=== PATIENT | male | born 1940 | race Caucasian/White ===

== ENCOUNTER → 2016-07-09 | Outpatient (CLI) | payer BC ==
[~2016-07-09] MED LIST: ADVIN50050 INH; APIX1TAB3 PO; ASPEC81 PO; ASPI325T45 PO; ATOR-24 PO; CALC-393 PO; CRD30 PO; FINA5TAB4 PO; LISI5TAB PO; LPR25 PO; MULT-845 PO; NAPR-1169 PO; NTRO1 EXT; NTRSLP4 SL; OMEG12006 PO; PARO20TA PO; POLY335019 PO; VERA1TAB60 PO; ZNTT/150 PO
[2016-07-09 12:42] LABS: ESTIMATED AVERAGE GLUCOSE 126 mg/dl; HA1C FLAG Normal (Normal)
[2016-07-09 14:47] LABS: ALT/SGPT 30 U/L (12-78); AST/SGOT 16 U/L (15-37); BLOOD UREA NITROGEN 29 mg/dl (7-18); BUN/CREATININE RATIO 22.4 (10-20); CALCIUM 9.4 mg/dl (8.5-10.1); CARBON DIOXIDE 26 mmol/L (21-32); CHLORIDE 104 mmol/L (98-107); GLUCOSE 108 mg/dl (70-99); POTASSIUM 4.4 mmol/L (3.5-5.1); SODIUM 139 mmol/L (136-145)
[2016-07-09 14:50] LABS: ALB/GLOB RATIO 1.1 (0.9-2); ALKALINE PHOSPHATASE 91 U/L (45-117); CHOLESTEROL 151 mg/dl (0-200); CHOLESTEROL/HDL RATIO 3.8; HDL CHOLESTEROL 40 mg/dl; LDL CHOLESTEROL CALCULATED 77 mg/dl; TRIGLYCERIDES 168 mg/dl (0-150); VERY LOW DENSITY LIPOPROT CALC 34 mg/dl
== END | disposition home or self-care (01) ==
LOC: C.LABPVFM 10:50
PROVIDERS: ATTEND Family Medicine
DX: E11.65 Type 2 diabetes mellitus with hyperglycemia (principal); E78.5 Hyperlipidemia, unspecified; I10 Essential (primary) hypertension

== ENCOUNTER 2016-07-20 07:27 | Inpatient (IN) | payer BC, OTHER ==
[~2016-07-20] VITALS: Ht 177.8 cm; Wt 91.8 kg
[~2016-07-20 07:27] MED LIST changes: -ASPEC81 PO; -LPR25 PO; -NTRO1 EXT; -NTRSLP4 SL; -ZNTT/150 PO
[2016-07-20] MEDS ORDERED: DILTIAZEM HCL 5 MG/ML 5 ML VIAL IV STA ×2 (07:55→08:39)
[2016-07-20 08:03] LABS: BASO % 0.1 %; BASO ABS # 0.01 K/uL (0-0.2); COMPLETE YES; HEMATOCRIT 42.5 % (42-52); IG% 0.1 %; LYMPH % 12.5 %; LYMPH ABS # 1.48 K/uL (1.2-3.4); MEAN CELL VOLUME 91.4 fL (80-100); MEAN CORPUSCULAR HEMOGLOBIN 31.4 pg (25-34); MEAN CORPUSCULAR HGB CONC 34.4 g/dl (32-36); MEAN PLATELET VOLUME 11.8 fL (7.4-10.4); MONO % 5.1 %; NEUT % 82.2 %; PLATELET COUNT 258 K/uL (130-400); RED BLOOD COUNT 4.65 M/uL (4.7-6.1)
--- NOTE | 2016-07-20 08:08 | EMERGENCY ROOM VISIT NOTE ---
History Report prepared by Rajat: Alana Ulrich Under the Supervision of: Dr. Mono Zimmerman M.D. First contact with patient: 07:46 Chief Complaint: THROAT PAIN/INJURY Stated Complaint: BURNING IN THROAT,SWEATING History of Present Illness The patient is a 75 year old male who presents to the Emergency Room with complaints of a persistent rapid heart rate that began around 0600 this morning. He currently rates his discomfort as a 4/10 in severity. The patient states that he was previously in atrial fibrillation once in the past. He states that he takes Eliquis twice a day for his symptoms, and states that he was taken off of Diltiazem. The patient additionally notes that he has been on Verapamil for several years. He states that when he previously went into atrial fibrillation, he experienced throat burning and states that it came on with strenuous activity. The patient states that yesterday morning he shoveled snow but felt fine after. He states that this morning he went to shovel snow and noticed the heart rate increase and become irregular. The patient states that his throat began burning and additionally notes that he felt diaphoretic. He denies any chest pain with his symptoms today. The patient states that he has intermittently felt lightheaded. Source of History: patient Onset: 0600 this morning Position: other (global) Symptom Intensity: 4/10 Quality: other (rapid heart rate) Timing: other (persistent) Modifying Factors (Worsening): exertion Associated Symptoms: + diaphoresis, No chest pain Note: Associated symptoms: lightheadedness, throat burning Review of Systems All systems have been listed, reviewed, and are negative other than those previously mentioned. Please see Additional Medical History Sheet. Past Medical & Surgical Medical Problems: (1) Asthma (2) Atrial fibrillation with RVR (3) Hypertension Family History Diabetes mellitus Hypertension Social History Smoking Status: Former Smoker Smokeless Tobacco Use: No Alcohol Use: none Marital Status: Housing Status: lives with family Occupation Status: employed Current/Historical Medications Scheduled Apixaban (Eliquis), 5 MG PO BID Atorvastatin (Lipitor), 60 MG PO QPM Calcium Carbonate (Calcium), 1 TAB PO BID Finasteride (Proscar), 5 MG PO QPM Fluticasone Prop/Salmeterol (Advair Diskus 500-50 Mcg/Dose), 1 PUFF INH QAM Lisinopril (Prinivil), 5 MG PO QAM Multiple Vitamins W/ Minerals (Centrum Silver Adult 50+), 1 TAB PO QAM [place]-3 Fatty Acids ([place] 3), 1 CAP PO BID Paroxetine Hcl (Paxil), 20 MG PO QPM Polyethylene Glycol 3350 (Miralax), 17 GM PO Q2D Verapamil Hcl (Calan Sr Ext Rel), 240 MG PO QPM Allergies Coded Allergies: Beta Adrenergic Blockers (Unverified Adverse Reaction, Unknown, HEADACHES , 07/20/16) Physical Exam Vital Signs Date Time Temp Pulse Resp B/P Pulse Ox O2 Delivery O2 Flow Rate FiO2 07/20/16 09:30 88 16 126/82 95 Room Air 07/20/16 09:15 95 Room Air 07/20/16 08:05 109 18 137/90 95 Room Air 07/20/16 07:44 118 07/20/16 07:33 96 Room Air 07/20/16 07:33 36.5 127 18 112/80 96 Room Air Physical Exam GENERAL: Patient awake, alert, oriented x 3. Patient follows commands. Patient does not appear toxic. Patient is adequately hydrated and well- nourished. SKIN: No erythema, pallor, cyanosis or rash HEENT: Normal head, pupils equal, reactive to light and accommodation. Ears normal. Oral cavity and posterior pharynx appear normal. Neck: Without adenopathy, no neck vein distention. LUNGS: Clear to auscultation. No wheezes, no rales, no rhonchi. HEART: Rapid, irregular, irregular rate, no murmur. ABDOMEN: Soft, nontender. EXTREMITIES: No signs of trauma, edema, or infection. NEUROLOGIC: Cranial nerves II-XII within normal limits. No gross motor sensory function deficits. Medical Decision & Procedures Laboratory Results 07/20/16 07:45 Red Blood Count 4.65, Mean Corpuscular Volume 91.4, Mean Corpuscular Hemoglobin 31.4, Mean Corpuscular Hemoglobin Concent 34.4, Mean Platelet Volume 11.8, Neutrophils (%) (Auto) 82.2, Lymphocytes (%) (Auto) 12.5, Monocytes (%) (Auto) 5.1, Eosinophils (%) (Auto) 0.0, Basophils (%) (Auto) 0.1, Neutrophils # (Auto) 9.70, Lymphocytes # (Auto) 1.48, Monocytes # (Auto) 0.60, Eosinophils # (Auto) 0.00, Basophils # (Auto) 0.01 07/20/16 07:45 Test 07/20/16 07:45 White Blood Count 11.80 K/uL (4.8-10.8) Red Blood Count 4.65 M/uL (4.7-6.1) Hemoglobin 14.6 g/dL (14.0-18.0) Hematocrit 42.5 % (42-52) Mean Corpuscular Volume 91.4 fL (80-100) Mean Corpuscular Hemoglobin 31.4 pg (25-34) Mean Corpuscular Hemoglobin Concent 34.4 g/dl (32-36) Platelet Count 258 K/uL (130-400) Mean Platelet Volume 11.8 fL (7.4-10.4) Neutrophils (%) (Auto) 82.2 % Lymphocytes (%) (Auto) 12.5 % Monocytes (%) (Auto) 5.1 % Eosinophils (%) (Auto) 0.0 % Basophils (%) (Auto) 0.1 % Neutrophils # (Auto) 9.70 K/uL (1.4-6.5) Lymphocytes # (Auto) 1.48 K/uL (1.2-3.4) Monocytes # (Auto) 0.60 K/uL (0.11-0.59) Eosinophils # (Auto) 0.00 K/uL (0-0.5) Basophils # (Auto) 0.01 K/uL (0-0.2) RDW Standard Deviation 47.9 fL (36.4-46.3) RDW Coefficient of Variation 14.3 % (11.5-14.5) Immature Granulocyte % (Auto) 0.1 % Immature Granulocyte # (Auto) 0.01 K/uL (0.00-0.02) Anion Gap 12.0 mmol/L (3-11) Est Creatinine Clear Calc Drug Dose 54.2 ml/min Estimated GFR () 57.4 Estimated GFR (Non- 49.5 BUN/Creatinine Ratio 21.4 (10-20) Calcium Level 9.5 mg/dl (8.5-10.1) Magnesium Level 2.2 mg/dl (1.8-2.4) Total Bilirubin 0.6 mg/dl (0.2-1) Aspartate Amino Transf (AST/SGOT) 34 U/L (15-37) Alanine Aminotransferase (ALT/SGPT) 45 U/L (12-78) Alkaline Phosphatase 91 U/L (45-117) Total Protein 8.0 gm/dl (6.4-8.2) Albumin 3.8 gm/dl (3.4-5.0) Globulin 4.2 gm/dl (2.5-4.0) Albumin/Globulin Ratio 0.9 (0.9-2) Laboratory results as stated above per my review. Medications Administered Medications (Trade) Dose Ordered Sig/Geovanna Route Start Time Stop Time Status Last Admin Dose Admin Diltiazem HCl (Cardizem Inj) 20 mg NOW STAT IV 07/20/16 07:55 07/20/16 07:56 DC 07/20/16 08:05 20 MG Diltiazem HCl (Cardizem Inj) 25 mg NOW STAT IV 07/20/16 08:39 07/20/16 08:41 DC 07/20/16 08:46 25 MG ECG Indication: tachycardia, other (atrial fibrillation) Rate (beats per minute): 121 Rhythm: atrial fibrillation (rapid ventricular response) Findings: nonspecific-ST abn, other (normal axis) ED Course 0747: Past medical records reviewed. The patient was evaluated in room B6. A complete history and physical examination was performed. 0755: Ordered Cardizem Inj 20 mg IV. 0839: I reevaluated the patient and he is resting comfortably. I discussed the exam findings with him and I discussed the treatment plan. He verbalized complete understanding and agreement. He is going to be evaluated for further treatment. Ordered Cardizem Inj 25 mg IV. 0850: I discussed the patients case with Dr. [place]nel[place] [facility] [place] He is going to evaluate the patient for further treatment. 0951: I reevaluated the patient and he feels about the same. He is still in atrial fibrillation. Medical Decision Nurses notes reviewed. Medical history sheet reviewed. Differential diagnosis includes but is not limited to: atrial fibrillation with rapid ventricular response, metabolic disorder, infection. The patient is here with atrial fibrillation with a rapid ventricular response. His troponin is elevated. The patient was given 2 IV doses of diltiazem without conversion. The patient is already on Eliquis. Multiple other labs, EKG and imaging were evaluated. Please see above. I discussed care with the patient and with the hospitalist. The patient will require further evaluation. Consults Time Called: [phone] Consulting Physician: BAYRON Granados Returned Call: 0850 I discussed the patients case with BAYRON Granados. He is going to evaluate the patient for further treatment. Impression Primary Impression: Atrial fibrillation with RVR Additional Impression: Elevated troponin Critical Care I have personally spent greater than 35 minutes of critical care time in the direct management of this patient. This includes bedside care, interpretation of diagnostic studies, and testing, discussion with consultants, patient, and family members, and other required patient management activities. This 35 minutes is in excess of all separately billable procedures. Scribe Attestation The scribe's documentation has been prepared under my direction and personally reviewed by me in its entirety. I confirm that the note above accurately reflects all work, treatment, procedures, and medical decision making performed by me. Departure Information Dispostion Being Evaluated By Hospitalist Referrals Aakash Phelps M.D. (PCP) Problem Qualifiers
[2016-07-20 08:19] LABS: BUN/CREATININE RATIO 21.4 (10-20); CALCIUM 9.5 mg/dl (8.5-10.1); CREATININE 1.4 mg/dl (0.60-1.40); POTASSIUM 4.3 mmol/L (3.5-5.1)
[2016-07-20 08:29] LABS: ALB/GLOB RATIO 0.9 (0.9-2)
[2016-07-20 09:15] VITALS: O2SAT 95; Ht 177.8 cm; Wt 91.8 kg
[2016-07-20] MEDS ORDERED: ACETAMINOPHEN 325 MG TAB PO PRN (09:30)
[2016-07-20] MEDS ORDERED: ALUMINUM/MAGNESIUM/SIMETH (MAALOX MAX) 30 ML UDC PO PRN (09:30)
[2016-07-20] MEDS ORDERED: ONDANSETRON INJ 2 MG/ML 2 ML VIAL IV PRN (09:30)
[2016-07-20] MEDS ORDERED: POLYETHYLENE (MIRALAX) 17 GM PACK PO PRN (09:30)
[2016-07-20] MEDS ORDERED: MAGNESIUM HYDROXIDE SUSP 30 ML UDC PO PRN (09:30)
[2016-07-20] MEDS ORDERED: NITROGLYCERIN 0.4 MG SL PER TAB CHARGE SL PRN (09:30)
[2016-07-20] MEDS ORDERED: VERAPAMIL HCL 120 MG TABCR PO ONE (09:33)
--- NOTE | 2016-07-20 09:47 | History and Physical ---
History & Physical Date & Time of Service: Jul 20, 2016 at 09:36 Chief Complaint: Burning In Throat,Sweating Primary Care Physician: Aakash Phelps M.D. History of Present Illness Source: patient Mr Jordan Barrios is a 75 yo M with history of hypertension for 20 years and atrial fibrillation (on Eliquis and Verapamil) for 6 months who presents with atrial fibrillation with RVR since 6am this morning. He reports yesterday he shoveled snow without any difficulty. Today, he was shoveling snow again / using his snowblower and then all of a sudden felt his throat burn significantly , then noticed he was very sweaty and that his heart rate was going fast. He decided to drive up from [facility] to the ED to get evaluated. He reports he has had a history of horrible "throat burning" pain over the last year, which has caused his to lose his appetite and lose about 10 lbs. He reports his PCP recently put him on anti-reflux medications and it somewhat helped. He reports he cannot live with this pain. He reports he has never had an EGD but would be interested in one. 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[employer]) Multi-Drug Resistant Organisms History of MDRO: No Allergies Coded Allergies: Beta Adrenergic Blockers (Unverified Adverse Reaction, Unknown, HEADACHES , 07/20/16) Home Medications Scheduled Apixaban (Eliquis), 5 MG PO BID Atorvastatin (Lipitor), 60 MG PO QPM Calcium Carbonate (Calcium), 1 TAB PO BID Finasteride (Proscar), 5 MG PO QPM Fluticasone Prop/Salmeterol (Advair Diskus 500-50 Mcg/Dose), 1 PUFF INH QAM Lisinopril (Prinivil), 5 MG PO QAM Multiple Vitamins W/ Minerals (Centrum Silver Adult 50+), 1 TAB PO QAM [place]-3 Fatty Acids ([place] 3), 1 CAP PO BID Paroxetine Hcl (Paxil), 20 MG PO QPM Polyethylene Glycol 3350 (Miralax), 17 GM PO Q2D Verapamil Hcl (Calan Sr Ext Rel), 240 MG PO QPM Review of Systems Constitutional: + weakness, No chills, No fever, No sweats, No weight loss Eyes: No discharge, No redness, No worsening of vision ENT: No hearing loss, No nasal symptoms, No unusual epistaxis Respiratory: + dyspnea on exertion (with feeling this AM, now resolved), No cough, No dyspnea at rest, No shortness of breath, No sputum, No wheezing Cardiovascular: + palpitations, + problem reported, No claudication, No edema Abdomen: + constipation, No diarrhea, No nausea, No pain, No vomiting Musculoskeletal: No calf pain, No joint pain, No muscle pain, No swelling Genitourinary - Male: No dysuria, No hematuria Neurologic: No memory loss, No paralysis Psychiatric: No anxiety, No depression symptoms, No substance abuse Endocrine: No fatigue Integumentary: No rash Physical Exam Vital Signs Date Time Temp Pulse Resp B/P Pulse Ox O2 Delivery O2 Flow Rate FiO2 07/20/16 09:15 95 Room Air 07/20/16 08:05 109 18 137/90 95 Room Air 07/20/16 07:44 118 07/20/16 07:33 96 Room Air 07/20/16 07:33 36.5 127 18 112/80 96 Room Air General Appearance: WD/WN, no apparent distress Head: normocephalic, atraumatic Eyes: normal inspection, PERRL ENT: hearing grossly normal Neck: supple, no JVD Respiratory/Chest: lungs clear, normal breath sounds, no respiratory distress Cardiovascular: regular rate, rhythm, no murmur, normal peripheral pulses Abdomen/GI: normal bowel sounds, non tender, soft Back: no CVA tenderness, no muscle spasm, normal range of motion Extremities/Musculoskelatal: no calf tenderness, no pedal edema Neurologic/Psych: alert, normal mood/affect, oriented x 3 Skin: no rash Diagnostics Laboratory Results Results Past 24 Hours Test 07/20/16 07:45 Range/Units White Blood Count 11.80 4.8-10.8 K/uL Red Blood Count 4.65 4.7-6.1 M/uL Hemoglobin 14.6 14.0-18.0 g/dL Hematocrit 42.5 42-52 % Mean Corpuscular Volume 91.4 80-100 fL Mean Corpuscular Hemoglobin 31.4 25-34 pg Mean Corpuscular Hemoglobin Concent 34.4 32-36 g/dl Platelet Count 258 130-400 K/uL Mean Platelet Volume 11.8 7.4-10.4 fL Neutrophils (%) (Auto) 82.2 % Lymphocytes (%) (Auto) 12.5 % Monocytes (%) (Auto) 5.1 % Eosinophils (%) (Auto) 0.0 % Basophils (%) (Auto) 0.1 % Neutrophils # (Auto) 9.70 1.4-6.5 K/uL Lymphocytes # (Auto) 1.48 1.2-3.4 K/uL Monocytes # (Auto) 0.60 0.11-0.59 K/uL Eosinophils # (Auto) 0.00 0-0.5 K/uL Basophils # (Auto) 0.01 0-0.2 K/uL RDW Standard Deviation 47.9 36.4-46.3 fL RDW Coefficient of Variation 14.3 11.5-14.5 % Immature Granulocyte % (Auto) 0.1 % Immature Granulocyte # (Auto) 0.01 0.00-0.02 K/uL Sodium Level 137 136-145 mmol/L Potassium Level 4.3 3.5-5.1 mmol/L Chloride Level 103 98-107 mmol/L Carbon Dioxide Level 22 21-32 mmol/L Anion Gap 12.0 3-11 mmol/L Blood Urea Nitrogen 30 7-18 mg/dl Creatinine 1.40 0.60-1.40 mg/dl Est Creatinine Clear Calc Drug Dose 54.2 ml/min Estimated GFR () 57.4 Estimated GFR (Non- 49.5 BUN/Creatinine Ratio 21.4 10-20 Random Glucose 149 70-99 mg/dl Calcium Level 9.5 8.5-10.1 mg/dl Total Bilirubin 0.6 0.2-1 mg/dl Aspartate Amino Transf (AST/SGOT) 34 15-37 U/L Alanine Aminotransferase (ALT/SGPT) 45 12-78 U/L Alkaline Phosphatase 91 45-117 U/L Troponin I 0.270 0-0.045 ng/ml Total Protein 8.0 6.4-8.2 gm/dl Albumin 3.8 3.4-5.0 gm/dl Globulin 4.2 2.5-4.0 gm/dl Albumin/Globulin Ratio 0.9 0.9-2 EKG 121bpm Atrial fibrillation with rapid ventricular response ST depression, consider subendocardial injury Abnormal ECG When compared with ECG of 29-DEC-2015 08:21, Atrial fibrillation has replaced Sinus rhythm Vent. rate has increased BY [address] now depressed in Inferior leads ST now depressed in Anterolateral leads T wave inversion now evident in Inferior leads Impression Assessment and Plan 75 year old man with paroxysmal atrial fibrillation who presents with A fib with RVR, with slight troponin elevation (0.295) - likely multifactorial but could be due to ischemia, Verapamil not covering 24 hours, pneumonia. Elevated troponin w/chest discomfort - ?NSTEMI - ? sec to demand ischemia - Will trend cardiac enzymes. - ? need to switch verapamil to b damon - Cardiology consult - Echocardiogram - Tele monitoring A fib with RVR - Responded well to Diltiazem IV - Will restart home dose of Verapamil ER 240mg today - Continue Eliquis - ?Will discuss with cards if could switch Verapamil to a beta damon - though this is listed as an allergy causing headaches GERD - Will give Maalox now and Protonix BID - If had an actively bleeding ulcer, and since is on Eliquis, would likely have had a bleed or low Hb by now. (Hb 14). Will continue to monitor as no evidence of this at this time. Depression - Continue Paxil Hyperlipidemia - Continue atorvastatin (?60mg instead of 40mg) Code status: DNR (reports has an advanced directive stating this as well) Dispo: Tele VTE: On eliquis Advanced Directives Existing Living Will: Yes Existing Power of [place] Farmer: Yes VTE Prophylaxis VTE Risk Assessment Done? Y/N: Yes Risk Level: Moderate Given or contraindicated: Treatment not indicated Resident Tracking Resident Involvement: Resident Care Provided Care Provided: Adult Hospital Medicine Reviewed: Pt Seen/Exam by Me History 75 y/o M presented to ED with complain of burning in throat associated with sweating and having fast heart rate while shoveling snow. Constitutional: denies: fever Respiratory: negative: short of breath Cardiovascular: reports other (burning in throat) General Appearance: no apparent distress Respiratory: lungs clear, no respiratory distress Cardiovascular: irregularly irregular Gastrointestinal: normal bowel sounds, non tender, soft Neurologic/Psychiatric: alert, oriented x 3 Skin Characteristics: warm/dry Assessment/Plan I have reviewed the medical record and performed a history and physical examination of this patient today. I have discussed the case with Dr. Lofton. The above note reflects my findings, conclusions, and recommendations.
[2016-07-20] MEDS ORDERED: ALUMINUM/MAGNESIUM SUSP 30 ML UDC PO STA (10:06)
[2016-07-20 10:08] LABS: MAGNESIUM 2.2 mg/dl (1.8-2.4)
[2016-07-20] MEDS ORDERED: ALUMINUM/MAGNESIUM SUSP 30 ML UDC PO PRN (10:15)
[2016-07-20 10:31] VITALS: O2SAT 97
[2016-07-20] MEDS ORDERED: PANTOprazole INJ 40 MG in SYRINGE 0 ML IV STA (10:36)
[2016-07-20] MEDS ORDERED: VERAPAMIL HCL 240 MG TABCR PO STA (10:36)
[2016-07-20 11:15] VITALS: BP 159/78; PULSE 62; TEMP 36.8; O2SAT 98
[2016-07-20] MEDS: APIXABAN 2.5 MG TAB PO SCH ×2 (13:35→23:17)
[2016-07-20 13:52] LABS: CKMB/CK RATIO 9.6 (0-3.0)
[2016-07-20] MEDS ORDERED: NITROGLYCERIN OINT 2% 1GM PACKET EXT SCH (14:00)
--- NOTE | 2016-07-20 14:15 | DIAGNOSTIC IMAGING REPORT ---
CHEST 2 VIEWS ROUTINE CLINICAL HISTORY: Throat pain / A fib with RVR dyspnea COMPARISON STUDY: 12/28/2015 FINDINGS: The bones soft tissues and hemidiaphragms are normal. The cardiomediastinal silhouette is normal. The lungs are clear. The pulmonary vasculature is normal. IMPRESSION: Negative chest. Electronically signed by: Shukri Iverson M.D. 07/20/2016 2:13 PM Dictated Date/Time: 07/20/2016 2:13 PM
[2016-07-20] MEDS ORDERED: METOPROLOL TARTRATE 25 MG TAB PO ONE (14:52)
[2016-07-20] MEDS ORDERED: ASPIRIN 81 MG ECTAB PO ONE (14:56)
[2016-07-20] MEDS ORDERED: PERFLUTREN LIPID MICROSPHERE (DEFINITY) IV ONE (15:02)
[2016-07-20 15:26] VITALS: BP 154/76; PULSE 56; TEMP 36.5; O2SAT 95
--- NOTE | 2016-07-20 16:05 | ECHOCARDIOGRAM REPORT ---
*NOTICE TO RECEIVING [employer] This information is strictly Confidential and protected under [place] law. [place] law prohibits you from making any further disclosure of this information unless further disclosure is expressly permitted by the written consent of the person to whom it pertains or is authorized by law. A general authorization for the release of medical or other information is not sufficient for this purpose. Hospital accepts no responsibility if the information is made available to any other person, INCLUDING THE PATIENT. Interpretation Summary * Conclusions -- * Left ventricular systolic function is normal. * No regional wall motion abnormalities noted. * Ejection Fraction = 55-60%. * There is mild concentric left ventricular hypertrophy. * Grade I diastolic dysfunction, (abnormal relaxation pattern). * There is mild mitral regurgitation. Procedure Details * A complete two-dimensional transthoracic echocardiogram was performed (2D, M-mode, Doppler and color flow Doppler). * The study was technically difficult. * A contrast injection of Definity was performed to improve assessment of LV function. * Contrast was injected into an intravenous site in the right arm. * One vial of Definity ultrasound contrast was diluted in normal saline to a total volume of 10 ml. A total of '1.5' ml of solution was administered during imaging. * Lot # [id number] of Definity utilized for procedure. * Expiration date JUL 28. * The attending nurse who injected the contrast agent was RANJIT SOSA CPL, RN. Left Ventricle * The left ventricle is normal in size. * There is mild concentric left ventricular hypertrophy. * Ejection Fraction = 55-60%. * Left ventricular systolic function is normal. * No regional wall motion abnormalities noted. Right Ventricle * The right ventricle is grossly normal size. * The right ventricular systolic function is normal as assessed by tricuspid annular plane systolic excursion (TAPSE) (normal >1.5 cm). Atria * The left atrium is mildly dilated. * Right atrial size is normal. * There is no evidence of atrial septal defect, but resolution does not allow assessment for a patent foramen ovale. Mitral Valve * The mitral valve is grossly normal. * There is no mitral valve stenosis. * There is mild mitral regurgitation. Tricuspid Valve * The tricuspid valve is not well visualized, but is grossly normal. * There is no tricuspid stenosis. * There is trace tricuspid regurgitation. Aortic Valve * The aortic valve is not well visualized. * The aortic valve opens well. * Aortic valve sclerosis mild, without significant aortic valvular stenosis. Pulmonic Valve * The pulmonary valve is not well seen, but the Doppler examination is normal without significant regurgitation or stenosis. * Trace pulmonic valvular regurgitation. Great Vessels * The aortic root is normal size. * Mildly dilated ascending aorta. Pericardium/Pleural * There is no pericardial effusion. Left Ventricular Diastolic Function * Grade I diastolic dysfunction, (abnormal relaxation pattern). MMode 2D Measurements and Calculations IVSd 1.5 cm IVSs 1.8 cm LVIDd 4.5 cm LVIDs 3.4 cm LVPWd 1.3 cm LVPWs 1.5 cm IVS/LVPW 1.2 FS 25.4 % EDV(Teich) 93.8 ml ESV(Teich) 46.7 ml EF(Teich) 50.2 % EDV(cubed) 92.8 ml ESV(cubed) 38.6 ml EF(cubed) 58.5 % % IVS thick 20.0 % % LVPW thick 16.2 % LV mass(C)d 242.2 grams LV mass(C)dI 114.3 grams/m\S\2 LV mass(C)s 209.1 grams LV mass(C)sI 98.7 grams/m\S\2 SV(Teich) 47.1 ml SI(Teich) 22.2 ml/m\S\2 SV(cubed) 54.3 ml SI(cubed) 25.6 ml/m\S\2 Ao root diam 3.6 cm Ao root area 10.0 cm\S\2 ACS 2.1 cm LA dimension 4.1 cm LA/Ao 1.2 LVOT diam 2.0 cm LVOT area 3.2 cm\S\2 LVAd ap4 33.8 cm\S\2 LVLd ap4 7.9 cm EDV(MOD-sp4) 118.4 ml EDV(sp4-el) 122.6 ml LVAs ap4 20.8 cm\S\2 LVLs ap4 6.7 cm ESV(MOD-sp4) 58.3 ml ESV(sp4-el) 55.1 ml EF(MOD-sp4) 50.8 % EF(sp4-el) 55.0 % LVAd ap2 34.0 cm\S\2 LVLd ap2 7.7 cm EDV(MOD-sp2) 124.9 ml EDV(sp2-el) 127.8 ml LVAs ap2 20.4 cm\S\2 LVLs ap2 6.5 cm ESV(MOD-sp2) 58.3 ml ESV(sp2-el) 54.4 ml EF(MOD-sp2) 53.4 % EF(sp2-el) 57.4 % LVLd %diff -2.84 % EDV(MOD-bp) 123.6 ml LVLs %diff -2.37 % ESV(MOD-bp) 59.0 ml EF(MOD-bp) 52.3 % SV(MOD-sp4) 60.1 ml SI(MOD-sp4) 28.4 ml/m\S\2 SV(MOD-sp2) 66.7 ml SI(MOD-sp2) 31.5 ml/m\S\2 SV(MOD-bp) 64.6 ml SI(MOD-bp) 30.5 ml/m\S\2 SV(sp4-el) 67.5 ml SI(sp4-el) 31.9 ml/m\S\2 SV(sp2-el) 73.4 ml SI(sp2-el) 34.6 ml/m\S\2 Doppler Measurements and Calculations MV E max audrey 78.2 cm/sec MV A max audrey 127.3 cm/sec MV E/A 0.61 MV P1/2t max audrey 96.5 cm/sec MV P1/2t 105.8 msec MVA(P1/2t) 2.1 cm\S\2 MV dec slope 267.1 cm/sec\S\2 MV dec time 0.34 sec Ao V2 max 154.3 cm/sec Ao max PG 9.5 mmHg Ao max PG (full) 7.1 mmHg SHERRY(V,A) 1.6 cm\S\2 SHERRY(V,D) 1.6 cm\S\2 LV V1 max PG 2.5 mmHg LV V1 max 78.4 cm/sec MR max audrey 557.6 cm/sec MR max PG 126.3 mmHg PA V2 max 117.7 cm/sec PA max PG 5.5 mmHg PI max audrey 157.7 cm/sec PI max PG 10.0 mmHg PI dec slope 78.2 cm/sec\S\2 PI P1/2t 590.5 msec TR max audrey 292.8 cm/sec
--- NOTE | 2016-07-20 17:02 | CARDIOLOGY CONSULTATION REPORT ---
DATE OF CONSULTATION: 07/20/2016 REASON FOR CONSULTATION: 1. Paroxysmal atrial fibrillation with RVR. 2. Elevated troponin I level. 3. Diaphoresis, burning throat / jaw discomfort, pain in left arm, likely an anginal equivalent. HISTORY OF PRESENT ILLNESS: Mr. Barrios is a 75-year-old white male with a history of longstanding asthma, hypertension, hyperlipidemia, type 2 diabetes mellitus and history of Paroxysmal Atrial Fibrillation which was initially diagnosed in December 2015. He was hospitalized in December 2015 following the episode of tachypalpitations, burning sensation in throat and elevated heart rate. This was newly diagnosed AFib with RVR. His cardiac enzymes remained negative during that hospitalization. We subsequently saw him as an outpatient and he underwent a negative stress echocardiogram on 01/27/2016. He exercised for 8 minutes and 42 seconds on a standard Americo protocol, attaining 80% MPHR. No symptoms, no EKG changes and post exercise echocardiogram showed hyperdynamic LV systolic function, although the study was technically limited - difficulty seeing the apex. The patient has done well until now. He states that last evening he began to develop frequent episodes of diaphoresis with profuse sweating and earlier today, he had diaphoresis, associated throat and jaw burning, and it radiated to his left arm. This constellation of symptoms lasted for approximately 30 minutes and then resolved. He came back into the Emergency Room, was noted to be in rapid atrial fibrillation with a ventricular response rate in the 130s-150 beats per minute range. His EKG showed subtle ST depression in the lateral leads. His initial troponin I was elevated at 0.270 ng/mL and has trended up to 2.450 ng/mL. The patient subsequently converted back to a normal sinus rhythm and has been asymptomatic since. Please note that the patient has experienced exertional neck and jaw burning/pain off and on when he exerts himself, especially in the cold weather. He likely has some underlying CAD and he has multiple cardiac risk factors. The patient offered no complaints at the present time. He specifically denies any chest, jaw, neck or arm pain, heaviness, tightness, pressure or burning discomfort. He denies any shortness of breath, dyspnea on exertion, orthopnea, or PND. No palpitations, tachypalpitations, syncope, or near syncope. No signs or symptoms of stroke or mini stroke. MEDICATIONS: 1. Advair 500/50 1 puff each morning. 2. Lisinopril 5 mg daily. 3. Calan SR 240 mg daily. 4. Lipitor 60 mg at bedtime. 5. Paxil 20 mg each evening. 6. Protonix 40 mg IV daily. 7. Nitroglycerin ointment 2% 1 inch, apply to anterior chest wall q. 6 hours p.r.n. 8. Eliquis 5 mg b.i.d. 9. Maalox as needed. 10. Tylenol as needed. 11. Milk of magnesia p.r.n. 12. Zofran 4 mg IV q. 6 hours p.r.n. for nausea or vomiting. 13. Sublingual nitroglycerin p.r.n. 14. MiraLax powder 17 g daily as needed. ALLERGIES: 1. NKDA. 2. QUESTIONABLE HEADACHES WITH PRIOR BETA BLOCKERS. PAST MEDICAL HISTORY: 1. Asthma. 2. Type 2 diabetes mellitus. 3. Hypertension. 4. Dyslipidemia. 5. Paroxysmal atrial fibrillation, this was his second episode. 6. Negative stress echocardiogram in January 2016. 7. Normal LV size and systolic function and LVEF 55%. 8. No significant valvular abnormalities. 9. History of abscess of neck remotely. 10. History of tinea corporis. 11. History of depression. 12. Constipation. 13. BPH. 14. History of lipoma removal. SOCIAL HISTORY: The patient is , lives with his family. 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 He is a former smoker, quit smoking at the age of 25. Does not use smokeless tobacco. FAMILY HISTORY: Unremarkable. PHYSICAL EXAMINATION: VITAL SIGNS: Temperature is 36.8 degrees Celsius, pulse is 62 and regular, respiratory rate is 16 and unlabored, blood pressure is 159/78 and SpO2 is 98% on room air. GENERAL: The patient is in no acute distress. HEENT: Head is atraumatic and normocephalic. EOMs intact. Sclerae are anicteric. Face is symmetric. No perioral cyanosis. Mucous membranes moist. NECK: Without thyromegaly, adenopathy or JVD. Jugular venous pressure is at the level of the clavicle. Carotid upstrokes are +2 bilaterally without bruits. CHEST AND LUNGS: Clear to auscultation throughout all lung llamas. No wheezes, rales or rhonchi. CARDIOVASCULAR: S1 and S2 are regular without murmur, gallop or rub. PMI is nondisplaced. No lifts, heaves, or thrills. No abdominal aortic or renal bruits. ABDOMINAL EXAM: Bowel sounds present. No masses, organomegaly or tenderness. EXTREMITIES: Without clubbing, cyanosis or edema. NEUROLOGIC: The patient is awake, alert and oriented. Pleasant and cooperative. Answers questions appropriately. Speech is clear. Normal movement in all 4 extremities. Echocardiogram is pending. LABORATORY DATA: White blood cell count is 11.80, hemoglobin 14.6 g/dL, hematocrit 42.5%, platelet count is 258,000. Sodium is 137 mmol/L, potassium 4.3 mmol/L, BUN 30 mg/dL and creatinine 1.40 mg/dL. Random glucose 149 mg/dL. Serum magnesium is 2.2 mg/dL. LFTs are unremarkable. Total CK is 188 units per liter with respective CK-MB of 18.1 ng/mL. Troponin I level is 2.450 and 0.270 ng/mL. ASSESSMENT: 1. Paroxysmal atrial fibrillation with rapid ventricular response - the patient has spontaneously converted back to a normal sinus rhythm. 2. Probable [id number] elevation myocardial infarction, secondary to rapid atrial fibrillation in the presence of previously undiagnosed coronary artery disease. 3. Probable exertional angina pectoris which manifested as exertional neck and jaw burning. 4. Hypertension. 5. Dyslipidemia. 6. Type 2 diabetes mellitus. 7. Currently asymptomatic. 8. No signs or symptoms of stroke or mini stroke. 9. No signs or symptoms of heart failure. PLAN: 1. I discussed with Dr. Ureña who also met with the patient. 2. The patient likely has previously undiagnosed underlying CAD and he certainly has multiple cardiac risk factors. Suspect that his AFib with RVR precipitated myocardial ischemia. He had symptoms consistent with angina pectoris for about 30 minutes earlier today, which was likely when this occurred. Additionally, the patient has had some exertional symptoms noted in the cold weather recently which are again likely his angina pectoris. Despite having a negative stress echocardiogram in January 2016, we could not get his heart rate as high as it goes when he is in atrial fibrillation. Probably did not induce any ischemia during his treadmill stress test due to lack of heart rate. 3. Recommend adding Lopressor 50 mg b.i.d. Closely monitor respiratory status after starting this medication. 4. Continue Calan SR 240 mg daily. 5. Continue Eliquis 5 mg p.o. b.i.d. 6. Begin Aspirin 81 mg a day. 7. Discontinue topical nitrates as he is completely asymptomatic and back in a normal sinus rhythm. 8. Continue to trend cardiac enzymes through the next 24 hours. 9. If the patient remains clinically stable, has no further angina pectoris, and no further AFib over the weekend, he can likely be discharged to home tomorrow. 10. This is an indication for further ischemic workup which can be done as an outpatient. Recommend cardiac catheterization to further evaluate coronary anatomy. 11. Echocardiogram is pending which may alter our current plan -- if any regional wall motion abnormalities. 12. We will continue to follow along while hospitalized. NICOLÁS
[2016-07-20 19:25] LABS: CKMB/CK RATIO 10.1 (0-3.0)
[2016-07-20 19:56] VITALS: BP 144/73; PULSE 56; TEMP 37; O2SAT 97
[2016-07-20] MEDS ORDERED: PAROXETINE 20 MG TAB PO SCH (21:00)
[2016-07-20] MEDS ORDERED: VERAPAMIL HCL 120 MG TABCR PO SCH (21:00)
[2016-07-20] MEDS ORDERED: ATORVASTATIN 20 MG TAB PO SCH (21:00)
[2016-07-20] MEDS: PANTOprazole INJ 40 MG in SYRINGE 0 ML IV SCH (22:43)
[2016-07-20] MEDS: METOPROLOL TARTRATE 25 MG TAB PO SCH (22:44)
[2016-07-20 23:46] VITALS: BP 162/77; PULSE 51; TEMP 36.8; O2SAT 94
[2016-07-21 01:26] LABS: CKMB/CK RATIO 8.2 (0-3.0)
[2016-07-21 04:42] VITALS: BP 151/67; PULSE 46; TEMP 37; O2SAT 94
[2016-07-21 06:19] LABS: BASO % 0.2 %; BASO ABS # 0.02 K/uL (0-0.2); COMPLETE YES; EOS % 0.2 %; HEMATOCRIT 38.7 % (42-52); IG% 0.2 %; LYMPH % 21.5 %; LYMPH ABS # 2.67 K/uL (1.2-3.4); MEAN CELL VOLUME 90.8 fL (80-100); MEAN CORPUSCULAR HEMOGLOBIN 30.5 pg (25-34); MEAN CORPUSCULAR HGB CONC 33.6 g/dl (32-36); MEAN PLATELET VOLUME 11.7 fL (7.4-10.4); MONO % 6.5 %; NEUT % 71.4 %; PLATELET COUNT 232 K/uL (130-400); RED BLOOD COUNT 4.26 M/uL (4.7-6.1); WHITE BLOOD COUNT 12.42 K/uL (4.8-10.8)
[2016-07-21 06:24] LABS: INR 1.2 (0.9-1.1); PROTHROMBIN TIME (PATIENT) 12.4 SECONDS (9.0-12.0)
[2016-07-21 07:02] LABS: CALCIUM 9.1 mg/dl (8.5-10.1); POTASSIUM 4.3 mmol/L (3.5-5.1)
[2016-07-21 07:09] LABS: CREATININE 1.3 mg/dl (0.60-1.40)
[2016-07-21 07:17] LABS: BUN/CREATININE RATIO 21.8 (10-20); MAGNESIUM 2.5 mg/dl (1.8-2.4); PHOSPHORUS 3.5 mg/dl (2.5-4.9)
[2016-07-21 07:24] VITALS: BP 151/77; PULSE 43; TEMP 36.6; O2SAT 96
[2016-07-21] MEDS: PANTOprazole INJ 40 MG in SYRINGE 0 ML IV SCH (08:02)
[2016-07-21] MEDS: APIXABAN 2.5 MG TAB PO SCH (08:02)
[2016-07-21] MEDS: METOPROLOL TARTRATE 25 MG TAB PO SCH (08:02)
[2016-07-21] MEDS ORDERED: LISINOPRIL 5 MG TAB PO SCH (09:00)
[2016-07-21] MEDS ORDERED: ASPIRIN 81 MG ECTAB PO SCH (09:00)
[2016-07-21] MEDS ORDERED: FLUTICASONE/SALMETEROL (ADVAIR) 500/50 INH 14 PUFF INH SCH (09:00)
[2016-07-21] MEDS ORDERED: VERAPAMIL HCL 240 MG TABCR PO SCH (09:00)
[2016-07-21] MEDS ORDERED: ASPEC81 PO (11:17)
[2016-07-21] MEDS ORDERED: LPR25 PO (11:17)
[2016-07-21] MEDS ORDERED: ZNTT/150 PO (11:19)
--- NOTE | 2016-07-21 11:24 | Discharge Instructions ---
Discharge Instructions Admission Reason for Admission: Atrial Fibrillation With Rvr, Elevated Troponin Discharge Discharge Diagnosis / Problem: Atrial Fibrillation with RVR, Probable NSTEMI Discharge Goals Goal(s): Improve disease control Activity Recommendations Activity Limitations: as noted below Lifting Limitations: no more than 5 pounds (until seen by cardiology) Exercise/Sports Limitations: until after follow-up appointment . Instructions / Follow-Up Instructions / Follow-Up Home Care: * Take your medications exactly as directed. Don't skip doses. * Remember that recovery after a heart attack takes time. Plan to rest for at lease 4-8 weeks while you recover. Then return to normal activity when your doctor says it's okay. * Ask your doctor about joining a heart rehabilitation program. * Tell your doctor if you are feeling depressed. Feelings of sadness are common after a heart attack, but it is important that you speak to someone if you are feeling overwhelmed by these feelings. * If you are having chest pain, call 911 for an ambulance. Do NOT drive yourself to the hospital. * Ask your family members to learn CPR. * Learn to take your own blood pressure and pulse. Keep a record of your results. Ask your doctor when you should seek emergency medical attention. He or she will tell you which blood pressure reading is dangerous. Lifestyle Changes: * Maintain a healthy weight. Get help to lose any extra pounds. * Cut back on salt. * Limit canned, dried, packaged, and fast foods. * Don't add salt to your food. * Season foods with herbs instead of salt when you cook. * Break the smoking habit. Enroll in a stop-smoking program to improve your chances of success. * Limit fatty foods. * Check your lipid levels regularly. (Your doctor can show you how to do this.) * Build up your activity according to your doctor's recommendation. * Ask your doctor when it's okay to resume sexual activity. * Tell your doctor about any erectile dysfunction (ED) medication you are taking. Some ED medications are not safe if you take certain heart medications. * Try to manage stress. Follow Up: With Dr Ureña in 1 week. Current Hospital Diet Patient's current hospital diet: AHA Diet (Heart Healthy) Discharge Diet Recommended Diet: AHA Diet (Heart Healthy), Diabetes Type 2 Diet Pending Studies Studies pending at discharge: no Laboratory Results Hemoglobin A1c Test 07/09/16 10:57 Range/Units Estimated Average Glucose 126 mg/dl Hemoglobin A1c 6.0 H 4.5-5.6 % Lipid Panel Test 07/09/16 10:57 Range/Units Triglycerides Level 168 H 0-150 mg/dl Cholesterol Level 151 0-200 mg/dl HDL Cholesterol 40 mg/dl Cholesterol/HDL Ratio 3.8 LDL Cholesterol, Calculated 77 mg/dl Medical Emergencies . Who to Call and When: Medical Emergencies: If at any time you feel your situation is an emergency, please call 911 immediately. Call 911 immediately or go to your nearest Emergency Room if you experience any of the following: Warning Signs and Symptoms of a Heart Attack * Chest pain that is not relieved by medication * Shortness of breath . Non-Emergent Contact Non-Emergency issues call your: Primary Care Provider . . "Provider Documentation" section prepared by Maggie Brennan. AMI Core Measures Reason no ASA as I/P: Treatment provided - N/A Reason no ASA at D/C: Treatment provided - N/A Reason no statin as I/P: Treatment provided - N/A Reason no statin at D/C: Treatment provided - N/A VTE Core Measure Inpt VTE Proph given/why not?: Other Anticoagulation (eliquis)
[2016-07-21 11:33] VITALS: BP 158/74; PULSE 49; TEMP 36.3; O2SAT 94
--- NOTE | 2016-07-21 13:12 | CARDIOLOGY PROGRESS NOTE ---
DATE: 07/21/2016 SUBJECTIVE: Mr. Barrios is resting comfortably in bed without complaints of chest pain or dyspnea. No further episodes of atrial fibrillation. His elevated troponin at the time of presentation discussed in detail. OBJECTIVE: VITAL SIGNS: Blood pressure is 150/77 with a regular pulse of 40s-50s. Respiratory rate is 18. The patient is afebrile at 36.6 degrees Celsius. Saturation is 96% on room air. NECK: Supple with full carotid upstrokes. There are no carotid bruits. Jugular venous pressure is flat at 90 degrees. There is no thyromegaly. CARDIOVASCULAR: Reveals a regular rhythm with normal S1 and S2. Heart sounds are distant. No obvious murmurs. LUNGS: Clear without rales, rhonchi or wheezes. ABDOMEN: Benign without bruits. EXTREMITIES: Reveal intact radial artery pulses bilaterally. There is no peripheral edema. DATA: CBC notes hemoglobin of 13.0, hematocrit 38.7, white count 12.4, platelet count 232,000. Electrolytes note a sodium of 140, potassium 4.3, chloride 103, bicarb 25, BUN 28, creatinine 1.3, glucose 111. Troponin I level peaked at 4.1 and was down to 3.37 earlier this morning. Total CKs have remained normal with a peak of 188. EKG this morning notes sinus bradycardia. nurse monitoring confirms the same. IMPRESSION AND PLAN: 1. Paroxysmal atrial fibrillation -- rapid ventricular response at the time of presentation. Fortunately, converted to sinus rhythm. He did have a troponin elevation. His history suggests exertional angina pectoris prior to his paroxysm of atrial fibrillation. He has tolerated beta-damon therapy without difficulty. We will discuss continued medical management versus a cardiac catheterization further as an outpatient. We will also discuss whether or not an antiarrhythmic such as amiodarone is indicated. Should he have a recurrent episode of atrial fibrillation with associated angina pectoris, would likely proceed with antiarrhythmic therapy. 2. Presumed coronary artery disease -- as above. 3. Hypertension -- controlled. 4. Hypercholesterolemia -- continue statin. 5. Diabetes mellitus.
--- NOTE | 2016-07-21 16:55 | Discharge Summary ---
Discharge Summary Admission Date: Jul 20, 2016 at 09:32 Discharge Date: Jul 21, 2016 Discharge Disposition: Home Principal Diagnosis: Paroxysmal Atrial fibrillation with RVR, NSTEMI Consultations: Cardiology - [facility] [place] Medication Reconciliation New Medications: Ranitidine (Zantac) 150 Mg Tab 1 TAB PO BID for 30 Days, #60 TAB 2 Refills Aspirin (Aspirin EC Low Dose) 81 Mg Ectab 81 MG PO QAM for 30 Days Metoprolol Tartrate (Lopressor) 25 Mg Tab 25 MG PO BID for 30 Days, #60 TAB Continued Medications: Apixaban (Eliquis) 5 Mg Tab 5 MG PO BID for 30 Days, 0 Refills Atorvastatin (Lipitor) 40 Mg Tab 60 MG PO QPM, TAB Calcium Carbonate (Calcium) 600 Mg Tab 1 TAB PO BID Finasteride (Proscar) 5 Mg Tab 5 MG PO QPM, TAB Fluticasone Prop/Salmeterol (Advair Diskus 500-50 Mcg/Dose) 14 Puff/1 Inhaler Aerp 1 PUFF INH QAM Lisinopril (Prinivil) 5 Mg Tab 5 MG PO QAM, TAB Multiple Vitamins W/ Minerals (Centrum Silver Adult 50+) 1 Tab Tab 1 TAB PO QAM [place]-3 Fatty Acids ([place] 3) 1 Cap Cap 1 CAP PO BID Paroxetine Hcl (Paxil) 20 Mg Tab 20 MG PO QPM, TAB Polyethylene Glycol 3350 (Miralax) 1 Pow Pow 17 GM PO Q2D, GM Verapamil Hcl (Calan Sr Ext Rel) 240 Mg Tabcr 240 MG PO QPM, TAB Discharge Exam Last 24 Hours Test 07/20/16 18:47 07/21/16 00:55 07/21/16 06:01 Total Creatine Kinase 180 U/L 144 U/L Creatine Kinase MB 18.2 ng/ml 11.8 ng/ml Creatine Kinase MB Ratio 10.1 8.2 Troponin I 4.100 ng/ml 3.730 ng/ml White Blood Count 12.42 K/uL Red Blood Count 4.26 M/uL Hemoglobin 13.0 g/dL Hematocrit 38.7 % Mean Corpuscular Volume 90.8 fL Mean Corpuscular Hemoglobin 30.5 pg Mean Corpuscular Hemoglobin Concent 33.6 g/dl Platelet Count 232 K/uL Mean Platelet Volume 11.7 fL Neutrophils (%) (Auto) 71.4 % Lymphocytes (%) (Auto) 21.5 % Monocytes (%) (Auto) 6.5 % Eosinophils (%) (Auto) 0.2 % Basophils (%) (Auto) 0.2 % Neutrophils # (Auto) 8.87 K/uL Lymphocytes # (Auto) 2.67 K/uL Monocytes # (Auto) 0.81 K/uL Eosinophils # (Auto) 0.03 K/uL Basophils # (Auto) 0.02 K/uL RDW Standard Deviation 49.0 fL RDW Coefficient of Variation 14.7 % Immature Granulocyte % (Auto) 0.2 % Immature Granulocyte # (Auto) 0.02 K/uL Prothrombin Time 12.4 SECONDS Prothromb Time International Ratio 1.2 Activated Partial Thromboplast Time 27.2 SECONDS Partial Thromboplastin Ratio 1.0 Sodium Level 140 mmol/L Potassium Level 4.3 mmol/L Chloride Level 103 mmol/L Carbon Dioxide Level 25 mmol/L Anion Gap 12.0 mmol/L Blood Urea Nitrogen 28 mg/dl Creatinine 1.30 mg/dl Est Creatinine Clear Calc Drug Dose 57.6 ml/min Estimated GFR () 62.7 Estimated GFR (Non- 54.1 BUN/Creatinine Ratio 21.8 Random Glucose 111 mg/dl Calcium Level 9.1 mg/dl Phosphorus Level 3.5 mg/dl Magnesium Level 2.5 mg/dl Total Bilirubin 0.5 mg/dl Direct Bilirubin 0.1 mg/dl Aspartate Amino Transf (AST/SGOT) 39 U/L Alanine Aminotransferase (ALT/SGPT) 45 U/L Alkaline Phosphatase 72 U/L Total Protein 6.8 gm/dl Albumin 3.5 gm/dl Review of Systems: Constitutional: No fever Respiratory: No shortness of breath Cardiovascular: No chest pain Abdomen: No nausea, No pain Physical Exam: General Appearance: no apparent distress Respiratory/Chest: lungs clear, no respiratory distress Cardiovascular: regular rate, rhythm Abdomen / GI: normal bowel sounds, non tender, soft Neurologic/Psychiatric: alert, oriented x 3 Skin: warm/dry Hospital Course 75 y/o M with h/o PAF presented to ED for sweating, burning in throat and fast heart rate and noted to have Afib with RVR Also noted to have elevated troponin Received IV cardizem in ED and Kept on PCU. Converted back to NSR Considering elevated to troponin to 4 and symptoms there was concern of Probable [id number] elevation myocardial infarction, secondary to rapid atrial fibrillation in the presence of previously undiagnosed coronary artery disease with symptoms of exertion neck pain and jaw burning being Probable exertional angina pectoris Cardiology consulted. Stated on lopressor and aspirin added. He tolerated them well. Echo done showed no wall motion abnormality Discharged home with plan to have outpatient LHC. If symptoms recurs - advised to come back to ED. His home meds - Calan and eliquis were continued Total Time Spent: Greater than 30 minutes (40) This includes examination of the patient, discharge planning, medication reconciliation, and communication with other providers. Discharge Instructions Please refer to the electronic Patient Visit Report (Discharge Instructions) for additional information. Additional Copies To Susanna Mackenzie M.D.
[2017-02-08] MEDS ORDERED: NTRSLP4 SL (17:28)
[2017-02-08] MEDS ORDERED: NTRO1 EXT (17:28)
== END 2016-07-21 12:50 | disposition home or self-care (01) | DRG 282 ==
LOC: ENRESERVTM → ENRESERVDT → C.EDB 07:29 → C.2T 09:32
PROVIDERS: ADMIT Family Medicine; ATTEND Family Medicine
DX: I48.0 Paroxysmal atrial fibrillation (principal); I21.4 Non-ST elevation (NSTEMI) myocardial infarction; J45.909 Unspecified asthma, uncomplicated; F32.9 Major depressive disorder, single episode, unspecified; N40.0 Benign prostatic hyperplasia without lower urinary tract symptoms; K21.9 Gastro-esophageal reflux disease without esophagitis; E78.00 Pure hypercholesterolemia, unspecified; I25.119 Atherosclerotic heart disease of native coronary artery with unspecified angina pectoris; I11.9 Hypertensive heart disease without heart failure; E11.9 Type 2 diabetes mellitus without complications; E78.5 Hyperlipidemia, unspecified; R79.89 Other specified abnormal findings of blood chemistry; K59.00 Constipation, unspecified; Z79.01 Long term (current) use of anticoagulants; Z66 Do not resuscitate; Z87.891 Personal history of nicotine dependence; Z79.51 Long term (current) use of inhaled steroids; Z79.899 Other long term (current) drug therapy

== ENCOUNTER → 2016-11-07 | Outpatient (CLI) | payer BC ==
[~2016-11-07] MED LIST changes: +ACET-1256 PO; +ADVIN50/60 INH; +AMIO0.1T PO; +AMIO200T4 PO; +ASPEC81 PO; -ASPI325T45 PO; +ASPI81TA28 PO; +BISA10SU7 RE; +CALC-343 PO; +CEFE2INJ IV; +CEFE2INJ2 IV.; -CRD30 PO; +DFL50 PO; +DOCU100C31 PO; +DXY100 PO; +Enteral Nutrition Formula PO; +FAMO20TA11 PO; +FLUC200T4 PO; +FLUT1INH7 INH; +LPR25 PO; +LSX20 PO; +MOML PO; -NAPR-1169 PO; +NTRO1 EXT; +NTRSLP4 SL; +ONDA4TAB46 PO; +OXYC1TAB3 PO; +PROP10TA7 PO; +RANI150T2 PO; +SENN8.6T36 PO; +SODIENE PR; +TAMS0.4C38 PO; +WARF1TAB6 PO; +XARELTO PO; +ZNTT/150 PO; +[UNRECOGNIZED DRUG - CODE] PO; +[UNRECOGNIZED DRUG - REMARK] INH
--- NOTE | 2016-11-08 13:20 | MYOCARDIAL PERFUSION SCAN ---
NUCLEAR MEDICINE TECHNETIUM-99M CARDIOLITE MYOCARDIAL PERFUSION SCAN HISTORY OF PRESENT ILLNESS: The patient presents with a chest pain syndrome. This stress test is being performed to rule out myocardial ischemia as an etiology. The patient has no known history of coronary artery disease. COMPARISON: None. TECHNIQUE: For the stress portion of the study, 33.4 mCi of Technetium-99m Cardiolite IV was injected at 11:25 a.m. on 11/07/2016. Fifteen minutes following the injection, imaging of the heart was performed in multiple projection. For the rest portion of the study, 11.1 mCi of Technetium-99m Cardiolite was injected IV at 9:40 a.m. One hour following the injection, imaging of the heart was performed in the same projections. EXERCISE TREADMILL TESTING: The patient exercised for 6 minutes and 1 second on a standard Americo protocol attaining 7 METS and a peak heart rate of 88 beats per minute (60% maximum predicted heart rate). The test was terminated due to dyspnea. The patient did not experience chest discomfort. Initial blood pressure is 120/75 and this increased to 150/80 at peak exertion. Baseline EKG shows normal sinus rhythm with nonspecific ST abnormality diffusely. This abnormality makes the exercise ECG nondiagnostic. There are no dysrhythmias. FINDINGS: The short axis, vertical long axis, horizontal long axis images were reviewed in detail. There is a small defect noted in the proximal and mid inferior wall at both stress and rest. This demonstrates normal systolic function and the rotating images suggest diaphragmatic attenuation rather than myocardial infarction. The left ventricle demonstrates normal systolic function with an ejection fraction of 50%. There are no wall motion abnormalities. IMPRESSIONS: 1. No scintigraphic evidence of a prior myocardial infarction or stress induced myocardial ischemia. 2. No exercise induced chest pain. 3. No EKG changes. 4. Normal left ventricular systolic function with an ejection fraction of 50%. There are no wall motion abnormalities.
--- NOTE | 2016-11-13 10:48 | CODING QUERY MEDICAL NECESSITY ---
SUPPORTING DIAGNOSIS NEEDED Dr. Garcia, A supporting diagnosis is required for the test/procedure performed on this patient in order for us to be reimbursed by the patient's insurance. Please provide a supporting diagnosis for the following test/procedure listed below next to the test name along with your signature. *If there is no additional diagnosis for this patient that would support the following test/procedure please document that below next to the test/procedure. Test(s)/Procedure(s) that require a supporting diagnosis: * ([id number]) MYOCARDIAL PERF IMG (TC) SD DIAGNOSIS: DATE OF SERVICE: 11/07/16 Provider Signature: Date: Thank you Sonu Antonio Health Information Management Once completed, please kindly fax back to [phone] For questions please call [phone]
== END | disposition home or self-care (01) ==
LOC: C.NUCL 08:51
PROVIDERS: ATTEND Internal Medicine Clinical Cardiac Electrophysiology
DX: R68.84 Jaw pain (principal); I20.9 Angina pectoris, unspecified

== ENCOUNTER → 2017-01-17 | Outpatient (CLI) | payer BC ==
[~2017-01-17] MED LIST changes: -ACET-1256 PO; -ADVIN50/60 INH; -AMIO0.1T PO; -AMIO200T4 PO; -ASPI81TA28 PO; -BISA10SU7 RE; -CALC-343 PO; -CEFE2INJ IV; -CEFE2INJ2 IV.; -DFL50 PO; -DOCU100C31 PO; -DXY100 PO; -Enteral Nutrition Formula PO; -FAMO20TA11 PO; -FLUC200T4 PO; -FLUT1INH7 INH; -LSX20 PO; -MOML PO; -ONDA4TAB46 PO; -OXYC1TAB3 PO; -PROP10TA7 PO; -RANI150T2 PO; -SENN8.6T36 PO; -SODIENE PR; -TAMS0.4C38 PO; -WARF1TAB6 PO; -XARELTO PO; -[UNRECOGNIZED DRUG - CODE] PO; -[UNRECOGNIZED DRUG - REMARK] INH
[2017-01-17 12:31] LABS: HEMATOCRIT 41.5 % (42-52); MEAN CORPUSCULAR HGB CONC 33.7 g/dl (32-36); MEAN PLATELET VOLUME 12.6 fL (7.4-10.4); PLATELET COUNT 202 K/uL (130-400); RED BLOOD COUNT 4.37 M/uL (4.7-6.1); WHITE BLOOD COUNT 8.99 K/uL (4.8-10.8)
[2017-01-17 12:57] LABS: ESTIMATED AVERAGE GLUCOSE 131 mg/dl; HA1C FLAG Normal (Normal)
[2017-01-17 13:15] LABS: BLOOD UREA NITROGEN 25 mg/dl (7-18); BUN/CREATININE RATIO 17.7 (10-20); CALCIUM 9.5 mg/dl (8.5-10.1); CARBON DIOXIDE 28 mmol/L (21-32); CHLORIDE 107 mmol/L (98-107); CHOLESTEROL 162 mg/dl (0-200); GLUCOSE 121 mg/dl (70-99); POTASSIUM 4.4 mmol/L (3.5-5.1); SODIUM 140 mmol/L (136-145)
[2017-01-17 13:19] LABS: CHOLESTEROL/HDL RATIO 5.1; HDL CHOLESTEROL 32 mg/dl; LDL CHOLESTEROL CALCULATED 98 mg/dl; TRIGLYCERIDES 161 mg/dl (0-150); VERY LOW DENSITY LIPOPROT CALC 32 mg/dl
--- NOTE | 2017-01-23 06:38 | CODING QUERY MEDICAL NECESSITY ---
CQSUPPORTING DIAGNOSIS NEEDED A supporting diagnosis is required for the test/procedure performed on this patient in order for us to be reimbursed by the patient's insurance. Please provide a supporting diagnosis for the following test/procedure listed below next to the test name along with your signature. *If there is no additional diagnosis for this patient that would support the following test/procedure please document that below next to the test/procedure. Test(s)/Procedure(s) that require a supporting diagnosis: DOS 01/17/17 VITAMIN B12 TEST Provider Signature: Date: Thank you Chayo Lennon Health Information Management Once completed, please kindly fax back to [phone] For questions please call [phone]
== END | disposition home or self-care (01) ==
LOC: C.LABPVFM 10:30
PROVIDERS: ATTEND Family Medicine
DX: I10 Essential (primary) hypertension (principal); E11.9 Type 2 diabetes mellitus without complications; E78.5 Hyperlipidemia, unspecified; D64.9 Anemia, unspecified; R74.8 Abnormal levels of other serum enzymes

== ENCOUNTER → 2017-01-25 | Outpatient (CLI) | payer BC ==
--- NOTE | 2017-01-25 11:39 | DIAGNOSTIC IMAGING REPORT ---
LUMBAR SPINE 5 VIEWS HISTORY: Low back pain. COMPARISON: None. FINDINGS: No acute fractures within the lumbar spine. Minimal anterior wedging at the T11 and T12 vertebral bodies is considered to be within the range of normal limits. No subluxation. Mild disc space narrowing at L3-L4 and L4-L5 with small endplate osteophytes. Moderate facet osteoarthritis within the lower lumbar spine. Minimal S-shaped scoliosis of the thoracolumbar spine. IMPRESSION: No fracture or subluxation within the lumbar spine. Mild to moderate degenerative changes as described above. Electronically signed by: Ethan Garcia M.D. 01/25/2017 11:38 AM Dictated Date/Time: 01/25/2017 11:35 AM
== END | disposition home or self-care (01) ==
LOC: C.RAD 10:21
PROVIDERS: ATTEND Family Medicine
DX: M47.896 Other spondylosis, lumbar region (principal); M54.9 Dorsalgia, unspecified

== ENCOUNTER 2017-02-07 11:35 | Inpatient (IN) | payer BC, OTHER ==
[2017-02-07] VITALS (8 sets, daily range): BP systolic 115–165; BP diastolic 49–78; PULSE 46–56; TEMP 36.3–36.7; O2SAT 92–96; Ht 177.8 cm; Wt 90.2 kg
[~2017-02-07] VITALS: Ht 177.8 cm; Wt 90.2 kg
[~2017-02-07 11:35] MED LIST changes: -ATOR-24 PO; -FINA5TAB4 PO; -MULT-845 PO; -NTRO1 EXT; -NTRSLP4 SL; -PARO20TA PO
--- NOTE | 2017-02-07 12:03 | EMERGENCY ROOM VISIT NOTE ---
History Report prepared by Rajat: Alana Ulrich Under the Supervision of: Dr. Mono Zimmerman M.D. First contact with patient: 11:47 Chief Complaint: CARDIAC ASSESSMENT Stated Complaint: JAW DISCOMFORT History of Present Illness The patient is a 76 year old male who presents to the Emergency Room with complaints of persistent left jaw pain that began several days ago. He currently rates his discomfort as a 3/10 in severity. The patient reports that he has a history of acid reflux, noting that his symptoms have recently worsened. Today, he complains of left jaw pain and burning in his throat. The patient additionally complains of left arm pain, but states that he received a Cortizone shot yesterday and attributes his pain to the shot. He denies any chest pain. The patient reports a history of atrial fibrillation, noting that he is on Metoprolol. He denies any history of a previous [place]. The patient states that he is on Ranitidine for his acid reflux. The patient states that he is also on Eloquis. He denies any history of diabetes. The patient states that he takes 81 mg of aspirin daily, noting that he took it this morning. He states that his pain is worsened with movement, but is alleviated with rest. Source of History: patient Onset: several days ago Position: jaw Symptom Intensity: 3/10 Timing: other (persistent) Modifying Factors (Worsening): movement Modifying Factors (Relieving): rest Associated Symptoms: No chest pain Note: Associated Symptoms: left arm pain, burning in his throat Review of Systems All systems have been listed, reviewed, and are negative other than those previously mentioned. Please see Additional Medical History Sheet. Past Medical & Surgical Medical Problems: (1) Asthma (2) Atrial fibrillation with RVR (3) Hypertension (4) NSTEMI (non-ST elevated myocardial infarction) (5) Unstable angina Family History Diabetes mellitus Hypertension Social History Smoking Status: Never Smoker Alcohol Use: none Drug Use: none Marital Status: Housing Status: lives with family Occupation Status: retired Current/Historical Medications Scheduled Apixaban (Eliquis), 5 MG PO BID Aspirin (Aspirin EC Low Dose), 81 MG PO QAM Atorvastatin (Lipitor), 60 MG PO QPM Calcium Carbonate (Calcium), 1 TAB PO BID Finasteride (Proscar), 5 MG PO QPM Fluticasone Prop/Salmeterol (Advair Diskus 500-50 Mcg/Dose), 1 PUFF INH QAM Lisinopril (Prinivil), 5 MG PO QAM Metoprolol Tartrate (Lopressor), 25 MG PO BID Multiple Vitamins W/ Minerals (Centrum Silver Adult 50+), 1 TAB PO QAM [place]-3 Fatty Acids ([place] 3), 1 CAP PO BID Paroxetine Hcl (Paxil), 20 MG PO QPM Ranitidine (Zantac), 1 TAB PO BID Allergies Coded Allergies: Beta Adrenergic Blockers (Unverified Adverse Reaction, Unknown, HEADACHES , 02/07/17) patient said this happened 40 years ago Physical Exam Vital Signs Date Time Temp Pulse Resp B/P (MAP) Pulse Ox O2 Delivery O2 Flow Rate FiO2 02/07/17 12:45 96 Room Air 02/07/17 12:18 96 Room Air 02/07/17 12:17 50 02/07/17 11:44 36.7 54 18 136/67 95 Room Air Physical Exam GENERAL: Patient awake, alert, oriented x 3. Patient follows commands. Patient does not appear toxic. Patient is adequately hydrated and well- nourished. SKIN: No erythema, pallor, cyanosis or rash HEENT: Normal head, pupils equal, reactive to light and accommodation. Neck: Without adenopathy, no neck vein distention. CHEST WALL: Non-tender to palpation. LUNGS: Clear to auscultation. No wheezes, no rales, no rhonchi. HEART: No murmurs. No gallops. No rubs ABDOMEN: Soft nontender. EXTREMITIES: No signs of trauma. No pedal or pretibial edema. No calf or thigh tenderness. NEUROLOGIC: Cranial nerves II-XII within normal limits. No gross motor sensory function deficits. Medical Decision & Procedures ER Provider Diagnostic Interpretation: X ray results are stated below per my interpretation and the radiologist's interpretation. CHEST ONE VIEW PORTABLE CLINICAL HISTORY: Atypical chest pain COMPARISON STUDY: 07/20/2016 FINDINGS: The heart is the upper limits of normal in size. There is no failure. There is no lobar consolidation. Increased left basal markings are likely atelectatic.[ IMPRESSION: Linear left basilar opacities, likely atelectatic. Otherwise no acute findings. Electronically signed by: Ady Roblero M.D. 02/07/2017 12:26 PM Dictated Date/Time: 02/07/2017 12:25 PM Laboratory Results 02/07/17 12:15 Red Blood Count 4.04, Mean Corpuscular Volume 95.0, Mean Corpuscular Hemoglobin 31.4, Mean Corpuscular Hemoglobin Concent 33.1, Mean Platelet Volume 11.7, Neutrophils (%) (Auto) 84.6, Lymphocytes (%) (Auto) 10.2, Monocytes (%) (Auto) 5.0, Eosinophils (%) (Auto) 0.0, Basophils (%) (Auto) 0.0, Neutrophils # (Auto) 11.97, Lymphocytes # (Auto) 1.44, Monocytes # (Auto) 0.71, Eosinophils # (Auto) 0.00, Basophils # (Auto) 0.00 02/07/17 12:15 Test 02/07/17 12:15 White Blood Count 14.15 K/uL (4.8-10.8) Red Blood Count 4.04 M/uL (4.7-6.1) Hemoglobin 12.7 g/dL (14.0-18.0) Hematocrit 38.4 % (42-52) Mean Corpuscular Volume 95.0 fL (80-100) Mean Corpuscular Hemoglobin 31.4 pg (25-34) Mean Corpuscular Hemoglobin Concent 33.1 g/dl (32-36) Platelet Count 226 K/uL (130-400) Mean Platelet Volume 11.7 fL (7.4-10.4) Neutrophils (%) (Auto) 84.6 % Lymphocytes (%) (Auto) 10.2 % Monocytes (%) (Auto) 5.0 % Eosinophils (%) (Auto) 0.0 % Basophils (%) (Auto) 0.0 % Neutrophils # (Auto) 11.97 K/uL (1.4-6.5) Lymphocytes # (Auto) 1.44 K/uL (1.2-3.4) Monocytes # (Auto) 0.71 K/uL (0.11-0.59) Eosinophils # (Auto) 0.00 K/uL (0-0.5) Basophils # (Auto) 0.00 K/uL (0-0.2) RDW Standard Deviation 48.3 fL (36.4-46.3) RDW Coefficient of Variation 13.8 % (11.5-14.5) Immature Granulocyte % (Auto) 0.2 % Immature Granulocyte # (Auto) 0.03 K/uL (0.00-0.02) Prothrombin Time 12.9 SECONDS (9.0-12.0) Prothromb Time International Ratio 1.2 (0.9-1.1) Activated Partial Thromboplast Time 26.1 SECONDS (21.0-31.0) Partial Thromboplastin Ratio 1.0 Anion Gap 7.0 mmol/L (3-11) Est Creatinine Clear Calc Drug Dose 52.5 ml/min Estimated GFR () 57.0 Estimated GFR (Non- 49.1 BUN/Creatinine Ratio 21.1 (10-20) Calcium Level 9.6 mg/dl (8.5-10.1) Total Bilirubin 0.6 mg/dl (0.2-1) Aspartate Amino Transf (AST/SGOT) 53 U/L (15-37) Alanine Aminotransferase (ALT/SGPT) 29 U/L (12-78) Alkaline Phosphatase 82 U/L (45-117) Troponin I 3.160 ng/ml (0-0.045) Total Protein 7.2 gm/dl (6.4-8.2) Albumin 3.6 gm/dl (3.4-5.0) Globulin 3.6 gm/dl (2.5-4.0) Albumin/Globulin Ratio 1.0 (0.9-2) Laboratory results as stated above per my review. ECG Indication: other (left shoulder pain) Rate (beats per minute): 49 Rhythm: sinus bradycardia Findings: ST depression (Leads 3, 4, 5, 6), no ectopy Comparison ECG Date: 07/21/16 Change: When compared to EKG done on 07/21/16, ST depressions are new. ED Course 1149: Past medical records reviewed. The patient was evaluated in room B3B. A complete history and physical examination was performed. 1240: I discussed the patients case with Dr. Washburn [facility]. He is going to evaluate the patient for further treatment. 1348: I reevaluated the patient and he is doing well. I discussed the exam findings with him and I discussed the treatment plan. He verbalized complete understanding and agreement. He will be evaluated for further treatment. Medical Decision I considered multiple diagnoses including myocardial infarction, chest wall pain , pericarditis, myocarditis, aortic emergencies, pulmonary embolism, congestive heart failure, GI causes, and other significant cardiopulmonary disorders. Multiple labs, EKG and imaging were obtained. Please see above. EKG reveals new changes in his lateral leads. The patient's troponin is markedly elevated. Despite his past history of GI related pain I believe his pain today is cardiac in origin. The patient has already taken aspirin today. The patient is currently pain-free. He will most likely require catheterization in the near future. I discussed care with the hospitalist. Medication Reconcilliation Current Medication List: was personally reviewed by me Blood Pressure Screening Patient's blood pressure: Elevated blood pressure Blood pressure disposition: Elevated BP felt to be situational, Did not require urgent referral Consults Time Called: 1231 Consulting Physician: Dr. Washburn, [facility] Returned Call: 1232 I reevaluated the patient and he is resting. I updated him on his test results and I discussed the treatment plan. He verbalized complete understanding and agreement. He will be evaluated for further treatment. Impression Primary Impression: NSTEMI (non-ST elevated myocardial infarction) Scribe Attestation The scribe's documentation has been prepared under my direction and personally reviewed by me in its entirety. I confirm that the note above accurately reflects all work, treatment, procedures, and medical decision making performed by me. Departure Information Dispostion Being Evaluated By Hospitalist Referrals Aakash Phelps M.D. (PCP)
[2017-02-07 12:27] LABS: COMPLETE YES; HEMATOCRIT 38.4 % (42-52); IG% 0.2 %; LYMPH % 10.2 %; LYMPH ABS # 1.44 K/uL (1.2-3.4); MEAN CORPUSCULAR HEMOGLOBIN 31.4 pg (25-34); MEAN CORPUSCULAR HGB CONC 33.1 g/dl (32-36); MEAN PLATELET VOLUME 11.7 fL (7.4-10.4); NEUT % 84.6 %; PLATELET COUNT 226 K/uL (130-400); RED BLOOD COUNT 4.04 M/uL (4.7-6.1); WHITE BLOOD COUNT 14.15 K/uL (4.8-10.8)
--- NOTE | 2017-02-07 12:27 | DIAGNOSTIC IMAGING REPORT ---
CHEST ONE VIEW PORTABLE CLINICAL HISTORY: Atypical chest pain COMPARISON STUDY: 07/20/2016 FINDINGS: The heart is the upper limits of normal in size. There is no failure. There is no lobar consolidation. Increased left basal markings are likely atelectatic.[ IMPRESSION: Linear left basilar opacities, likely atelectatic. Otherwise no acute findings. Electronically signed by: Ady Roblero M.D. 02/07/2017 12:26 PM Dictated Date/Time: 02/07/2017 12:25 PM
[2017-02-07 12:46] LABS: BUN/CREATININE RATIO 21.1 (10-20); CALCIUM 9.6 mg/dl (8.5-10.1); CREATININE 1.4 mg/dl (0.60-1.40); POTASSIUM 4.6 mmol/L (3.5-5.1)
[2017-02-07 12:47] LABS: INR 1.2 (0.9-1.1); PROTHROMBIN TIME (PATIENT) 12.9 SECONDS (9.0-12.0)
[2017-02-07] MEDS ORDERED: NITROGLYCERIN 0.4 MG SL PER TAB CHARGE SL PRN (13:00)
[2017-02-07] MEDS ORDERED: ONDANSETRON INJ 2 MG/ML 2 ML VIAL IV PRN (13:00)
[2017-02-07] MEDS ORDERED: ZOLPIDEM TARTRATE 5 MG TAB PO PRN (13:00)
[2017-02-07] MEDS ORDERED: ACETAMINOPHEN 325 MG TAB PO PRN (13:00)
--- NOTE | 2017-02-07 13:22 | History and Physical ---
History & Physical Date & Time of Service: Feb 07, 2017 at 13:12 Chief Complaint: Jaw Discomfort Primary Care Physician: Aakash Phelps M.D. History of Present Illness Source: patient, hospital records The patient is a 76-year-old male who presents emergency department with complaint of pain in his jaw and sore throat worsening over the past 2 days. Initially began having this pain a year ago, and has been seen by cardiology, including normal stress tests. However, the pain over the past 2 days significantly worse than any pain is had no past. He denies chest pain, shortness of breath, pain radiating into her axilla or arms, lightheadedness or dizziness. Past Medical/Surgical History Medical Problems: (1) Asthma Status: Chronic (2) Hypertension Status: Chronic Family History Diabetes mellitus Hypertension Social History Smoking Status: Never Smoker Smokeless Tobacco Use: No Alcohol Use: none Drug Use: none Marital Status: Housing status: lives with family Occupational Status: retired Immunizations History of Influenza Vaccine: Unknown History of Tetanus Vaccine?: Unknown History of Pneumococcal: Unknown History of Hepatitis B Vaccine: Unknown Multi-Drug Resistant Organisms History of MDRO: No Allergies Coded Allergies: Beta Adrenergic Blockers (Unverified Adverse Reaction, Unknown, HEADACHES , 02/07/17) patient said this happened 40 years ago Home Medications Scheduled Apixaban (Eliquis), 5 MG PO BID Aspirin (Aspirin EC Low Dose), 81 MG PO QAM Atorvastatin (Lipitor), 60 MG PO QPM Calcium Carbonate (Calcium), 1 TAB PO BID Finasteride (Proscar), 5 MG PO QPM Fluticasone Prop/Salmeterol (Advair Diskus 500-50 Mcg/Dose), 1 PUFF INH QAM Lisinopril (Prinivil), 5 MG PO QAM Metoprolol Tartrate (Lopressor), 25 MG PO BID Multiple Vitamins W/ Minerals (Centrum Silver Adult 50+), 1 TAB PO QAM [place]-3 Fatty Acids ([place] 3), 1 CAP PO BID Paroxetine Hcl (Paxil), 20 MG PO QPM Ranitidine (Zantac), 1 TAB PO BID Review of Systems The patient denies chest pain, palpitations, shortness of breath, lower extremity swelling, vision change, hearing change, sore throat, fevers, chills, sweats, weight change, fatigue, nausea, vomiting, diarrhea or constipation, abdominal pain, pelvic pain, blood in urine or stool, dysuria, urinary frequency or urgency, lightheadedness, dizziness, headache, memory loss, rash, abnormal bruising or bleeding, imbalance, focal or generalized weakness, numbness or tingling in arms or legs, generalized arthralgias or myalgias, back or neck pain, night sweats, or allergy symptoms. The review of systems is otherwise negative other than for that already noted above, and at least 10 systems have been reviewed. Physical Exam Vital Signs Date Time Temp Pulse Resp B/P (MAP) Pulse Ox O2 Delivery O2 Flow Rate FiO2 02/07/17 12:18 96 Room Air 02/07/17 12:17 50 02/07/17 11:44 36.7 54 18 136/67 95 Room Air The patient is awake, well-developed and adequately nourished, alert and oriented 3, normocephalic and atraumatic, lying in bed and in no acute distress. HEENT--PERRL, EOMI, mucous membranes and oropharynx normal. Neck--supple, no JVD or bruits, thyroid normal, trachea midline, no adenopathy. Heart--normal S1 and S2, no extra beats, no murmurs, rubs or gallops. Lungs--clear bilaterally with good air movement, no respiratory distress, no accessory muscle use. Abdomen--normal bowel sounds and soft, nontender and nondistended, no hernias or masses, no organomegaly. Extremities--no cyanosis, clubbing or edema. There are good distal pulses b/l. Dermatologic--normal skin turgor, normal color, warm and dry, no abnormal lymph nodes, no rash. Neurologic--cranial nerves II through XII grossly intact, motor and sensory examination normal. Rheumatologic--normal range of motion, nontender, muscles and joints. Psychiatric--normal affect. Diagnostics Laboratory Results Results Past 24 Hours Test 02/07/17 12:15 Range/Units White Blood Count 14.15 4.8-10.8 K/uL Red Blood Count 4.04 4.7-6.1 M/uL Hemoglobin 12.7 14.0-18.0 g/dL Hematocrit 38.4 42-52 % Mean Corpuscular Volume 95.0 80-100 fL Mean Corpuscular Hemoglobin 31.4 25-34 pg Mean Corpuscular Hemoglobin Concent 33.1 32-36 g/dl Platelet Count 226 130-400 K/uL Mean Platelet Volume 11.7 7.4-10.4 fL Neutrophils (%) (Auto) 84.6 % Lymphocytes (%) (Auto) 10.2 % Monocytes (%) (Auto) 5.0 % Eosinophils (%) (Auto) 0.0 % Basophils (%) (Auto) 0.0 % Neutrophils # (Auto) 11.97 1.4-6.5 K/uL Lymphocytes # (Auto) 1.44 1.2-3.4 K/uL Monocytes # (Auto) 0.71 0.11-0.59 K/uL Eosinophils # (Auto) 0.00 0-0.5 K/uL Basophils # (Auto) 0.00 0-0.2 K/uL RDW Standard Deviation 48.3 36.4-46.3 fL RDW Coefficient of Variation 13.8 11.5-14.5 % Immature Granulocyte % (Auto) 0.2 % Immature Granulocyte # (Auto) 0.03 0.00-0.02 K/uL Prothrombin Time 12.9 9.0-12.0 SECONDS Prothromb Time International Ratio 1.2 0.9-1.1 Activated Partial Thromboplast Time 26.1 21.0-31.0 SECONDS Partial Thromboplastin Ratio 1.0 Sodium Level 139 136-145 mmol/L Potassium Level 4.6 3.5-5.1 mmol/L Chloride Level 106 98-107 mmol/L Carbon Dioxide Level 26 21-32 mmol/L Anion Gap 7.0 3-11 mmol/L Blood Urea Nitrogen 29 7-18 mg/dl Creatinine 1.40 0.60-1.40 mg/dl Est Creatinine Clear Calc Drug Dose 52.5 ml/min Estimated GFR () 57.0 Estimated GFR (Non- 49.1 BUN/Creatinine Ratio 21.1 10-20 Random Glucose 171 70-99 mg/dl Calcium Level 9.6 8.5-10.1 mg/dl Total Bilirubin 0.6 0.2-1 mg/dl Aspartate Amino Transf (AST/SGOT) 53 15-37 U/L Alanine Aminotransferase (ALT/SGPT) 29 12-78 U/L Alkaline Phosphatase 82 45-117 U/L Troponin I 3.160 0-0.045 ng/ml Total Protein 7.2 6.4-8.2 gm/dl Albumin 3.6 3.4-5.0 gm/dl Globulin 3.6 2.5-4.0 gm/dl Albumin/Globulin Ratio 1.0 0.9-2 Diagnostic Radiology Patient Name: ANGELO GRIFFITH Unit Number: [id number] Dictated: 02/07/171224 Transcribed: 02/07/171224 ARG Printed Date/Time: [~ rep prt dt]/[~ rep prt tm] [~ rep ct labl] - [~ rep ct ivnm] [facility] Radiology Department [place], [place] [id number] Dictated: 02/07/171224 Transcribed: 02/07/171224 ARG Printed Date/Time: [~ rep prt dt]/[~ rep prt tm] [~ rep ct labl] - [~ rep ct ivnm] CHEST ONE VIEW PORTABLE CLINICAL HISTORY: Atypical chest pain COMPARISON STUDY: 07/20/2016 FINDINGS: The heart is the upper limits of normal in size. There is no failure. There is no lobar consolidation. Increased left basal markings are likely atelectatic.[ IMPRESSION: Linear left basilar opacities, likely atelectatic. Otherwise no acute findings. Electronically signed by: Ady Roblero M.D. 02/07/2017 12:26 PM Dictated Date/Time: 02/07/2017 12:25 PM The status of this report is Signed. Draft = Not yet reviewed or approved by Radiologist. Signed = Reviewed and approved by Radiologist. <AttendingPhy></AttendingPhy> <FamilyPhy>Aakash Phelps M.D.</FamilyPhy> < PrimaryPhy>Aakash Phelps M.D.</PrimaryPhy> <UnitNumber>[id number]</UnitNumber > <VisitNumber>[id number]</VisitNumber> <PatientName>ANGELO GRIFFITH</ PatientName> <DateOfBirth>1940</DateOfBirth> <Location>[facility]</Location> < ServiceDate>02/07/17</ServiceDate> <MNE>ESINDI</MNE> <OrderingPhy>Mono Zimmerman M.D.</OrderingPhy> <OrderingPhyMNE>f rep ord dr jacome</OrderingPhyMNE> < DictatingPhyMNE>f rep dict dr jacome</DictatingPhyMNE> <CCListMNE>f rep ct mne</ CCListMNE> <AdmittingPhyMNE>f pt admit dr jacome</AdmittingPhyMNE> <AttendingPhyMNE >f pt attend dr jacome</AttendingPhyMNE> <ConsultingPhyMNE>f pt consult dr jacome</ConsultingPhyMNE> <FamilyPhyMNE>f pt fam dr jacome</FamilyPhyMNE> <OtherPhyMNE>f pt other dr jacome</OtherPhyMNE> < PrimaryPhyMNE>f pt prim care dr jacome</PrimaryPhyMNE> <ReferringPhyMNE>f pt referring dr jacome</ReferringPhyMNE> EKG EKG shows sinus bradycardia at 49 bpm, ST depressions in V3 through V6. Impression Assessment and Plan NSTEMI/atrial fibrillation with RVR/hypertension--The patient will be admitted to telemetry for serial cardiac enzymes, cardiac rhythm monitoring and a 2-D echocardiogram with Dopplers. The patient has been on Eliquis 5 mg by mouth twice a day, with last dose at 9: 30 AM this morning. We'll change management expert to heparin IV standard dose with bolus at 9:30 PM tonight. Continue aspirin 81 mg by mouth every morning, lisinopril 5 mg by mouth every morning, metoprolol tartrate 25 mg by mouth twice a day but may need to be decreased to do significant bradycardia. Consult cardiology Dr. Garcia. Hyperlipidemia--continue atorvastatin 60 mg by mouth every afternoon. Asthma--hold Advair Diskus for now. Have available do nebs use every 2 hours when necessary. GERD--continue ranitidine 150 mg by mouth twice a day. BPH--continue finasteride 5 mg by mouth every afternoon. Depression--continue piroxicam 20 mg by mouth every afternoon. Level of Care Telemetry Advanced Directives Existing Advance Directive: No Existing Living Will: No Existing Power of Technician Assistant: No Resuscitation Status FULL RESUSCITATION VTE Prophylaxis VTE Risk Assessment Done? Y/N: Yes Risk Level: Low Given or contraindicated: Other Anticoagulation (Eliquis 5 mg by mouth twice a day with last dose 9:30 AM today, to be changed to heparin drip at 9:30 PM tonight)
[2017-02-07] MEDS ORDERED: ALBUT/IPRATROP 3MG/0.5MG NEB 3 ML VIAL INH PRN (13:30)
--- NOTE | 2017-02-07 15:29 | Cardiology Consultation ---
Cardiology Consultation Date of Consultation: Feb 07, 2017. Requesting Physician: Shameka Reason for Consultation: Jaw Pain History of Present Illness The patient is a 76-year-old gentleman with a longstanding history of jaw pain. He also has history of paroxysmal atrial fibrillation. He states that over the past several days he has been having more intense episodes of jaw discomfort. He has the symptoms primarily with activity or eating. Recently he has been having more sustained episodes that occur with activity. He has been mowing his lawn and trimming some hedges. This activity will generally produce some jaw pain and diaphoresis. The patient will reduce his activity level and rests with resolution of the symptoms. They generally will return if he continues his exertion. The diaphoresis appears to be new. He does not report overt symptoms at rest. He denies significant dyspnea. He has no symptoms orthopnea. He denies any palpitations recently no racing heartbeats. He denies any dizziness or lightheadedness is not suffered a syncopal episode. Past Medical/Surgical History Paroxysmal atrial fibrillation Chronic back pain Depression Diabetes mellitus Diverticulosis Gastroesophageal reflux Hypertension Hyperlipidemia Mitral regurgitation, mild Past surgical history Shoulder surgery Family History Diabetes mellitus Hypertension No premature coronary disease Social History Smoking Status: Former Smoker History of Alcohol Use: No Review of Systems Constitutional: + see HPI Respiratory: + see HPI Cardiac: + see HPI Abdomen: + see HPI Male : + see HPI Neurologic: + see HPI Heme: + see HPI Endo: + see HPI Skin: + see HPI No symptoms of tachycardia. No difficulty swallowing. No nausea or vomiting. All Other Systems: Reviewed and Negative Allergies Coded Allergies: Beta Adrenergic Blockers (Unverified Adverse Reaction, Unknown, HEADACHES , 02/07/17) patient said this happened 40 years ago Medications Current Inpatient Medications Medications (Trade) Dose Ordered Sig/Geovanna Route Start Time Stop Time Status Last Admin Dose Admin Nitroglycerin (Nitroglycerin 2% Oint) 1 inch Q6H EXT 02/07/17 16:00 03/09/17 15:59 Aspirin (Ecotrin Tab) 81 mg QAM PO 02/08/17 09:00 03/10/17 08:59 Atorvastatin Calcium (Lipitor Tab) 60 mg QPM PO 02/07/17 21:00 03/09/17 20:59 Finasteride (Proscar Tab) 5 mg QPM PO 02/07/17 21:00 03/09/17 20:59 Lisinopril (Zestril Tab) 5 mg QAM PO 02/08/17 09:00 03/10/17 08:59 Metoprolol Tartrate (Lopressor Tab) 25 mg BID PO 02/07/17 21:00 03/09/17 20:59 Multivitamins/ Minerals (Multivitamin W/ Minerals Tab) 1 tab QAM PO 02/08/17 09:00 03/10/17 08:59 Paroxetine HCl (pAXil TAB) 20 mg QPM PO 02/07/17 21:00 03/09/17 20:59 Ranitidine HCl (zANTac TAB) 150 mg BID PO 02/07/17 21:00 03/09/17 20:59 Acetaminophen (Tylenol Tab) 650 mg Q4H PRN PO 02/07/17 13:00 03/09/17 12:59 Zolpidem Tartrate (Ambien Tab) 5 mg HSZ PRN PO 02/07/17 13:00 03/09/17 12:59 Nitroglycerin (Nitrostat Tab) 0.4 mg UD PRN SL 02/07/17 13:00 03/09/17 12:59 Ondansetron HCl (Zofran Inj) 4 mg Q6H PRN IV 02/07/17 13:00 03/09/17 12:59 Albuterol/ Ipratropium (Duoneb) 3 ml Q2R PRN INH 02/07/17 13:30 03/09/17 13:29 Heparin Sodium (Porcine) 6000 unit/Syringe 6 ml @ 10 mls/min TODAY@2100 ONCE IV 02/07/17 21:00 02/07/17 21:01 Heparin Sodium/ Dextrose 500 ml @ 29 mls/hr [id number] PRN IV 02/07/17 21:00 03/09/17 20:59 Physical Exam Vital Signs Past 12 Hours Date Time Temp Pulse Resp B/P (MAP) Pulse Ox O2 Delivery O2 Flow Rate FiO2 02/07/17 14:51 36.7 50 16 130/73 (92) 93 Room Air 02/07/17 14:28 50 18 123/69 95 02/07/17 14:00 50 18 123/69 95 Room Air 02/07/17 12:45 96 Room Air 02/07/17 12:18 96 Room Air 8/31/17 12:17 50 02/07/17 11:44 36.7 54 18 136/67 95 Room Air Data Laboratory Results: Last 24 Hours Test 02/07/17 12:15 White Blood Count 14.15 K/uL Red Blood Count 4.04 M/uL Hemoglobin 12.7 g/dL Hematocrit 38.4 % Mean Corpuscular Volume 95.0 fL Mean Corpuscular Hemoglobin 31.4 pg Mean Corpuscular Hemoglobin Concent 33.1 g/dl Platelet Count 226 K/uL Mean Platelet Volume 11.7 fL Neutrophils (%) (Auto) 84.6 % Lymphocytes (%) (Auto) 10.2 % Monocytes (%) (Auto) 5.0 % Eosinophils (%) (Auto) 0.0 % Basophils (%) (Auto) 0.0 % Neutrophils # (Auto) 11.97 K/uL Lymphocytes # (Auto) 1.44 K/uL Monocytes # (Auto) 0.71 K/uL Eosinophils # (Auto) 0.00 K/uL Basophils # (Auto) 0.00 K/uL RDW Standard Deviation 48.3 fL RDW Coefficient of Variation 13.8 % Immature Granulocyte % (Auto) 0.2 % Immature Granulocyte # (Auto) 0.03 K/uL Prothrombin Time 12.9 SECONDS Prothromb Time International Ratio 1.2 Activated Partial Thromboplast Time 26.1 SECONDS Partial Thromboplastin Ratio 1.0 Sodium Level 139 mmol/L Potassium Level 4.6 mmol/L Chloride Level 106 mmol/L Carbon Dioxide Level 26 mmol/L Anion Gap 7.0 mmol/L Blood Urea Nitrogen 29 mg/dl Creatinine 1.40 mg/dl Est Creatinine Clear Calc Drug Dose 52.5 ml/min Estimated GFR () 57.0 Estimated GFR (Non- 49.1 BUN/Creatinine Ratio 21.1 Random Glucose 171 mg/dl Calcium Level 9.6 mg/dl Total Bilirubin 0.6 mg/dl Aspartate Amino Transf (AST/SGOT) 53 U/L Alanine Aminotransferase (ALT/SGPT) 29 U/L Alkaline Phosphatase 82 U/L Troponin I 3.160 ng/ml Total Protein 7.2 gm/dl Albumin 3.6 gm/dl Globulin 3.6 gm/dl Albumin/Globulin Ratio 1.0 Imaging: Chest x-ray did not demonstrate any acute cardiopulmonary abnormalities EKG: Sinus bradycardia with ST segment depressions concerning for ischemia Telemetry reviewed: Sinus bradycardia Outpatient nuclear perfusion study dated November 07, 2016. No evidence of inducible ischemia or old infarct Echocardiogram dated 07/21/2016: Preserved LV systolic function, mild LVH, mild mitral regurgitation Stress echocardiogram performed in 01/2016: No evidence of inducible ischemia. Assessment & Plan 1. Acute coronary syndrome: The patient has had symptoms of jaw discomfort for some time. He has undergone noninvasive evaluation on 2 separate occasions without reproduction of symptoms or evidence of inducible ischemia. However, his symptoms clearly sound anginal in nature. He does have elevated cardiac biomarkers. His EKG suggests an element of ischemia. Based on these objective findings in the recurrent nature of his symptoms would seem reasonable to pursue an invasive evaluation. The patient is very interested in finding in diagnosis and getting some relief from the symptoms. Interestingly, during his admission for atrial fibrillation in July of this year he did have elevated cardio biomarkers as well suggesting an element of fixed coronary disease. I did describe the risks benefits and alternatives of coronary angiography to the patient. He is willing to proceed. I think the only concern is his recent ingestion of Eliquis. Ideally he would be off of the medication for 4 doses, whether we can accommodate an angiogram tomorrow afternoon is not clear. Patient can continue on his beta damon, nitroglycerin and systemic anticoagulation. He should continue on a daily aspirin. 2. Sinus bradycardia: Patient has been continued on metoprolol due to the absence of symptoms. He does likely have an element of chronotropic incompetence as well of bradycardia. This point would seem reasonable continue metoprolol and explore his coronaries as noted above. Based on his telemetry and additional testing we may elect to reduce his dose of metoprolol 3. Atrial fibrillation: This is paroxysmal. He was admitted in July of this year with AFib and rapid ventricular response. 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 He has been maintained on appropriate anticoagulation which is currently being held pending an invasive evaluation. 4. Valvular heart disease: Mitral regurgitation mild. This would be followed longitudinally
[2017-02-07] MEDS ORDERED: PERFLUTREN LIPID MICROSPHERE (DEFINITY) IV ONE (15:37)
[2017-02-07] MEDS: NITROGLYCERIN OINT 2% 1GM PACKET EXT SCH ×2 (16:09→22:12)
--- NOTE | 2017-02-07 17:31 | ECHOCARDIOGRAM REPORT ---
*NOTICE TO RECEIVING CONSTITUTION PARTY AGENCY This information is strictly Confidential and protected under [place] law. [place] law prohibits you from making any further disclosure of this information unless further disclosure is expressly permitted by the written consent of the person to whom it pertains or is authorized by law. A general authorization for the release of medical or other information is not sufficient for this purpose. Hospital accepts no responsibility if the information is made available to any other person, INCLUDING THE PATIENT. Interpretation Summary * Name: ANGELO GRIFFITH Study Date: 02/07/2017 03:08 PM BP: 136/67 mmHg * Patient Location: [facility]\S\N275\S\1 HR: 56 * : 1940 (M/d/yyyy) Gender: Male Height: 70 in * Age: 76 yrs Ethnicity: CA Weight: 200 lb * Ordering Physician: Donta Washburn * Performed By: Kyleigh Chen * * Reason For Study: UNSTABLE ANGINA * BSA: 2.1 m2 * -- Conclusions -- * There is moderate asymmetric left ventricular hypertrophy. * Left ventricular systolic function is mildly reduced. * Diastolic dysfunction, Grade II, consistent with elevated left atrial pressure. * There is mild mitral regurgitation. * Right ventricular systolic pressure is normal. * Compared to an echocardiogram obtained in July 2016, the LV systolic function appears slightly worse. Procedure Details * A complete two-dimensional transthoracic echocardiogram was performed (2D, M-mode, Doppler and color flow Doppler). * A contrast injection of Definity was performed to improve assessment of LV function. * Contrast was injected into an intravenous site in the right arm. * One vial of Definity ultrasound contrast was diluted in normal saline to a total volume of 10 ml. A total of '3' ml of solution was administered during imaging. * Lot # [id number] of Definity utilized for procedure. * Expiration date 03/27. * The attending nurse who injected the contrast agent was TOÑO SOSA RN. Left Ventricle * The left ventricle is grossly normal size. * There is moderate asymmetric left ventricular hypertrophy. * Left ventricular systolic function is mildly reduced. * Ejection fraction 45-50 percent * Diastolic dysfunction, Grade II, consistent with elevated left atrial pressure. * The left ventricular wall motion is normal. Right Ventricle * The right ventricle is normal in size and function. Atria * The left atrial size is normal. * Right atrial size is normal. Mitral Valve * The mitral valve is grossly normal. * There is mild mitral regurgitation. Tricuspid Valve * The tricuspid valve is not well visualized. * There is trace tricuspid regurgitation. * Right ventricular systolic pressure is normal. Aortic Valve * Aortic valve sclerosis mild, without significant aortic valvular stenosis. * No hemodynamically significant valvular aortic stenosis. * There is no significant aortic regurgitation. Pericardium/Pleural * There is no pericardial effusion. Great Vessels * Normal inferior vena cava diameter and respiratory variation suggests normal central venous pressure. MMode 2D Measurements and Calculations IVSd 1.6 cm IVSs 1.7 cm LVIDd 5.1 cm LVIDs 3.6 cm LVPWd 0.88 cm LVPWs 1.8 cm IVS/LVPW 1.8 FS 29.1 % EDV(Teich) 122.6 ml ESV(Teich) 54.5 ml EF(Teich) 55.5 % EDV(cubed) 130.9 ml ESV(cubed) 46.7 ml EF(cubed) 64.3 % % IVS thick 11.9 % % LVPW thick 100.7 % LV mass(C)d 243.8 grams LV mass(C)dI 116.8 grams/m\S\2 LV mass(C)s 259.6 grams LV mass(C)sI 124.4 grams/m\S\2 CO(Teich) 3.7 l/min CI(Teich) 1.8 l/min/m\S\2 SV(Teich) 68.1 ml SI(Teich) 32.6 ml/m\S\2 CO(cubed) 4.5 l/min CI(cubed) 2.2 l/min/m\S\2 SV(cubed) 84.2 ml SI(cubed) 40.3 ml/m\S\2 EPSS 1.2 cm ACS 1.3 cm LA dimension 3.9 cm asc Aorta Diam 2.9 cm LVOT diam 2.0 cm LVOT area 3.1 cm\S\2 LVAd ap4 43.6 cm\S\2 LVLd ap4 9.2 cm EDV(MOD-sp4) 167.0 ml LVAs ap4 26.4 cm\S\2 LVLs ap4 8.0 cm ESV(MOD-sp4) 70.4 ml EF(MOD-sp4) 57.8 % LVAd ap2 28.6 cm\S\2 LVLd ap2 8.2 cm EDV(MOD-sp2) 82.0 ml LVAs ap2 17.3 cm\S\2 LVLs ap2 6.9 cm ESV(MOD-sp2) 35.1 ml EF(MOD-sp2) 57.2 % CO(MOD-sp4) 5.2 l/min CI(MOD-sp4) 2.5 l/min/m\S\2 SV(MOD-sp4) 96.6 ml SI(MOD-sp4) 46.3 ml/m\S\2 CO(MOD-sp2) 2.5 l/min CI(MOD-sp2) 1.2 l/min/m\S\2 SV(MOD-sp2) 46.9 ml SI(MOD-sp2) 22.5 ml/m\S\2 Doppler Measurements and Calculations MV E max audrey 109.1 cm/sec MV A max audrey 93.1 cm/sec MV E/A 1.2 MV dec time 0.40 sec Ao V2 max 138.7 cm/sec Ao max PG 7.7 mmHg Ao max PG (full) 3.2 mmHg SHERRY(V,A) 2.4 cm\S\2 SHERRY(V,D) 2.4 cm\S\2 LV V1 max PG 4.5 mmHg LV V1 max 105.7 cm/sec PA V2 max 60.1 cm/sec PA max PG 1.4 mmHg PI end-d audrey 137.1 cm/sec TR max audrey 252.1 cm/sec
[2017-02-07] MEDS: SODIUM CHLORIDE 0.9% 1000ML 1,000 ML IV SCH (17:46)
[2017-02-07] MEDS ORDERED: HEPARIN IV BOLUS 6,000 UNIT in SYRINGE 0 ML IV ONE (21:00)
[2017-02-07] MEDS: METOPROLOL TARTRATE 25 MG TAB PO SCH (21:00)
[2017-02-07] MEDS: ATORVASTATIN 20 MG TAB PO SCH (21:01)
[2017-02-07] MEDS: PAROXETINE 20 MG TAB PO SCH (21:02)
[2017-02-07] MEDS: RANITIDINE HCL 150 MG TAB PO SCH (21:03)
[2017-02-07] MEDS: FINASTERIDE 5 MG TAB PO SCH (21:03)
[2017-02-07] MEDS: HEPARIN 25,000 UNIT/500ML D5W 500 ML IV PRN (21:07)
[2017-02-07 21:25] LABS: CKMB/CK RATIO 7.7 (0-3.0)
[2017-02-08] VITALS (16 sets, daily range): BP systolic 107–194; BP diastolic 57–96; PULSE 48–59; TEMP 36.4–36.7; O2SAT 93–97
[2017-02-08] MEDS: NITROGLYCERIN OINT 2% 1GM PACKET EXT SCH ×3 (03:01→19:17)
[2017-02-08 03:09] LABS: BASO % 0.1 %; BASO ABS # 0.01 K/uL (0-0.2); COMPLETE YES; HEMATOCRIT 36.1 % (42-52); IG% 0.4 %; LYMPH ABS # 2.23 K/uL (1.2-3.4); MEAN CELL VOLUME 93.8 fL (80-100); MEAN CORPUSCULAR HEMOGLOBIN 30.6 pg (25-34); MEAN CORPUSCULAR HGB CONC 32.7 g/dl (32-36); MEAN PLATELET VOLUME 11.8 fL (7.4-10.4); MONO % 7.9 %; NEUT % 77.6 %; PLATELET COUNT 203 K/uL (130-400); RED BLOOD COUNT 3.85 M/uL (4.7-6.1); WHITE BLOOD COUNT 15.88 K/uL (4.8-10.8)
[2017-02-08 03:26] LABS: BUN/CREATININE RATIO 21.8 (10-20); CALCIUM 8.8 mg/dl (8.5-10.1); CREATININE 1.3 mg/dl (0.60-1.40); MAGNESIUM 2.3 mg/dl (1.8-2.4); POTASSIUM 4.7 mmol/L (3.5-5.1)
[2017-02-08 03:30] LABS: PARTIAL THROMBOPLASTIN RATIO 4.7
[2017-02-08 03:33] LABS: CKMB/CK RATIO 7.7 (0-3.0)
[2017-02-08] MEDS: SODIUM CHLORIDE 0.9% 1000ML 1,000 ML IV SCH (06:13)
[2017-02-08] MEDS: METOPROLOL TARTRATE 25 MG TAB PO SCH ×2 (07:52→20:28)
[2017-02-08] MEDS: RANITIDINE HCL 150 MG TAB PO SCH ×2 (07:53→20:28)
[2017-02-08] MEDS ORDERED: ASPIRIN 81 MG ECTAB PO SCH (09:00)
[2017-02-08] MEDS ORDERED: CEROVITE ADV FORMULA TAB PO SCH (09:00)
[2017-02-08] MEDS ORDERED: LISINOPRIL 5 MG TAB PO SCH (09:00)
[2017-02-08] MEDS ORDERED: GLUCAGON FOR INJ 1 MG VIAL SQ PRN (11:00)
[2017-02-08] MEDS ORDERED: DEXTROSE 50% 50 ML SYR IV PRN (11:00)
[2017-02-08] MEDS ORDERED: GLUCOSE 10 TABS/TUBE PO PRN (11:00)
[2017-02-08] MEDS ORDERED: GLUCOSE 40% GEL 15 GM TUBE PO PRN (11:00)
--- NOTE | 2017-02-08 11:10 | Hospitalist Progress Note ---
Hospitalist Progress Note Date of Service Feb 08, 2017. Subjective Pt evaluation today including: conversation w/ patient, physical exam, chart review, lab review, review of studies, review of inpatient medication list Pain: 1/10 chest tightness PO Intake: NPO Voiding: no voiding problems Patient reports feeling well. He complains of a very mild 1/10 chest tightness but otherwise denies any chest pain. He denies any dizziness/lightheadedness, jaw pain, arm pain, numbness or tingling. He notes a productive cough that is chronic. The patient denies fevers, chills, sweats, chest pain, palpitations, claudication, wheezing, shortness of breath, nausea, vomiting, abdominal pain, dysuria, hematuria, urinary retention, paralysis, weakness, numbness and tingling. Additional Comments: See HPI for pertinent positives and negatives. All other systems reviewed and negative. Objective Vital Signs Date Time Temp Pulse Resp B/P (MAP) Pulse Ox O2 Delivery O2 Flow Rate FiO2 02/08/17 09:36 49 121/57 (78) 02/08/17 07:45 Room Air 02/08/17 07:29 36.6 59 18 107/60 (76) 94 02/08/17 07:04 36.4 49 18 108/63 93 Room Air 02/08/17 04:25 36.4 49 18 108/63 (78) 93 Room Air 02/08/17 04:00 95 Room Air 02/08/17 00:00 95 Room Air 02/07/17 23:31 36.3 54 18 132/64 (86) 93 Room Air 02/07/17 22:09 50 115/49 (71) 02/07/17 21:11 48 165/78 (107) 02/07/17 20:00 Room Air 02/07/17 19:27 36.5 56 18 132/72 (92) 92 Room Air 02/07/17 16:08 46 141/68 (92) 02/07/17 16:00 Room Air 02/07/17 15:48 36.5 50 18 134/58 (83) 95 Room Air 02/07/17 14:51 36.7 50 16 130/73 (92) 93 Room Air 02/07/17 14:28 50 18 123/69 95 02/07/17 14:00 50 18 123/69 95 Room Air 02/07/17 12:45 96 Room Air 02/07/17 12:18 96 Room Air 02/07/17 12:17 50 02/07/17 11:44 36.7 54 18 136/67 95 Room Air Physical Exam Notes: General appearance: Well-developed, well-nourished, no apparent distress Head: Normocephalic, atraumatic Eyes: Normal inspection, PERRL, EOMI ENT: Normal ENT inspection, hearing grossly normal, pharynx normal Neck: Supple, no JVD, trachea midline Respiratory/Chest: +Diminished breath sounds throughout. Lungs clear to auscultation, normal breath sounds, no respiratory distress Cardiovascular: +Bradycardia. Regular rhythm, no gallop, no murmur Abdomen/GI: Normal bowel sounds, non-tender, soft Extremities/Musculoskeletal: Normal inspection, no calf tenderness, no pedal edema Neurological/Psych: Alert, normal mood/affect, oriented x 3 Skin: Normal color, warm/dry, no rash Laboratory Results Last 24 Hours Test 02/07/17 12:15 02/07/17 20:41 02/08/17 02:57 02/08/17 10:40 White Blood Count 14.15 K/uL 15.88 K/uL Red Blood Count 4.04 M/uL 3.85 M/uL Hemoglobin 12.7 g/dL 11.8 g/dL Hematocrit 38.4 % 36.1 % Mean Corpuscular Volume 95.0 fL 93.8 fL Mean Corpuscular Hemoglobin 31.4 pg 30.6 pg Mean Corpuscular Hemoglobin Concent 33.1 g/dl 32.7 g/dl Platelet Count 226 K/uL 203 K/uL Mean Platelet Volume 11.7 fL 11.8 fL Neutrophils (%) (Auto) 84.6 % 77.6 % Lymphocytes (%) (Auto) 10.2 % 14.0 % Monocytes (%) (Auto) 5.0 % 7.9 % Eosinophils (%) (Auto) 0.0 % 0.0 % Basophils (%) (Auto) 0.0 % 0.1 % Neutrophils # (Auto) 11.97 K/uL 12.32 K/uL Lymphocytes # (Auto) 1.44 K/uL 2.23 K/uL Monocytes # (Auto) 0.71 K/uL 1.25 K/uL Eosinophils # (Auto) 0.00 K/uL 0.00 K/uL Basophils # (Auto) 0.00 K/uL 0.01 K/uL RDW Standard Deviation 48.3 fL 48.4 fL RDW Coefficient of Variation 13.8 % 14.1 % Immature Granulocyte % (Auto) 0.2 % 0.4 % Immature Granulocyte # (Auto) 0.03 K/uL 0.07 K/uL Prothrombin Time 12.9 SECONDS Prothromb Time International Ratio 1.2 Activated Partial Thromboplast Time 26.1 SECONDS 120.9 SECONDS Partial Thromboplastin Ratio 1.0 4.7 Sodium Level 139 mmol/L 139 mmol/L Potassium Level 4.6 mmol/L 4.7 mmol/L Chloride Level 106 mmol/L 107 mmol/L Carbon Dioxide Level 26 mmol/L 26 mmol/L Anion Gap 7.0 mmol/L 6.0 mmol/L Blood Urea Nitrogen 29 mg/dl 28 mg/dl Creatinine 1.40 mg/dl 1.30 mg/dl Est Creatinine Clear Calc Drug Dose 52.5 ml/min 56.6 ml/min Estimated GFR () 57.0 62.3 Estimated GFR (Non- 49.1 53.8 BUN/Creatinine Ratio 21.1 21.8 Random Glucose 171 mg/dl 131 mg/dl Calcium Level 9.6 mg/dl 8.8 mg/dl Total Bilirubin 0.6 mg/dl Aspartate Amino Transf (AST/SGOT) 53 U/L Alanine Aminotransferase (ALT/SGPT) 29 U/L Alkaline Phosphatase 82 U/L Troponin I 3.160 ng/ml 26.000 ng/ml 25.200 ng/ml Total Protein 7.2 gm/dl Albumin 3.6 gm/dl Globulin 3.6 gm/dl Albumin/Globulin Ratio 1.0 Total Creatine Kinase 855 U/L 684 U/L Creatine Kinase MB 65.8 ng/ml 52.4 ng/ml Creatine Kinase MB Ratio 7.7 7.7 Chemistry Specimen Hemolysis Magnesium Level 2.3 mg/dl Assessment and Plan 76 y/o male with a history of paroxysmal a-fib, atherosclerotic cardiovascular disease, HTN, HLD, DM II, benign familial tremor, asthma, depression, BPH, and GERD who presented with jaw pain that is worse with exertion and elevated troponin. NSTEMI--pt asymptomatic -Admit to telemetry. No acute events overnight, pt in sinus bradycardia with HR in 40-50s. Pt asymptomatic -Cardiology consulted, appreciate recs: ideally hold 4 Eliquis doses prior to cardiac cath, but will try for possible cath late on 02/08. Continue beta damon , nitro, systemic anticoagulation and daily aspirin. -Echocardiogram shows LVEF 45-50%, grade II diastolic dysfunction, no wall motion abnormalities. LVEF slightly worse compared to July 2016 study. -Cardiac enzymes x 3. Initial troponin elevated at 3.16. 2nd troponin peaked at 26.0. Last troponin 25.2 -Heparin drip -NPO after midnight for possible cath today -Eliquis held. Last dose morning of 02/07 -Continue metoprolol, lisinopril, ASA, and atorvastatin -EKG 02/08 46 bpm, sinus bradycardia, ST depressions in V3-V6 resolved -EKG q am and prn chest pain Paroxysmal a-fib--currently in sinus bradycardia -Eliquis held ASCVD, HTN, HLD, bradycardia--pt has remained bradycardic but asymptomatic. BP stable -Continue metoprolol tartrate 25 mg PO BID, hold if HR less than 60 or SBP less than 100 -Continue ASA 81 mg PO qd, lisinopril 5 mg PO qd, atorvastatin 60 mg PO qd, nitro prn DM II, diet controlled--last HgbA1c checked on 01/17/17 was 6.2 -BSGs elevated here -Insulin sliding scale -Check BSGs q ac and qhs Asthma--stable, no exacerbation, no SOB/wheezing -Hold Advair for now -DuoNeb q2h prn SOB/wheezing Depression -Continue Paxil 20 mg PO qd BPH -Continue Proscar 5 mg PO qd GERD -Continue ranitidine 150 mg PO BID DVT prophylaxis -Heparin drip Code Status -Level I, FULL RESUSCITATION STATUS
[2017-02-08 11:26] LABS: PARTIAL THROMBOPLASTIN RATIO 2.9
--- NOTE | 2017-02-08 13:13 | Medical Student: [facility] ---
Med Student Progress Note Date of Service Feb 08, 2017. Subjective Pt evaluation today including: conversation w/ patient, conversation w/ family , physical exam, chart review, lab review, review of studies Pain: None PO Intake: NPO for cardiac catheterization this afternoon Voiding: no voiding problems Mr. Angelo Barrios is a 76 year old gentleman with PHM significant for paroxysmal atrial fibrillation, atherosclerotic cardiovascular disease, HTN, HLD , asthma, BPH, DM II, GERD, and depression who presented to [facility] ED on with jaw pain of 3 day duration. Today he reports feeling well and is no longer having any jaw pain. He denies any chest pain. He denies any dizziness/ lightheadedness, arm pain, numbness or tingling. He notes a productive cough that is chronic. The patient denies wheezing, shortness of breath, nausea, vomiting, or abdominal pain. His , Kathleen, is at the bedside. All questions were answered. His requested a phone call with results of cardiac cath. Phone . Review of Systems Constitutional: + sweats (yesterday, none today ), No fever, No chills, No weight loss, No weakness Eyes: No redness, No diplopia ENT: No nasal symptoms, No sore throat Respiratory: + cough, No sputum, No wheezing, No shortness of breath, No dyspnea on exertion Cardiac: No chest pain, No orthopnea, No PND, No edema, No palpitations Abdomen: + constipation (remote history), No pain, No nausea, No vomiting, No diarrhea Musculoskeletal: No muscle pain, No swelling, No calf pain Male : No dysuria, No urinary frequency Neurologic: No weakness, No numbness/tingling Psychiatric: No depression symptoms, No anxiety Heme: No abnormal bleeding/bruising, No clotting problems Endo: No fatigue Skin: + rash, + itch Objective Vital Signs Date Time Temp Pulse Resp B/P (MAP) Pulse Ox O2 Delivery O2 Flow Rate FiO2 02/08/17 09:36 49 121/57 (78) 02/08/17 07:45 Room Air 02/08/17 07:29 36.6 59 18 107/60 (76) 94 02/08/17 07:04 36.4 49 18 108/63 93 Room Air 02/08/17 04:25 36.4 49 18 108/63 (78) 93 Room Air 02/08/17 04:00 95 Room Air 02/08/17 00:00 95 Room Air 02/07/17 23:31 36.3 54 18 132/64 (86) 93 Room Air 02/07/17 22:09 50 115/49 (71) 02/07/17 21:11 48 165/78 (107) 02/07/17 20:00 Room Air 02/07/17 19:27 36.5 56 18 132/72 (92) 92 Room Air 02/07/17 16:08 46 141/68 (92) 02/07/17 16:00 Room Air 02/07/17 15:48 36.5 50 18 134/58 (83) 95 Room Air 02/07/17 14:51 36.7 50 16 130/73 (92) 93 Room Air 02/07/17 14:28 50 18 123/69 95 02/07/17 14:00 50 18 123/69 95 Room Air 02/07/17 12:45 96 Room Air 02/07/17 12:18 96 Room Air 02/07/17 12:17 50 02/07/17 11:44 36.7 54 18 136/67 95 Room Air Physical Exam General Appearance: WD/WN, no apparent distress ENT: normal ENT inspection, hearing grossly normal Neck: supple, no adenopathy, thyroid normal, trachea midline Respiratory/Chest: chest non-tender, lungs clear, normal breath sounds, no respiratory distress, no accessory muscle use Cardiovascular: no edema, no gallop, no JVD, no murmur, + bradycardia Abdomen: normal bowel sounds, non tender, soft, no organomegaly Extremities: non-tender, normal inspection, no pedal edema, no calf tenderness Neurologic/Psychiatric: no motor/sensory deficits, alert, normal mood/affect, oriented x 3 Skin: normal color, warm/dry, no rash Lymphatic: no adenopathy Laboratory Results Last 24 Hours Test 02/07/17 12:15 02/07/17 20:41 02/08/17 02:57 White Blood Count 14.15 K/uL 15.88 K/uL Red Blood Count 4.04 M/uL 3.85 M/uL Hemoglobin 12.7 g/dL 11.8 g/dL Hematocrit 38.4 % 36.1 % Mean Corpuscular Volume 95.0 fL 93.8 fL Mean Corpuscular Hemoglobin 31.4 pg 30.6 pg Mean Corpuscular Hemoglobin Concent 33.1 g/dl 32.7 g/dl Platelet Count 226 K/uL 203 K/uL Mean Platelet Volume 11.7 fL 11.8 fL Neutrophils (%) (Auto) 84.6 % 77.6 % Lymphocytes (%) (Auto) 10.2 % 14.0 % Monocytes (%) (Auto) 5.0 % 7.9 % Eosinophils (%) (Auto) 0.0 % 0.0 % Basophils (%) (Auto) 0.0 % 0.1 % Neutrophils # (Auto) 11.97 K/uL 12.32 K/uL Lymphocytes # (Auto) 1.44 K/uL 2.23 K/uL Monocytes # (Auto) 0.71 K/uL 1.25 K/uL Eosinophils # (Auto) 0.00 K/uL 0.00 K/uL Basophils # (Auto) 0.00 K/uL 0.01 K/uL RDW Standard Deviation 48.3 fL 48.4 fL RDW Coefficient of Variation 13.8 % 14.1 % Immature Granulocyte % (Auto) 0.2 % 0.4 % Immature Granulocyte # (Auto) 0.03 K/uL 0.07 K/uL Prothrombin Time 12.9 SECONDS Prothromb Time International Ratio 1.2 Activated Partial Thromboplast Time 26.1 SECONDS 120.9 SECONDS Partial Thromboplastin Ratio 1.0 4.7 Sodium Level 139 mmol/L 139 mmol/L Potassium Level 4.6 mmol/L 4.7 mmol/L Chloride Level 106 mmol/L 107 mmol/L Carbon Dioxide Level 26 mmol/L 26 mmol/L Anion Gap 7.0 mmol/L 6.0 mmol/L Blood Urea Nitrogen 29 mg/dl 28 mg/dl Creatinine 1.40 mg/dl 1.30 mg/dl Est Creatinine Clear Calc Drug Dose 52.5 ml/min 56.6 ml/min Estimated GFR () 57.0 62.3 Estimated GFR (Non- 49.1 53.8 BUN/Creatinine Ratio 21.1 21.8 Random Glucose 171 mg/dl 131 mg/dl Calcium Level 9.6 mg/dl 8.8 mg/dl Total Bilirubin 0.6 mg/dl Aspartate Amino Transf (AST/SGOT) 53 U/L Alanine Aminotransferase (ALT/SGPT) 29 U/L Alkaline Phosphatase 82 U/L Troponin I 3.160 ng/ml 26.000 ng/ml 25.200 ng/ml Total Protein 7.2 gm/dl Albumin 3.6 gm/dl Globulin 3.6 gm/dl Albumin/Globulin Ratio 1.0 Total Creatine Kinase 855 U/L 684 U/L Creatine Kinase MB 65.8 ng/ml 52.4 ng/ml Creatine Kinase MB Ratio 7.7 7.7 Chemistry Specimen Hemolysis Magnesium Level 2.3 mg/dl Medications Current Inpatient Medications Medications (Trade) Dose Ordered Sig/Geovanna Route Start Time Stop Time Status Last Admin Dose Admin Nitroglycerin (Nitroglycerin 2% Oint) 1 inch Q6H EXT 02/07/17 16:00 03/09/17 15:59 02/08/17 09:38 1 INCH Aspirin (Ecotrin Tab) 81 mg QAM PO 02/08/17 09:00 03/10/17 08:59 02/08/17 07:53 81 MG Atorvastatin Calcium (Lipitor Tab) 60 mg QPM PO 02/07/17 21:00 03/09/17 20:59 02/07/17 21:01 60 MG Finasteride (Proscar Tab) 5 mg QPM PO 02/07/17 21:00 03/09/17 20:59 02/07/17 21:03 5 MG Lisinopril (Zestril Tab) 5 mg QAM PO 02/08/17 09:00 03/10/17 08:59 02/08/17 07:53 5 MG Metoprolol Tartrate (Lopressor Tab) 25 mg BID PO 02/07/17 21:00 03/09/17 20:59 Multivitamins/ Minerals (Multivitamin W/ Minerals Tab) 1 tab QAM PO 02/08/17 09:00 03/10/17 08:59 02/08/17 07:53 1 TAB Paroxetine HCl (pAXil TAB) 20 mg QPM PO 02/07/17 21:00 03/09/17 20:59 02/07/17 21:02 20 MG Ranitidine HCl (zANTac TAB) 150 mg BID PO 02/07/17 21:00 03/09/17 20:59 02/08/17 07:53 150 MG Acetaminophen (Tylenol Tab) 650 mg Q4H PRN PO 02/07/17 13:00 03/09/17 12:59 Zolpidem Tartrate (Ambien Tab) 5 mg HSZ PRN PO 02/07/17 13:00 03/09/17 12:59 Nitroglycerin (Nitrostat Tab) 0.4 mg UD PRN SL 02/07/17 13:00 03/09/17 12:59 Ondansetron HCl (Zofran Inj) 4 mg Q6H PRN IV 02/07/17 13:00 03/09/17 12:59 Albuterol/ Ipratropium (Duoneb) 3 ml Q2R PRN INH 02/07/17 13:30 03/09/17 13:29 Heparin Sodium/ Dextrose 500 ml @ 22 mls/hr [id number] PRN IV 02/07/17 21:00 03/09/17 20:59 02/07/17 21:07 29 MLS/HR Sodium Chloride 1,000 ml @ 80 mls/hr [id number] IV 02/07/17 17:30 03/09/17 17:29 02/08/17 06:13 80 MLS/HR Glucose (Glucose 40% Gel) 15-30 GRAMS 15 GRAMS... UD PRN PO 02/08/17 11:00 03/10/17 10:59 Glucose (Glucose Chew Tab) 4-8 Tablets 4 Tabl... UD PRN PO 02/08/17 11:00 03/10/17 10:59 Dextrose (Dextrose 50% 50ML Syringe) 25-50ML OF 50% DW IV FOR... UD PRN IV 02/08/17 11:00 03/10/17 10:59 Glucagon (Glucagon Inj) 1 mg UD PRN SQ 02/08/17 11:00 03/10/17 10:59 Insulin Aspart (novoLOG ASPART) SLIDING SCALE G... ACHS SC 02/08/17 16:30 03/10/17 16:29 Diagnostic Radiology ECHO 02/07/17 * -- Conclusions -- * There is moderate asymmetric left ventricular hypertrophy. * Left ventricular systolic function is mildly reduced. * Diastolic dysfunction, Grade II, consistent with elevated left atrial pressure. * There is mild mitral regurgitation. * Right ventricular systolic pressure is normal. * Compared to an echocardiogram obtained in July 2016, the LV systolic function appears slightly worse. * EF= 45-50 % EKG 02/08/17 Sinus bradycardia (46) Nonspecific ST and T wave abnormality Abnormal ECG When compared with ECG of 07-FEB-2017 22:01, (unconfirmed) No significant change was found Confirmed by ANGELO SCOTT ([id number]) on 02/08/2017 10:43:52 AM Assessment and Plan Assessment and Plan: ASSESSMENT: Mr. Angelo Barrios is a 76 year old gentleman with PHM significant for paroxysmal atrial fibrillation, atherosclerotic cardiovascular disease, HTN, HLD , asthma, BPH, DM II, GERD, and depression who presented with jaw pain that is worse with exertion and elevated troponin. He is currently asymptomatic in sinus bradycardia with HR 40-50s. Overnight was asymptomatic but showed significantly elevated troponin. Eliquis has been held for last 24 hours in preparation for cardiac catheterization this afternoon. PLAN: NSTEMI -Admit to telemetry. -Cardiology consulted, appreciate recs: hold 4 Eliquis doses prior to cardiac cath. try for possible cath late afternoon today -Continue beta damon, nitro, systemic anticoagulation and daily aspirin. -Continue metoprolol, lisinopril, ASA, and atorvastatin -Echocardiogram shows LVEF 45-50%, grade II diastolic dysfunction, no wall motion abnormalities. LVEF slightly worse compared to July 2016 study. -Cardiac enzymes x 3. Initial troponin elevated at 3.16 --> 26.0--> 25.2 -Heparin drip -NPO for possible cath today -Eliquis held. Last dose morning of 02/07 -EKG 02/08/17 showed 46 bpm, sinus bradycardia, ST depressions in V3-V6 resolved -EKG q am and prn chest pain Paroxysmal atrial fibrillation -currently in sinus bradycardia -Eliquis held ASCVD, HTN, HLD, bradycardia -Continue metoprolol tartrate 25 mg PO BID, hold if HR less than 60 or SBP less than 100 -Continue ASA 81 mg PO qd, lisinopril 5 mg PO qd, atorvastatin 60 mg PO qd, nitro prn DM II, diet controlled -last HgbA1c checked on 01/17/17 was 6.2 -BSGs elevated here -Insulin sliding scale -Check BSGs q ac and qhs Asthma -stable, no exacerbation, no SOB/wheezing -Hold Advair for now -DuoNeb q2h prn SOB/wheezing Depression -Continue Paxil 20 mg PO qd BPH -Continue Proscar 5 mg PO qd GERD -Continue ranitidine 150 mg PO BID DVT prophylaxis -Heparin drip Code Status -Level I, FULL RESUSCITATION STATUS
[2017-02-08] MEDS ORDERED: FENTANYL CITRATE INJ 50 MCG/1 ML 2 ML VIAL ONE (14:08)
[2017-02-08] MEDS ORDERED: NITROGLYCERIN/D5W 100MCG/ML 20ML SYR ONE (14:08)
[2017-02-08] MEDS ORDERED: NiCARDipine HCL INJ 2.5 MG/ML 10 ML AMP ONE (14:08)
[2017-02-08] MEDS ORDERED: HEPARIN SOD (PORCINE) 1000 UNIT/ML 10 ML VIAL ONE (14:08)
[2017-02-08] MEDS ORDERED: MIDAZOLAM HCL 1 MG/ML 2ML VIAL ONE ×2 (14:08→15:46)
--- NOTE | 2017-02-08 14:31 | Procedure Note ---
Pre-Mod Sedation Assessment General Date of Moderate Sedation: Feb 08, 2017. Vital Signs: Vital Signs Past 12 Hours Date Time Temp Pulse Resp B/P (MAP) Pulse Ox O2 Delivery O2 Flow Rate FiO2 02/08/17 12:30 Room Air 02/08/17 11:15 36.5 50 18 148/77 (100) 94 02/08/17 09:36 49 121/57 (78) 02/08/17 07:45 Room Air 02/08/17 07:29 36.6 59 18 107/60 (76) 94 02/08/17 07:04 36.4 49 18 108/63 93 Room Air 02/08/17 04:25 36.4 49 18 108/63 (78) 93 Room Air 02/08/17 04:00 95 Room Air Review Cardiovascular: regular rate, rhythm, no edema, no JVD, no murmur, normal peripheral pulses Abdomen: normal bowel sounds, non tender, soft Lungs: lungs clear Pre-Sedation Airway Assessment Oral Cavity: Dentures Able to Visualize Vocal Cords: No Short Thick Neck: No Hx of Sleep Apnea: No Smoking Status: Former Smoker Mallampati Classification: Class IV Procedure Planning Contraindications-for Mod Sed: None Yes Notes The planned sedation has been discussed with the patient and consent obtained. I have identified the patient, determined the appropriateness of sedation and have assessed the patient immediately prior to the procedure. All medicine(s) and interventions are by my order.
[2017-02-08] MEDS: INSULIN ASPART 100 UNITS/ML 3 ML PEN SC SCH ×2 (16:27→20:29)
--- NOTE | 2017-02-08 16:40 | Procedure Note ---
Post-Mod Sedation Assessment General Date of Moderate Sedation Feb 08, 2017. Vital Signs: Vital Signs Past 12 Hours Date Time Temp Pulse Resp B/P (MAP) Pulse Ox O2 Delivery O2 Flow Rate FiO2 02/08/17 16:27 36.5 49 16 147/76 (99) 93 Room Air 02/08/17 16:10 48 16 128/64 (85) 95 Room Air 02/08/17 16:00 48 16 122/64 (83) 95 Room Air 02/08/17 12:30 Room Air 02/08/17 11:15 36.5 50 18 148/77 (100) 94 02/08/17 09:36 49 121/57 (78) 02/08/17 07:45 Room Air 02/08/17 07:29 36.6 59 18 107/60 (76) 94 02/08/17 07:04 36.4 49 18 108/63 93 Room Air Review - Discharge Criteria Vital Signs Stable: Yes Alert/Oriented/Conversant: Yes Returned to Baseline Mental St: Yes Nausea Absent/Minimal: Yes Pain/Discomfort/Absent/Minimal: Yes Normal/Baseline Respirations: Yes Active Bleeding?: No Pt Received D/C Instructions: N/A Prescriptions Given: None Specific Proced. D/C Criteria Distal Pulses Present (Cardiac: Yes Groin site assessed-Card Cath: N/A Voided Prior To Discharge: N/A Discharged Patients Adult Escort/Transportation: N/A
[2017-02-08] MEDS ORDERED: SODIUM CHLORIDE 0.9% 1000ML 250 ML IV PRN (16:41)
[2017-02-08] MEDS ORDERED: SODIUM CHLORIDE 0.9% 1000ML 1,000 ML IV SCH (16:41)
[2017-02-08] MEDS ORDERED: EPTIFIBATIDE BOLUS / DRIP IV STA (16:43)
[2017-02-08] MEDS ORDERED: ACETAMINOPHEN 325 MG TAB PO PRN (16:45)
[2017-02-08] MEDS ORDERED: NITROGLYCERIN 0.4 MG SL PER TAB CHARGE SL PRN (16:45)
[2017-02-08] MEDS ORDERED: ATROPINE SULFATE 0.1 MG/ML 5ML SYR IV PRN (16:45)
[2017-02-08] MEDS ORDERED: ONDANSETRON INJ 2 MG/ML 2 ML VIAL IV PRN (16:45)
[2017-02-08] MEDS ORDERED: NTRSLP4 SL (17:28)
[2017-02-08] MEDS ORDERED: NTRO1 EXT (17:28)
[2017-02-08] MEDS ORDERED: EPTIFIBATIDE IV ONE (17:30)
[2017-02-08] MEDS ORDERED: EPTIFIBATIDE INJ 75 MG PREMIXED IV SCH (17:30)
--- NOTE | 2017-02-08 17:30 | Discharge Instructions ---
Discharge Instructions Date of Service Feb 08, 2017. Admission Reason for Admission: Nstemi Discharge Discharge Diagnosis / Problem: NSTEMI, 3 vessel cad Discharge Goals Goal(s): Decrease discomfort, Improve function, Increase independence, Improve disease control, Improve nutritional status, Learn about illness, Diagnostic testing, Therapeutic intervention, Prevent Disease Progression, Specific goals Activity Recommendations Activity Limitations: as noted below . Instructions / Follow-Up Instructions / Follow-Up you have NSTEMI and 3 vessel coronary disease per cardiac cath Dr. Garcia has contact Dr. Gonzalez in [facility], he will accept you you need to follow up with pcp after discharged from [facility]. Current Hospital Diet Patient's current hospital diet: AHA Diet (Heart Healthy), Diabetes Type 2 Diet Discharge Diet Recommended Diet: AHA Diet (Heart Healthy) Procedures Procedures Performed: [facility] Pending Studies Studies pending at discharge: no Laboratory Results Hemoglobin A1c Test 01/17/17 10:38 Range/Units Estimated Average Glucose 131 mg/dl Hemoglobin A1c 6.2 H 4.5-5.6 % Lipid Panel Test 01/17/17 10:38 Range/Units Triglycerides Level 161 H 0-150 mg/dl Cholesterol Level 162 0-200 mg/dl HDL Cholesterol 32 mg/dl Cholesterol/HDL Ratio 5.1 LDL Cholesterol, Calculated 98 mg/dl Medical Emergencies . Who to Call and When: Medical Emergencies: If at any time you feel your situation is an emergency, please call 911 immediately. . Non-Emergent Contact Non-Emergency issues call your: Primary Care Provider, Apple Thinner . . "Provider Documentation" section prepared by Vasquez Guerrero. . VTE Core Measure Inpt VTE Proph given/why not?: Other Anticoagulation (Eliquis 5 mg by mouth twice a day with last dose 9:30 AM today, to be changed to heparin drip at 9:30 PM angel)
--- NOTE | 2017-02-08 17:41 | Cardiac Catheterization ---
Procedure Note Procedure Date Feb 08, 2017. Pre-Procedure Diagnosis Non STEMI AUC Score 8 Post-Procedure Diagnosis Severe CAD, Elevated Intracardiac Pressures Procedure(s) Performed Coronary Angiography, Left Heart Cath Personnel Scheduler Dr. River Validation Analyst(s) Emily Glunt,RTR,,FOOD CHEMIST Estimated Blood Loss 40 ml Medication(s) Fentanyl, Heparin, Integrilin, Nicardipine, Versed, Lidocaine 1% Summary of Findings Clinical indications: Non ST elevation myocardial infarction. Electrocardiogram with anterolateral ST depressions. Echocardiogram with mild global hypokinesis. LV ejection fraction 45-50 percent. History of paroxysmal atrial fibrillation, hypertension, and dyslipidemia. Catheterization site: 6 [place] slender glide sheath right radial artery. Catheters: A total of 10 catheters were used for coronary angiography. Left coronary angiography was successfully performed with a 5 [place] JL 3.5 diagnostic catheter. Nine different catheters were used in attempts at selective right coronary angiography. The right coronary artery was not selectively engage. Non selective injections of the right coronary artery were performed with various catheters. Left heart catheterization was performed with a 5 [place] Fliggotronic LYN radial catheter. Hemostasis: Terumo TR band. Complications: None. Summary: Fluoroscopy revealed extensive calcifications of the left main, proximal LAD, proximal left circumflex, and right coronary arteries. The coronary artery circulation was codominant. The left main was a large caliber vessel with a 90 percent distal stenosis. It gave rise to medium caliber left anterior descending and left circumflex coronary arteries. The ostium of the LAD had a 95-99 percent stenosis. The proximal LAD then had a long and eccentric 75 percent stenosis. The proximal LAD gave rise to a very small caliber 1st diagonal artery which had a 30 percent ostial stenosis. The early mid LAD gave rise to a small caliber bifurcating 2nd diagonal artery. The early mid LAD then had a 75 percent stenosis. The latter mid LAD had a 10 percent stenosis. The distal LAD prior to reaching the apex had a 90 percent stenosis. The very proximal left circumflex gave rise to a long medium caliber marginal artery which had an ostial 50 percent stenosis and 20 percent proximal stenosis. The mid segment had a 20 percent stenosis. Following the origin of this marginal the circumflex was totally occluded. Pexs-ge-ssiw collateral flow was present to the left posterolateral artery. This vessel was visualized as a very small caliber vessel. The right coronary artery appeared to have a total ostial occlusion. Right to right collateral flow was present from a conus branch to the mid RCA. The mid and early distal RCA were visualized as a very small caliber vessel. Plan: The patient has severe left main and triple-vessel coronary artery disease. He is being transferred to the [facility] for CABG surgery. When hemostasis is documented at the right radial catheterization site he will be restarted on intravenous heparin. He will be started on intravenous Integrilin. He will remain on aspirin and beta-damon therapy. Hemodynamics Rest Ao: 130/56/84 mm Hg Final Ao: 123/54/80 mm Hg LV: 134/16 mm Hg( rest) Recommendations CABG Specimens None Radiation Exposure (mGy) 4342 Contrast (mls) 155 ml Visipaque Fluids (cc crystalloids) 160 Drains none Anesthesia IV Versed,fentanyl. Lidocaine 1 % local Procedural Complication(s) None Disposition PCU ACC Data Cardiac Status Clinical evaluation leading to the procedure CAD Presntation: Non STEMI Anginal Classification: CCS III Heart Failure: No Cardiogenic Shock w/in 24Hrs: No Cardiac Arrest w/in 24Hrs: No Imaging studies past 6 months: Yes (Echocardiogram 02/08/2017 with LVEF 45-50%. No segmental wall motion abnormalities.) Stress studies past 6 months: No Standard Exercise Stress Test: No Stress Echocardiogram: No Stress Testing w/SPECT MPI: No Cardiac CTA: No Coronary Anatomy Dominant: Co-dominant Left Main (% Stenosis): Distal (90) LAD (% Stenosis): Ostial (95-99), Proximal (long eccentric 75), Mid (75), Distal (90) D1 (% Stenosis): Ostial (30), Mid (30) D2 (% Stenosis): Proximal (20) Circumflex (% Stenosis): Proximal (100) OM1 (% Stenosis): Ostial (50), Proximal (20), Mid (20) RCA (% Stenosis): Ostial (100) Left Ventricular Angiography EF (%): NA Diagnostic Physician's Name: Peng River M.D. Status: Elective Closure Device Percutaneous Entry Location: Radial Closure Device: Radial Band Recommendations: Medical therapy and/or Counseling, CABG
--- NOTE | 2017-02-08 17:42 | Discharge Summary ---
Discharge Summary Date of Service Feb 08, 2017. Discharge Summary Admission Date: Feb 07, 2017 at 13:04 Discharge Date: Feb 08, 2017 Discharge Disposition: Acute care facility (C) Principal Diagnosis: NSTEMI, 3 vessel disease CAD Immunizations: Have You Had Influenza Vaccine: Unknown History of Tetanus Vaccine?: Unknown History of Pneumococcal: Unknown History of Hepatitis B Vaccine: Unknown Procedures: [facility] Consultations: cardio Medication Reconciliation New Medications: Nitroglycerin (Nitrostat) 0.4 Mg/1 Tab Subl 0.4 MG SL Q5M PRN for Chest Pain for 1 Day, #1 this is just for transfer med recs Nitroglycerin (Nitro-Bid) 1 Inch/Pkt Oint 1 INCH EXT Q6H for 1 Day, #1 this is just for transfer med recs Continued Medications: Apixaban (Eliquis) 5 Mg Tab 5 MG PO BID for 30 Days, 0 Refills Aspirin (Aspirin EC Low Dose) 81 Mg Ectab 81 MG PO QAM for 30 Days Atorvastatin (Lipitor) 40 Mg Tab 60 MG PO QPM, TAB Calcium Carbonate (Calcium) 600 Mg Tab 1 TAB PO BID Finasteride (Proscar) 5 Mg Tab 5 MG PO QPM, TAB Fluticasone Prop/Salmeterol (Advair Diskus 500-50 Mcg/Dose) 14 Puff/1 Inhaler Aerp 1 PUFF INH QAM Lisinopril (Prinivil) 5 Mg Tab 5 MG PO QAM, TAB Metoprolol Tartrate (Lopressor) 25 Mg Tab 25 MG PO BID for 30 Days, #60 TAB Multiple Vitamins W/ Minerals (Centrum Silver Adult 50+) 1 Tab Tab 1 TAB PO QAM [place]-3 Fatty Acids ([place] 3) 1 Cap Cap 1 CAP PO BID Paroxetine Hcl (Paxil) 20 Mg Tab 20 MG PO QPM, TAB Ranitidine (Zantac) 150 Mg Tab 1 TAB PO BID for 30 Days, #60 TAB 2 Refills Discharge Exam see today's note Physical Exam: General Appearance: + pertinent finding (see today's note) Hospital Course 76 y/o male admitted on 02/07/2017 with jaw pain that is worse with exertion and elevated troponin. Past medical history of paroxysmal a-fib, atherosclerotic cardiovascular disease , HTN, HLD, DM II, benign familial tremor, asthma, depression, BPH, and GERD NSTEMI--pt asymptomatic -Admit to telemetry. No acute events overnight, pt in sinus bradycardia with HR in 40-50s. Pt asymptomatic -Cardiology consulted, appreciate recs: ideally hold 4 Eliquis doses prior to cardiac cath, but will try for possible cath late on 02/08. Continue beta damon , nitro, systemic anticoagulation and daily aspirin. -Echocardiogram shows LVEF 45-50%, grade II diastolic dysfunction, no wall motion abnormalities. LVEF slightly worse compared to July 2016 study. -Cardiac enzymes x 3. Initial troponin elevated at 3.16. 2nd troponin peaked at 26.0. Last troponin 25.2 -Has been on Heparin drip -NPO after midnight for possible cath today, per reported of Dr. Garcia, he has NSTEMI, 3 vessel disease CAD, need to be transferred to [facility] Dr. Gonzalez's service for further eval and tx, discussed with patient of the risks and benefits, consent signed, pt need to go by ALS, and per Dr. River, who did [facility], patient need to continue heparin drip and Integlin drip during the transportation -Eliquis held. Last dose morning of 02/07 -Continue metoprolol, lisinopril, ASA, and atorvastatin -EKG 02/08 46 bpm, sinus bradycardia, ST depressions in V3-V6 resolved -EKG q am and prn chest pain Paroxysmal a-fib--currently in sinus bradycardia -Eliquis held ASCVD, HTN, HLD, bradycardia--pt has remained bradycardic but asymptomatic. BP stable -Continue metoprolol tartrate 25 mg PO BID, hold if HR less than 60 or SBP less than 100 -Continue ASA 81 mg PO qd, lisinopril 5 mg PO qd, atorvastatin 60 mg PO qd, nitro prn DM II, diet controlled--last HgbA1c checked on 01/17/17 was 6.2 -BSGs elevated here -Insulin sliding scale -Check BSGs q ac and qhs Asthma--stable, no exacerbation, no SOB/wheezing -Hold Advair for now -DuoNeb q2h prn SOB/wheezing Depression -Continue Paxil 20 mg PO qd BPH -Continue Proscar 5 mg PO qd GERD -Continue ranitidine 150 mg PO BID DVT prophylaxis -Heparin drip Code Status -Level I, FULL RESUSCITATION STATUS Discussed with patient about care plan, answered all the questions Total Time Spent: Greater than 30 minutes NSTEMI, 3 vessel disease CAD This includes examination of the patient, discharge planning, medication reconciliation, and communication with other providers. Discharge Instructions Please refer to the electronic Patient Visit Report (Discharge Instructions) for additional information. Additional Copies To Aakash Phelps M.D.
[2017-02-08 17:58] LABS: PARTIAL THROMBOPLASTIN RATIO 2.5
[2017-02-08] MEDS: HEPARIN 25,000 UNIT/500ML D5W 500 ML IV PRN (19:28)
[2017-02-08] MEDS ORDERED: NURSING VERBAL MED ORDER ONE (19:30)
[2017-02-08] MEDS: ATORVASTATIN 20 MG TAB PO SCH (20:27)
[2017-02-08] MEDS: FINASTERIDE 5 MG TAB PO SCH (20:28)
[2017-02-08] MEDS: PAROXETINE 20 MG TAB PO SCH (20:28)
[2017-03-24] MEDS ORDERED: ATOR-24 PO (10:11)
[2017-03-24] MEDS ORDERED: FINA5TAB4 PO (10:11)
[2017-03-24] MEDS ORDERED: PARO20TA PO (10:11)
[2017-03-24] MEDS ORDERED: MULT-845 PO (10:11)
== END 2017-02-08 21:18 | disposition short-term general hospital (02) | DRG 282 ==
LOC: C.EDB 11:37 → C.MED 13:04 → ENRESERV 13:08 → EDBEDREQ 02-08 15:04 → ENRESERV 02-08 15:13 → C.2T 02-08 16:26
PROVIDERS: ADMIT Hospitalist; ATTEND Hospitalist
PROC: 4A023N7 Measurement of Cardiac Sampling and Pressure, Left Heart, Percutaneous Approach (ICD-10-PCS; principal; 2017-02-08 14:15)
PROC: B211YZZ Fluoroscopy of Multiple Coronary Arteries using Other Contrast (ICD-10-PCS; principal; 2017-02-08 14:15)
DX: I21.4 Non-ST elevation (NSTEMI) myocardial infarction (principal); I25.10 Atherosclerotic heart disease of native coronary artery without angina pectoris; I48.0 Paroxysmal atrial fibrillation; I10 Essential (primary) hypertension; E78.5 Hyperlipidemia, unspecified; K21.9 Gastro-esophageal reflux disease without esophagitis; N40.0 Benign prostatic hyperplasia without lower urinary tract symptoms; F32.9 Major depressive disorder, single episode, unspecified; E11.9 Type 2 diabetes mellitus without complications; J45.909 Unspecified asthma, uncomplicated; Z79.01 Long term (current) use of anticoagulants; Z79.82 Long term (current) use of aspirin; Z79.899 Other long term (current) drug therapy

== ENCOUNTER 2017-03-24 13:50 | Emergency (ER) | payer BC, OTHER ==
[~2017-03-24] VITALS: Ht 177.8 cm; Wt 84.0 kg
[~2017-03-24 13:50] MED LIST changes: +ATOR-24 PO; +FINA5TAB4 PO; +MULT-845 PO; +NTRO1 EXT; +NTRSLP4 SL; +PARO20TA PO; -POLY335019 PO; -VERA1TAB60 PO
[2017-03-24 13:52] VITALS: TEMP 37.1; Ht 177.8 cm; Wt 84.0 kg
[2017-03-24] MEDS ORDERED: ALTEPLASE, RECOMBINANT 1 MG/ML 2 ML VIAL IV ONE ×2 (14:45→15:00)
--- NOTE | 2017-03-24 14:46 | DIAGNOSTIC IMAGING REPORT ---
CHEST ONE VIEW PORTABLE HISTORY: PICC line placement. COMPARISON: Chest 02/07/2017. FINDINGS: A left PICC terminates in the expected location of the SVC. There are postoperative changes no pneumothorax. Trace bilateral pleural effusions. Left basilar linear densities favor subsegmental atelectasis. No evidence for pulmonary edema. Linear radiopaque density overlying the sternotomy changes may be due to the recent postoperative change. The heart is borderline enlarged. IMPRESSION: 1. The left PICC terminates in the expected location of the SVC. 2. Trace bilateral pleural effusions. 3. Interval poststernotomy changes. Electronically signed by: Ethan Garcia M.D. 03/24/2017 2:44 PM Dictated Date/Time: 03/24/2017 2:43 PM
[2017-03-24] MEDS ORDERED: ASPI81TA28 PO (15:27)
[2017-03-24] MEDS ORDERED: FLUC200T4 PO (15:27)
[2017-03-24] MEDS ORDERED: FLUT1INH7 INH (15:27)
[2017-03-24] MEDS ORDERED: CALC-343 PO (15:27)
[2017-03-24] MEDS ORDERED: DOCU100C31 PO (15:27)
[2017-03-24] MEDS ORDERED: FAMO20TA11 PO (15:27)
[2017-03-24] MEDS ORDERED: CEFE2INJ2 IV. (15:27)
[2017-03-24] MEDS ORDERED: AMIO200T4 PO (15:27)
[2017-03-24] MEDS ORDERED: BISA10SU7 RE (15:28)
[2017-03-24] MEDS ORDERED: SODIENE PR (15:28)
[2017-03-24] MEDS ORDERED: [UNRECOGNIZED DRUG - REMARK] INH (15:28)
[2017-03-24] MEDS ORDERED: WARF1TAB6 PO (15:28)
[2017-03-24] MEDS ORDERED: SENN8.6T36 PO (15:28)
[2017-03-24] MEDS ORDERED: POLY335019 PO (15:28)
[2017-03-24] MEDS ORDERED: OXYC1TAB3 PO (15:28)
[2017-03-24] MEDS ORDERED: ACET-1256 PO (15:28)
[2017-03-24] MEDS ORDERED: TAMS0.4C38 PO (15:28)
[2017-03-24] MEDS ORDERED: MOML PO (15:28)
--- NOTE | 2017-03-24 17:53 | EMERGENCY ROOM VISIT NOTE ---
History First contact with patient: 13:58 Chief Complaint: PICC LINE CLOTTED Stated Complaint: PICC LINE History of Present Illness The patient is a 76 year old white male who presents to the Emergency Room with complaints of a blocked PICC line. He is getting IV antibiotics for an infected chest wound after CABG. He is at [facility]. The PICC line would not flush. He was sent here for further management. He has an appointment in [place] on Saturday for follow-up. No other complaints. He denies any chest discomfort. Review of Systems REVIEW OF SYSTEM: HEENT: No dizziness, visual problems, hearing loss, or tinnitus. There is no difficulty swallowing and no oral lesions are present. PULMONARY: No cough, shortness of breath, sputum production or hemoptysis. CARDIOVASCULAR: No shortness of breath or peripheral edema. GASTROINTESTINAL: No diarrhea, constipation, nausea, vomiting, or abdominal pain. GENITOURINARY: No dysuria, frequency, urgency or nocturia. NEUROLOGIC: No weakness, muscle tenderness, epilepsy or history of neurological problems. MUSCULOSKELETAL: No history of joint tenderness/swelling. Positive history of arthritis and arthralgias. SKIN: No rashes or lesions. PSYCHIATRIC: No history of depression or mental illness. ENDOCRINE: No history of diabetes, thyroid disorders, or abnormal hair growth. Past Medical/Surgical History Medical Problems: (1) Asthma (2) Atrial fibrillation with RVR (3) Hypertension (4) NSTEMI (non-ST elevated myocardial infarction) (5) Unstable angina Family History Diabetes mellitus Hypertension Social History Smoking Status: Never Smoker Smokeless Tobacco Use: No Alcohol Use: none Drug Use: none Marital Status: Housing Status: lives with family Occupation Status: retired Current/Historical Medications Scheduled Amiodarone Hcl (Cordarone), 200 MG PO Q12 Aspirin (Aspirin Ec), 81 MG PO DAILY Atorvastatin (Lipitor), 60 MG PO QPM Calcium Carbonate-Cholecalcife (Calcium 500 +D), 1 TAB PO QAM Cefepime Hcl (Cefepime), 2 GM IV. DAILY Docusate Sodium (Docusate Sodium), 1 CAP PO BID Famotidine (Pepcid), 20 MG PO DAILY Finasteride (Proscar), 5 MG PO QPM Fluconazole (Diflucan), 200 MG PO DAILY Fluticasone Furoate-Vilanterol (Breo Ellipta 200-25 Mcg/INH), 1 PUFF INH DAILY Multiple Vitamins W/ Minerals (Centrum Silver Adult 50+), 1 TAB PO QAM [place]-3 Fatty Acids ([place] 3), 1 CAP PO BID Paroxetine Hcl (Paxil), 20 MG PO QPM Sennosides-Docusate Sodium (Docusate Sodium/Senna), 1 TAB PO QLUNCH Tamsulosin Hcl (Flomax), 0.4 MG PO DAILY Warfarin Sod (Jantoven), 1 TAB PO UD Scheduled PRN Acetaminophen (Tylenol), 500 MG PO Q4 PRN for Pain or Fever Bisacodyl (Bisac-Evac), 1 SUPP RE DAILY PRN for Constipation Magnesium Hydroxide (Milk Of Magnesia), 30 ML PO DAILY PRN for Constipation Oxycodone Ir (Roxicodone Ir), 1 TAB PO Q4H PRN for Pain Polyethylene Glycol 3350 (Miralax), 17 GM PO DAILY PRN for Constipation Sodium Phosphate/Biphosphate (Fleet Enema), 1 EA AL DAILY PRN for Constipation [Albuterol Cef Free], 2 PUFF INH QID PRN for SOB/Wheezing Physical Exam Vital Signs Date Time Temp Pulse Resp B/P (MAP) Pulse Ox O2 Delivery O2 Flow Rate FiO2 03/24/17 15:40 70 20 134/72 95 Room Air 03/24/17 13:52 37.1 74 18 162/86 94 Room Air Physical Exam Gen.: Well-developed, well-nourished, elderly white male, in no acute distress. Laying on a bed. Alert and oriented. Skin:Warm and dry with good turgor. No rashes or lesions. No ecchymosis or erythema. The patient is not diaphoretic. No abrasions. PICC line site appears in good condition. No signs of infection. No drainage. Heart: Heart RRR. No MGR. Peripheral pulses are 2+. Lungs: Lungs are clear to auscultation. No crackles rhonchi or wheezing. Fair air movement. Medical Decision & Procedures ER Provider Diagnostic Interpretation: Chest radiograph obtained today was read by radiology as confirming appropriate placement of the PICC line in the SVC. Medications Administered Medications (Trade) Dose Ordered Sig/Geovanna Route Start Time Stop Time Status Last Admin Dose Admin Alteplase, Recombinant (Activase Cathflo) 2 mg ONE ONCE IV 03/24/17 14:45 03/24/17 14:46 DC 03/24/17 15:27 2 MG Alteplase, Recombinant (Activase Cathflo) 2 mg ONE ONCE IV 03/24/17 15:00 03/24/17 15:01 DC 03/24/17 15:29 2 MG Alteplase Procedure PICC line flush was attempted. This was unsuccessful. Alteplase was administered. He was monitored for an hour. PICC line was then easily flushed. ED Course Patient was evaluated. Conservative care measures were discussed. IV team did come to check his PICC line. It was occluded. He was administered alteplase and monitored for an hour. PICC line was then able to be flushed easily. He was sent back to [facility]. Follow-up in [place] on Saturday as scheduled. Return to the ED for any other concerns. Medical Decision Possibility of occluded PICC line, improper placement, malfunctioning device, and infection were considered. Medication Reconcilliation Current Medication List: was personally reviewed by me Blood Pressure Screening Patient's blood pressure: Normal blood pressure Impression Primary Impression: Occluded PICC line Departure Information Dispostion Home / Self-Care Forms WORK / SCHOOL INSTRUCTIONS, HOME CARE DOCUMENTATION FORM, TYLENOL USE, IMPORTANT VISIT INFORMATION Patient Instructions My [facility] Additional Instructions Follow-up in [place] on Saturday as scheduled Return to the ED for any other concerns Problem Qualifiers Primary Impression: Occluded PICC line Encounter type: initial encounter Qualified Codes: T82.898A - Other specified complication of vascular prosthetic devices, implants and grafts, initial encounter
[2017-03-24 18:20] VITALS: BP 184/94; PULSE 73; O2SAT 97
== END 2017-03-24 18:22 | disposition home or self-care (01) ==
LOC: EDUNIT# 13:50 → EDSEX 13:50 → EDBD 13:50 → C.EDD 13:51
DX: T85.9XXA Unspecified complication of internal prosthetic device, implant and graft, initial encounter (principal); X58.XXXA Exposure to other specified factors, initial encounter; I48.91 Unspecified atrial fibrillation; I10 Essential (primary) hypertension; J45.909 Unspecified asthma, uncomplicated; I25.2 Old myocardial infarction; Z79.82 Long term (current) use of aspirin; Z79.01 Long term (current) use of anticoagulants; Z79.899 Other long term (current) drug therapy; Z83.3 Family history of diabetes mellitus; Z82.49 Family history of ischemic heart disease and other diseases of the circulatory system

== ENCOUNTER 2017-03-29 11:45 | Emergency (ER) | payer BC ==
[~2017-03-29] VITALS: Ht 177.8 cm; Wt 85.6 kg
[~2017-03-29 11:45] MED LIST changes: +ACET-1256 PO; -ADVIN50050 INH; +AMIO200T4 PO; -APIX1TAB3 PO; -ASPEC81 PO; +ASPI81TA28 PO; +BISA10SU7 RE; +CALC-343 PO; -CALC-393 PO; +CEFE2INJ2 IV.; +DOCU100C31 PO; +FAMO20TA11 PO; +FLUC200T4 PO; +FLUT1INH7 INH; -LISI5TAB PO; -LPR25 PO; +MOML PO; -NTRO1 EXT; -NTRSLP4 SL; +OXYC1TAB3 PO; +POLY335019 PO; +SENN8.6T36 PO; +SODIENE PR; +TAMS0.4C38 PO; +WARF1TAB6 PO; -ZNTT/150 PO; +[UNRECOGNIZED DRUG - REMARK] INH
[2017-03-29 12:02] VITALS: TEMP 36.6; Ht 177.8 cm; Wt 85.6 kg
[2017-03-29 12:17] VITALS: O2SAT 97
[2017-03-29 12:45] LABS: BASO % 0.4 %; BASO ABS # 0.05 K/uL (0-0.2); COMPLETE YES; EOS % 1.9 %; IG% 0.4 %; LYMPH % 9.3 %; LYMPH ABS # 1.26 K/uL (1.2-3.4); MEAN CELL VOLUME 90.9 fL (80-100); MEAN CORPUSCULAR HEMOGLOBIN 30.2 pg (25-34); MEAN CORPUSCULAR HGB CONC 33.2 g/dl (32-36); MEAN PLATELET VOLUME 10.1 fL (7.4-10.4); MONO % 6.4 %; NEUT % 81.6 %; PLATELET COUNT 318 K/uL (130-400); RED BLOOD COUNT 3.08 M/uL (4.7-6.1); WHITE BLOOD COUNT 13.55 K/uL (4.8-10.8)
--- NOTE | 2017-03-29 12:45 | DIAGNOSTIC IMAGING REPORT ---
SINGLE VIEW CHEST CLINICAL HISTORY: Dyspnea. FINDINGS: An AP, portable, upright chest radiograph is compared to study dated 03/24/2017. The examination is degraded by portable technique and patient rotation. A left PICC line has been advanced. The tip projects over the right atrium. The patient is status post midline sternotomy. The heart is enlarged and there is atherosclerotic calcification of the thoracic aorta. There is pulmonary vascular congestion. There our small pleural effusions, left larger than right with bibasilar airspace opacities. No pneumothorax is seen. The skeletal structures are osteopenic. The bony thorax is grossly intact. IMPRESSION: 1. Cardiomegaly with evidence of mild congestive failure. 2. Small pleural effusions are identified, left larger than right with bibasilar airspace opacities. This likely represents atelectasis. Correlate clinically for evidence of superimposed pneumonia. 3. A left PICC line has been advanced. The tip now projects over the right atrium. Electronically signed by: Avtar Martin M.D. 03/29/2017 12:43 PM Dictated Date/Time: 03/29/2017 12:42 PM
[2017-03-29 12:50] LABS: INR 2.1 (0.9-1.1); PARTIAL THROMBOPLASTIN RATIO 1.4; PROTHROMBIN TIME (PATIENT) 23.3 SECONDS (9.0-12.0)
--- NOTE | 2017-03-29 12:55 | EMERGENCY ROOM VISIT NOTE ---
History Report prepared by Rajat: Alana Ulrich Under the Supervision of: Dr. Mono Zimmerman M.D. First contact with patient: 12:35 Chief Complaint: SHORTNESS OF BREATH Stated Complaint: SOB, DIARRHEA - 3 HEART SURG. RECENTLY Nursing Triage Summary: pt states when he breathes, he has to take two breaths to get one. feels better sitting up. recent CABG, just home from rehab last week per the pts . dyspnea on exertion. moist cough History of Present Illness The patient is a 76 year old male who presents to the Emergency Room with complaints of persistent shortness of breath over the past several days. The patient reports that he recently had open heart surgery. He states that the surgery itself went well, but notes that after the surgery he experienced complications. The patient states that he developed an infection at his incision site, noting that the site was left open for two weeks. He states that he additionally developed pneumonia and states that he is still taking antibiotics. The patient states that he has been experiencing a cough. He states that he was doing better, but states that he has been experiencing dyspnea on exertion. The patient's reports that the patient has a history of having fluid drained from his left lung. He denies any fever, chills, or diarrhea. The patient's states that the patient was discharged from [facility] four days ago. Source of History: patient, spouse/significant other () Onset: past several days Position: other (global) Quality: other (shortness of breath) Timing: other (persistent) Associated Symptoms: + cough, No fevers, No chills, No diarrhea Review of Systems All systems have been listed, reviewed, and are negative other than those previously mentioned. Please see Additional Medical History Sheet. Past Medical & Surgical Medical Problems: (1) Asthma (2) Atrial fibrillation with RVR (3) Hypertension (4) NSTEMI (non-ST elevated myocardial infarction) (5) Unstable angina Family History Diabetes mellitus Hypertension Social History Smoking Status: Never Smoker Alcohol Use: none Drug Use: none Marital Status: Housing Status: lives with family Occupation Status: retired Current/Historical Medications Scheduled Amiodarone Hcl (Cordarone), 200 MG PO Q12 Aspirin (Aspirin Ec), 81 MG PO DAILY Atorvastatin (Lipitor), 60 MG PO QPM Calcium Carbonate-Cholecalcife (Calcium 500 +D), 1 TAB PO QAM Cefepime Hcl (Cefepime), 2 GM IV. DAILY Docusate Sodium (Docusate Sodium), 1 CAP PO BID Finasteride (Proscar), 5 MG PO QPM Fluconazole (Diflucan), 200 MG PO QPM Fluticasone Prop/Salmeterol (Advair Diskus 500/50 60 Dose), 1 PUFF INH BID Multiple Vitamins W/ Minerals (Centrum Silver Adult 50+), 1 TAB PO QAM [place]-3 Fatty Acids ([place] 3), 1 CAP PO BID Paroxetine Hcl (Paxil), 20 MG PO QPM Ranitidine HCl (Ranitidine HCl), 150 MG PO BID Sennosides-Docusate Sodium (Docusate Sodium/Senna), 1 TAB PO QLUNCH Tamsulosin Hcl (Flomax), 0.4 MG PO DAILY Warfarin Sod (Jantoven), 1 MG PO DAILY Scheduled PRN Acetaminophen (Tylenol), 500 MG PO Q4 PRN for Pain or Fever Bisacodyl (Bisac-Evac), 1 SUPP RE DAILY PRN for Constipation Magnesium Hydroxide (Milk Of Magnesia), 30 ML PO DAILY PRN for Constipation Oxycodone Ir (Roxicodone Ir), 1 TAB PO Q4H PRN for Pain Polyethylene Glycol 3350 (Miralax), 17 GM PO DAILY PRN for Constipation Sodium Phosphate/Biphosphate (Fleet Enema), 1 EA [place] DAILY PRN for Constipation Allergies Coded Allergies: Beta Adrenergic Blockers (Unverified Adverse Reaction, Unknown, HEADACHES , 02/07/17) patient said this happened 40 years ago Physical Exam Vital Signs Date Time Temp Pulse Resp B/P (MAP) Pulse Ox O2 Delivery O2 Flow Rate FiO2 03/29/17 12:56 49 16 145/68 97 Room Air 03/29/17 12:17 97 Room Air 03/29/17 12:12 47 03/29/17 12:02 36.6 57 20 110/62 97 Room Air 03/29/17 12:02 97 Room Air Physical Exam GENERAL: Patient awake, alert, oriented x 3. Patient follows commands. Patient does not appear toxic. Patient is adequately hydrated and well- nourished. SKIN: No erythema, pallor, cyanosis or rash HEENT: Normal head, pupils equal, reactive to light and accommodation. Oral cavity and posterior pharynx appear normal. Neck: Without adenopathy, no neck vein distention. CHEST WALL: Healing midline sternotomy scar and healing right upper chest incision, small drainage incision over upper abdomen, all healing well no signs of infection LUNGS: Rhonchi on the right side. No wheezes, no rales. HEART: Bradycardic rate. No murmurs. No gallops. No rubs ABDOMEN: No masses, no rebound, no hepatomegaly or splenomegaly. EXTREMITIES: No signs of trauma. No pedal or pretibial edema. No calf or thigh tenderness. NEUROLOGIC: Cranial nerves II-XII within normal limits. No gross motor sensory function deficits. Medical Decision & Procedures ER Provider Diagnostic Interpretation: X ray results are stated below per my interpretation and the radiologist's interpretation. SINGLE VIEW CHEST CLINICAL HISTORY: Dyspnea. FINDINGS: An AP, portable, upright chest radiograph is compared to study dated 03/24/2017. The examination is degraded by portable technique and patient rotation. A left PICC line has been advanced. The tip projects over the right atrium. The patient is status post midline sternotomy. The heart is enlarged and there is atherosclerotic calcification of the thoracic aorta. There is pulmonary vascular congestion. There our small pleural effusions, left larger than right with bibasilar airspace opacities. No pneumothorax is seen. The skeletal structures are osteopenic. The bony thorax is grossly intact. IMPRESSION: 1. Cardiomegaly with evidence of mild congestive failure. 2. Small pleural effusions are identified, left larger than right with bibasilar airspace opacities. This likely represents atelectasis. Correlate clinically for evidence of superimposed pneumonia. 3. A left PICC line has been advanced. The tip now projects over the right atrium. Electronically signed by: Avtar Martin M.D. 03/29/2017 12:43 PM Dictated Date/Time: 03/29/2017 12:42 PM Laboratory Results 03/29/17 12:25 Red Blood Count 3.08, Mean Corpuscular Volume 90.9, Mean Corpuscular Hemoglobin 30.2, Mean Corpuscular Hemoglobin Concent 33.2, Mean Platelet Volume 10.1, Neutrophils (%) (Auto) 81.6, Lymphocytes (%) (Auto) 9.3, Monocytes (%) (Auto) 6.4, Eosinophils (%) (Auto) 1.9, Basophils (%) (Auto) 0.4, Neutrophils # (Auto) 11.06, Lymphocytes # (Auto) 1.26, Monocytes # (Auto) 0.87, Eosinophils # (Auto) 0.26, Basophils # (Auto) 0.05 03/29/17 12:25 Test 03/29/17 12:25 03/29/17 12:35 White Blood Count 13.55 K/uL (4.8-10.8) Red Blood Count 3.08 M/uL (4.7-6.1) Hemoglobin 9.3 g/dL (14.0-18.0) Hematocrit 28.0 % (42-52) Mean Corpuscular Volume 90.9 fL (80-100) Mean Corpuscular Hemoglobin 30.2 pg (25-34) Mean Corpuscular Hemoglobin Concent 33.2 g/dl (32-36) Platelet Count 318 K/uL (130-400) Mean Platelet Volume 10.1 fL (7.4-10.4) Neutrophils (%) (Auto) 81.6 % Lymphocytes (%) (Auto) 9.3 % Monocytes (%) (Auto) 6.4 % Eosinophils (%) (Auto) 1.9 % Basophils (%) (Auto) 0.4 % Neutrophils # (Auto) 11.06 K/uL (1.4-6.5) Lymphocytes # (Auto) 1.26 K/uL (1.2-3.4) Monocytes # (Auto) 0.87 K/uL (0.11-0.59) Eosinophils # (Auto) 0.26 K/uL (0-0.5) Basophils # (Auto) 0.05 K/uL (0-0.2) RDW Standard Deviation 49.7 fL (36.4-46.3) RDW Coefficient of Variation 15.1 % (11.5-14.5) Immature Granulocyte % (Auto) 0.4 % Immature Granulocyte # (Auto) 0.05 K/uL (0.00-0.02) Prothrombin Time 23.3 SECONDS (9.0-12.0) Prothromb Time International Ratio 2.1 (0.9-1.1) Activated Partial Thromboplast Time 37.5 SECONDS (21.0-31.0) Partial Thromboplastin Ratio 1.4 Anion Gap 7.0 mmol/L (3-11) Est Creatinine Clear Calc Drug Dose 30.8 ml/min Estimated GFR () 33.5 Estimated GFR (Non- 28.9 BUN/Creatinine Ratio 16.0 (10-20) Calcium Level 9.0 mg/dl (8.5-10.1) Total Bilirubin 0.3 mg/dl (0.2-1) Aspartate Amino Transf (AST/SGOT) 53 U/L (15-37) Alanine Aminotransferase (ALT/SGPT) 69 U/L (12-78) Alkaline Phosphatase 144 U/L (45-117) Total Protein 7.4 gm/dl (6.4-8.2) Albumin 2.6 gm/dl (3.4-5.0) Globulin 4.8 gm/dl (2.5-4.0) Albumin/Globulin Ratio 0.5 (0.9-2) Bedside Troponin I < 0.030 ng/ml (0-0.045) Laboratory results as stated above per my review. ECG Indication: SOB/dyspnea Rate (beats per minute): 44 Rhythm: sinus bradycardia Findings: T-wave inversion (V1-V4), other (normal axis) ED Course 1238: Past medical records reviewed. The patient was evaluated in room B12A. A complete history and physical examination was performed. 1423: I reevaluated the patient and he is resting comfortably. His heart rate is better, his lungs are clear on reexamination. 1502: I reevaluated the patient. Med list was reevaluated. The patient is currently taking Coumadin and not Xarelto. Medical Decision Nurses notes reviewed. Medical history sheet reviewed. Differential diagnosis includes but is not limited to: congestive heart failure, pneumonia, bronchitis , bradycardia. Multiple labs, EKG and imaging were obtained. On arrival patient was bradycardic. The patient's shortness of breath may have been related to the bradycardia. His heart rate improved without medication. The patient has had some elevation of his creatinine over the past month. Chest x-ray reveals minimal congestive failure which I do not believe requires treatment now. The patient has extensive cardio thoracic surgery and recently was discharged from [facility]. There was some confusion about his med list but it appears that the patient continues to take Coumadin and not Xarelto. The patient started amiodarone this morning. The shortness of breath preceded initiation of amiodarone. After multiple exams and evaluation of all his labs and imaging I do not believe the patient requires any significant change at this time. The patient improved while here in the ED without medication intervention. Pulse ox symmetry remained in the mid 90s. I reassured the patient. The patient has a follow-up appointment with his family physician, Dr. Phelps in 3 days. Medication Reconcilliation Current Medication List: was personally reviewed by me Blood Pressure Screening Patient's blood pressure: Normal blood pressure Blood pressure disposition: Did not require urgent referral Impression Primary Impression: Dyspnea Additional Impressions: Status post aorto-coronary artery bypass graft Anemia Renal insufficiency Scribe Attestation The scribe's documentation has been prepared under my direction and personally reviewed by me in its entirety. I confirm that the note above accurately reflects all work, treatment, procedures, and medical decision making performed by me. Departure Information Referrals Aakash Phelps M.D. (PCP) Patient Instructions My [facility] Additional Instructions Continue all of your current medications as prescribed. Follow-up with Dr. Conley on Saturday. Problem Qualifiers
[2017-03-29 12:56] LABS: CREATININE 2.17 mg/dl (0.60-1.40); POTASSIUM 3.9 mmol/L (3.5-5.1)
[2017-03-29 12:58] LABS: ALB/GLOB RATIO 0.5 (0.9-2)
[2017-03-29] MEDS ORDERED: XARELTO PO (13:05)
[2017-03-29] MEDS ORDERED: ADVIN50/60 INH (14:48)
[2017-03-29] MEDS ORDERED: RANI150T2 PO (14:48)
[2017-03-29] MEDS ORDERED: WARF1TAB6 PO (14:49)
[2017-03-29 15:20] VITALS: BP 135/84; PULSE 54; O2SAT 97
[2017-04-05] MEDS ORDERED: [UNRECOGNIZED DRUG - CODE] PO (19:11)
[2017-04-05] MEDS ORDERED: ONDA4TAB46 PO (19:11)
[2017-04-05] MEDS ORDERED: AMIO0.1T PO (19:11)
[2017-04-05] MEDS ORDERED: CEFE2INJ IV (19:14)
[2017-04-05] MEDS ORDERED: DXY100 PO (19:48)
[2017-04-15] MEDS ORDERED: Enteral Nutrition Formula PO (15:14)
[2017-04-15] MEDS ORDERED: PROP10TA7 PO (15:14)
[2017-04-15] MEDS ORDERED: WARF1TAB6 PO (15:14)
[2017-04-15] MEDS ORDERED: DFL50 PO (15:14)
[2017-04-15] MEDS ORDERED: LSX20 PO (15:14)
[2017-04-15] MEDS ORDERED: DXY100 PO (15:14)
== END 2017-03-29 15:43 | disposition home or self-care (01) ==
LOC: C.EDB 11:49
DX: R06.00 Dyspnea, unspecified (principal); Z95.5 Presence of coronary angioplasty implant and graft; D64.9 Anemia, unspecified; N28.9 Disorder of kidney and ureter, unspecified; I48.91 Unspecified atrial fibrillation; J45.909 Unspecified asthma, uncomplicated; I25.2 Old myocardial infarction; I20.0 Unstable angina; I11.9 Hypertensive heart disease without heart failure; J90 Pleural effusion, not elsewhere classified; Z79.01 Long term (current) use of anticoagulants; Z79.82 Long term (current) use of aspirin; Z83.3 Family history of diabetes mellitus; Z82.49 Family history of ischemic heart disease and other diseases of the circulatory system

== ENCOUNTER → 2017-04-01 | Outpatient (CLI) | payer BC ==
[~2017-04-01] MED LIST changes: +ADVIN50/60 INH; +AMIO0.1T PO; +CEFE2INJ IV; +DFL50 PO; +DXY100 PO; +Enteral Nutrition Formula PO; -FAMO20TA11 PO; -FLUT1INH7 INH; +LSX20 PO; +ONDA4TAB46 PO; +PROP10TA7 PO; +RANI150T2 PO; +[UNRECOGNIZED DRUG - CODE] PO; -[UNRECOGNIZED DRUG - REMARK] INH
[2017-04-01 14:57] LABS: BASO % 0.4 %; BASO ABS # 0.05 K/uL (0-0.2); HEMATOCRIT 25.6 % (42-52); IG% 0.4 %; LYMPH % 10.9 %; LYMPH ABS # 1.24 K/uL (1.2-3.4); MEAN CELL VOLUME 89.8 fL (80-100); MEAN CORPUSCULAR HEMOGLOBIN 28.8 pg (25-34); MEAN PLATELET VOLUME 10.7 fL (7.4-10.4); MONO % 5.4 %; NEUT % 79.9 %; PLATELET COUNT 271 K/uL (130-400); RED BLOOD COUNT 2.85 M/uL (4.7-6.1); WHITE BLOOD COUNT 11.38 K/uL (4.8-10.8)
[2017-04-01 15:18] LABS: COMPLETE YES
[2017-04-01 15:30] LABS: ALB/GLOB RATIO 0.5 (0.9-2); ALKALINE PHOSPHATASE 120 U/L (45-117); ALT/SGPT 58 U/L (12-78); AST/SGOT 45 U/L (15-37); BLOOD UREA NITROGEN 28 mg/dl (7-18); BUN/CREATININE RATIO 12.4 (10-20); CALCIUM 8.7 mg/dl (8.5-10.1); CARBON DIOXIDE 25 mmol/L (21-32); CHLORIDE 103 mmol/L (98-107); CREATININE 2.25 mg/dl (0.60-1.40); GLUCOSE 110 mg/dl (70-99); POTASSIUM 3.5 mmol/L (3.5-5.1); SODIUM 135 mmol/L (136-145)
== END | disposition home or self-care (01) ==
LOC: C.LABSPEC 14:26
PROVIDERS: ATTEND Internal Medicine Infectious Disease
DX: Z01.89 Encounter for other specified special examinations (principal)

== ENCOUNTER → 2017-04-04 | Outpatient (CLI) | payer BC ==
[2017-04-04 10:28] LABS: BLOOD UREA NITROGEN 31 mg/dl (7-18); BUN/CREATININE RATIO 10.9 (10-20); C-REACTIVE PROTEIN 2.47 mg/dl (0-0.29); CALCIUM 8.7 mg/dl (8.5-10.1); CARBON DIOXIDE 24 mmol/L (21-32); CHLORIDE 106 mmol/L (98-107); CREATININE 2.85 mg/dl (0.60-1.40); GLUCOSE 137 mg/dl (70-99); POTASSIUM 3.3 mmol/L (3.5-5.1); SODIUM 137 mmol/L (136-145)
== END | disposition home or self-care (01) ==
LOC: C.LABSPEC 10:01
PROVIDERS: ATTEND Internal Medicine Infectious Disease
DX: N17.9 Acute kidney failure, unspecified (principal); T81.4XXA Infection following a procedure, initial encounter; X58.XXXA Exposure to other specified factors, initial encounter; G72.81 Critical illness myopathy

== ENCOUNTER → 2017-04-17 | Outpatient (CLI) | payer BC, OTHER ==
[~2017-04-17] MED LIST changes: -ACET-1256 PO; -AMIO0.1T PO; -AMIO200T4 PO; -BISA10SU7 RE; -CEFE2INJ IV; -CEFE2INJ2 IV.; -DOCU100C31 PO; -FLUC200T4 PO; -MOML PO; -MULT-845 PO; -OMEG12006 PO; -ONDA4TAB46 PO; -POLY335019 PO; -SENN8.6T36 PO; -SODIENE PR; -[UNRECOGNIZED DRUG - CODE] PO
[2017-04-17 14:23] LABS: INR 3.2 (0.9-1.1); PROTHROMBIN TIME (PATIENT) 36.2 SECONDS (9.0-12.0)
[2017-04-17 14:25] LABS: HEMATOCRIT 31.2 % (42-52); MEAN CORPUSCULAR HEMOGLOBIN 29.8 pg (25-34); MEAN CORPUSCULAR HGB CONC 32.4 g/dl (32-36); MEAN PLATELET VOLUME 11.5 fL (7.4-10.4); PLATELET COUNT 237 K/uL (130-400); RED BLOOD COUNT 3.39 M/uL (4.7-6.1); WHITE BLOOD COUNT 8.55 K/uL (4.8-10.8)
[2017-04-17 14:28] LABS: BLOOD UREA NITROGEN 53 mg/dl (7-18); BUN/CREATININE RATIO 17.4 (10-20); CALCIUM 9.1 mg/dl (8.5-10.1); CARBON DIOXIDE 29 mmol/L (21-32); CHLORIDE 103 mmol/L (98-107); CREATININE 3.06 mg/dl (0.60-1.40); GLUCOSE 85 mg/dl (70-99); PHOSPHORUS 3.6 mg/dl (2.5-4.9); POTASSIUM 4.8 mmol/L (3.5-5.1); SODIUM 138 mmol/L (136-145)
--- NOTE | 2017-04-21 09:55 | CODING QUERY NO DIAGNOSIS ---
Valid Physician Order Needed A valid physician order must be submitted in order to properly bill for the service(s) provided, including date of service(s), valid diagnosis, and physician signature. If these tests are done on a recurring basis the original physician order must be submitted in order to code and bill for the service(s) provided. Please fax us the original, signed physician order so that we may expedite billing to [phone] DOS 04/17 * PTINR, CBC, PRP Thank you! Denise Darby [facility] Information Management
== END | disposition home or self-care (01) ==
LOC: C.LABSPEC 13:40
PROVIDERS: ATTEND Family Medicine
DX: I48.0 Paroxysmal atrial fibrillation (principal); G72.81 Critical illness myopathy; I10 Essential (primary) hypertension

== ENCOUNTER → 2017-04-24 | Outpatient (CLI) | payer BC ==
[2017-04-24 10:30] LABS: PROTHROMBIN TIME (PATIENT) 48.4 SECONDS (9.0-12.0)
[2017-04-24 10:40] LABS: INR 4.3 (0.9-1.1)
[2017-04-24 11:20] LABS: BLOOD UREA NITROGEN 62 mg/dl (7-18); BUN/CREATININE RATIO 24.5 (10-20); CALCIUM 9.5 mg/dl (8.5-10.1); CARBON DIOXIDE 28 mmol/L (21-32); CHLORIDE 99 mmol/L (98-107); CREATININE 2.53 mg/dl (0.60-1.40); GLUCOSE 97 mg/dl (70-99); PHOSPHORUS 3.2 mg/dl (2.5-4.9); POTASSIUM 4.5 mmol/L (3.5-5.1); SODIUM 135 mmol/L (136-145)
--- NOTE | 2017-04-26 09:50 | CODING QUERY NO DIAGNOSIS ---
Valid Physician Order Needed 42 A valid physician order must be submitted in order to properly bill for the service(s) provided, including date of service(s), valid diagnosis, and physician signature. If these tests are done on a recurring basis the original physician order must be submitted in order to code and bill for the service(s) provided. Please fax us the original, signed physician order so that we may expedite billing to [phone] DOS 04/24/17 * RENAL PROFILE * PROTHROMBIN TIME/INR Thank you Pat Count Includes [facility] Information Management
== END | disposition home or self-care (01) ==
LOC: C.LABSPEC 10:04
PROVIDERS: ATTEND Internal Medicine Clinical Cardiac Electrophysiology
DX: N17.9 Acute kidney failure, unspecified (principal); Z79.01 Long term (current) use of anticoagulants

== ENCOUNTER → 2017-05-01 | Outpatient (CLI) | payer BC ==
[2017-05-01 10:22] LABS: BLOOD UREA NITROGEN 63 mg/dl (7-18); CALCIUM 9.4 mg/dl (8.5-10.1); CARBON DIOXIDE 25 mmol/L (21-32); CHLORIDE 105 mmol/L (98-107); CREATININE 1.85 mg/dl (0.60-1.40); GLUCOSE 121 mg/dl (70-99); PHOSPHORUS 4.1 mg/dl (2.5-4.9); POTASSIUM 3.9 mmol/L (3.5-5.1); SODIUM 138 mmol/L (136-145)
[2017-05-01 10:24] LABS: INR 1.4 (0.9-1.1); PROTHROMBIN TIME (PATIENT) 14.7 SECONDS (9.0-12.0)
== END | disposition home or self-care (01) ==
LOC: C.LABSPEC 09:18
PROVIDERS: ATTEND Internal Medicine Clinical Cardiac Electrophysiology
DX: Z79.01 Long term (current) use of anticoagulants (principal); Z51.81 Encounter for therapeutic drug level monitoring; N17.9 Acute kidney failure, unspecified

== ENCOUNTER → 2017-05-01 | Outpatient (CLI) | payer BC ==
--- NOTE | 2017-05-01 15:46 | DIAGNOSTIC IMAGING REPORT ---
CHEST 2 VIEWS ROUTINE CLINICAL HISTORY: R05 [id number] COMPARISON STUDY: 04/08/2017 FINDINGS: There are postsurgical changes of a midline sternotomy. The cardiac and mediastinal contours remain stable. The left-sided PICC catheter has been removed. There is an atrial appendage occlusion device. There is no failure. There is no focal pulmonary consolidation. There is a decreasing small left pleural effusion.[ IMPRESSION: Decreasing small left pleural effusion. No current evidence of failure. No evidence of focal pulmonary consolidation Electronically signed by: Ady Roblero M.D. 05/01/2017 3:44 PM Dictated Date/Time: 05/01/2017 3:42 PM
[2017-05-01 16:18] LABS: BASO % 0.1 %; BASO ABS # 0.01 K/uL (0-0.2); COMPLETE YES; HEMATOCRIT 36.2 % (42-52); IG% 0.4 %; LYMPH % 5.9 %; MEAN CORPUSCULAR HEMOGLOBIN 29.9 pg (25-34); MEAN CORPUSCULAR HGB CONC 32.9 g/dl (32-36); MONO % 4.8 %; NEUT % 88.8 %; PLATELET COUNT 261 K/uL (130-400); RED BLOOD COUNT 3.98 M/uL (4.7-6.1); WHITE BLOOD COUNT 17.03 K/uL (4.8-10.8)
== END | disposition home or self-care (01) ==
LOC: C.RAD1850 14:52
PROVIDERS: ATTEND Physician Assistant Medical
DX: R05 Cough (principal); I25.10 Atherosclerotic heart disease of native coronary artery without angina pectoris

== ENCOUNTER → 2017-05-07 | Outpatient (CLI) | payer BC ==
[~2017-05-07] MED LIST changes: +ACET-1256 PO; +AMIO0.1T PO; +AMIO200T4 PO; +BISA10SU7 RE; +CEFE2INJ IV; +CEFE2INJ2 IV.; +DOCU100C31 PO; +FLUC200T4 PO; +MOML PO; +MULT-845 PO; +OMEG12006 PO; +ONDA4TAB46 PO; +POLY335019 PO; +SENN8.6T36 PO; +SODIENE PR; +[UNRECOGNIZED DRUG - CODE] PO
[2017-05-07 09:40] LABS: HEMATOCRIT 34.3 % (42-52); MEAN CELL VOLUME 92.5 fL (80-100); MEAN CORPUSCULAR HEMOGLOBIN 29.6 pg (25-34); MEAN CORPUSCULAR HGB CONC 32.1 g/dl (32-36); MEAN PLATELET VOLUME 11.4 fL (7.4-10.4); PLATELET COUNT 206 K/uL (130-400); RED BLOOD COUNT 3.71 M/uL (4.7-6.1); WHITE BLOOD COUNT 18.79 K/uL (4.8-10.8)
[2017-05-07 09:50] LABS: URINE APPEARANCE CLEAR (CLEAR); URINE BILIRUBIN NEG (NEG); URINE COLOR YELLOW; URINE NITRITE NEG (NEG); URINE PH 5.5 (4.5-7.5); URINE SPECIFIC GRAVITY 1.019 (1.000-1.030); UROBILINOGEN NEG (NEG)
[2017-05-07 09:52] LABS: MANUAL MICROSCOPIC REQUIRED? NO; REVIEW REQ? NO
[2017-05-07 09:59] LABS: BLOOD UREA NITROGEN 56 mg/dl (7-18); BUN/CREATININE RATIO 33.9 (10-20); CALCIUM 9.1 mg/dl (8.5-10.1); CARBON DIOXIDE 27 mmol/L (21-32); CHLORIDE 102 mmol/L (98-107); CREATININE 1.65 mg/dl (0.60-1.40); GLUCOSE 94 mg/dl (70-99); POTASSIUM 4.4 mmol/L (3.5-5.1); SODIUM 136 mmol/L (136-145)
[2017-05-07 10:00] LABS: PHOSPHORUS 4.1 mg/dl (2.5-4.9)
[2017-05-07 10:17] LABS: CREATININE, URINE 41.4 mg/dl; URINE PROTIEN/CREAT RATIO 6.7 (0-0.2); URINE TOTAL PROTEIN 276.7 mg/dl (0-11.9)
== END | disposition home or self-care (01) ==
LOC: C.LAB1850 07:50
PROVIDERS: ATTEND Internal Medicine Nephrology
DX: N17.9 Acute kidney failure, unspecified (principal)

== ENCOUNTER → 2017-05-13 | Outpatient (CLI) | payer BC ==
[~2017-05-13] MED LIST changes: -ACET-1256 PO; -AMIO0.1T PO; -AMIO200T4 PO; -BISA10SU7 RE; -CEFE2INJ IV; -CEFE2INJ2 IV.; -DOCU100C31 PO; -FLUC200T4 PO; -MOML PO; -MULT-845 PO; -OMEG12006 PO; -ONDA4TAB46 PO; -POLY335019 PO; -SENN8.6T36 PO; -SODIENE PR; -[UNRECOGNIZED DRUG - CODE] PO
== END | disposition home or self-care (01) ==
LOC: C.LABPVFM 13:02
PROVIDERS: ATTEND Family Medicine Adult Medicine
DX: R05 Cough (principal)

== ENCOUNTER → 2017-05-14 | Outpatient (CLI) | payer BC ==
[2017-05-14 12:34] LABS: BLOOD UREA NITROGEN 35 mg/dl (7-18); BUN/CREATININE RATIO 20.5 (10-20); CALCIUM 8.3 mg/dl (8.5-10.1); CARBON DIOXIDE 30 mmol/L (21-32); CHLORIDE 103 mmol/L (98-107); CREATININE 1.71 mg/dl (0.60-1.40); GLUCOSE 87 mg/dl (70-99); PHOSPHORUS 3.2 mg/dl (2.5-4.9); POTASSIUM 4.6 mmol/L (3.5-5.1); SODIUM 138 mmol/L (136-145)
--- NOTE | 2017-05-16 11:13 | CODING QUERY MEDICAL NECESSITY ---
CQTREATMENT RENDERED WITHOUT A DIAGNOSIS To promote full compliance with coding requirements relating to patient care, physician participation is requested in all cases of welcome desk agent uncertainty. Please assist us with providing a diagnosis/symptom for the test(s) below: A diagnosis/symptom was not documented on your Order. A valid diagnosis/symptom is required to bill all insurances. Please remember that we are unable to code a diagnosis of rule out, probable, possible, questionable, or suspected. Tests that require a diagnosis: DOS 05/14/17 RENAL PROFILE Provider Signature: Date: Thank you Chayo Lennon [employer] Information Management Once completed, please kindly fax back to [phone] For questions please call [phone]
== END | disposition home or self-care (01) ==
LOC: C.LAB1850 09:58
PROVIDERS: ATTEND Physician Assistant
DX: N17.9 Acute kidney failure, unspecified (principal); I10 Essential (primary) hypertension

== ENCOUNTER → 2017-05-28 | Outpatient (CLI) | payer BC ==
--- NOTE | 2017-05-28 13:38 | DIAGNOSTIC IMAGING REPORT ---
CHEST 2 VIEWS ROUTINE CLINICAL HISTORY: 76 years-old Male presenting with CHEST PAIN. TECHNIQUE: PA and lateral views of the chest were obtained. COMPARISON: 05/01/2017. FINDINGS: Atherosclerosis of the aortic arch. Median sternotomy wires, mediastinal surgical clips, and left atrial appendage occlusion device unchanged. Cardiac silhouette top normal in size. Persistent minimal left basilar opacity and trace left pleural effusion. No new focal infiltrate. Osseous structures normal. Upper abdomen normal. IMPRESSION: 1. Unchanged minimal left basilar atelectasis and pleural fluid. No convincing evidence of acute cardiopulmonary disease. Electronically signed by: Aakash Shin M.D. 05/28/2017 1:37 PM Dictated Date/Time: 05/28/2017 1:35 PM
== END | disposition home or self-care (01) ==
LOC: C.LABPVFM 12:46
PROVIDERS: ATTEND Family Medicine
DX: R07.9 Chest pain, unspecified (principal)

== ENCOUNTER → 2017-06-07 | Outpatient (CLI) | payer BC ==
[~2017-06-07] MED LIST changes: +APIX1TAB3 PO; -DXY100 PO; -Enteral Nutrition Formula PO; +FURO20TA PO; +FURO80TA63 PO; +LEVO1TAB35 PO; -LSX20 PO; +NUTR-977 PO; +ONDA4TAB46 PO; +OXYC-90 PO; -OXYC1TAB3 PO; +PRD/1 PO; +PROP1TAB PO; +PRVHFAIN INH; +TMFUDL30 PO; -WARF1TAB6 PO; +[UNRECOGNIZED DRUG - REMARK] PO
--- NOTE | 2017-06-07 11:48 | DIAGNOSTIC IMAGING REPORT ---
TWO VIEW CHEST CLINICAL HISTORY: Cough. FINDINGS: PA and lateral chest radiographs are compared to study dated 05/28/2017. The patient is status post midline sternotomy. The heart is enlarged and there is atherosclerotic calcification of the thoracic aorta. The pulmonary vascular structures noncongested. Chronic elevation of the left hemidiaphragm and interstitial thickening is similar to previous. There is left basilar atelectasis. No airspace consolidation is seen typical for pneumonia. There is a trace left pleural effusion. There is no pneumothorax. The skeletal structures are osteopenic. The bony thorax appears intact. IMPRESSION: 1. Cardiomegaly without radiographic evidence of congestive failure. 2. Left basilar atelectasis and trace left pleural effusion are similar to previous. Electronically signed by: Avtar Martin M.D. 06/07/2017 11:47 AM Dictated Date/Time: 06/07/2017 11:45 AM
== END | disposition home or self-care (01) ==
LOC: C.RADPV 11:34
PROVIDERS: ATTEND Nurse Practitioner
DX: I51.7 Cardiomegaly (principal); J98.11 Atelectasis; J90 Pleural effusion, not elsewhere classified

== ENCOUNTER → 2017-07-10 | Outpatient (CLI) | payer BC ==
[~2017-07-10] MED LIST changes: -FURO20TA PO; -FURO80TA63 PO; -LEVO1TAB35 PO; -NUTR-977 PO; -OXYC-90 PO; +OXYC1TAB3 PO; -PRD/1 PO; -PROP10TA7 PO; -PRVHFAIN INH; -TMFUDL30 PO; -[UNRECOGNIZED DRUG - REMARK] PO
[2017-07-10 13:07] LABS: BASO % 0.7 %; BASO ABS # 0.05 K/uL (0-0.2); EOS % 3.9 %; EOS ABS # 0.29 K/uL (0-0.5); HEMOGLOBIN 11.3 g/dL (14.0-18.0); IG# 0.02 K/uL (0.00-0.02); LYMPH % 28.8 %; LYMPH ABS # 2.14 K/uL (1.2-3.4); MEAN CELL VOLUME 98.6 fL (80-100); MEAN CORPUSCULAR HGB CONC 31.4 g/dl (32-36); MEAN PLATELET VOLUME 11.5 fL (7.4-10.4); MONO % 9.5 %; MONO ABS # 0.71 K/uL (0.11-0.59); NEUT % 56.8 %; NEUT ABS # 4.23 K/uL (1.4-6.5); PLATELET COUNT 231 K/uL (130-400); RED CELL DISTRIBUTION WIDTH CV 15.6 % (11.5-14.5); WHITE BLOOD COUNT 7.44 K/uL (4.8-10.8)
[2017-07-10 13:41] LABS: ALBUMIN 2.2 gm/dl (3.4-5.0); ALT/SGPT 23 U/L (12-78); BLOOD UREA NITROGEN 28 mg/dl (7-18); CALCIUM 8.6 mg/dl (8.5-10.1); CARBON DIOXIDE 29 mmol/L (21-32); CREATININE 1.92 mg/dl (0.60-1.40); GLUCOSE 93 mg/dl (70-99); POTASSIUM 4.2 mmol/L (3.5-5.1); SODIUM 140 mmol/L (136-145)
[2017-07-10 14:06] LABS: ALKALINE PHOSPHATASE 99 U/L (45-117); AST/SGOT 24 U/L (15-37); TOTAL PROTEIN 6.1 gm/dl (6.4-8.2)
== END | disposition home or self-care (01) ==
LOC: C.LABBFT 09:11
PROVIDERS: ATTEND Nurse Practitioner
DX: R42 Dizziness and giddiness (principal)

== ENCOUNTER → 2017-07-11 | Outpatient (CLI) | payer BC ==
--- NOTE | 2017-07-11 11:35 | DIAGNOSTIC IMAGING REPORT ---
TWO VIEW CHEST CLINICAL HISTORY: Dizziness. FINDINGS: AP and lateral chest radiographs are compared to study dated 06/07/2017. The patient is status post midline sternotomy. The heart is enlarged and there is atherosclerotic calcification of the thoracic aorta. The pulmonary vasculature is noncongested. Mild chronic elevation of the left hemidiaphragm and interstitial thickening are similar to previous. There is left basilar atelectasis. No airspace consolidation is seen typical for pneumonia. A trace left pleural effusion is suspected. There is no pneumothorax. The skeletal structures are osteopenic. The bony thorax appears intact. Hyperkyphosis is observed. IMPRESSION: 1. Cardiomegaly without radiographic evidence of congestive failure. 2. Left basilar atelectasis and a trace left pleural effusion are similar to previous. Electronically signed by: Avtar Martin M.D. 07/11/2017 11:33 AM Dictated Date/Time: 07/11/2017 11:32 AM
== END | disposition home or self-care (01) ==
LOC: C.RAD1850 11:09
PROVIDERS: ATTEND Nurse Practitioner
DX: R42 Dizziness and giddiness (principal); I51.7 Cardiomegaly; J98.11 Atelectasis

== ENCOUNTER 2017-07-20 08:48 | Inpatient (IN) | payer BC, OTHER ==
[~2017-07-20] VITALS: Ht 177.8 cm; Wt 80.0 kg
[2017-07-20] MEDS ORDERED: ALBUT/IPRATROP 3MG/0.5MG NEB 3 ML VIAL INH STA (09:18)
--- NOTE | 2017-07-20 09:34 | DIAGNOSTIC IMAGING REPORT ---
CHEST ONE VIEW PORTABLE CLINICAL HISTORY: 76 years-old Male presenting with SOB. TECHNIQUE: Portable upright AP view of the chest was obtained. COMPARISON: 07/11/2017. FINDINGS: Median sternotomy wires and left atrial appendage occlusion device as well as mediastinal surgical clips unchanged. Atherosclerosis of aortic arch. Cardiac silhouette enlarged. Mildly low lung volumes with pulmonary vascular prominence. Increased left retrocardiac opacity. Left pleural effusion may be present. No pneumothorax. Right lung and pleural space clear. Degenerative changes of the thoracic spine. IMPRESSION: 1. Cardiomegaly with pulmonary vascular prominence suggesting volume overload. 2. Mildly low lung volumes. 3. Increased left retrocardiac opacity concerning for pneumonia. Electronically signed by: Aakash Shin M.D. 07/20/2017 9:33 AM Dictated Date/Time: 07/20/2017 9:32 AM
[2017-07-20 09:59] LABS: BASO % 0.1 %; BASO ABS # 0.01 K/uL (0-0.2); EOS % 0.2 %; EOS ABS # 0.02 K/uL (0-0.5); HEMATOCRIT 34.7 % (42-52); HEMOGLOBIN 11.5 g/dL (14.0-18.0); IG# 0.04 K/uL (0.00-0.02); LYMPH % 9.3 %; LYMPH ABS # 0.97 K/uL (1.2-3.4); MEAN CELL VOLUME 95.9 fL (80-100); MEAN CORPUSCULAR HEMOGLOBIN 31.8 pg (25-34); MEAN CORPUSCULAR HGB CONC 33.1 g/dl (32-36); MEAN PLATELET VOLUME 11.4 fL (7.4-10.4); MONO % 7.6 %; MONO ABS # 0.79 K/uL (0.11-0.59); NEUT % 82.4 %; NEUT ABS # 8.57 K/uL (1.4-6.5); PLATELET COUNT 225 K/uL (130-400); RED CELL DISTRIBUTION WIDTH CV 14.6 % (11.5-14.5); RED CELL DISTRIBUTION WIDTH SD 51.3 fL (36.4-46.3)
[2017-07-20] MEDS ORDERED: PROP10TA7 PO (09:59)
[2017-07-20] MEDS ORDERED: LEVAQUIN 750MG / 150ML D5W IV STA (10:17)
[2017-07-20 10:51] LABS: INR 1.1 (0.9-1.1); PTT PATIENT 36.6 SECONDS (21.0-31.0)
[2017-07-20 11:01] LABS: ALBUMIN 1.6 gm/dl (3.4-5.0); CREATININE 2.08 mg/dl (0.60-1.40)
[2017-07-20 11:07] LABS: CKMB 1.2 ng/ml (0.5-3.6)
[2017-07-20] MEDS ORDERED: POLYETHYLENE (MIRALAX) 17 GM PACK PO PRN (11:15)
[2017-07-20] MEDS ORDERED: NITROGLYCERIN 0.4 MG SL PER TAB CHARGE SL PRN (11:15)
[2017-07-20] MEDS ORDERED: ONDANSETRON INJ 2 MG/ML 2 ML VIAL IV PRN (11:15)
[2017-07-20] MEDS ORDERED: MAGNESIUM HYDROXIDE SUSP 30 ML UDC PO PRN (11:15)
[2017-07-20] MEDS ORDERED: MoRPHine SULFATE 2 MG/ML CARP IV PRN (11:15)
[2017-07-20] MEDS ORDERED: ALBUTEROL 0.083% NEBU SOLN 3 ML VIAL INH PRN (11:15)
[2017-07-20] MEDS ORDERED: ALUMINUM/MAGNESIUM/SIMETH (MAALOX MAX) 30 ML UDC PO PRN (11:15)
--- NOTE | 2017-07-20 11:22 | History and Physical ---
History & Physical Date & Time of Service: Jul 20, 2017 at 11:09 Chief Complaint: SOB Primary Care Physician: Chun Collins M.D. History of Present Illness Source: patient 76 y/o M Hx HTN, HPL, asthma, BPH, CKD III, PAF, CAD - CABG 02/24. Recently admitted for acute on chronic RF. Pt presents with SOB and a productive cough over 2-3 days. He was marginally hypoxic on arrival to the ER. An initial CXR is suggestive of a retrocardiac infiltrate. The pt denies any CP, nausea, vomiting, diarrhea, dysuria or fevers. Past Medical/Surgical History 1) CAD - 2V CABG 02/24 2) Sternal wound following CABG - required several weeks of IV antibiotics which included Cefepime, Doxy, Fluconazole 3) CKD III-IV - creat ranges between 2-3 4) HTN 5) HPL 6) Paroxysmal AF 7) Asthma 8) BPH Surgical: CABG 02/24 Family History Diabetes mellitus Hypertension Social History Smoking Status: Former Smoker Drug Use: none Marital Status: Housing status: lives with family Occupational Status: retired Immunizations History of Influenza Vaccine: Unknown History of Tetanus Vaccine?: Unknown History of Pneumococcal: Unknown History of Hepatitis B Vaccine: Unknown Multi-Drug Resistant Organisms History of MDRO: No Allergies Coded Allergies: NO KNOWN DRUG ALLERGIES (Verified Allergy, Unknown, NONE, 07/20/17) Home Medications Scheduled Apixaban (Eliquis), 5 MG PO BID Aspirin (Aspirin Ec), 81 MG PO Q2D Atorvastatin (Lipitor), 60 MG PO QPM Finasteride (Proscar), 5 MG PO QPM Fluticasone Prop/Salmeterol (Advair Diskus 500/50 60 Dose), 1 PUFF INH BID Ondansetron Hcl (Zofran), 4 MG PO DIRECTED Paroxetine Hcl (Paxil), 20 MG PO QPM Propranolol (Inderal), 10 MG PO BID Ranitidine HCl (Ranitidine HCl), 150 MG PO BID Review of Systems Constitutional: + weakness, No fever, No chills, No sweats Eyes: No worsening of vision ENT: No hearing loss, No unusual epistaxis, No nasal symptoms Respiratory: + cough, + sputum, + shortness of breath, + dyspnea on exertion, + dyspnea at rest Cardiovascular: No chest pain, No orthopnea, No PND Abdomen: No pain, No nausea, No vomiting Musculoskeletal: No joint pain Genitourinary - Male: No hematuria, No dysuria Neurologic: + weakness, No memory loss, No paralysis Psychiatric: No depression symptoms Endocrine: + fatigue Hematologic / Lymphatic: No abnormal bleeding/bruising Integumentary: No rash Allergic / Immunologic: No environmental allergies Physical Exam Vital Signs Date Time Temp Pulse Resp B/P (MAP) Pulse Ox O2 Delivery O2 Flow Rate FiO2 07/20/17 10:35 60 18 141/75 96 07/20/17 09:12 63 07/20/17 09:06 93 Nasal Cannula 2.0 07/20/17 09:06 88 Room Air 07/20/17 08:54 36.8 68 20 124/75 94 Room Air General Appearance: WD/WN, no apparent distress Head: normocephalic Eyes: normal inspection ENT: normal ENT inspection, pharynx normal Neck: supple, no JVD Respiratory/Chest: chest non-tender, lungs clear, normal breath sounds Cardiovascular: regular rate, rhythm, no edema, no gallop Abdomen/GI: normal bowel sounds, non tender, soft Back: normal inspection, no CVA tenderness Extremities/Musculoskelatal: normal inspection, no calf tenderness, normal capillary refill 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, no motor/sensory deficits, alert, oriented x 3 Skin: normal color Diagnostics Laboratory Results Results Past 24 Hours Test 07/20/17 09:18 07/20/17 09:25 07/20/17 10:30 Range/Units Creatine Kinase MB Ratio 1.9 0-3.0 White Blood Count 10.40 4.8-10.8 K/uL Red Blood Count 3.62 4.7-6.1 M/uL Hemoglobin 11.5 14.0-18.0 g/dL Hematocrit 34.7 42-52 % Mean Corpuscular Volume 95.9 80-100 fL Mean Corpuscular Hemoglobin 31.8 25-34 pg Mean Corpuscular Hemoglobin Concent 33.1 32-36 g/dl Platelet Count 225 130-400 K/uL Mean Platelet Volume 11.4 7.4-10.4 fL Neutrophils (%) (Auto) 82.4 % Lymphocytes (%) (Auto) 9.3 % Monocytes (%) (Auto) 7.6 % Eosinophils (%) (Auto) 0.2 % Basophils (%) (Auto) 0.1 % Neutrophils # (Auto) 8.57 1.4-6.5 K/uL Lymphocytes # (Auto) 0.97 1.2-3.4 K/uL Monocytes # (Auto) 0.79 0.11-0.59 K/uL Eosinophils # (Auto) 0.02 0-0.5 K/uL Basophils # (Auto) 0.01 0-0.2 K/uL RDW Standard Deviation 51.3 36.4-46.3 fL RDW Coefficient of Variation 14.6 11.5-14.5 % Immature Granulocyte % (Auto) 0.4 % Immature Granulocyte # (Auto) 0.04 0.00-0.02 K/uL Prothrombin Time 11.4 9.0-12.0 SECONDS Prothromb Time International Ratio 1.1 0.9-1.1 Activated Partial Thromboplast Time 36.6 21.0-31.0 SECONDS Partial Thromboplastin Ratio 1.4 Sodium Level 135 136-145 mmol/L Potassium Level 4.0 3.5-5.1 mmol/L Chloride Level 102 98-107 mmol/L Carbon Dioxide Level 29 21-32 mmol/L Anion Gap 4.0 3-11 mmol/L Blood Urea Nitrogen 26 7-18 mg/dl Creatinine 2.08 0.60-1.40 mg/dl Est Creatinine Clear Calc Drug Dose 32.2 ml/min Estimated GFR () 35.3 Estimated GFR (Non- 30.5 BUN/Creatinine Ratio 12.4 10-20 Random Glucose 97 70-99 mg/dl Calcium Level 8.0 8.5-10.1 mg/dl Total Bilirubin 0.2 0.2-1 mg/dl Aspartate Amino Transf (AST/SGOT) 28 15-37 U/L Alanine Aminotransferase (ALT/SGPT) 16 12-78 U/L Alkaline Phosphatase 97 45-117 U/L Total Creatine Kinase 64 39-308 U/L Creatine Kinase MB 1.2 0.5-3.6 ng/ml Troponin I 0.040 0-0.045 ng/ml Pro-B-Type Natriuretic Peptide 27737 0-900 pg/ml Total Protein 6.0 6.4-8.2 gm/dl Albumin 1.6 3.4-5.0 gm/dl Globulin 4.4 2.5-4.0 gm/dl Albumin/Globulin Ratio 0.4 0.9-2 Microbiology Results 07/20/17 Blood Culture, Received Pending 07/20/17 Blood Culture, Received Pending Diagnostic Radiology CXR: 1. Cardiomegaly with pulmonary vascular prominence suggesting volume overload. 2. Mildly low lung volumes. 3. Increased left retrocardiac opacity concerning for pneumonia. Normal EKG Impression Assessment and Plan 76 y/o M Hx HTN, HPL, asthma, BPH, CKD III, PAF, CAD - CABG 02/24. Recently admitted for acute on chronic RF. Pt presents with SOB and a productive cough over 2-3 days. He was marginally hypoxic on arrival to the ER. An initial CXR is suggestive of a retrocardiac infiltrate. The pt denies any CP, nausea, vomiting, diarrhea, dysuria or fevers. 1) SOB - likely PNM - a lat CXR is pending to confirm an infiltrate. The pt will be placed on an 02 protocol, nebs and Levaquin. Sputum cultures are pending. Per the CXR volume overload is also a consideration. Clinically he does not appear overloaded, although this should be kept in mind if he does not improve with current treatments. 2) CKD - creat is slightly improved from baseline. 3) CAD - no evidence of ACS - cont B damon, ASA, Statin 4) PAF - cont Apixaban, propranolol - currently sinus 5) It is noted that the pt's QT interval was markedly prolonged when he was treated with Fluconazole. He is receiveing Levaquin - QT is currently within normal limits - an EKG will be repeated AM. 6) Significant protein malnutrition on initial labs - we have added supplements TID - this should be addressed by his PCP prior to DC. full code - Apixaban prophylaxis Total time for this admit including review of labs, meds, records, EKG, imaging - discussion with pt and ER attending - 38 min Level of Care Telemetry Resuscitation Status FULL RESUSCITATION VTE Prophylaxis Given or contraindicated: Other Anticoagulation
--- NOTE | 2017-07-20 11:41 | DIAGNOSTIC IMAGING REPORT ---
CHEST 2 VIEWS ROUTINE CLINICAL HISTORY: 76 years-old Male presenting with pneumonia. TECHNIQUE: PA and lateral views of the chest were obtained. COMPARISON: 07/20/2017. FINDINGS: Atherosclerosis of aortic arch. Cardiac silhouette enlarged. Median sternotomy wires and left atrial appendage occlusion device as well as mediastinal surgical clips noted. Slight decreased prominence of pulmonary vasculature. Mildly lung volumes. Interval decrease in patchy left mid and lower lung opacities. Right lung and pleural space clear. Mild bronchial wall thickening may be present. Trace left pleural effusion suspected. No pneumothorax. Osseous structures normal. IMPRESSION: 1. Interval decrease in patchy left mid and lower lung opacities, concerning for pneumonia. 2. Mildly low lung volumes. 3. Cardiomegaly. Electronically signed by: Aakash Shin M.D. 07/20/2017 11:40 AM Dictated Date/Time: 07/20/2017 11:38 AM
--- NOTE | 2017-07-20 15:09 | EMERGENCY ROOM VISIT NOTE ---
ED Visit Note First contact with patient: 09:00 I have personally seen and evaluated the patient with the PA. I agree with the diagnosis and management decisions and have been personally involved in the case. Please see Gaby Martínez PA-C's notes for further details of the history , physical and visit.
[2017-07-20 15:25] VITALS: BP 180/87; PULSE 61; TEMP 36.5; O2SAT 96
[2017-07-20 15:43] VITALS: BP 169/84; PULSE 67; TEMP 36.7; O2SAT 94; Ht 177.8 cm; Wt 80.0 kg
[2017-07-20 16:00] VITALS: O2SAT 93
[2017-07-20] MEDS: ACETAMINOPHEN 325 MG TAB PO PRN (16:03)
[2017-07-20 16:24] LABS: INFLUENZA A PCR POS for Influ A (NEG); INFLUENZA B PCR Neg for Influ B (NEG)
--- NOTE | 2017-07-20 16:39 | EMERGENCY ROOM VISIT NOTE ---
History First contact with patient: 09:00 Chief Complaint: SHORTNESS OF BREATH Stated Complaint: SOB Nursing Triage Summary: pt has been having SOB for a month and has had a cough with creamy sputum no LE edema states he has been on several ABX and has not been getting any better pt was recently dc [facility] History of Present Illness Patient is a 76-year-old male with past medical history significant for coronary artery disease with history of non-STEMI, status post CABG 2 performed at [facility] on , hypertension, dyslipidemia, asthma, BPH, history A. fib, chronic kidney disease, among other medical problems, who presents the emergency department for evaluation of shortness of breath. The patient relates that he hasn't felt well since he was discharged from [place] after his bypass surgery. He relates that he has had progressively worsening shortness of breath. He notes primarily shortness of breath with minimal exertion, shortness of breath was at its worse last evening. He reports that he has had a lot of sinus congestion and pressure, postnasal drip, and has a cough that is productive of green sputum. He has been enrolled in cardiac rehabilitation, he had an appointment 2 days ago, but apparently could not participate because his heart rate and blood pressure were low. He was sent for a chest x-ray, apparently had a syncopal episode at chest x-ray and was taken to the [facility] cardiology office, where he was given IV fluids with improvement in his heart rate and his pressure and was sent home. He reports fatigue. He denies any fevers. No chest pain, or palpitations. He states his symptoms are better when he is sitting up and worse when he lays flat, however is able to sleep on 2 pillows. He reports no leg pain or swelling and reports that his Lasix was stopped recently. He is not currently on any antibiotics. He has been using an Advair inhaler at home although not regularly. He has been using an incentive spirometer. Review of Systems Review of systems as per HPI. All other systems reviewed were negative. 10 systems reviewed. Past Medical/Surgical History Medical Problems: (1) Acute kidney injury (2) Anemia (3) Anemia (4) Asthma (5) Atrial fibrillation (6) Atrial fibrillation with rapid ventricular response (7) Atrial fibrillation with RVR (8) Atrial fibrillation with RVR (9) BPH (benign prostatic hyperplasia) (10) CHF (congestive heart failure) (11) Chronic kidney disease (12) Coronary artery disease (13) Dehydration (14) Dyspnea (15) Elevated troponin (16) Hyperglycemia (17) Hypertension (18) Lipoma (19) NSTEMI (non-ST elevated myocardial infarction) (20) Occluded PICC line (21) Pneumonia (22) Renal insufficiency (23) Unstable angina Electronic medical records are reviewed and summarized as above/below. See Problem List. Family History Diabetes mellitus Hypertension Social History Smoking Status: Former Smoker Alcohol Use: none Drug Use: none Marital Status: Housing Status: lives with family Occupation Status: retired Current/Historical Medications Scheduled Apixaban (Eliquis), 5 MG PO BID Aspirin (Aspirin Ec), 81 MG PO Q2D Atorvastatin (Lipitor), 60 MG PO QPM Finasteride (Proscar), 5 MG PO QPM Fluticasone Prop/Salmeterol (Advair Diskus 500/50 60 Dose), 1 PUFF INH BID Ondansetron Hcl (Zofran), 4 MG PO DIRECTED Paroxetine Hcl (Paxil), 20 MG PO QPM Propranolol (Inderal), 10 MG PO BID Ranitidine HCl (Ranitidine HCl), 150 MG PO BID Physical Exam Vital Signs Date Time Temp Pulse Resp B/P (MAP) Pulse Ox O2 Delivery O2 Flow Rate FiO2 07/20/17 10:35 60 18 141/75 96 07/20/17 09:12 63 07/20/17 09:06 93 Nasal Cannula 2.0 07/20/17 09:06 88 Room Air 07/20/17 08:54 36.8 68 20 124/75 94 Room Air Physical Exam CONSTITUTIONAL: Patient is a pleasant, well-appearing 76-year-old white male who is awake and alert and laying semiupright in the gurney in no acute distress. Oxygen saturation in the room was 80% on room air, he was placed on 2 L by nasal cannula, sats increased to 94%. No conversational dyspnea. EYES: Pupils equal, round, reactive to light and accommodation. EOMs intact without nystagmus. Sclera are anicteric. ENT: Tympanic membranes intact, with normal landmarks. External canals are clear. Oral and nasopharynx are clear. Mucous membranes are moist, no lesions , tongue and gums appear normal. NECK: No thyromegaly. No meningeal signs. Full active range of motion without discomfort. CARDIOVASCULAR: Regular rate and rhythm, no murmur is appreciated. No JVD. Peripheral pulses easy to palpable. RESPIRATORY: Breath sounds are diminished, with harsh expiratory rales throughout bilaterally, primarily posteriorly. Full and equal chest expansion without accessory muscle use or retractions. GI: Bowel sounds are present. Abdomen is soft, nontender, nondistended. No organomegaly. No pulsatile masses. No guarding or rebound. MUSCULOSKELETAL: Full range of motion of extremities x 4 with good strength. No cyanosis, edema, joint tenderness or swelling. No deformity. INTEGUMENTARY: No lesions or rash, normal skin turgor. NEUROLOGICAL: Alert, oriented, and cooperative. Cranial nerves, sensation and strength grossly intact. Pupils round, equal, and react to light, EOMs are full. LYMPH: No lymphadenopathy. Medical Decision & Procedures ER Provider Diagnostic Interpretation: CHEST ONE VIEW PORTABLE CLINICAL HISTORY: 76 years-old Male presenting with SOB. TECHNIQUE: Portable upright AP view of the chest was obtained. COMPARISON: 07/11/2017. FINDINGS: Median sternotomy wires and left atrial appendage occlusion device as well as mediastinal surgical clips unchanged. Atherosclerosis of aortic arch. Cardiac silhouette enlarged. Mildly low lung volumes with pulmonary vascular prominence. Increased left retrocardiac opacity. Left pleural effusion may be present. No pneumothorax. Right lung and pleural space clear. Degenerative changes of the thoracic spine. IMPRESSION: 1. Cardiomegaly with pulmonary vascular prominence suggesting volume overload. 2. Mildly low lung volumes. 3. Increased left retrocardiac opacity concerning for pneumonia. Laboratory Results 07/20/17 09:25 Red Blood Count 3.62, Mean Corpuscular Volume 95.9, Mean Corpuscular Hemoglobin 31.8, Mean Corpuscular Hemoglobin Concent 33.1, Mean Platelet Volume 11.4, Neutrophils (%) (Auto) 82.4, Lymphocytes (%) (Auto) 9.3, Monocytes (%) (Auto) 7.6, Eosinophils (%) (Auto) 0.2, Basophils (%) (Auto) 0.1, Neutrophils # (Auto) 8.57, Lymphocytes # (Auto) 0.97, Monocytes # (Auto) 0.79, Eosinophils # (Auto) 0.02, Basophils # (Auto) 0.01 07/20/17 10:30 Test 07/20/17 09:25 07/20/17 10:30 White Blood Count 10.40 K/uL (4.8-10.8) Red Blood Count 3.62 M/uL (4.7-6.1) Hemoglobin 11.5 g/dL (14.0-18.0) Hematocrit 34.7 % (42-52) Mean Corpuscular Volume 95.9 fL (80-100) Mean Corpuscular Hemoglobin 31.8 pg (25-34) Mean Corpuscular Hemoglobin Concent 33.1 g/dl (32-36) Platelet Count 225 K/uL (130-400) Mean Platelet Volume 11.4 fL (7.4-10.4) Neutrophils (%) (Auto) 82.4 % Lymphocytes (%) (Auto) 9.3 % Monocytes (%) (Auto) 7.6 % Eosinophils (%) (Auto) 0.2 % Basophils (%) (Auto) 0.1 % Neutrophils # (Auto) 8.57 K/uL (1.4-6.5) Lymphocytes # (Auto) 0.97 K/uL (1.2-3.4) Monocytes # (Auto) 0.79 K/uL (0.11-0.59) Eosinophils # (Auto) 0.02 K/uL (0-0.5) Basophils # (Auto) 0.01 K/uL (0-0.2) RDW Standard Deviation 51.3 fL (36.4-46.3) RDW Coefficient of Variation 14.6 % (11.5-14.5) Immature Granulocyte % (Auto) 0.4 % Immature Granulocyte # (Auto) 0.04 K/uL (0.00-0.02) Prothrombin Time 11.4 SECONDS (9.0-12.0) Prothromb Time International Ratio 1.1 (0.9-1.1) Activated Partial Thromboplast Time 36.6 SECONDS (21.0-31.0) Partial Thromboplastin Ratio 1.4 Anion Gap 4.0 mmol/L (3-11) Est Creatinine Clear Calc Drug Dose 32.2 ml/min Estimated GFR () 35.3 Estimated GFR (Non- 30.5 BUN/Creatinine Ratio 12.4 (10-20) Calcium Level 8.0 mg/dl (8.5-10.1) Total Bilirubin 0.2 mg/dl (0.2-1) Aspartate Amino Transf (AST/SGOT) 28 U/L (15-37) Alanine Aminotransferase (ALT/SGPT) 16 U/L (12-78) Alkaline Phosphatase 97 U/L (45-117) Total Creatine Kinase 64 U/L (39-308) Creatine Kinase MB 1.2 ng/ml (0.5-3.6) Creatine Kinase MB Ratio 1.9 (0-3.0) Troponin I 0.040 ng/ml (0-0.045) Pro-B-Type Natriuretic Peptide 03091 pg/ml (0-900) Total Protein 6.0 gm/dl (6.4-8.2) Albumin 1.6 gm/dl (3.4-5.0) Globulin 4.4 gm/dl (2.5-4.0) Albumin/Globulin Ratio 0.4 (0.9-2) Medications Administered Medications (Trade) Dose Ordered Sig/Geovanna Route Start Time Stop Time Status Last Admin Dose Admin Albuterol/ Ipratropium (Duoneb) 3 ml NOW STAT INH 07/20/17 09:18 07/20/17 09:21 DC 07/20/17 09:26 3 ML Levofloxacin (Levaquin / D5W) 750 mg NOW STAT IV 07/20/17 10:17 07/20/17 10:19 DC 07/20/17 10:17 750 MG Acetaminophen (Tylenol Tab) 650 mg Q4H PRN PO 07/20/17 11:15 08/19/17 11:14 07/20/17 16:03 650 MG ECG Indication: SOB/dyspnea Rate (beats per minute): 71 Rhythm: normal sinus Findings: no acute ischemic change, no ectopy, other (no prolonged QT) Change: no significant change ED Course The patient was seen and assessed as above. His old records were reviewed. He was noted to be hypoxic on room air and was placed on nasal cannula oxygen, 2 L per minute. IV lock was initiated, EKG was performed, laboratory studies were collected. Patient was given a DuoNeb treatment. His history, presentation and workup were reviewed with attending physician who agreed, and independently evaluated him. CBC with differential, coags, cardiac enzymes, BNP, CMP and blood cultures 2 were collected. Chest x-ray was obtained. Laboratory studies noted a normal white count at 10,400, H&H of 11.5 and 34.7, platelet count 225,000, coags are normal. Electrolytes note a sodium of 135, potassium 4.0, chloride 102, corrected 29, BUN 26 and creatinine 2.08. LFTs are normal. Cardiac enzymes are not elevated times one, his BNP is greater than 16,000. Chest x-ray was concerning for cardiomegaly with pulmonary vascular prominence adjusting volume overload, and increased left retrocardiac opacity concerning for a pneumonia. Laboratory and diagnostic imaging studies were reviewed with attending physician. He was given Levaquin 750 mg IV. Chest x-ray and BNP are also concerning for CHF. Patient had little improvement in his symptoms with the nebulizer treatment. Given the findings on x-ray, including CHF and pneumonia, and the fact that the patient was borderline hypoxic and requiring oxygen, [facility]. He is otherwise well appearing, does not have any findings other concerning for sepsis. IV hydration was held, as he is hemodynamically stable, and given the CHF. Patient was seen by Dr. Varghese. Please refer to his admission H&P and orders for further information. Incidentally, at the time of dictation, hospitalist had ordered an influenza PCR , which was positive for influenza A. Differential diagnoses entertained included pneumonia, asthmatic bronchitis, CHF , ACS, acute KS, cardiomyopathy, pulmonary embolism, congestive heart failure, anemia, COPD/asthma exacerbation, among others. Medical Decision See ED course. Medication Reconcilliation Current Medication List: was personally reviewed by me Blood Pressure Screening Patient's blood pressure: Elevated blood pressure Blood pressure disposition: Elevated BP felt to be situational Impression Primary Impression: Pneumonia Additional Impression: CHF (congestive heart failure) Departure Information Referrals Chun Collins M.D. (PCP) Patient Instructions My [facility] Health Problem Qualifiers
[2017-07-20] MEDS: ALBUT/IPRATROP 3MG/0.5MG NEB 3 ML VIAL INH SCH (20:03)
[2017-07-20 20:04] VITALS: PULSE 67; O2SAT 91
[2017-07-20 20:10] VITALS: BP 180/84; PULSE 56; TEMP 37.1; O2SAT 96
[2017-07-20] MEDS: BOOST PLUS VANILLA PO SCH (20:43)
[2017-07-20] MEDS: FLUTICASONE/SALMETEROL (ADVAIR) 500/50 INH 14 PUFF INH SCH (20:43)
[2017-07-20] MEDS: RANITIDINE HCL 150 MG TAB PO SCH (20:43)
[2017-07-20] MEDS: ATORVASTATIN 20 MG TAB PO SCH (20:43)
[2017-07-20] MEDS: FINASTERIDE 5 MG TAB PO SCH (20:44)
[2017-07-20] MEDS: PROPRANOLOL HCL 10 MG TAB PO SCH (20:44)
[2017-07-20] MEDS: PAROXETINE 20 MG TAB PO SCH (20:44)
[2017-07-20] MEDS: APIXABAN 2.5 MG TAB PO SCH (20:44)
[2017-07-20 23:42] VITALS: BP 140/64; PULSE 56; TEMP 36.8; O2SAT 96
[2017-07-21] VITALS (11 sets, daily range): BP systolic 144–187; BP diastolic 71–87; PULSE 51–86; TEMP 36.3–37.2; O2SAT 90–96
[2017-07-21] MEDS: ALBUT/IPRATROP 3MG/0.5MG NEB 3 ML VIAL INH SCH ×4 (01:55→19:01)
--- NOTE | 2017-07-21 07:39 | Progress Note ---
Subjective Date of Service: Jul 21, 2017. Subjective pt states he feels much improved due to renal dosing he will not get levaquin until tomorrow, he states he thinks he still feels too weak to go home Problem List Medical Problems: (1) Asthma Status: Chronic (2) BPH (benign prostatic hyperplasia) Status: Chronic (3) Chronic kidney disease Status: Chronic (4) Coronary artery disease Status: Chronic (5) Hypertension Status: Chronic Social History Problems: (1) Status post aorto-coronary artery bypass graft Status: Acute Review of Systems Constitutional: + weakness, + fatigue, No fever, No chills Eyes: No worsening of vision, No eye pain Respiratory: No cough, No wheezing, No shortness of breath Cardiac: No chest pain, No edema Abdomen: No pain, No nausea, No vomiting, No diarrhea Neurologic: No memory loss, No weakness, No numbness/tingling Psychiatric: No depression symptoms, No anhedonism, No anxiety Objective Vital Signs Date Time Temp Pulse Resp B/P (MAP) Pulse Ox O2 Delivery O2 Flow Rate FiO2 07/21/17 04:00 36.7 66 20 144/73 (96) 96 Nasal Cannula 2.0 07/21/17 04:00 Nasal Cannula 2.0 07/21/17 01:55 54 18 92 Nasal Cannula 2.0 07/21/17 00:00 Nasal Cannula 2.0 07/20/17 23:42 36.8 56 20 140/64 (89) 96 Nasal Cannula 2.0 07/20/17 20:10 37.1 56 20 180/84 (116) 96 Nasal Cannula 2.0 07/20/17 20:04 67 16 91 Nasal Cannula 2.0 07/20/17 20:00 Nasal Cannula 2.0 07/20/17 16:00 93 Room Air 07/20/17 15:43 36.7 67 19 169/84 94 Nasal Cannula 2.0 07/20/17 15:25 36.5 61 18 180/87 (118) 96 Nasal Cannula 2.0 07/20/17 14:30 79 20 141/86 94 Nasal Cannula 2.0 07/20/17 13:27 66 20 128/59 96 Room Air 07/20/17 13:06 60 07/20/17 10:35 60 18 141/75 96 07/20/17 09:12 63 07/20/17 09:06 93 Nasal Cannula 2.0 07/20/17 09:06 88 Room Air 07/20/17 08:54 36.8 68 20 124/75 94 Room Air Physical Exam General Appearance: WD/WN, + mild distress Eyes: normal inspection, PERRL, EOMI, sclerae normal Neck: supple, no JVD Respiratory/Chest: chest non-tender, + accessory muscle use, + rales Cardiovascular: regular rate, rhythm, no murmur Abdomen: normal bowel sounds, non tender, soft Extremities: no pedal edema, no calf tenderness Neurologic/Psychiatric: alert, oriented x 3 Laboratory Results Last 24 Hours Test 07/20/17 09:18 07/20/17 09:25 07/20/17 10:30 07/20/17 15:30 Creatine Kinase MB Ratio 1.9 White Blood Count 10.40 K/uL Red Blood Count 3.62 M/uL Hemoglobin 11.5 g/dL Hematocrit 34.7 % Mean Corpuscular Volume 95.9 fL Mean Corpuscular Hemoglobin 31.8 pg Mean Corpuscular Hemoglobin Concent 33.1 g/dl Platelet Count 225 K/uL Mean Platelet Volume 11.4 fL Neutrophils (%) (Auto) 82.4 % Lymphocytes (%) (Auto) 9.3 % Monocytes (%) (Auto) 7.6 % Eosinophils (%) (Auto) 0.2 % Basophils (%) (Auto) 0.1 % Neutrophils # (Auto) 8.57 K/uL Lymphocytes # (Auto) 0.97 K/uL Monocytes # (Auto) 0.79 K/uL Eosinophils # (Auto) 0.02 K/uL Basophils # (Auto) 0.01 K/uL RDW Standard Deviation 51.3 fL RDW Coefficient of Variation 14.6 % Immature Granulocyte % (Auto) 0.4 % Immature Granulocyte # (Auto) 0.04 K/uL Prothrombin Time 11.4 SECONDS Prothromb Time International Ratio 1.1 Activated Partial Thromboplast Time 36.6 SECONDS Partial Thromboplastin Ratio 1.4 Sodium Level 135 mmol/L Potassium Level 4.0 mmol/L Chloride Level 102 mmol/L Carbon Dioxide Level 29 mmol/L Anion Gap 4.0 mmol/L Blood Urea Nitrogen 26 mg/dl Creatinine 2.08 mg/dl Est Creatinine Clear Calc Drug Dose 32.2 ml/min Estimated GFR () 35.3 Estimated GFR (Non- 30.5 BUN/Creatinine Ratio 12.4 Random Glucose 97 mg/dl Calcium Level 8.0 mg/dl Total Bilirubin 0.2 mg/dl Aspartate Amino Transf (AST/SGOT) 28 U/L Alanine Aminotransferase (ALT/SGPT) 16 U/L Alkaline Phosphatase 97 U/L Total Creatine Kinase 64 U/L Creatine Kinase MB 1.2 ng/ml Troponin I 0.040 ng/ml Pro-B-Type Natriuretic Peptide 45440 pg/ml Total Protein 6.0 gm/dl Albumin 1.6 gm/dl Globulin 4.4 gm/dl Albumin/Globulin Ratio 0.4 Influenza Type A (RT-PCR) POS for Influ A Influenza Type B (RT-PCR) Neg for Influ B Assessment and Plan 76 y/o M presents with hypoxia and influenza pneumonia has a past Hx HTN, HPL, asthma, BPH, CKD III, PAF, CAD - CABG 02/24. Recently admitted for acute on chronic RF. Pneumonia and hypoxia. Levaquin. influenza A positive tamilflu renal dose adjusted Chronic diastolic heart failure, appears clinically stable CKD3 - creat is slightly improved from baseline. CAD - no evidence of ACS - cont B damon, ASA, Statin PAF - currently in sinus rhythm, cont Apixaban, propranolol Previously QT interval was markedly prolonged when taking Fluconazole. - QT is currently within normal limits -monitor while on levaquin Significant protein malnutrition on initial labs - nutritional supplements ordered Apixiban for DVT prevention
[2017-07-21] MEDS: APIXABAN 2.5 MG TAB PO SCH ×2 (09:00→20:42)
[2017-07-21] MEDS ORDERED: ASPIRIN 81 MG ECTAB PO SCH (09:00)
[2017-07-21] MEDS: FLUTICASONE/SALMETEROL (ADVAIR) 500/50 INH 14 PUFF INH SCH ×2 (09:00→20:41)
[2017-07-21] MEDS: OSELTAMIVIR PHOSPHATE SUSP 30 MG/5 ML UDP PO SCH ×2 (09:00→20:43)
[2017-07-21] MEDS: PROPRANOLOL HCL 10 MG TAB PO SCH ×2 (09:00→20:42)
[2017-07-21] MEDS: RANITIDINE HCL 150 MG TAB PO SCH ×2 (09:00→20:43)
[2017-07-21] MEDS: BOOST PLUS VANILLA PO SCH ×3 (09:00→20:42)
[2017-07-21] MEDS: ACETAMINOPHEN 325 MG TAB PO PRN (16:05)
[2017-07-21] MEDS: ATORVASTATIN 20 MG TAB PO SCH (20:42)
[2017-07-21] MEDS: PAROXETINE 20 MG TAB PO SCH (20:43)
[2017-07-21] MEDS: FINASTERIDE 5 MG TAB PO SCH (20:43)
[2017-07-22] VITALS (7 sets, daily range): BP systolic 153–184; BP diastolic 63–94; PULSE 51–56; TEMP 36.4–36.7; O2SAT 91–95
[2017-07-22] MEDS: ALBUT/IPRATROP 3MG/0.5MG NEB 3 ML VIAL INH SCH ×2 (02:27→07:05)
[2017-07-22 08:32] LABS: HEMATOCRIT 33.3 % (42-52); HEMOGLOBIN 10.9 g/dL (14.0-18.0); MEAN CELL VOLUME 94.3 fL (80-100); MEAN CORPUSCULAR HEMOGLOBIN 30.9 pg (25-34); MEAN CORPUSCULAR HGB CONC 32.7 g/dl (32-36); MEAN PLATELET VOLUME 10.5 fL (7.4-10.4); PLATELET COUNT 198 K/uL (130-400); RED CELL DISTRIBUTION WIDTH CV 14.4 % (11.5-14.5); RED CELL DISTRIBUTION WIDTH SD 49.2 fL (36.4-46.3)
[2017-07-22] MEDS: OSELTAMIVIR PHOSPHATE SUSP 30 MG/5 ML UDP PO SCH (09:00)
[2017-07-22] MEDS: FLUTICASONE/SALMETEROL (ADVAIR) 500/50 INH 14 PUFF INH SCH (09:00)
[2017-07-22] MEDS: BOOST PLUS VANILLA PO SCH (09:00)
[2017-07-22] MEDS: PROPRANOLOL HCL 10 MG TAB PO SCH (09:00)
[2017-07-22] MEDS: RANITIDINE HCL 150 MG TAB PO SCH (09:00)
[2017-07-22] MEDS: APIXABAN 2.5 MG TAB PO SCH (09:00)
[2017-07-22 09:09] LABS: CALCIUM 8.5 mg/dl (8.5-10.1); CREATININE 2.16 mg/dl (0.60-1.40); POTASSIUM 3.8 mmol/L (3.5-5.1)
[2017-07-22] MEDS ORDERED: PRVHFAIN INH (11:19)
[2017-07-22] MEDS ORDERED: TMFUDL30 PO (11:19)
[2017-07-22] MEDS ORDERED: LEVO1TAB35 PO (11:19)
--- NOTE | 2017-07-22 11:23 | Discharge Instructions ---
Discharge Instructions Date of Service Jul 22, 2017. Admission Reason for Admission: Chf,Pneumonia Discharge Discharge Diagnosis / Problem: Pneumonia, influenza A Discharge Goals Goal(s): Improve disease control Activity Recommendations Activity Limitations: resume your previous activity Exercise/Sports Limitations: as tolerated Instructions / Follow-Up Instructions / Follow-Up Please complete your oseltamivir and levofloxacin as prescribed. Please follow up with your primary care provider in about a week Please have your bloodwork drawn tomorrow to follow your kidney function. The result will go to your primary care provider . Current Hospital Diet Patient's current hospital diet: AHA Diet (Heart Healthy) Discharge Diet Recommended Diet: AHA Diet (Heart Healthy) Procedures Procedures Performed: Chest X ray Pending Studies Studies pending at discharge: no Medical Emergencies . Who to Call and When: Medical Emergencies: If at any time you feel your situation is an emergency, please call 911 immediately. . Non-Emergent Contact Non-Emergency issues call your: Primary Care Provider Call Non-Emergent contact if: you have a fever, you have any medication questions . . "Provider Documentation" section prepared by Emmy Leon. . VTE Core Measure Inpt VTE Proph given/why not?: Other Anticoagulation
[2017-07-22] MEDS ORDERED: NUTR-977 PO (11:35)
--- NOTE | 2017-07-22 11:38 | Discharge Summary ---
Discharge Summary Date of Service Jul 22, 2017. Discharge Summary Admission Date: Jul 20, 2017 at 11:16 Discharge Date: Jul 22, 2017 Discharge Disposition: Home Principal Diagnosis: Pna, influenza A Problems/Secondary Diagnoses: (1) Asthma Status: Chronic (2) BPH (benign prostatic hyperplasia) Status: Chronic (3) Chronic kidney disease Status: Chronic (4) Coronary artery disease Status: Chronic (5) Hypertension Status: Chronic Immunizations: Have You Had Influenza Vaccine: Unknown History of Tetanus Vaccine?: Unknown History of Pneumococcal: Unknown History of Hepatitis B Vaccine: Unknown Procedures: CHEST 2 VIEWS ROUTINE CLINICAL HISTORY: 76 years-old Male presenting with pneumonia. TECHNIQUE: PA and lateral views of the chest were obtained. COMPARISON: 07/20/2017. FINDINGS: Atherosclerosis of aortic arch. Cardiac silhouette enlarged. Median sternotomy wires and left atrial appendage occlusion device as well as mediastinal surgical clips noted. Slight decreased prominence of pulmonary vasculature. Mildly lung volumes. Interval decrease in patchy left mid and lower lung opacities. Right lung and pleural space clear. Mild bronchial wall thickening may be present. Trace left pleural effusion suspected. No pneumothorax. Osseous structures normal. IMPRESSION: 1. Interval decrease in patchy left mid and lower lung opacities, concerning for pneumonia. 2. Mildly low lung volumes. 3. Cardiomegaly. CHEST ONE VIEW PORTABLE CLINICAL HISTORY: 76 years-old Male presenting with SOB. TECHNIQUE: Portable upright AP view of the chest was obtained. COMPARISON: 07/11/2017. FINDINGS: Median sternotomy wires and left atrial appendage occlusion device as well as mediastinal surgical clips unchanged. Atherosclerosis of aortic arch. Cardiac silhouette enlarged. Mildly low lung volumes with pulmonary vascular prominence. Increased left retrocardiac opacity. Left pleural effusion may be present. No pneumothorax. Right lung and pleural space clear. Degenerative changes of the thoracic spine. IMPRESSION: 1. Cardiomegaly with pulmonary vascular prominence suggesting volume overload. 2. Mildly low lung volumes. 3. Increased left retrocardiac opacity concerning for pneumonia. Medication Reconciliation New Medications: Albuterol (Ventolin Hfa) 60 Puffs/5400 Mcg Aers 2 PUFFS INH Q4H PRN for SOB/Wheezing, #1 INHALER Levofloxacin (Levaquin) 750 Mg Tab 750 MG PO Q2D for 4 Days, #2 TAB Oseltamivir Phosphate (Tamiflu) 6 Mg/Ml Emilee 30 MG PO BID for 4 Days, #7 DOSE Continued Medications: Apixaban (Eliquis) 5 Mg Tab 5 MG PO BID, TAB Aspirin (Aspirin Ec) 81 Mg Tab 81 MG PO Q2D Atorvastatin (Lipitor) 40 Mg Tab 60 MG PO QPM, TAB Finasteride (Proscar) 5 Mg Tab 5 MG PO QPM, TAB Fluticasone Prop/Salmeterol (Advair Diskus 500/50 60 Dose) 1 Ea Aerp 1 PUFF INH BID, INHALER Ondansetron Hcl (Zofran) 4 Mg Tab 4 MG PO DIRECTED, TAB Paroxetine Hcl (Paxil) 20 Mg Tab 20 MG PO QPM, TAB Propranolol (Inderal) 10 Mg Tab 10 MG PO BID, TAB Ranitidine HCl (Ranitidine HCl) 150 Mg Tab 150 MG PO BID Hospital Course 76 y/o M presents with hypoxia and influenza pneumonia has a past Hx HTN, HPL, asthma, BPH, CKD III, PAF, CAD - CABG 02/24. Recently admitted for acute on chronic RF. Pt presented with SOB and a productive cough over 2-3 days. He was marginally hypoxic on arrival to the ER. An initial CXR is suggestive of a retrocardiac infiltrate. Pneumonia and hypoxia. - no longer requiring oxygen, walked the halls and maintained O2 sat 92% - For the pneumonia continue levaquin for 7 days starting 07/20 with renal dosing. i - Influenza A was positive - continue tamilflu renal dose adjusted for a total of five days starting 07/21 Chronic diastolic heart failure, appears clinically stable CKD3 - creat is about at baseline, will have patient recheck his kidney function tomorrow to trend. CAD - no evidence of ACS - cont B damon, ASA, Statin PAF - in sinus rhythm while inpatient, cont Apixaban, propranolol Previously QT interval was markedly prolonged when taking Fluconazole. - QT is currently within normal limits Significant protein malnutrition on initial labs - nutritional supplements while inpatient, will recommend boost or protein drink for discharge. STOCK COUNTER Physician Supervision Note: I interviewed and examined the patient. Discussed with Emmy Leon NP and agree with findings and plan as documented in the note. Any exceptions or clarifications are listed here: None Patient has done well however he likely will require to go home on treatment for both the flu and possibly bacterial bronchitis as his x-ray did look fairly significantly change in presentation his oxygen is improved but is only slightly above acceptable ranges on room air but is above except ranges. Patient will go home on Tamiflu and levofloxacin with close outpatient follow-up Vital signs prior to him going home show temp 36 7 pulse is 52 respiration rate 19 BP 153/63 O2 sat 91 his lungs are diminished but he does move good air in all lung llamas no wheezes or focal air loss Influenza A and likely secondary bacterial bronchitis with close outpatient follow-up as above Documented By: Jitendra Lau Total Time Spent: Greater than 30 minutes This includes examination of the patient, discharge planning, medication reconciliation, and communication with other providers. Discharge Instructions Please refer to the electronic Patient Visit Report (Discharge Instructions) for additional information. Follow-Up primary care in about a week Additional Copies To Chun Collins M.D.
[2017-07-22] MEDS ORDERED: LEVOFLOXACIN / D5W 750 MG in PREMIXED IN D5W 150 ML IV SCH (12:00)
== END 2017-07-22 13:57 | disposition home or self-care (01) | DRG 194 ==
LOC: C.EDB 08:52 → C.2T 11:16 → ENRESERV 14:27 → C.2E 19:40
PROVIDERS: ADMIT Internal Medicine; ATTEND Internal Medicine
DX: J18.9 Pneumonia, unspecified organism (principal); I50.32 Chronic diastolic (congestive) heart failure; E46 Unspecified protein-calorie malnutrition; I13.0 Hypertensive heart and chronic kidney disease with heart failure and stage 1 through stage 4 chronic kidney disease, or unspecified chronic kidney disease; J10.00 Influenza due to other identified influenza virus with unspecified type of pneumonia; I25.2 Old myocardial infarction; E78.5 Hyperlipidemia, unspecified; N40.0 Benign prostatic hyperplasia without lower urinary tract symptoms; N18.3 Chronic kidney disease, stage 3 (moderate); I25.10 Atherosclerotic heart disease of native coronary artery without angina pectoris; I48.0 Paroxysmal atrial fibrillation; R09.02 Hypoxemia; J45.909 Unspecified asthma, uncomplicated; Z79.01 Long term (current) use of anticoagulants; Z79.82 Long term (current) use of aspirin; Z79.899 Other long term (current) drug therapy; Z95.1 Presence of aortocoronary bypass graft

== ENCOUNTER → 2017-07-23 | Outpatient (CLI) | payer BC, OTHER ==
[~2017-07-23] MED LIST changes: -CALC-343 PO; -DFL50 PO; +LEVO1TAB35 PO; +NUTR-977 PO; -OXYC1TAB3 PO; +PROP10TA7 PO; -PROP1TAB PO; +PRVHFAIN INH; -TAMS0.4C38 PO; +TMFUDL30 PO
[2017-07-23 13:18] LABS: BLOOD UREA NITROGEN 23 mg/dl (7-18); CALCIUM 8.9 mg/dl (8.5-10.1); CARBON DIOXIDE 29 mmol/L (21-32); CREATININE 2.06 mg/dl (0.60-1.40); GLUCOSE 87 mg/dl (70-99); POTASSIUM 4.2 mmol/L (3.5-5.1); SODIUM 138 mmol/L (136-145)
== END | disposition home or self-care (01) ==
LOC: C.LABBFT 10:40
PROVIDERS: ATTEND Nurse Practitioner Family
DX: N17.9 Acute kidney failure, unspecified (principal); N18.9 Chronic kidney disease, unspecified

== ENCOUNTER 2017-08-17 11:53 | Emergency (ER) | payer BC, OTHER ==
[~2017-08-17] VITALS: Ht 180.3 cm; Wt 81.0 kg
[~2017-08-17 11:53] MED LIST changes: -LEVO1TAB35 PO
[2017-08-17 11:57] VITALS: TEMP 36.5; Ht 180.3 cm; Wt 81.0 kg
--- NOTE | 2017-08-17 12:36 | DIAGNOSTIC IMAGING REPORT ---
CHEST ONE VIEW PORTABLE HISTORY: 76 years-old Male EVALUATE ALTERED MENTAL STATUS/WEAKNESS acute altered mental status COMPARISON: Chest radiographs 07/20/2017 TECHNIQUE: Portable AP view of the chest FINDINGS: Cardiac silhouette is again enlarged. Left atrial appendage occlusion device noted. Prior median sternotomy with surgical clips projecting over the left mediastinum. No pneumothorax. Linear subsegmental left basilar opacities with blunting of the left costophrenic angle. Improved aeration of the left lung base from comparison. Right lung is clear. No overt pulmonary edema. Bones of the chest appear grossly intact. IMPRESSION: 1. Improved aeration of the left lung base from comparison with linear subsegmental left basilar opacities suggesting atelectasis or scarring. 2. Cardiomegaly. The above report was generated using voice recognition software. It may contain grammatical, syntax or spelling errors. Electronically signed by: Jarocho Wu M.D. 08/17/2017 12:35 PM Dictated Date/Time: 08/17/2017 12:32 PM
[2017-08-17 12:43] LABS: BASO % 0.8 %; BASO ABS # 0.05 K/uL (0-0.2); EOS % 9.9 %; HEMATOCRIT 33.7 % (42-52); HEMOGLOBIN 11.4 g/dL (14.0-18.0); IG# 0.01 K/uL (0.00-0.02); INR 1.1 (0.9-1.1); LYMPH % 25.1 %; LYMPH ABS # 1.52 K/uL (1.2-3.4); MEAN CORPUSCULAR HEMOGLOBIN 32.5 pg (25-34); MEAN CORPUSCULAR HGB CONC 33.8 g/dl (32-36); MEAN PLATELET VOLUME 11.5 fL (7.4-10.4); MONO % 9.1 %; MONO ABS # 0.55 K/uL (0.11-0.59); NEUT % 54.9 %; NEUT ABS # 3.32 K/uL (1.4-6.5); PLATELET COUNT 202 K/uL (130-400); PTT PATIENT 29.7 SECONDS (21.0-31.0); RED CELL DISTRIBUTION WIDTH CV 13.6 % (11.5-14.5); RED CELL DISTRIBUTION WIDTH SD 47.6 fL (36.4-46.3); WHITE BLOOD COUNT 6.05 K/uL (4.8-10.8)
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
[2017-08-17 12:47] LABS: ALBUMIN 1.7 gm/dl (3.4-5.0); ALT/SGPT 17 U/L (12-78); BLOOD UREA NITROGEN 24 mg/dl (7-18); CALCIUM 8.3 mg/dl (8.5-10.1); CARBON DIOXIDE 29 mmol/L (21-32); CREATININE 2.07 mg/dl (0.60-1.40); GLUCOSE 95 mg/dl (70-99); POTASSIUM 4.4 mmol/L (3.5-5.1); SODIUM 141 mmol/L (136-145)
[2017-08-17 12:57] LABS: ALKALINE PHOSPHATASE 107 U/L (45-117); AST/SGOT 18 U/L (15-37); TOTAL PROTEIN 5.7 gm/dl (6.4-8.2)
[2017-08-17] MEDS ORDERED: FUROSEMIDE 40 MG TAB PO STA (13:53)
[2017-08-17] MEDS ORDERED: FURO20TA PO (14:11)
[2017-08-17 14:12] VITALS: BP 175/93; PULSE 71; O2SAT 96
== END 2017-08-17 14:20 | disposition home or self-care (01) ==
LOC: C.EDB 11:55
DX: R60.0 Localized edema (principal); W01.198A Fall on same level from slipping, tripping and stumbling with subsequent striking against other object, initial encounter; M54.9 Dorsalgia, unspecified; J45.909 Unspecified asthma, uncomplicated; I48.91 Unspecified atrial fibrillation; I25.2 Old myocardial infarction; I11.9 Hypertensive heart disease without heart failure; N28.9 Disorder of kidney and ureter, unspecified; Z79.82 Long term (current) use of aspirin; Z82.3 Family history of stroke; Z79.01 Long term (current) use of anticoagulants; Z95.1 Presence of aortocoronary bypass graft; Z83.3 Family history of diabetes mellitus; Z82.49 Family history of ischemic heart disease and other diseases of the circulatory system; Z87.891 Personal history of nicotine dependence

== ENCOUNTER → 2017-08-19 | Outpatient (CLI) | payer BC ==
[~2017-08-19] MED LIST changes: +FURO20TA PO; -NUTR-977 PO; -TMFUDL30 PO
[2017-08-19 12:47] LABS: ALBUMIN 1.9 gm/dl (3.4-5.0); BLOOD UREA NITROGEN 24 mg/dl (7-18); CALCIUM 8.5 mg/dl (8.5-10.1); CARBON DIOXIDE 28 mmol/L (21-32); CREATININE 2.12 mg/dl (0.60-1.40); GLUCOSE 92 mg/dl (70-99); POTASSIUM 3.8 mmol/L (3.5-5.1); SODIUM 139 mmol/L (136-145)
[2017-08-19 12:48] LABS: PHOSPHORUS 3.5 mg/dl (2.5-4.9)
== END | disposition home or self-care (01) ==
LOC: C.LAB1850 11:27
PROVIDERS: ATTEND Internal Medicine Nephrology
DX: R80.9 Proteinuria, unspecified (principal)

== ENCOUNTER → 2017-08-23 | Outpatient (CLI) | payer BC ==
[2017-08-23 14:06] LABS: INR 1.1 (0.9-1.1)
[2017-08-23 14:23] LABS: ALBUMIN 1.9 gm/dl (3.4-5.0); BLOOD UREA NITROGEN 24 mg/dl (7-18); CALCIUM 8.8 mg/dl (8.5-10.1); CARBON DIOXIDE 28 mmol/L (21-32); CREATININE 1.98 mg/dl (0.60-1.40); GLUCOSE 105 mg/dl (70-99); PHOSPHORUS 3.7 mg/dl (2.5-4.9); POTASSIUM 3.5 mmol/L (3.5-5.1); SODIUM 142 mmol/L (136-145)
[2017-08-27 12:53] LABS: ANA SCREEN TC 249X NEGATIVE (NEGATIVE); COMPLEMENT C3 TC 44859W 157 MG/DL (90-180); COMPLEMENT C4 TC 44982E 37 MG/DL (16-47)
== END | disposition home or self-care (01) ==
LOC: C.LAB1850 11:33
PROVIDERS: ATTEND Internal Medicine Nephrology
DX: N04.9 Nephrotic syndrome with unspecified morphologic changes (principal); I48.0 Paroxysmal atrial fibrillation

== ENCOUNTER → 2017-10-01 | Outpatient (CLI) | payer BC ==
[2017-10-01 15:18] LABS: ALBUMIN 1.6 gm/dl (3.4-5.0); BLOOD UREA NITROGEN 36 mg/dl (7-18); CALCIUM 8.3 mg/dl (8.5-10.1); CARBON DIOXIDE 31 mmol/L (21-32); CREATININE 2.35 mg/dl (0.60-1.40); GLUCOSE 89 mg/dl (70-99); POTASSIUM 4.1 mmol/L (3.5-5.1); SODIUM 143 mmol/L (136-145)
[2017-10-01 15:19] LABS: PHOSPHORUS 2.9 mg/dl (2.5-4.9)
== END | disposition home or self-care (01) ==
LOC: C.LAB1850 12:32
PROVIDERS: ATTEND Internal Medicine Nephrology
DX: R80.9 Proteinuria, unspecified (principal); N04.9 Nephrotic syndrome with unspecified morphologic changes

== ENCOUNTER 2017-10-14 10:25 | Emergency (ER) | payer BC ==
[~2017-10-14] VITALS: Ht 177.8 cm; Wt 79.5 kg
[2017-10-14 10:33] VITALS: TEMP 36.5; Ht 177.8 cm; Wt 79.5 kg
[2017-10-14] MEDS ORDERED: SODIUM CHLORIDE 0.9% 1000ML 1,000 ML IV STA (10:50)
[2017-10-14 11:12] LABS: BASO % 0.9 %; BASO ABS # 0.08 K/uL (0-0.2); EOS % 9.1 %; EOS ABS # 0.84 K/uL (0-0.5); HEMATOCRIT 34.9 % (42-52); HEMOGLOBIN 11.4 g/dL (14.0-18.0); IG# 0.03 K/uL (0.00-0.02); LYMPH % 25.1 %; LYMPH ABS # 2.32 K/uL (1.2-3.4); MEAN CELL VOLUME 95.6 fL (80-100); MEAN CORPUSCULAR HEMOGLOBIN 31.2 pg (25-34); MEAN CORPUSCULAR HGB CONC 32.7 g/dl (32-36); MEAN PLATELET VOLUME 10.8 fL (7.4-10.4); MONO % 6.4 %; MONO ABS # 0.59 K/uL (0.11-0.59); NEUT % 58.2 %; NEUT ABS # 5.38 K/uL (1.4-6.5); PLATELET COUNT 269 K/uL (130-400); RED CELL DISTRIBUTION WIDTH SD 49.1 fL (36.4-46.3); WHITE BLOOD COUNT 9.24 K/uL (4.8-10.8)
[2017-10-14] MEDS ORDERED: PROP10TA7 PO (11:19)
--- NOTE | 2017-10-14 11:21 | DIAGNOSTIC IMAGING REPORT ---
CHEST ONE VIEW PORTABLE CLINICAL HISTORY: hypotension COMPARISON STUDY: 08/17/2017 FINDINGS: There are postsurgical changes of midline sternotomy. Atrial occluder device is visualized. There is chronic blunting left lateral costophrenic angle. There is no failure. There is no focal pulmonary consolidation.[ IMPRESSION: Postsurgical change. No acute findings. Electronically signed by: Ady Roblero M.D. 10/14/2017 11:20 AM Dictated Date/Time: 10/14/2017 11:19 AM
[2017-10-14 11:29] LABS: ALBUMIN 1.4 gm/dl (3.4-5.0); ALT/SGPT 13 U/L (12-78); AST/SGOT 16 U/L (15-37); BLOOD UREA NITROGEN 40 mg/dl (7-18); CALCIUM 8.4 mg/dl (8.5-10.1); CARBON DIOXIDE 27 mmol/L (21-32); CREATININE 2.42 mg/dl (0.60-1.40); GLUCOSE 91 mg/dl (70-99); LIPASE 258 U/L (73-393); POTASSIUM 4.4 mmol/L (3.5-5.1); SODIUM 142 mmol/L (136-145)
[2017-10-14 11:32] LABS: ALKALINE PHOSPHATASE 126 U/L (45-117); TOTAL PROTEIN 5.7 gm/dl (6.4-8.2)
[2017-10-14 13:56] VITALS: BP 159/84; PULSE 49; O2SAT 95
--- NOTE | 2017-10-14 17:10 | EMERGENCY ROOM VISIT NOTE ---
History Report prepared by Rajat: Marquise Telles Under the Supervision of: Dr. Rigo Brown D.O. First contact with patient: 10:40 Chief Complaint: HYPOTENSION Stated Complaint: U History of Present Illness The patient is a 77 year old male who presents to the Emergency Room after referral from his cardiac rehabilitation appointment with concerns over hypotensive blood pressures. Per the ED nursing staff, the patient was at rehab today, just prior to arrival, when his blood pressure dropped. The pre-hospital notes state that the patient's blood pressure dropped into the 60's systolically while standing. The patient does note that he "did not feel right" but denies any specific headache, chest pain, abdominal pain, vision changes, or shortness of breath. The patient's blood pressure was 113 systolically on arrival to the ED. He was at Cardiac Rehab due to heart surgery that he had last year. The patient did note that he recently had his dosage of Lasix and Lisinopril increased. He follows with Dr. Garcia of cardiology. Patient has absolutely no other complaints. Source of History: patient Onset: Just prior to arrival Position: other (Blood pressure) Quality: other (Hypotension) Timing: other (Hypotension noted just prior to arrival at Therapy) Associated Symptoms: No headache, No chest pain, No SOB Review of Systems See HPI for pertinent positives & negatives. A total of 10 systems reviewed and were otherwise negative. Past Medical & Surgical Medical Problems: (1) Acute kidney injury (2) Anemia (3) Anemia (4) Asthma (5) Atrial fibrillation (6) Atrial fibrillation with rapid ventricular response (7) Atrial fibrillation with RVR (8) Atrial fibrillation with RVR (9) BPH (benign prostatic hyperplasia) (10) CHF (congestive heart failure) (11) Chronic kidney disease (12) Coronary artery disease (13) Dehydration (14) Dyspnea (15) Elevated troponin (16) Hyperglycemia (17) Hypertension (18) Influenza A (19) Lipoma (20) NSTEMI (non-ST elevated myocardial infarction) (21) Nutrition deficiency due to insufficient food (22) Occluded PICC line (23) Pneumonia (24) Renal insufficiency (25) Unstable angina Family History Diabetes mellitus Hypertension Social History Smoking Status: Never Smoker Alcohol Use: none Drug Use: none Marital Status: Housing Status: lives with family Occupation Status: retired Current/Historical Medications Scheduled Apixaban (Eliquis), 5 MG PO BID Aspirin (Aspirin Ec), 81 MG PO Q2D Atorvastatin (Lipitor), 60 MG PO QPM Finasteride (Proscar), 5 MG PO QPM Fluticasone Prop/Salmeterol (Advair Diskus 500/50 60 Dose), 1 PUFF INH BID Furosemide (Lasix), 20 MG PO QD Ondansetron Hcl (Zofran), 4 MG PO DIRECTED Paroxetine Hcl (Paxil), 20 MG PO QPM Propranolol (Inderal), 10 MG PO BID Ranitidine HCl (Ranitidine HCl), 150 MG PO DAILY Scheduled PRN Albuterol (Ventolin Hfa), 2 PUFFS INH Q4H PRN for SOB/Wheezing Allergies Coded Allergies: NO KNOWN DRUG ALLERGIES (Verified Allergy, Unknown, NONE, 10/14/17) Physical Exam Vital Signs Date Time Temp Pulse Resp B/P (MAP) Pulse Ox O2 Delivery O2 Flow Rate FiO2 10/14/17 13:56 49 18 159/84 95 10/14/17 13:16 49 10/14/17 12:04 49 18 159/84 95 Room Air 10/14/17 10:35 62 10/14/17 10:33 36.5 61 20 113/67 97 Room Air Physical Exam GENERAL: Sitting up in bed, alert, well appearing, well nourished, no distress, non-toxic EYE EXAM: normal conjunctiva. PERRL and EOM's intact. OROPHARYNX: no exudate, no erythema, lips, buccal mucosa, and tongue normal and mucous membranes are moist NECK: supple, no nuchal rigidity, no adenopathy, non-tender CHEST: There is an old midline sternal incision. LUNGS: Clear to auscultation. Normal chest wall mechanics HEART: no murmurs, S1 normal and S2 normal ABDOMEN: abdomen soft, non-tender, normo-active bowel sounds, no masses, no rebound or guarding. BACK: Back is symmetrical on inspection and there is no deformity, no midline tenderness, no CVA tenderness. SKIN: no rashes and no bruising UPPER EXTREMITIES: upper extremities are grossly normal. LOWER EXTREMITIES: No pitting edema. NEURO EXAM: Normal sensorium, cranial nerves II-XII intact, normal speech, no weakness of arms, no weakness of legs. No drift. Finger to nose intact. Gross sensation intact. Medical Decision & Procedures ER Provider Diagnostic Interpretation: Radiology results as stated below per my review and the radiologist's interpretation: CHEST ONE VIEW PORTABLE CLINICAL HISTORY: hypotension COMPARISON STUDY: 08/17/2017 FINDINGS: There are postsurgical changes of midline sternotomy. Atrial occluder device is visualized. There is chronic blunting left lateral costophrenic angle. There is no failure. There is no focal pulmonary consolidation.[ IMPRESSION: Postsurgical change. No acute findings. Electronically signed by: Ady Roblero M.D. 10/14/2017 11:20 AM Dictated Date/Time: 10/14/2017 11:19 AM Laboratory Results 10/14/17 10:58 Red Blood Count 3.65, Mean Corpuscular Volume 95.6, Mean Corpuscular Hemoglobin 31.2, Mean Corpuscular Hemoglobin Concent 32.7, Mean Platelet Volume 10.8, Neutrophils (%) (Auto) 58.2, Lymphocytes (%) (Auto) 25.1, Monocytes (%) (Auto) 6.4, Eosinophils (%) (Auto) 9.1, Basophils (%) (Auto) 0.9, Neutrophils # (Auto) 5.38, Lymphocytes # (Auto) 2.32, Monocytes # (Auto) 0.59, Eosinophils # (Auto) 0.84, Basophils # (Auto) 0.08 10/14/17 10:58 Test 10/14/17 10:58 10/14/17 12:10 White Blood Count 9.24 K/uL (4.8-10.8) Red Blood Count 3.65 M/uL (4.7-6.1) Hemoglobin 11.4 g/dL (14.0-18.0) Hematocrit 34.9 % (42-52) Mean Corpuscular Volume 95.6 fL (80-100) Mean Corpuscular Hemoglobin 31.2 pg (25-34) Mean Corpuscular Hemoglobin Concent 32.7 g/dl (32-36) Platelet Count 269 K/uL (130-400) Mean Platelet Volume 10.8 fL (7.4-10.4) Neutrophils (%) (Auto) 58.2 % Lymphocytes (%) (Auto) 25.1 % Monocytes (%) (Auto) 6.4 % Eosinophils (%) (Auto) 9.1 % Basophils (%) (Auto) 0.9 % Neutrophils # (Auto) 5.38 K/uL (1.4-6.5) Lymphocytes # (Auto) 2.32 K/uL (1.2-3.4) Monocytes # (Auto) 0.59 K/uL (0.11-0.59) Eosinophils # (Auto) 0.84 K/uL (0-0.5) Basophils # (Auto) 0.08 K/uL (0-0.2) RDW Standard Deviation 49.1 fL (36.4-46.3) RDW Coefficient of Variation 14.0 % (11.5-14.5) Immature Granulocyte % (Auto) 0.3 % Immature Granulocyte # (Auto) 0.03 K/uL (0.00-0.02) Anion Gap 7.0 mmol/L (3-11) Est Creatinine Clear Calc Drug Dose 27.2 ml/min Estimated GFR () 29.2 Estimated GFR (Non- 25.2 BUN/Creatinine Ratio 16.4 (10-20) Calcium Level 8.4 mg/dl (8.5-10.1) Total Bilirubin 0.2 mg/dl (0.2-1) Direct Bilirubin < 0.1 mg/dl (0-0.2) Aspartate Amino Transf (AST/SGOT) 16 U/L (15-37) Alanine Aminotransferase (ALT/SGPT) 13 U/L (12-78) Alkaline Phosphatase 126 U/L (45-117) Troponin I < 0.015 ng/ml (0-0.045) Total Protein 5.7 gm/dl (6.4-8.2) Albumin 1.4 gm/dl (3.4-5.0) Lipase 258 U/L (73-393) Urine Color YELLOW Urine Appearance CLEAR (CLEAR) Urine pH 6.5 (4.5-7.5) Urine Specific [place] 1.014 (1.000-1.030) Urine Protein 4+ (NEG) Urine Glucose (UA) NEG (NEG) Urine Ketones NEG (NEG) Urine Occult Blood TRACE (NEG) Urine Nitrite NEG (NEG) Urine Bilirubin NEG (NEG) Urine Urobilinogen NEG (NEG) Urine Leukocyte Esterase NEG (NEG) Urine WBC (Auto) 1-5 /hpf (0-5) Urine RBC (Auto) 0-4 /hpf (0-4) Urine Hyaline Casts (Auto) 5-10 /lpf (0-5) Urine Epithelial Cells (Auto) 10-20 /lpf (0-5) Urine Bacteria (Auto) NEG (NEG) Laboratory results per my review. Medications Administered Medications (Trade) Dose Ordered Sig/Geovanna Route Start Time Stop Time Status Last Admin Dose Admin Sodium Chloride 1,000 ml @ 999 mls/hr Q1H1M STAT IV 10/14/17 10:50 10/14/17 11:50 DC 10/14/17 10:50 999 MLS/HR ECG Per My Interpretation Indication: other (Hypotension) Rate (beats per minute): 67 Rhythm: sinus rhythm Findings: PVC, Q waves (Septal and inferior), other (Normal axis, ) ED Course ED COURSE: Vital signs were reviewed and showed normal vitals. The patients medical record was reviewed The above diagnostic studies were performed and reviewed. ED treatments and interventions as stated above. 1042: The patient was evaluated in room B9. A complete history and physical examination was performed. 1050: Ordered Sodium Chloride 1000 mL @ 999 mL/hr IV. 1352: Upon reevaluation, the patient is resting in bed.I discussed my findings with the patient and He understands and agrees with the treatment plan. Based on the patients age, coexisting illnesses, exam and lab findings the decision to treat as an outpatient was made. The patient remained stable while under my care. The patient appeared well at the time of discharge. Medical Decision Differential diagnoses includes but is not limited to acute coronary syndrome, myocardial infarction, pericarditis, pulmonary embolus, aortic dissection, pneumonia, pneumothorax, musculoskeletal, shingles, esophageal. Patient is a 77-year-old male who presents the ER was found to be hypotensive and was referred in from cardiac rehab. He had no complaints with the exception of just not feeling right. CBC along with BMP shows a creatinine of 2.4 up from a baseline of 2. Bilirubin, LFTs and troponin were negative. Lipase is normal. UA was negative. EKG was unchanged. Chest x-ray unremarkable. Patient was able to ambulate throughout the ER without difficulty. He had no new complaints. He was given a little bit of fluids. Discussed with cardiology. We will decrease him back to his normal dose of lisinopril and call Dr. Garcia tomorrow for additional instructions. Patient was updated at bedside discharge follow-up PCP as an outpatient. Discussed with Pt concerning signs and symptoms to watch out for. Pt was instructed to follow up with their PCP and discussed with the patient their option to return to the ED at anytime for persistent or worsening symptoms. The appropriate anticipatory guidance and out-patient management, including indications for return to the emergency department, were explained at length to the patient and understood. Medication Reconcilliation Current Medication List: was personally reviewed by me Blood Pressure Screening Patient's blood pressure: Normal blood pressure Impression Primary Impression: Hypotension Additional Impression: CKD (chronic kidney disease) Scribe Attestation The scribe's documentation has been prepared under my direction and personally reviewed by me in its entirety. I confirm that the note above accurately reflects all work, treatment, procedures, and medical decision making performed by me. Departure Information Dispostion Home / Self-Care Referrals Chun Collins M.D. (PCP) Forms HOME CARE DOCUMENTATION FORM, IMPORTANT VISIT INFORMATION, WORK / SCHOOL INSTRUCTIONS Patient Instructions [facility] Additional Instructions Please follow up with your primary care doctor with in the next 24 hours. Any worsening of your symptoms, please return to the ED immediately. This includes any fevers greater than 100.4, worsening pain, chest pain, shortness breath, persistent nausea, vomiting, unable to eat or drink, or any other concerning signs or symptoms from your standpoint. Please decrease your dose of lisinopril back to your normal dose prior to the increase recently. You must touch base with your retort operator tomorrow and give them a call and discuss further management of your lisinopril. Problem Qualifiers Primary Impression: Hypotension Hypotension type: unspecified hypotension type Qualified Codes: I95.9 - Hypotension, unspecified Additional Impression: CKD (chronic kidney disease) Chronic kidney disease stage: unspecified stage Qualified Codes: N18.9 - Chronic kidney disease, unspecified
== END 2017-10-14 13:57 | disposition home or self-care (01) ==
LOC: EDBD 10:25 → EDSEX 10:25 → C.EDB 10:30
DX: I95.9 Hypotension, unspecified (principal); N18.9 Chronic kidney disease, unspecified; I48.91 Unspecified atrial fibrillation; D64.9 Anemia, unspecified; N40.0 Benign prostatic hyperplasia without lower urinary tract symptoms; I25.10 Atherosclerotic heart disease of native coronary artery without angina pectoris; I25.2 Old myocardial infarction; Z79.01 Long term (current) use of anticoagulants; Z79.82 Long term (current) use of aspirin; Z79.899 Other long term (current) drug therapy

== ENCOUNTER → 2017-10-29 | Outpatient (CLI) | payer BC ==
[2017-10-29 12:38] LABS: HEMATOCRIT 34.3 % (42-52); HEMOGLOBIN 11.5 g/dL (14.0-18.0); MEAN CELL VOLUME 96.3 fL (80-100); MEAN CORPUSCULAR HEMOGLOBIN 32.3 pg (25-34); MEAN CORPUSCULAR HGB CONC 33.5 g/dl (32-36); PLATELET COUNT 242 K/uL (130-400); RED CELL DISTRIBUTION WIDTH CV 14.3 % (11.5-14.5); RED CELL DISTRIBUTION WIDTH SD 50.6 fL (36.4-46.3); WHITE BLOOD COUNT 8.21 K/uL (4.8-10.8)
[2017-10-29 12:45] LABS: ALBUMIN 1.8 gm/dl (3.4-5.0); ALT/SGPT 17 U/L (12-78); AST/SGOT 21 U/L (15-37); BLOOD UREA NITROGEN 42 mg/dl (7-18); CALCIUM 8.6 mg/dl (8.5-10.1); CARBON DIOXIDE 26 mmol/L (21-32); CHOLESTEROL 273 mg/dl (0-200); CREATININE 2.73 mg/dl (0.60-1.40); GLUCOSE 95 mg/dl (70-99); LDL CHOLESTEROL CALCULATED 186 mg/dl; PHOSPHORUS 4.2 mg/dl (2.5-4.9); POTASSIUM 3.9 mmol/L (3.5-5.1); SODIUM 141 mmol/L (136-145)
[2017-10-29 13:19] LABS: HEMOGLOBIN A1C 5.8 % (4.5-5.6)
== END | disposition home or self-care (01) ==
LOC: C.LAB1850 10:42
PROVIDERS: ATTEND Internal Medicine Nephrology
DX: E11.9 Type 2 diabetes mellitus without complications (principal); I25.10 Atherosclerotic heart disease of native coronary artery without angina pectoris; N04.9 Nephrotic syndrome with unspecified morphologic changes

== ENCOUNTER → 2018-01-01 | Outpatient (CLI) | payer BC ==
[~2018-01-01] MED LIST changes: -FURO20TA PO; +FURO80TA63 PO; +PRD/1 PO; +[UNRECOGNIZED DRUG - REMARK] PO
[2018-01-01 09:30] LABS: HEMATOCRIT 35.9 % (42-52); HEMOGLOBIN 11.9 g/dL (14.0-18.0); MEAN CELL VOLUME 94.7 fL (80-100); MEAN CORPUSCULAR HEMOGLOBIN 31.4 pg (25-34); MEAN CORPUSCULAR HGB CONC 33.1 g/dl (32-36); MEAN PLATELET VOLUME 11.1 fL (7.4-10.4); PLATELET COUNT 187 K/uL (130-400); RED CELL DISTRIBUTION WIDTH CV 13.7 % (11.5-14.5); RED CELL DISTRIBUTION WIDTH SD 47.2 fL (36.4-46.3); WHITE BLOOD COUNT 17.83 K/uL (4.8-10.8)
[2018-01-01 09:59] LABS: ALBUMIN 1.4 gm/dl (3.4-5.0); BLOOD UREA NITROGEN 69 mg/dl (7-18); CALCIUM 8.3 mg/dl (8.5-10.1); CARBON DIOXIDE 26 mmol/L (21-32); CREATININE 2.39 mg/dl (0.60-1.40); GLUCOSE 127 mg/dl (70-99); PHOSPHORUS 3.5 mg/dl (2.5-4.9); POTASSIUM 4.1 mmol/L (3.5-5.1); SODIUM 137 mmol/L (136-145)
[2018-01-01 14:16] LABS: HEP C IGG 13 YRS+OLDER_RFLX NEG (NEG)
== END | disposition home or self-care (01) ==
LOC: C.LAB1850 08:45
PROVIDERS: ATTEND Internal Medicine Nephrology
DX: N04.9 Nephrotic syndrome with unspecified morphologic changes (principal)

== ENCOUNTER → 2018-01-02 | Outpatient (CLI) | payer BC ==
--- NOTE | 2018-01-02 14:49 | DIAGNOSTIC IMAGING REPORT ---
(CHEST) THORAX WITHOUT CT DOSE: 1147.33 mGy.cm CLINICAL HISTORY: 77 years-old Male with N04.9 Nephrotic syndromeNephrotic syndrome, h/o [id number]. TECHNIQUE: Multiaxial CT images of the chest were performed without contrast. A dose lowering technique was utilized adhering to the principles of ALARA. COMPARISON: CT abdomen and pelvis of same day, renal ultrasound 04/05/2017, chest radiographs 03/24/2017. FINDINGS: No dominant thyroid nodule identified. No pathologically enlarged lymph nodes of the chest are identified. The heart is mildly enlarged. Coronary arterial calcifications are noted. Prior CABG. Thoracic aorta demonstrates moderate calcification without aneurysm. Prior median sternotomy. Mild subcutaneous stranding about the sternotomy site with foci of air seen between the right and left aspects of the midline sternotomy site. There appears be pseudoarticulation of the sternotomy with peripherally corticated margins. No pneumothorax or pleural effusion. Mild bilateral bronchial wall thickening. Mucosal secretions are seen most notably within the basal left lower lobe. Tree-in-bud nodules with subsegmental groundglass and consolidative opacities are noted within the left lower lobe. Calcified granuloma of left upper lobe. 3 mm solid nodule of the anterior segment left upper lobe. 2 mm fissural lymph node adjacent to the major fissure on image 104 series 4. Mild tree-in-bud nodularity about the right middle lobe. Defined 5 mm groundglass opacity with minimal tree-in-bud nodules about the right upper lobe posterior segment. No acute process of the imaged upper abdomen. Mild perinephric stranding bilaterally. Mild multilevel spondylitic spurring about the spine. IMPRESSION: 1. Mild bilateral bronchial wall thickening suggests bronchitis with bronchial mucosal secretions seen within the left lower lobe. 2. Patchy subsegmental areas of tree-in-bud nodularity with groundglass opacities are noted within the left lower lobe and to a lesser extent within the right middle and upper lobes suggesting infectious bronchiolitis with pneumonitis. Subsegmental consolidation is also noted within the basal left lower lobe. 3. Cardiomegaly with prior median sternotomy and CABG. Trace amount of air and soft tissue stranding about the sternotomy site is noted with findings suggestive of nonunion. 4. Additional findings as above. Electronically signed by: Jarocho Wu M.D. 01/02/2018 2:48 PM Dictated Date/Time: 01/02/2018 2:39 PM
--- NOTE | 2018-01-02 14:50 | DIAGNOSTIC IMAGING REPORT ---
ABD/PELVIS NO IV OR ORAL CONT CT DOSE: HISTORY: N04.9 Nephrotic syndromeaki, nephrotic syndrome, weak [id number] TECHNIQUE: Multiaxial CT images of the abdomen and pelvis were performed without contrast. A dose lowering technique was utilized adhering to the principles of ALARA. COMPARISON STUDY: None. FINDINGS: Lung bases show minimal infiltrative change and peribronchial thickening left lung base. Right lung bases clear. Configuration of liver spleen and pancreas are unremarkable. Kidneys negative for hydronephrosis. Bowel pattern suggests slight fluid in air-filled distention of the small bowel consistent with a nonobstructive ileus. No evidence for colonic distention. Findings of moderate body wall anasarca. Atherosclerotic change abdominal aorta as well as abdominal and pelvic arterial vasculature. Trace free fluid within the pelvic cul-de-sac. Small fat-containing hernias bilaterally considered nonobstructive findings. IMPRESSION: 1. Mild body wall anasarca. 2. Mild generalized nonobstructive ileus. 3. Minimal infiltrative and atelectatic change left lung base. The above report was generated using voice recognition software. It may contain grammatical, syntax or spelling errors. Electronically signed by: Shukri Iverson M.D. 01/02/2018 2:49 PM Dictated Date/Time: 01/02/2018 2:42 PM
== END | disposition home or self-care (01) ==
LOC: C.CTS 14:28
PROVIDERS: ATTEND Internal Medicine Nephrology
DX: N04.9 Nephrotic syndrome with unspecified morphologic changes (principal)

== ENCOUNTER → 2018-01-13 | Outpatient (CLI) | payer BC ==
[~2018-01-13] MED LIST changes: -ADVIN50/60 INH; -ONDA4TAB46 PO; -PRVHFAIN INH; -[UNRECOGNIZED DRUG - REMARK] PO
[2018-01-13 11:24] LABS: ALBUMIN 1.5 gm/dl (3.4-5.0); BLOOD UREA NITROGEN 59 mg/dl (7-18); CALCIUM 8.3 mg/dl (8.5-10.1); CARBON DIOXIDE 29 mmol/L (21-32); CREATININE 3.24 mg/dl (0.60-1.40); GLUCOSE 114 mg/dl (70-99); PHOSPHORUS 3.6 mg/dl (2.5-4.9); POTASSIUM 3.9 mmol/L (3.5-5.1); SODIUM 141 mmol/L (136-145)
== END | disposition home or self-care (01) ==
LOC: C.LAB1850 09:52
PROVIDERS: ATTEND Internal Medicine Nephrology
DX: N04.9 Nephrotic syndrome with unspecified morphologic changes (principal)

== ENCOUNTER → 2018-01-20 | Outpatient (CLI) | payer BC ==
[2018-01-20 15:46] LABS: HEMATOCRIT 32.4 % (42-52); HEMOGLOBIN 10.6 g/dL (14.0-18.0); MEAN CELL VOLUME 95.9 fL (80-100); MEAN CORPUSCULAR HEMOGLOBIN 31.4 pg (25-34); MEAN CORPUSCULAR HGB CONC 32.7 g/dl (32-36); MEAN PLATELET VOLUME 11.2 fL (7.4-10.4); PLATELET COUNT 337 K/uL (130-400); RED CELL DISTRIBUTION WIDTH CV 13.9 % (11.5-14.5); RED CELL DISTRIBUTION WIDTH SD 48.2 fL (36.4-46.3)
[2018-01-20 16:13] LABS: BLOOD UREA NITROGEN 67 mg/dl (7-18); CALCIUM 8.6 mg/dl (8.5-10.1); CARBON DIOXIDE 27 mmol/L (21-32); CREATININE 3.62 mg/dl (0.60-1.40); GLUCOSE 85 mg/dl (70-99); PHOSPHORUS 4.7 mg/dl (2.5-4.9); SODIUM 137 mmol/L (136-145)
== END | disposition home or self-care (01) ==
LOC: C.LAB1850 14:38
PROVIDERS: ATTEND Internal Medicine Nephrology
DX: N04.9 Nephrotic syndrome with unspecified morphologic changes (principal); N17.9 Acute kidney failure, unspecified

== ENCOUNTER → 2018-01-30 | Outpatient (CLI) | payer BC ==
[2018-01-30 13:28] LABS: ALBUMIN 2.2 gm/dl (3.4-5.0); BLOOD UREA NITROGEN 61 mg/dl (7-18); CALCIUM 8.7 mg/dl (8.5-10.1); CARBON DIOXIDE 29 mmol/L (21-32); CREATININE 3.12 mg/dl (0.60-1.40); GLUCOSE 105 mg/dl (70-99); PHOSPHORUS 4.4 mg/dl (2.5-4.9); POTASSIUM 3.2 mmol/L (3.5-5.1); SODIUM 137 mmol/L (136-145)
== END | disposition home or self-care (01) ==
LOC: C.LABBFT 07:56
PROVIDERS: ATTEND Internal Medicine Nephrology
DX: N18.4 Chronic kidney disease, stage 4 (severe) (principal)

== ENCOUNTER 2018-06-18 09:07 | Inpatient (IN) ==
[2018-06-18] MEDS ORDERED: SODIUM CHLORIDE 0.9% 1000ML 1,000 ML IV ONE ×2 (09:24→10:09)
[2018-06-18 09:42] LABS: Basophils # (auto) 0.02 K/uL (0-0.2); Basophils % (auto) 0.4 %; Eosinophils # (auto) 0.03 K/uL (0-0.5); Eosinophils % (auto) 0.6 %; Hematocrit (blood only) 30.8 % (42-52); Hemoglobin 10.2 g/dL (14.0-18.0); Immature Granulocytes # (auto) 0.04 K/uL (0.00-0.02); Immature Granulocytes % (auto) 0.8 %; Lymphocytes # (auto) 0.31 K/uL (1.2-3.4); Lymphocytes % (auto) 5.8 %; Mean Corpuscular Hgb Conc 33.1 g/dL (32-36); Mean Corpuscular Volume 98.7 fL (80-100); Mean Platelet Volume 10.1 fL (7.4-10.4); Monocytes # (auto) 0.29 K/uL (0.11-0.59); Monocytes % (auto) 5.5 %; Neutrophils # (auto) 4.61 K/uL (1.4-6.5); Neutrophils % (auto) 86.9 %; Nucleated RBC # (auto) 0.04 K/uL (0-0); Nucleated RBC % (auto) 0.8 %; Platelet Count 204 K/uL (130-400); RDW Coefficient of Variation 16.3 % (11.5-14.5); RDW Standard Deviation 57.5 fL (36.4-46.3); Red Blood Count 3.12 M/uL (4.7-6.1)
--- NOTE | 2018-06-18 09:43 | XRay Report ---
XR chest 1V portable CLINICAL HISTORY: Sepsis COMPARISON STUDY: 05/30/2018 FINDINGS: The heart remains enlarged. There are postsurgical changes of a midline sternotomy. Atrial band occluder is again visualized. There is no acute parenchymal consolidation. There is no failure. There is persistent blunting of the left lateral costophrenic angle. IMPRESSION: No acute findings. Stable cardiomegaly and stable blunting of the left lateral costophren ic angle. Electronically signed by: Ady Roblero M.D. 06/18/2018 9:42 AM
[2018-06-18 09:48] LABS: iSTAT Hemoglobin 9.5 g/dl (14.0-18.0); iSTAT Ionized Calcium 1.17 mmol/l (1.12-1.32)
[2018-06-18 09:53] LABS: INR 1.1 (0.9-1.1); Partial Thromboplastin Ratio 1.1; Partial Thromboplastin Time 27.6 Seconds (21.0-31.0); Prothrombin Time 11.5 Seconds (9.0-12.0)
[2018-06-18 09:56] LABS: Albumin Level 3.2 gm/dl (3.4-5.0); BUN Creatinine Ratio 11.6 (10-20); Calcium 9.3 mg/dl (8.5-10.1); Creatinine Clr Calc Pharmacy 18.6 ml/min; Est GFR (African American) 20.2; Est GFR (Non-African American) 17.4; Potassium 5.2 mmol/L (3.5-5.1)
[2018-06-18 10:07] LABS: Albumin Globulin Ratio 0.9 (0.9-2); Bilirubin,Total 0.6 mg/dl (0.2-1); Creatine Kinase MB 2.2 ng/ml (0.5-3.6); Globulin 3.7 gm/dl (2.5-4.0); Total Protein 6.9 gm/dl (6.4-8.2); Troponin I 0.031 ng/ml (0-0.045)
--- NOTE | 2018-06-18 10:33 | History & Physical Report ---
Date of Service June 18, 2018 Assessment & Plan (1) Hypotension: Patient's hypotension is with unclear origin at this time. The patient states this is happened in the past when he was given cyclophosphamide for his glomerulonephritis. He also most recently has been begun on lisinopril proximate 3 weeks prior. He also has had influenza in the past and has some rhinorrhea but no other infectious signs or symptoms. He was volume resuscitated with 2 L of crystalloid in the ER with improvement of his blood pressure. He does have a mild elevation of his lactic acid however I believe this is from perfusion. Patient has blood cultures obtained pending influenza evaluation he will not be placed on antibiotics or antivirals at this time he looks clinically stable may be a medication reaction. He has had no chest pain associated with his hypotension (2) Chronic kidney disease: pt has acute on chronic kidney disease stage 3, low blood pressure will influence, has history of glomerulonephritis and is currently being treated with prednisone and cyclophosphamide. He most recently also has been begun on an NEHEMIAS inhibitor around 3 months prior. He typically sees Dr. Chapman. His NEHEMIAS inhibitor will be held at this time he is being hydrated we will follow his renal function (3) Paroxysmal A-fib: pt is chronically anticoagulated with eliquis, on propronaolol and digoxin for rate control. It is incidentally noted that he is in atrial bands seen on his chest x-ray patient is unaware that he had this in his body. The atrial band had been used to obliterate the atrial appendage and reduce the risk of embolic stroke per literature review (4) BPH (benign prostatic hyperplasia): will remain on proscar, holding flomax with lower blood pressure (5) Asthma: clincally stable at this time, remians no advair with prn albuterol (6) Anemia: Patient history of chronic anemia he remains in the tendon 30 range. Given the fact he is anticoagulated and there is no obvious sign or symptom for his hypotension we will recheck a hemoglobin in the afternoon and not begin his Eliquis until that is returned and found to be stable encases hypotension is from hypovolemic shock from acute blood loss anemia it is not however at this time (7) Low back pain: Patient has chronic low back pain this is been radicular at times we will check a plain x-ray of his back to look for compression fractures and continue his oxycodone (8) DVT prophylaxis: Patient is Eliquis therapy will be used for DVT prophylaxis which he takes full anticoagulation dose for atrial fibrillation. If this needs to be held we will institute SCDs History of Present Illness Primary Care Provider: Chun Collins III, MD Patient currently undergoing treatment for glomerulonephritis with cyclic cyclosporine and prednisone therapy. Patient was sent from the office with shortness of breath and profound hypotension. The patient and his state this occurred in the last episode of cyclosporine administration. He received his dose around the first of the year. Other than having some rhinorrhea he has not had any other focal symptoms or signs of illness. He has a history of melena and GI bleeding although he has not had any melena recently and he is currently continuing on Eliquis. Patient also states that he is most recently begun lisinopril as an outpatient approximately 3 weeks ago. Patient received some volume of crystalloid in the ER on 2 L his blood pressure is now 96/56 he is mentating and feeling much better Allergies Allergy/AdvReac Type Severity Reaction Status Date / Time No Known Drug Allergies Allergy Unknown NONE Verified 06/18/18 10:41 Home Medications Home Medications Medication Instructions Recorded Confirmed Type acetaminophen [Tylenol Extra 500 mg PO Q6H PRN 04/08/18 06/18/18 History Strength] albuterol sulfate [Ventolin HFA] 2 puff INHALATION QID PRN 04/08/18 06/18/18 History atorvastatin 80 mg PO HS 04/08/18 06/18/18 History finasteride 5 mg PO QPM 04/08/18 06/18/18 History fluticasone-salmeterol 1 puff INHALATION BID 04/08/18 06/18/18 History paroxetine HCl 20 mg PO QPM 04/08/18 06/18/18 History propranolol 5 mg PO DAILY 04/08/18 06/18/18 History tamsulosin 0.4 mg PO HS 04/08/18 06/18/18 History bumetanide 2 mg PO BID 30 Days #120 tab 04/25/18 06/18/18 Rx potassium chloride 20 meq PO BID 30 Days #120 tab 04/25/18 06/18/18 Rx apixaban 5 mg PO BID 30 Days #60 tab 05/09/18 06/18/18 Rx cyclophosphamide 150 mg PO DAILY 06/18/18 06/18/18 History lisinopril 2.5 mg PO DAILY 06/18/18 06/18/18 History Past Med/Surg History Family History Father Family history of diabetes mellitus Mother Family history of diabetes mellitus Family/Other Family history of diabetes mellitus Social History marital status: Current Living Situation: Spouse current occupational status: retired Feels Safe at Home: Yes Smoking Status: Never smoker Second Hand Exposure: No Hx Alcohol Use: No Hx Substance Use: No Beliefs That Will Affect Care: None Preferred Language: Frisian Review of Systems ROS: well nourished well developed. No double vision blurry vision No problems with speech or swallowing No palpitations, chest pain or pressure no chest pain he with low blood pressure No Wheezing he was dyspneic with low blood pressure No abdominal pain nausea vomiting diarrhea changes in appetite or weight No burning urine urine frequency or changes in color No focal joint pain or muscle pain No skin rashes or oral lesions No unusual bruising or bleeding No focused back pain or numbness or loss of strength currently he does have chronic back pain at times No changes in memory or confusion Physical Exam 2 Vital Signs (Past 24 Hours): Last Vital Signs Temp 36.2 C L 06/18/18 09:13 Pulse 81 06/18/18 09:45 Resp 20 06/18/18 09:45 BP 73/47 L 06/18/18 09:45 Pulse Ox 98 06/18/18 09:47 the patient appeared well nourished and normally developed. Vital signs as documented. Head exam is unremarkable. No scleral icterus or corneal arcus noted his oropharynx is clear not no erythema and he is edentulous with dentures Neck is without jugular venous distension, thyromegaly, or lymphademopathy Lungs are clear to auscultation and percussion. Cardiac exam reveals Rhythm is regular. First and second heart sounds normal. Systolic murmurs heard Abdominal exam reveals normal bowel sounds, no masses, no organomegaly Extremities are nonedematous and both pedal pulses are normal. He is a thrill from an AV fistula in his left antecubital area Neurologic exam is A&Ox3, no focal deficits, strength is equal bilateral Skin is warm Dry without bruises or lesions Results & Data Diagnostic Findings cxr There are postsurgical changes of a midline sternotomy. Atrial band occluder is again visualized. There is no acute parenchymal consolidation. There is no failure. There is persistent blunting of the left lateral costophrenic angle. ECG Additional Comments: Although he has a history of atrial fibrillation he appears to be in sinus rhythm on the monitor currently on intake _ (1) BPH (benign prostatic hyperplasia) Lower urinary tract symptom detail: Lower urinary tract symptom presence: unspecified whether lower urinary tract symptoms present Qualified Code(s): N40.0 - Benign prostatic hyperplasia without lower urinary tract symptoms (2) Asthma Asthma complication type: unspecified Asthma persistence: unspecified Asthma severity: unspecified severity Qualified Code(s): J45.909 - Unspecified asthma, uncomplicated
[2018-06-18 10:54] LABS: Influenza A virus by PCR Neg for Influ A (Neg); Influenza B virus by PCR Neg for Influ B (Neg)
--- NOTE | 2018-06-18 11:15 | Emergency Department Note ---
Entered by Nathalia Huang acting as a scribe for Aaron Syed MD History of Present Illness General Chief complaint: Illness Time Seen by Provider: 06/18/18 09:23 Source: patient History of Present Illness Onset (ago): day(s) (a few days ago) Location: head Pain Consistency: + other (worsening) Maximum Pain Intensity: 5 Quality: + other (illness) Associated symptoms: + denies other symptoms (neck pain with the feeling of passing out), + cough, + nausea/vomiting (nausea), + weakness and + other (neck pain, back pain, dizziness, feels like going to pass out) Home Medications Home Medications Medication Instructions Recorded Confirmed Type acetaminophen [Tylenol Extra 500 mg PO Q6H PRN 04/08/18 06/18/18 History Strength] albuterol sulfate [Ventolin HFA] 2 puff INHALATION QID PRN 04/08/18 06/18/18 History atorvastatin 80 mg PO HS 04/08/18 06/18/18 History finasteride 5 mg PO QPM 04/08/18 06/18/18 History fluticasone-salmeterol 1 puff INHALATION BID 04/08/18 06/18/18 History paroxetine HCl 20 mg PO QPM 04/08/18 06/18/18 History propranolol 5 mg PO DAILY 04/08/18 06/18/18 History tamsulosin 0.4 mg PO HS 04/08/18 06/18/18 History bumetanide 2 mg PO BID 30 Days #120 tab 04/25/18 06/18/18 Rx potassium chloride 20 meq PO BID 30 Days #120 tab 04/25/18 06/18/18 Rx apixaban 5 mg PO BID 30 Days #60 tab 05/09/18 06/18/18 Rx cyclophosphamide 150 mg PO DAILY 06/18/18 06/18/18 History lisinopril 2.5 mg PO DAILY 06/18/18 06/18/18 History Allergies Allergy/AdvReac Type Severity Reaction Status Date / Time No Known Drug Allergies Allergy Unknown NONE Verified 06/18/18 10:41 Past Med/Surg History Medical History CKD (chronic kidney disease) stage 3, GFR 30-59 ml/min (Chronic) Congestive heart failure (Acute) Pulmonary hypertension (Chronic) Acute on chronic diastolic heart failure Paroxysmal A-fib (Chronic) BPH (benign prostatic hyperplasia) Hyperlipidemia Hypertension (Chronic) Shortness of breath (Acute) Hypoxia (Acute) Severe anemia (Chronic) Asthma (Chronic) Elevated troponin - Lipoma (Resolved) Unstable angina (Resolved) Pneumonia (Resolved) Hypotension (Resolved) End stage renal disease Anemia chronic; baseline hgb 10's-11's per chart review Hypotension Bronchitis (Inactive) - CXR appears improved from prior visit on 03/23 suggesting resolving pneumonia AV fistula Anxiety Asthma STABLE BPH (benign prostatic hyperplasia) Borderline diabetes DIET CONTROLLED CAD (coronary artery disease) CABG X2 02/2017 Chronic kidney disease STAGE 4; ON CYCLOPHOSPHAMIDE GERD (gastroesophageal reflux disease) CONTROLLED History of atrial fibrillation History of blood transfusion S/P SURGERY 2016 Hyperlipidemia Hypertension On anticoagulant therapy Osteoarthritis Paroxysmal A-fib Tremor of both hands FAMILIAL- ON PROPRANOLOL Family History Father Family history of diabetes mellitus Mother Family history of diabetes mellitus Family/Other Family history of diabetes mellitus Social History marital status: Current Living Situation: Spouse current occupational status: retired Other Information That Helps Us Care for You: No Feels Safe at Home: Yes Safety Concerns: Feels Safe At This Time Smoking Status: Former smoker Do You Dip or Chew Tobacco: No Second Hand Exposure: No Tobacco Cessation Education Requested by Patient: No Hx Alcohol Use: No Hx Substance Use: No Beliefs That Will Affect Care: None Communication Ability: Effective Review of Systems See HPI for pertinent positives & negatives. and A total of 10 systems reviewed and were otherwise negative Physical Exam Vital Signs Vital Signs - 24 hr 06/20/18 04:31 06/20/18 07:30 06/20/18 07:31 Temperature 36.6 C 36.7 C Temperature Source Oral Oral Pulse Rate Pulse Rate [Apical] 86 81 Pulse Rate [Finger] Respiratory Rate 20 18 Respiratory Effort / Characteristics Respiratory Depth Respiratory Pattern Blood Pressure - Sitting Blood Pressure- Standing Blood Pressure [Right Arm] 114/67 107/58 L Blood Pressure Mean [Right Arm] 82 74 Blood Pressure Position [Right Arm] Lying Lying Pulse Oximetry 92 80 L 96 Oxygen Delivery Method Room Air Room Air Nasal Cannula Oxygen Flow Rate 2 06/20/18 08:00 06/20/18 11:06 06/20/18 12:42 Temperature 36.6 C Temperature Source Oral Pulse Rate 77 Pulse Rate [Apical] 71 Pulse Rate [Finger] Respiratory Rate 20 Respiratory Effort / Characteristics Respiratory Depth Respiratory Pattern Blood Pressure - Sitting 119/66 Blood Pressure- Standing 84/51 L Blood Pressure [Right Arm] 113/67 Blood Pressure Mean [Right Arm] 82 Blood Pressure Position [Right Arm] Lying Pulse Oximetry 95 Oxygen Delivery Method Oxygen Flow Rate 06/20/18 15:20 06/20/18 16:21 06/20/18 18:48 Temperature 36.6 C 36.8 C Temperature Source Oral Oral Pulse Rate 75 Pulse Rate [Apical] Pulse Rate [Finger] 78 73 Respiratory Rate 18 18 Respiratory Effort / Characteristics Non-Labored Respiratory Depth Normal Respiratory Pattern Blood Pressure - Sitting Blood Pressure- Standing Blood Pressure [Right Arm] 111/66 115/68 Blood Pressure Mean [Right Arm] 81 83 Blood Pressure Position [Right Arm] Lying Lying Pulse Oximetry 95 94 Oxygen Delivery Method Room Air Room Air Oxygen Flow Rate 06/20/18 20:00 06/20/18 23:33 Temperature 36.5 C Temperature Source Oral Pulse Rate Pulse Rate [Apical] Pulse Rate [Finger] 80 Respiratory Rate 18 Respiratory Effort / Characteristics Non-Labored Respiratory Depth Normal Respiratory Pattern Regular Blood Pressure - Sitting Blood Pressure- Standing Blood Pressure [Right Arm] 137/73 Blood Pressure Mean [Right Arm] 94 Blood Pressure Position [Right Arm] Lying Pulse Oximetry 93 Oxygen Delivery Method Room Air Room Air Oxygen Flow Rate GENERAL: Awake, alert, well-appearing, in no distress HENT: Normocephalic, atraumatic. Oropharynx unremarkable. EYES: Normal conjunctiva. Sclera non-icteric. NECK: Supple. No nuchal rigidity. FROM. No masses. RESPIRATORY: Clear to auscultation. No wheezes. No rales. Normal respiratory effort. CARDIAC: Normal rate. Normal rhythm. No murmurs. No rubs. Extremities warm and well perfused. Pulses equal. No JVD. GI: Soft, non-distended. No tenderness to palpation. No rebound or guarding. No masses. RECTAL: Deferred. MUSCULOSKELETAL: Atraumatic. Chest examination reveals no tenderness. The back is symmetrical on inspection without obvious abnormality. There is no CVA tenderness to palpation. No joint edema. LOWER EXTREMITIES: Calves are equal size bilaterally and non-tender. No edema. No discoloration. NEURO: Normal sensorium. No sensory or motor deficits noted. Course 0923: Past medical records reviewed. The patient was evaluated in room B1, and a complete history and physical examination were performed. 1011: I paged the [facility] Hospitlaist. 1013: I reevaluated the patient and updated him and his on his test results. I discussed the treatment plan with them. They verbally agree and understand. 1019: I reviewed the patient's case with Dr. Shrestha Hospitalist. He will evaluate the patient for further management. Consultations Consultation #1: I reviewed the patient's case with Dr. Shrestha Hospitalist. He will evaluate the patient for further management. Time: 10:19 Administered Medications Acetaminophen (Tylenol) 1,000 mg PO Q8 [facility] Stop: 07/19/18 14:59 Last Admin: 06/20/18 23:58 Dose: 1,000 mg Admin: 06/20/18 14:18 Dose: 1,000 mg Admin: 06/20/18 06:02 Dose: 1,000 mg Admin: 06/19/18 22:54 Dose: 1,000 mg Admin: 06/19/18 15:07 Dose: 1,000 mg Amoxicillin/Clavulanate Potassium (Augmentin 500mg) 1 tab PO BIDM [facility]; Protocol Stop: 06/27/18 16:59 Last Admin: 06/20/18 17:59 Dose: 1 tab Apixaban (Eliquis) 5 mg PO BID [facility] Stop: 07/19/18 20:59 Last Admin: 06/20/18 20:43 Dose: 5 mg Admin: 06/20/18 08:18 Dose: 5 mg Admin: 06/19/18 20:29 Dose: 5 mg Aspirin (Ecotrin Ectab) 81 mg PO QAM [facility] Stop: 07/20/18 08:59 Last Admin: 06/20/18 08:19 Dose: Not Given Atorvastatin Calcium (Lipitor) 80 mg PO HS [facility] Stop: 07/19/18 20:59 Last Admin: 06/20/18 20:45 Dose: 80 mg Admin: 06/19/18 20:29 Dose: 80 mg Calcitonin Bertha (Fortical) 1 sprays NA DAILY [facility] Stop: 07/19/18 13:44 Last Admin: 06/20/18 08:19 Dose: 1 sprays Admin: 06/19/18 15:07 Dose: 1 sprays Finasteride (Proscar) 5 mg PO QPM [facility] Stop: 07/18/18 20:59 Last Admin: 06/20/18 20:43 Dose: 5 mg Admin: 06/19/18 20:29 Dose: 5 mg Admin: 06/18/18 20:16 Dose: 5 mg Lidocaine (Lidoderm 5%) 1 patch TD QAM [facility] Stop: 07/19/18 13:44 Last Admin: 06/20/18 08:19 Dose: Not Given Admin: 06/19/18 15:07 Dose: 1 patch Miscellaneous (Remove Lidoderm Patch) 1 ea N/A DAILY@2100 [facility] Stop: 07/19/18 20:59 Last Admin: 06/20/18 20:45 Dose: Not Given Admin: 06/19/18 20:30 Dose: 1 ea Ondansetron HCl (Zofran) 4 mg IV Q6H PRN PRN Reason: Nausea Stop: 07/18/18 11:59 Last Admin: 06/20/18 01:11 Dose: 4 mg Admin: 06/19/18 01:40 Dose: 4 mg Oxycodone HCl (Roxicodone Immediate Rel) 10 mg PO Q6 PRN PRN Reason: Pain Stop: 07/02/18 11:59 Last Admin: 06/21/18 00:22 Dose: 10 mg Admin: 06/19/18 03:23 Dose: 10 mg Admin: 06/18/18 16:29 Dose: 10 mg Paroxetine HCl (Paxil) 20 mg PO QPM [facility] Stop: 07/18/18 20:59 Last Admin: 06/20/18 20:44 Dose: 20 mg Admin: 06/19/18 20:30 Dose: 20 mg Admin: 06/18/18 20:16 Dose: 20 mg Polyethylene Glycol (Miralax Powder Packet) 17 gm PO DAILY [facility] Stop: 07/20/18 17:59 Last Admin: 06/20/18 17:59 Dose: 17 gm Prednisone (Prednisone) 10 mg PO DAILY [facility] Stop: 07/18/18 15:59 Last Admin: 06/19/18 07:56 Dose: 10 mg Admin: 06/18/18 16:58 Dose: 10 mg Propranolol HCl (Inderal) 5 mg PO DAILY [facility] Stop: 07/19/18 13:44 Last Admin: 06/20/18 08:20 Dose: 5 mg Admin: 06/19/18 15:07 Dose: 5 mg Fluticasone/Salmeterol (Advair Diskus 500/50) 1 puffs INH BID [facility] Stop: 07/18/18 20:59 Last Admin: 06/20/18 20:45 Dose: Not Given Admin: 06/20/18 08:18 Dose: Not Given Admin: 06/19/18 20:30 Dose: Not Given Admin: 06/19/18 07:56 Dose: Not Given Admin: 06/18/18 20:15 Dose: Not Given Sennosides (Senokot) 8.6 mg PO QAM [facility] Stop: 07/20/18 09:29 Last Admin: 06/20/18 10:13 Dose: 8.6 mg Trimethoprim/Sulfamethoxazole (Septra 400/80mg Tab) 1 tab PO Q2D@1900 [facility] Stop: 07/18/18 18:59 Last Admin: 06/20/18 18:02 Dose: 1 tab Admin: 06/18/18 19:38 Dose: 1 tab Discontinued Medications Aspirin (Aspirin) 324 mg PO NOW STA Stop: 06/19/18 14:03 Last Admin: 06/19/18 15:53 Dose: 324 mg Digoxin (Lanoxin) 0.125 mg PO DAILY@1600 [facility] Stop: 07/18/18 15:59 Last Admin: 06/19/18 15:53 Dose: 0.125 mg Admin: 06/18/18 16:29 Dose: 0.125 mg Epoetin Jacob (Procrit) 10,000 units SQ ONE ONE Stop: 06/19/18 10:05 Last Admin: 06/19/18 12:55 Dose: 10,000 units Sodium Chloride (Nss 1000ml) 1,000 mls @ 999 mls/hr IV .Q1H1M ONE Stop: 06/18/18 10:24 Last Infusion: 06/18/18 10:59 Dose: 0 mls/hr Admin: 06/18/18 09:42 Dose: 999 mls/hr Sodium Chloride (Nss 1000ml) 1,000 mls @ 999 mls/hr IV .Q1H1M ONE Stop: 06/18/18 11:09 Last Infusion: 06/18/18 12:01 Dose: Admin: 06/18/18 10:18 Dose: 999 mls/hr Sodium Chloride (Nss 1000ml) 1,000 mls @ 80 mls/hr IV .[id number] [facility] Stop: 06/19/18 00:29 Last Infusion: 06/19/18 01:41 Dose: 0 mls/hr Admin: 06/18/18 13:28 Dose: 80 mls/hr Hydrocortisone Sodium (Succinate 50 mg/ Syringe) 1 mls @ 4 mls/min IV Q8H [facility] Stop: 07/19/18 14:59 Last Admin: 06/20/18 14:22 Dose: 4 mls/min Admin: 06/20/18 06:03 Dose: 4 mls/min Admin: 06/19/18 22:54 Dose: 4 mls/min Admin: 06/19/18 15:53 Dose: 4 mls/min Bumetanide 2 mg/ Syringe 8 mls @ 4 mls/min IV NOW ONE Stop: 06/20/18 11:16 Last Admin: 06/20/18 11:45 Dose: 4 mls/min Medical Decision Making Differential Diagnosis Etiologies such as metabolic, infection, hyp/hyperglycemia, electrolyte abnormalities, cardiac sources, intracerebral event, toxicologic, neurologic, as well as others were entertained. Medical Records Attestation: I reviewed the patient's medical records. Home Medications Current Medication List: was personally reviewed by me Laboratory Data Attestation: I reviewed the patient's lab results. Result diagrams: 06/20/18 06:15 06/20/18 06:15 Lab Results 06/18/18 06/18/18 06/18/18 Range/Units 09:25 09:25 09:25 WBC 5.30 (4.8-10.8) K/uL RBC 3.12 L (4.7-6.1) M/uL Hgb 10.2 L (14.0-18.0) g/dL POC Hgb (14.0-18.0) g/dl Hct 30.8 L (42-52) % POC Hct (42-52) % MCV 98.7 (80-100) fL MCH 32.7 (25-34) pg MCHC 33.1 (32-36) g/dL RDW Std Deviation 57.5 H (36.4-46.3) fL RDW Coeff of Reed 16.3 H (11.5-14.5) % Plt Count 204 (130-400) K/uL MPV 10.1 (7.4-10.4) fL Immature Gran % (Auto) 0.8 % Neut % (Auto) 86.9 % Lymph % (Auto) 5.8 % Conway % (Auto) 5.5 % Eos % (Auto) 0.6 % Baso % (Auto) 0.4 % Immature Gran # (Auto) 0.04 H (0.00-0.02) K/uL Neut # (Auto) 4.61 (1.4-6.5) K/uL Lymph # (Auto) 0.31 L (1.2-3.4) K/uL [place] # (Auto) 0.29 (0.11-0.59) K/uL Eos # (Auto) 0.03 (0-0.5) K/uL Baso # (Auto) 0.02 (0-0.2) K/uL Absolute Nucleated RBC 0.04 H (0-0) K/uL Nucleated RBC % (auto) 0.8 % PT 11.5 (9.0-12.0) Seconds INR 1.1 (0.9-1.1) APTT 27.6 (21.0-31.0) Seconds PTT Ratio 1.1 POC Sodium (135-144) mEq/L Sodium 135 L (136-145) mmol/L POC Potassium (3.3-5.0) mEq/L Potassium 5.2 H (3.5-5.1) mmol/L POC Chloride (101-112) mEq/L Chloride 103 (98-107) mmol/L Carbon Dioxide 24 (21-32) mmol/L POC Total CO2 (24-31) mEq/l Anion Gap 8.0 (3-11) POC Anion Gap (16-25) mmol/L POC BUN (7-18) mg/dl BUN 38 H (7-18) mg/dl Creatinine 3.28 H (0.6-1.4) mg/dl POC Creatinine (0.6-1.3) mg/dl Est Cr Clr Drug Dosing 18.6 ml/min Est GFR ( Amer) 20.2 Est GFR (Non-Af Amer) 17.4 BUN/Creatinine Ratio 11.6 (10-20) Glucose 160 H (70-99) mg/dl POC Glucose (other) (70-99) mg/dl POC Lactic Acid Brian (0.90-1.70) mmol/L Calcium 9.3 (8.5-10.1) mg/dl POC Ioniz Calcium Elias (1.12-1.32) mmol/l Iron (35-175) mcg/dl TIBC (250-450) mcg/dl Ferritin (8-388) ng/ml Total Bilirubin 0.6 (0.2-1) mg/dl AST 26 (15-37) U/L ALT 34 (12-78) U/L Alkaline Phosphatase 66 (45-117) U/L Total Creatine Kinase 50 (39-308) U/L CK-MB (CK-2) 2.2 (0.5-3.6) ng/ml CK/CKMB % Calc 4.4 H (0-3.0) Troponin I 0.031 (0-0.045) ng/ml Total Protein 6.9 (6.4-8.2) gm/dl Albumin 3.2 L (3.4-5.0) gm/dl Globulin 3.7 (2.5-4.0) gm/dl Albumin/Globulin Ratio 0.9 (0.9-2) Urine Color Urine Appearance (Clear) Urine pH (4.5-7.5) Ur Specific [place] (1.000-1.030) Urine Protein (Negative) Urine Glucose (UA) (Negative) Urine Ketones (Negative) Urine Blood (Negative) Urine Nitrite (Negative) Urine Bilirubin (Negative) Urine Urobilinogen (Negative) Ur Leukocyte Esterase (Negative) Urine WBC (Auto) (0-5) /hpf Urine RBC (Auto) (0-4) /hpf U Hyaline Cast (Auto) (0-5) /lpf U Epithel Cells (Auto) (0-5) /lpf Urine Bacteria (Auto) (Negative) Stool Occult Bld Scrn (Negative) Digoxin (0.8-2.0) ng/ml Influenza Type A (PCR) (Neg) Influenza Type B (PCR) (Neg) 06/18/18 06/18/18 06/18/18 Range/Units 09:25 09:25 09:29 WBC (4.8-10.8) K/uL RBC (4.7-6.1) M/uL Hgb (14.0-18.0) g/dL POC Hgb (14.0-18.0) g/dl Hct (42-52) % POC Hct (42-52) % MCV (80-100) fL MCH (25-34) pg MCHC (32-36) g/dL RDW Std Deviation (36.4-46.3) fL RDW Coeff of Reed (11.5-14.5) % Plt Count (130-400) K/uL MPV (7.4-10.4) fL Immature Gran % (Auto) % Neut % (Auto) % Lymph % (Auto) % [place] % (Auto) % Eos % (Auto) % Baso % (Auto) % Immature Gran # (Auto) (0.00-0.02) K/uL Neut # (Auto) (1.4-6.5) K/uL Lymph # (Auto) (1.2-3.4) K/uL [place] # (Auto) (0.11-0.59) K/uL Eos # (Auto) (0-0.5) K/uL Baso # (Auto) (0-0.2) K/uL Absolute Nucleated RBC (0-0) K/uL Nucleated RBC % (auto) % PT (9.0-12.0) Seconds INR (0.9-1.1) APTT (21.0-31.0) Seconds PTT Ratio POC Sodium (135-144) mEq/L Sodium (136-145) mmol/L POC Potassium (3.3-5.0) mEq/L Potassium (3.5-5.1) mmol/L POC Chloride (101-112) mEq/L Chloride (98-107) mmol/L Carbon Dioxide (21-32) mmol/L POC Total CO2 (24-31) mEq/l Anion Gap (3-11) POC Anion Gap (16-25) mmol/L POC BUN (7-18) mg/dl BUN (7-18) mg/dl Creatinine (0.6-1.4) mg/dl POC Creatinine (0.6-1.3) mg/dl Est Cr Clr Drug Dosing ml/min Est GFR ( Amer) Est GFR (Non-Af Amer) BUN/Creatinine Ratio (10-20) Glucose (70-99) mg/dl POC Glucose (other) (70-99) mg/dl POC Lactic Acid Brian 2.98 H (0.90-1.70) mmol/L Calcium (8.5-10.1) mg/dl POC Ioniz Calcium Elias (1.12-1.32) mmol/l Iron (35-175) mcg/dl TIBC (250-450) mcg/dl Ferritin (8-388) ng/ml Total Bilirubin (0.2-1) mg/dl AST (15-37) U/L ALT (12-78) U/L Alkaline Phosphatase (45-117) U/L Total Creatine Kinase (39-308) U/L CK-MB (CK-2) (0.5-3.6) ng/ml CK/CKMB % Calc (0-3.0) Troponin I (0-0.045) ng/ml Total Protein (6.4-8.2) gm/dl Albumin (3.4-5.0) gm/dl Globulin (2.5-4.0) gm/dl Albumin/Globulin Ratio (0.9-2) Urine Color Urine Appearance (Clear) Urine pH (4.5-7.5) Ur Specific [place] (1.000-1.030) Urine Protein (Negative) Urine Glucose (UA) (Negative) Urine Ketones (Negative) Urine Blood (Negative) Urine Nitrite (Negative) Urine Bilirubin (Negative) Urine Urobilinogen (Negative) Ur Leukocyte Esterase (Negative) Urine WBC (Auto) (0-5) /hpf Urine RBC (Auto) (0-4) /hpf U Hyaline Cast (Auto) (0-5) /lpf U Epithel Cells (Auto) (0-5) /lpf Urine Bacteria (Auto) (Negative) Stool Occult Bld Scrn (Negative) Digoxin 1.3 (0.8-2.0) ng/ml Influenza Type A (PCR) Neg for Influ A (Neg) Influenza Type B (PCR) Neg for Influ B (Neg) 06/18/18 06/18/18 06/18/18 Range/Units 09:35 14:00 20:00 WBC (4.8-10.8) K/uL RBC (4.7-6.1) M/uL Hgb 8.5 L (14.0-18.0) g/dL POC Hgb 9.5 L (14.0-18.0) g/dl Hct (42-52) % POC Hct 28 L (42-52) % MCV (80-100) fL MCH (25-34) pg MCHC (32-36) g/dL RDW Std Deviation (36.4-46.3) fL RDW Coeff of Reed (11.5-14.5) % Plt Count (130-400) K/uL MPV (7.4-10.4) fL Immature Gran % (Auto) % Neut % (Auto) % Lymph % (Auto) % [place] % (Auto) % Eos % (Auto) % Baso % (Auto) % Immature Gran # (Auto) (0.00-0.02) K/uL Neut # (Auto) (1.4-6.5) K/uL Lymph # (Auto) (1.2-3.4) K/uL [place] # (Auto) (0.11-0.59) K/uL Eos # (Auto) (0-0.5) K/uL Baso # (Auto) (0-0.2) K/uL Absolute Nucleated RBC (0-0) K/uL Nucleated RBC % (auto) % PT (9.0-12.0) Seconds INR (0.9-1.1) APTT (21.0-31.0) Seconds PTT Ratio POC Sodium 136 (135-144) mEq/L Sodium (136-145) mmol/L POC Potassium 5.2 H (3.3-5.0) mEq/L Potassium (3.5-5.1) mmol/L POC Chloride 103 (101-112) mEq/L Chloride (98-107) mmol/L Carbon Dioxide (21-32) mmol/L POC Total CO2 24 (24-31) mEq/l Anion Gap (3-11) POC Anion Gap 16.0 (16-25) mmol/L POC BUN 37 H (7-18) mg/dl BUN (7-18) mg/dl Creatinine (0.6-1.4) mg/dl POC Creatinine 3.2 H (0.6-1.3) mg/dl Est Cr Clr Drug Dosing ml/min Est GFR ( Amer) Est GFR (Non-Af Amer) BUN/Creatinine Ratio (10-20) Glucose (70-99) mg/dl POC Glucose (other) 153 H (70-99) mg/dl POC Lactic Acid Brian (0.90-1.70) mmol/L Calcium (8.5-10.1) mg/dl POC Ioniz Calcium Elias 1.17 (1.12-1.32) mmol/l Iron (35-175) mcg/dl TIBC (250-450) mcg/dl Ferritin (8-388) ng/ml Total Bilirubin (0.2-1) mg/dl AST (15-37) U/L ALT (12-78) U/L Alkaline Phosphatase (45-117) U/L Total Creatine Kinase (39-308) U/L CK-MB (CK-2) (0.5-3.6) ng/ml CK/CKMB % Calc (0-3.0) Troponin I (0-0.045) ng/ml Total Protein (6.4-8.2) gm/dl Albumin (3.4-5.0) gm/dl Globulin (2.5-4.0) gm/dl Albumin/Globulin Ratio (0.9-2) Urine Color Yellow Urine Appearance Clear (Clear) Urine pH 5.0 (4.5-7.5) Ur Specific [place] 1.014 (1.000-1.030) Urine Protein 1+ H (Negative) Urine Glucose (UA) Negative (Negative) Urine Ketones Negative (Negative) Urine Blood Negative (Negative) Urine Nitrite Negative (Negative) Urine Bilirubin Negative (Negative) Urine Urobilinogen Negative (Negative) Ur Leukocyte Esterase Negative (Negative) Urine WBC (Auto) 1-5 (0-5) /hpf Urine RBC (Auto) 0-4 (0-4) /hpf U Hyaline Cast (Auto) 1-5 (0-5) /lpf U Epithel Cells (Auto) 0-5 (0-5) /lpf Urine Bacteria (Auto) Negative (Negative) Stool Occult Bld Scrn (Negative) Digoxin (0.8-2.0) ng/ml Influenza Type A (PCR) (Neg) Influenza Type B (PCR) (Neg) 06/19/18 06/19/18 06/19/18 Range/Units 06:02 06:02 15:43 WBC 4.47 L (4.8-10.8) K/uL RBC 2.49 L (4.7-6.1) M/uL Hgb 8.0 L (14.0-18.0) g/dL POC Hgb (14.0-18.0) g/dl Hct 24.3 L (42-52) % POC Hct (42-52) % MCV 97.6 (80-100) fL MCH 32.1 (25-34) pg MCHC 32.9 (32-36) g/dL RDW Std Deviation 56.4 H (36.4-46.3) fL RDW Coeff of Reed 16.2 H (11.5-14.5) % Plt Count 173 (130-400) K/uL MPV 9.7 (7.4-10.4) fL Immature Gran % (Auto) % Neut % (Auto) % Lymph % (Auto) % [place] % (Auto) % Eos % (Auto) % Baso % (Auto) % Immature Gran # (Auto) (0.00-0.02) K/uL Neut # (Auto) (1.4-6.5) K/uL Lymph # (Auto) (1.2-3.4) K/uL [place] # (Auto) (0.11-0.59) K/uL Eos # (Auto) (0-0.5) K/uL Baso # (Auto) (0-0.2) K/uL Absolute Nucleated RBC 0.03 H (0-0) K/uL Nucleated RBC % (auto) 0.7 % PT (9.0-12.0) Seconds INR (0.9-1.1) APTT (21.0-31.0) Seconds PTT Ratio POC Sodium (135-144) mEq/L Sodium 135 L (136-145) mmol/L POC Potassium (3.3-5.0) mEq/L Potassium 4.9 (3.5-5.1) mmol/L POC Chloride (101-112) mEq/L Chloride 105 (98-107) mmol/L Carbon Dioxide 26 (21-32) mmol/L POC Total CO2 (24-31) mEq/l Anion Gap 4.0 (3-11) POC Anion Gap (16-25) mmol/L POC BUN (7-18) mg/dl BUN 31 H (7-18) mg/dl Creatinine 2.76 H D (0.6-1.4) mg/dl POC Creatinine (0.6-1.3) mg/dl Est Cr Clr Drug Dosing 21.8 ml/min Est GFR ( Amer) 24.9 Est GFR (Non-Af Amer) 21.5 BUN/Creatinine Ratio 11.1 (10-20) Glucose 117 H (70-99) mg/dl POC Glucose (other) (70-99) mg/dl POC Lactic Acid Brian (0.90-1.70) mmol/L Calcium 8.6 (8.5-10.1) mg/dl POC Ioniz Calcium Elias (1.12-1.32) mmol/l Iron (35-175) mcg/dl TIBC (250-450) mcg/dl Ferritin (8-388) ng/ml Total Bilirubin (0.2-1) mg/dl AST (15-37) U/L ALT (12-78) U/L Alkaline Phosphatase (45-117) U/L Total Creatine Kinase (39-308) U/L CK-MB (CK-2) (0.5-3.6) ng/ml CK/CKMB % Calc (0-3.0) Troponin I 1.250 H* (0-0.045) ng/ml Total Protein (6.4-8.2) gm/dl Albumin (3.4-5.0) gm/dl Globulin (2.5-4.0) gm/dl Albumin/Globulin Ratio (0.9-2) Urine Color Urine Appearance (Clear) Urine pH (4.5-7.5) Ur Specific [place] (1.000-1.030) Urine Protein (Negative) Urine Glucose (UA) (Negative) Urine Ketones (Negative) Urine Blood (Negative) Urine Nitrite (Negative) Urine Bilirubin (Negative) Urine Urobilinogen (Negative) Ur Leukocyte Esterase (Negative) Urine WBC (Auto) (0-5) /hpf Urine RBC (Auto) (0-4) /hpf U Hyaline Cast (Auto) (0-5) /lpf U Epithel Cells (Auto) (0-5) /lpf Urine Bacteria (Auto) (Negative) Stool Occult Bld Scrn (Negative) Digoxin (0.8-2.0) ng/ml Influenza Type A (PCR) (Neg) Influenza Type B (PCR) (Neg) 06/19/18 06/19/18 06/20/18 Range/Units 17:09 21:51 06:15 WBC (4.8-10.8) K/uL RBC (4.7-6.1) M/uL Hgb 8.4 L (14.0-18.0) g/dL POC Hgb (14.0-18.0) g/dl Hct 25.7 L (42-52) % POC Hct (42-52) % MCV (80-100) fL MCH (25-34) pg MCHC (32-36) g/dL RDW Std Deviation (36.4-46.3) fL RDW Coeff of Reed (11.5-14.5) % Plt Count (130-400) K/uL MPV (7.4-10.4) fL Immature Gran % (Auto) % Neut % (Auto) % Lymph % (Auto) % [place] % (Auto) % Eos % (Auto) % Baso % (Auto) % Immature Gran # (Auto) (0.00-0.02) K/uL Neut # (Auto) (1.4-6.5) K/uL Lymph # (Auto) (1.2-3.4) K/uL [place] # (Auto) (0.11-0.59) K/uL Eos # (Auto) (0-0.5) K/uL Baso # (Auto) (0-0.2) K/uL Absolute Nucleated RBC (0-0) K/uL Nucleated RBC % (auto) % PT (9.0-12.0) Seconds INR (0.9-1.1) APTT (21.0-31.0) Seconds PTT Ratio POC Sodium (135-144) mEq/L Sodium 135 L (136-145) mmol/L POC Potassium (3.3-5.0) mEq/L Potassium 4.6 (3.5-5.1) mmol/L POC Chloride (101-112) mEq/L Chloride 105 (98-107) mmol/L Carbon Dioxide 24 (21-32) mmol/L POC Total CO2 (24-31) mEq/l Anion Gap 6.0 (3-11) POC Anion Gap (16-25) mmol/L POC BUN (7-18) mg/dl BUN 29 H (7-18) mg/dl Creatinine 2.31 H D (0.6-1.4) mg/dl POC Creatinine (0.6-1.3) mg/dl Est Cr Clr Drug Dosing 26.2 ml/min Est GFR ( Amer) 30.9 Est GFR (Non-Af Amer) 26.6 BUN/Creatinine Ratio 12.5 (10-20) Glucose 123 H (70-99) mg/dl POC Glucose (other) (70-99) mg/dl POC Lactic Acid Brian (0.90-1.70) mmol/L Calcium 8.9 (8.5-10.1) mg/dl POC Ioniz Calcium Elias (1.12-1.32) mmol/l Iron 98 (35-175) mcg/dl TIBC 270 (250-450) mcg/dl Ferritin 1008.8 H (8-388) ng/ml Total Bilirubin (0.2-1) mg/dl AST (15-37) U/L ALT (12-78) U/L Alkaline Phosphatase (45-117) U/L Total Creatine Kinase (39-308) U/L CK-MB (CK-2) (0.5-3.6) ng/ml CK/CKMB % Calc (0-3.0) Troponin I 1.910 H* (0-0.045) ng/ml Total Protein (6.4-8.2) gm/dl Albumin (3.4-5.0) gm/dl Globulin (2.5-4.0) gm/dl Albumin/Globulin Ratio (0.9-2) Urine Color Urine Appearance (Clear) Urine pH (4.5-7.5) Ur Specific [place] (1.000-1.030) Urine Protein (Negative) Urine Glucose (UA) (Negative) Urine Ketones (Negative) Urine Blood (Negative) Urine Nitrite (Negative) Urine Bilirubin (Negative) Urine Urobilinogen (Negative) Ur Leukocyte Esterase (Negative) Urine WBC (Auto) (0-5) /hpf Urine RBC (Auto) (0-4) /hpf U Hyaline Cast (Auto) (0-5) /lpf U Epithel Cells (Auto) (0-5) /lpf Urine Bacteria (Auto) (Negative) Stool Occult Bld Scrn (Negative) Digoxin (0.8-2.0) ng/ml Influenza Type A (PCR) (Neg) Influenza Type B (PCR) (Neg) 06/20/18 06/20/18 06/20/18 Range/Units 06:15 06:15 08:56 WBC 5.27 (4.8-10.8) K/uL RBC 2.51 L (4.7-6.1) M/uL Hgb 8.0 L (14.0-18.0) g/dL POC Hgb (14.0-18.0) g/dl Hct 24.5 L (42-52) % POC Hct (42-52) % MCV 97.6 (80-100) fL MCH 31.9 (25-34) pg MCHC 32.7 (32-36) g/dL RDW Std Deviation 55.9 H (36.4-46.3) fL RDW Coeff of Reed 16.2 H (11.5-14.5) % Plt Count 200 (130-400) K/uL MPV 9.9 (7.4-10.4) fL Immature Gran % (Auto) % Neut % (Auto) % Lymph % (Auto) % Conway % (Auto) % Eos % (Auto) % Baso % (Auto) % Immature Gran # (Auto) (0.00-0.02) K/uL Neut # (Auto) (1.4-6.5) K/uL Lymph # (Auto) (1.2-3.4) K/uL Conway # (Auto) (0.11-0.59) K/uL Eos # (Auto) (0-0.5) K/uL Baso # (Auto) (0-0.2) K/uL Absolute Nucleated RBC 0.02 H (0-0) K/uL Nucleated RBC % (auto) 0.4 % PT (9.0-12.0) Seconds INR (0.9-1.1) APTT (21.0-31.0) Seconds PTT Ratio POC Sodium (135-144) mEq/L Sodium (136-145) mmol/L POC Potassium (3.3-5.0) mEq/L Potassium (3.5-5.1) mmol/L POC Chloride (101-112) mEq/L Chloride (98-107) mmol/L Carbon Dioxide (21-32) mmol/L POC Total CO2 (24-31) mEq/l Anion Gap (3-11) POC Anion Gap (16-25) mmol/L POC BUN (7-18) mg/dl BUN (7-18) mg/dl Creatinine (0.6-1.4) mg/dl POC Creatinine (0.6-1.3) mg/dl Est Cr Clr Drug Dosing ml/min Est GFR ( Amer) Est GFR (Non-Af Amer) BUN/Creatinine Ratio (10-20) Glucose (70-99) mg/dl POC Glucose (other) (70-99) mg/dl POC Lactic Acid Brian (0.90-1.70) mmol/L Calcium (8.5-10.1) mg/dl POC Ioniz Calcium Elias (1.12-1.32) mmol/l Iron (35-175) mcg/dl TIBC (250-450) mcg/dl Ferritin (8-388) ng/ml Total Bilirubin (0.2-1) mg/dl AST (15-37) U/L ALT (12-78) U/L Alkaline Phosphatase (45-117) U/L Total Creatine Kinase (39-308) U/L CK-MB (CK-2) (0.5-3.6) ng/ml CK/CKMB % Calc (0-3.0) Troponin I 1.710 H* (0-0.045) ng/ml Total Protein (6.4-8.2) gm/dl Albumin (3.4-5.0) gm/dl Globulin (2.5-4.0) gm/dl Albumin/Globulin Ratio (0.9-2) Urine Color Urine Appearance (Clear) Urine pH (4.5-7.5) Ur Specific [place] (1.000-1.030) Urine Protein (Negative) Urine Glucose (UA) (Negative) Urine Ketones (Negative) Urine Blood (Negative) Urine Nitrite (Negative) Urine Bilirubin (Negative) Urine Urobilinogen (Negative) Ur Leukocyte Esterase (Negative) Urine WBC (Auto) (0-5) /hpf Urine RBC (Auto) (0-4) /hpf U Hyaline Cast (Auto) (0-5) /lpf U Epithel Cells (Auto) (0-5) /lpf Urine Bacteria (Auto) (Negative) Stool Occult Bld Scrn (Negative) Digoxin 1.7 (0.8-2.0) ng/ml Influenza Type A (PCR) (Neg) Influenza Type B (PCR) (Neg) 06/20/18 Range/Units 18:15 WBC (4.8-10.8) K/uL RBC (4.7-6.1) M/uL Hgb (14.0-18.0) g/dL POC Hgb (14.0-18.0) g/dl Hct (42-52) % POC Hct (42-52) % MCV (80-100) fL MCH (25-34) pg MCHC (32-36) g/dL RDW Std Deviation (36.4-46.3) fL RDW Coeff of Reed (11.5-14.5) % Plt Count (130-400) K/uL MPV (7.4-10.4) fL Immature Gran % (Auto) % Neut % (Auto) % Lymph % (Auto) % Conway % (Auto) % Eos % (Auto) % Baso % (Auto) % Immature Gran # (Auto) (0.00-0.02) K/uL Neut # (Auto) (1.4-6.5) K/uL Lymph # (Auto) (1.2-3.4) K/uL Conway # (Auto) (0.11-0.59) K/uL Eos # (Auto) (0-0.5) K/uL Baso # (Auto) (0-0.2) K/uL Absolute Nucleated RBC (0-0) K/uL Nucleated RBC % (auto) % PT (9.0-12.0) Seconds INR (0.9-1.1) APTT (21.0-31.0) Seconds PTT Ratio POC Sodium (135-144) mEq/L Sodium (136-145) mmol/L POC Potassium (3.3-5.0) mEq/L Potassium (3.5-5.1) mmol/L POC Chloride (101-112) mEq/L Chloride (98-107) mmol/L Carbon Dioxide (21-32) mmol/L POC Total CO2 (24-31) mEq/l Anion Gap (3-11) POC Anion Gap (16-25) mmol/L POC BUN (7-18) mg/dl BUN (7-18) mg/dl Creatinine (0.6-1.4) mg/dl POC Creatinine (0.6-1.3) mg/dl Est Cr Clr Drug Dosing ml/min Est GFR ( Amer) Est GFR (Non-Af Amer) BUN/Creatinine Ratio (10-20) Glucose (70-99) mg/dl POC Glucose (other) (70-99) mg/dl POC Lactic Acid Brian (0.90-1.70) mmol/L Calcium (8.5-10.1) mg/dl POC Ioniz Calcium Elias (1.12-1.32) mmol/l Iron (35-175) mcg/dl TIBC (250-450) mcg/dl Ferritin (8-388) ng/ml Total Bilirubin (0.2-1) mg/dl AST (15-37) U/L ALT (12-78) U/L Alkaline Phosphatase (45-117) U/L Total Creatine Kinase (39-308) U/L CK-MB (CK-2) (0.5-3.6) ng/ml CK/CKMB % Calc (0-3.0) Troponin I (0-0.045) ng/ml Total Protein (6.4-8.2) gm/dl Albumin (3.4-5.0) gm/dl Globulin (2.5-4.0) gm/dl Albumin/Globulin Ratio (0.9-2) Urine Color Urine Appearance (Clear) Urine pH (4.5-7.5) Ur Specific [place] (1.000-1.030) Urine Protein (Negative) Urine Glucose (UA) (Negative) Urine Ketones (Negative) Urine Blood (Negative) Urine Nitrite (Negative) Urine Bilirubin (Negative) Urine Urobilinogen (Negative) Ur Leukocyte Esterase (Negative) Urine WBC (Auto) (0-5) /hpf Urine RBC (Auto) (0-4) /hpf U Hyaline Cast (Auto) (0-5) /lpf U Epithel Cells (Auto) (0-5) /lpf Urine Bacteria (Auto) (Negative) Stool Occult Bld Scrn Negative (Negative) Digoxin (0.8-2.0) ng/ml Influenza Type A (PCR) (Neg) Influenza Type B (PCR) (Neg) Imaging Data Radiologist's Impression: Radiology results as stated below per my review and the radiologist's interpretation: XR chest 1V portable CLINICAL HISTORY: Sepsis COMPARISON STUDY: 05/30/2018 FINDINGS: The heart remains enlarged. There are postsurgical changes of a midline sternotomy. Atrial band occluder is again visualized. There is no acute parenchymal consolidation. There is no failure. There is persistent blunting of the left lateral costophrenic angle. IMPRESSION: No acute findings. Stable cardiomegaly and stable blunting of the left lateral costophrenic angle. Electronically signed by: Ady Roblero M.D. 06/18/2018 9:42 AM ECG Data Attestation: I personally reviewed and interpreted this ECG as follows: Indication: weakness Rate (beats per minute): 76 Rhythm: normal sinus Findings: + T-wave inversion (lateral leads); no ST depression and no ST elevation Comparison ECG Date: from (04/30/2018) Change: the following changes noted (TWI are new in the lateral leads) Blood Pressure Blood Pressure Findings: Low blood pressure Blood Pressure Disposition: further management by hospitalist [facility] Narrative -This is a 77-year-old male who presents the emergency department complaining of hypotension. The patient was given fluids here in the emergency department. The patient appears to be in acute renal failure. I did discuss case with the hospitalist service who agreed to admit the patient. Both patient and family were in agreement with the treatment plan. Impression & Plan Acute renal failure, Hypotension Discharge Plan Visit Data *Final* Discharge Date/Time: 06/18/18 12:02 Chief Complaint: Illness ED Provider: Aaron Syed Discharge Problem: Acute renal failure, Hypotension Patient Disposition: Admitted As Inpatient Discharge Instructions Interventions: ED Discharge Assessment Last Done: 06/18/18 12:02 The scribe's documentation has been prepared under my direction and personally reviewed by me in its entirety. I confirm that the note above accurately reflects all work, treatment, procedures, and medical decision making performed by me.
[2018-06-18] MEDS ORDERED: ACETAMINOPHEN 500 MG TAB PO PRN (12:00)
[2018-06-18] MEDS ORDERED: ALBUTEROL HFA 8 GM INHALER INH PRN (12:00)
[2018-06-18] MEDS ORDERED: ALUMINUM/MAGNESIUM SUSP 30 ML UDC PO PRN (12:00)
[2018-06-18] MEDS ORDERED: SODIUM CHLORIDE 0.9% 1000ML 1,000 ML IV SCH (12:00)
[2018-06-18] MEDS ORDERED: ACETAMINOPHEN 325 MG TAB PO PRN (12:00)
--- NOTE | 2018-06-18 13:26 | XRay Report ---
XR lumbar spine 2-3V HISTORY: 77 years-old Male low back pain eval for comp fx acute low back pain without reported traum a COMPARISON: Chest radiographs 05/30/2018, CT abdomen and pelvis 01/02/2018 TECHNIQUE: 4 views of the lumbar spine FINDINGS: Mildly demineralized appearance of the bones. Levoscoliosis of the lumbar spine. 4 mm anterolisthesis L4 on L5, likely on a degenerative basis. 25% anterior endplate compression deformity of the T12 marty tebral body appears unchanged from prior. Additionally, there is unchanged 20% anterior endplate comp ression of T11. No acute fracture or subluxation of the lumbar spine. Multilevel intervertebral disc space narrowing with spondylitic spurring and facet arthrosis. Calcification of the abdominal aorta. IMPRESSION: 1. No acute fracture or subluxation of the lumbar spine. 2. Levoscoliosis with demineralized appearance of the bones. 3. Multilevel degenerative changes as above. 4. Unchanged anterior endplate compression of the T12 vertebral body. The above report was generated using voice recognition software. It may contain grammatical, syntax o r spelling errors. Electronically signed by: Jarocho Wu M.D. 06/18/2018 1:25 PM
--- NOTE | 2018-06-18 16:14 | Nephrology Consultation ---
Date of Consultation June 18, 2018 Assessment & Plan (1) Adrenal insufficiency: -- Hypotension in part due to adrenal insufficiency related to steroid withdrawl -- Will start Prednisone 10 mg daily as glucocorticoid replacement therapy (2) Nephrotic syndrome with membranous glomerulonephritis: -- On Ponticelli protocol for idiopathic membranous gn -- Hold Cyclophosphamide until infection is ruled out. Will provide adrenal glucocorticoid replacement therapy as outlined above -- Continue TMP/SMX single strength one tablet daily due to immunocompromised status -- Monitor PRP (3) Hyperkalemia: -- Stop Lisinopril and potassium supplement -- Monitor PRP (4) Anemia: -- Stable anemia on admission. Will monitor -- Receives Epogen 2000 units monthly on outpatient basis (5) Chronic kidney disease, stage 4 (severe): -- Baseline creatinine has risen to 3.0 -- Protect AVF History of Present Illness Reason for Consultation: CKD, biopsy proven membranous nephropathy Attending Physician: Jitendra Lau MD History of Present Illness Mr. Barrios is a 77 year old white male who is seen at the request of Dr. Lau. Medical records in the EMR were reviewed today and are summarized as follows: Mr. Sarmiento suffered NATALIE following CABG 2016. His creatinine stabilized at 2.0 but he developed proteinuria w/ nephrotic syndrome. Nephrology evaluation by Dr. Barahona revealed no paraprotein or DM. DEBORA was negative. [place] kidney biopsy 11/25 revealed membranous nephropathy. Histology was negative for PLA2 Ab staining. Evaluation for secondary causes including PSA, colonoscopy, CT abdomen/chest & pelvis were all negative for malignancy. L brachiocephalic AVF was placed 02/25. Mr. 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 He completed his 3rd cycle of Prednisone therapy in late 05/27. Prednisone 40 mg daily was stopped. In early June 2018 he began his 3rd cycle of Cyclophosphamide 150 mg po daily. Mr. Barrios was also recently started on low dose Lisinopril therapy to help lower his proteinuria. Mr. Barrios reports that over the last 48 hours he has become progressively weaker. He presented to the ED where SBP was 56 mmHG. Patient was hydrated w/ 2 L 0.9 NS. SBP improved to ~ 100 mmHG. Patient had mild hypothermia. WBC # was normal. CXR was negative for infiltrate. Urine culture has been ordered. Mr. Barrios has been admitted to a telemetry bed for ongoing medical management. Creatinine remains relatively stable at ~ 3.0. Allergies Allergy/AdvReac Type Severity Reaction Status Date / Time No Known Drug Allergies Allergy Unknown NONE Verified 06/18/18 10:41 Home Medications Home Medications Medication Instructions Recorded Confirmed Type acetaminophen [Tylenol Extra 500 mg PO Q6H PRN 04/08/18 06/18/18 History Strength] albuterol sulfate [Ventolin HFA] 2 puff INHALATION QID PRN 04/08/18 06/18/18 History atorvastatin 80 mg PO HS 04/08/18 06/18/18 History finasteride 5 mg PO QPM 04/08/18 06/18/18 History fluticasone-salmeterol 1 puff INHALATION BID 04/08/18 06/18/18 History paroxetine HCl 20 mg PO QPM 04/08/18 06/18/18 History propranolol 5 mg PO DAILY 04/08/18 06/18/18 History tamsulosin 0.4 mg PO HS 04/08/18 06/18/18 History bumetanide 2 mg PO BID 30 Days #120 tab 04/25/18 06/18/18 Rx potassium chloride 20 meq PO BID 30 Days #120 tab 04/25/18 06/18/18 Rx apixaban 5 mg PO BID 30 Days #60 tab 05/09/18 06/18/18 Rx cyclophosphamide 150 mg PO DAILY 06/18/18 06/18/18 History lisinopril 2.5 mg PO DAILY 06/18/18 06/18/18 History Patient History Family History Father Family history of diabetes mellitus Mother Family history of diabetes mellitus Family/Other Family history of diabetes mellitus Social History marital status: Current Living Situation: Spouse current occupational status: retired Other Information That Helps Us Care for You: No Feels Safe at Home: Yes Safety Concerns: Feels Safe At This Time Smoking Status: Never smoker Do You Dip or Chew Tobacco: No Second Hand Exposure: No Tobacco Cessation Education Requested by Patient: No Hx Alcohol Use: No Hx Substance Use: No Beliefs That Will Affect Care: None Preferred Language: Slovak Communication Ability: Effective 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 Review of Systems Constitutional: + weakness; no fever Respiratory: + cough; no dyspnea Cardiovascular: no chest pain Gastrointestinal: + nausea; no abdominal pain Genitourinary (Male): no dysuria and no difficulty urinating Physical Exam 2 Vital Signs (Past 24 Hours): Last Vital Signs Temp 36.4 C L 06/18/18 12:00 Pulse 83 06/18/18 12:00 Resp 18 06/18/18 12:00 BP 113/67 06/18/18 12:00 Pulse Ox 97 06/18/18 11:35 Constitutional: no acute distress Eyes: PERRL, conjunctivae normal, anicteric sclerae Neck: trachea midline, no thyromegaly Respiratory: normal respiratory effort Auscultation: + crackles (L lung llamas) Cardiovascular: RRR, no murmur, no edema Gastrointestinal (Abdomen): normal bowel sounds, soft, nontender, no hepatosplenomegaly Results & Data Laboratory Results Laboratory Tests 05/30/18 06/18/18 06/18/18 09:47 09:25 09:25 WBC 5.30 Hgb 10.2 L Hct 30.8 L Plt Count 204 INR 1.1 POC Sodium POC Potassium POC Chloride POC Total CO2 BUN POC Creatinine AST ALT Troponin I Albumin PTH Intact 56.9 06/18/18 06/18/18 09:25 09:35 WBC Hgb Hct Plt Count INR POC Sodium 136 POC Potassium 5.2 H POC Chloride 103 POC Total CO2 24 BUN 38 H POC Creatinine 3.2 H AST 26 ALT 34 Troponin I 0.031 Albumin 3.2 L PTH Intact 06/18/18 CXR: No infiltrate
[2018-06-18] MEDS: OXYCODONE HCL IR 5 MG TAB (IMMEDIATE RELEASE) PO PRN (16:29)
[2018-06-18] MEDS: DIGOXIN 0.125 MG TAB PO SCH (16:29)
[2018-06-18] MEDS: predniSONE 10 MG TABLET PO SCH (16:58)
[2018-06-18] MEDS: SULFA/TRIMETH 400/80MG TAB PO SCH (19:38)
[2018-06-18 20:11] LABS: Appearance Urine Clear (Clear); Bacteria Urine Automated Negative (Negative); Bilirubin Urine Negative (Negative); Color Urine Yellow; Epithelial Cell Urine Auto 0-5 /lpf (0-5); Glucose Urine UA Negative (Negative); Ketones Urine Negative (Negative); Leukocyte Esterase Urine Negative (Negative); Nitrite Urine Negative (Negative); Protein Urine 1+ (Negative); Specific Gravity Urine 1.014 (1.000-1.030); Urobilinogen Urine Negative (Negative)
[2018-06-18] MEDS: FLUTICASONE/SALMETEROL (ADVAIR) 500/50 INH 14 PUFF INH SCH (20:15)
[2018-06-18] MEDS: PARoxetine HCl 20 MG TAB PO SCH (20:16)
[2018-06-18] MEDS: FINASTERIDE 5 MG TAB PO SCH (20:16)
[2018-06-19] MEDS: ONDANSETRON INJ 2 MG/ML 2 ML VIAL IV PRN (01:40)
[2018-06-19] MEDS: OXYCODONE HCL IR 5 MG TAB (IMMEDIATE RELEASE) PO PRN (03:23)
[2018-06-19 06:47] LABS: Hematocrit (blood only) 24.3 % (42-52); Mean Corpuscular Hgb Conc 32.9 g/dL (32-36); Mean Corpuscular Volume 97.6 fL (80-100); Mean Platelet Volume 9.7 fL (7.4-10.4); Nucleated RBC # (auto) 0.03 K/uL (0-0); Nucleated RBC % (auto) 0.7 %; Platelet Count 173 K/uL (130-400); RDW Coefficient of Variation 16.2 % (11.5-14.5); RDW Standard Deviation 56.4 fL (36.4-46.3); Red Blood Count 2.49 M/uL (4.7-6.1); White Blood Count 4.47 K/uL (4.8-10.8)
[2018-06-19 07:26] LABS: BUN Creatinine Ratio 11.1 (10-20); Calcium 8.6 mg/dl (8.5-10.1); Creatinine Clr Calc Pharmacy 21.8 ml/min; Est GFR (African American) 24.9; Est GFR (Non-African American) 21.5; Potassium 4.9 mmol/L (3.5-5.1)
[2018-06-19] MEDS: predniSONE 10 MG TABLET PO SCH (07:56)
[2018-06-19] MEDS: FLUTICASONE/SALMETEROL (ADVAIR) 500/50 INH 14 PUFF INH SCH ×2 (07:56→20:30)
[2018-06-19] MEDS ORDERED: EPOETIN ALFA 10,000 UNITS/ML VIAL SQ ONE (10:04)
--- NOTE | 2018-06-19 10:04 | Nephrology Progress Note ---
Date of Service June 19, 2018 Assessment & Plan (1) Adrenal insufficiency: -- Hypotension was in part due to adrenal insufficiency related to steroid withdrawl -- Blood pressure has stabilized following volume resuscitation and steroid replacement therapy -- Continue Prednisone 10 mg po daily. Monitor BP (2) Nephrotic syndrome with membranous glomerulonephritis: -- On Ismael protocol for idiopathic membranous gn -- Hold Cyclophosphamide until infection is ruled out. Will provide adrenal glucocorticoid replacement therapy as outlined above -- Continue TMP/SMX single strength one tablet daily due to immunocompromised status -- Monitor PRP (3) Hyperkalemia: -- Corrected -- Continue to hold Lisinopril and potassium supplement (4) Anemia: -- Hgb 8.0 today. Primary service has ordered FOBT -- Will order iron studies -- Will provide Epogen 10,000 units SQ this am (5) Chronic kidney disease, stage 4 (severe): -- Baseline creatinine has risen to 3.0 -- Protect AVF Subjective Mr. Barrios was seen & examined in the PCU this morning. He was nonoliguric overnight and is net 1L volume positive. He denies fever, dyspnea or angina. His SBP has been 95 - 120 over the last 24 hours. Hgb is trending down. Patient denies overt blood loss. Primary service has ordered FOBT. Constitutional: + weakness; no fever Respiratory: + cough; no dyspnea Gastrointestinal: + nausea; no abdominal pain Physical Exam 2 Vital Signs (Past 24 Hours): Last Vital Signs Temp 36.8 C 06/19/18 07:39 Pulse 86 06/19/18 07:39 Resp 18 06/19/18 07:39 BP 109/60 06/19/18 07:39 Pulse Ox 95 06/19/18 07:39 Constitutional: no acute distress Eyes: PERRL, conjunctivae normal, anicteric sclerae Neck: trachea midline, no thyromegaly Respiratory: normal respiratory effort Auscultation: + crackles (L lung llamas) Cardiovascular: RRR, no murmur, no edema Gastrointestinal (Abdomen): normal bowel sounds, soft, nontender, no hepatosplenomegaly Results & Data Laboratory Results Laboratory Tests 06/18/18 06/19/18 06/19/18 09:25 06:02 06:02 WBC 4.47 L Hgb 8.0 L Hct 24.3 L Plt Count 173 Sodium 135 L Potassium 4.9 Chloride 105 Carbon Dioxide 26 BUN 31 H Creatinine 2.76 H D Glucose 117 H Calcium 8.6 Total Creatine Kinase 50 Troponin I 0.031
--- NOTE | 2018-06-19 13:46 | Hospitalist Progress Note ---
Date of Service June 19, 2018 Assessment & Plan (1) Acute electrocardiogram changes: Patient reported that his heart was "beating hard". No other associated symptoms. EKG showed new lateral ST depressions. Given 325 of ASA and O2. Cardiology consulted, discussed with Dr. Champagne. Echo pending. Trop pending (2) Hypotension: Likely due at least in part to adrenal insufficiency due to recent cessation of prolonged prednisone use. Prednisone restarted by nephrology. Given EKG changes showing lateral ischemia, will add hydrocortisone 50 mg IV q8h. - He was volume resuscitated with 2 L of crystalloid in the ER with improvement of his blood pressure. - Lactic acid was 2.98, likley due to hypoperfusion, BC pending (3) Chronic kidney disease: pt has acute on chronic kidney disease stage 3 and history of glomerulonephritis and is currently being treated with prednisone and cyclophosphamide. He most recently also has been begun on an NEHEMIAS inhibitor around 3 months prior. He typically sees Dr. Chapman. Will restart NEHEMIAS per nephro (4) Paroxysmal A-fib: pt is chronically anticoagulated with eliquis, on propronaolol and digoxin for rate control. It is incidentally noted that he is in atrial bands seen on his chest x-ray patient is unaware that he had this in his body. The atrial band had been used to obliterate the atrial appendage and reduce the risk of embolic stroke per literature review (5) BPH (benign prostatic hyperplasia): will remain on proscar, holding flomax with lower blood pressure (6) Asthma: clincally stable at this time, remians no advair with prn albuterol (7) Anemia: Patient history of chronic anemia. Hgb is down 2.5g since admission. May be at least partially dilutional. Nephrology to give epoeitin. Will continue to hold Eliquis until fecal occult comes back or if am hgb has improved. (8) Low back pain: Patient has chronic low back pain this is been radicular at times - straight leg test was able to induce symptoms - xray showed T12 chronic compression fracture and degenerative changes - tylenol q8h, lidoderm patch, calcitonin nasal spray. (9) DVT prophylaxis: SCDs, Eliquis as above Subjective Mr. Barrios's feeling his heart rate pounding. He says this happened before he started digoxin and went away after that. Before getting to the hospital he was not taking his digoxin for sometime. He is not having any chest pain, dizziness , or sweating. He was nauseas with one emesis pre hospital but has not been nauseas since admission. His biggest complaint is his back pain that extends from his lumbar region down his buttock to the back of his calf Physical Exam 2 Vital Signs (Past 24 Hours): Last Vital Signs Temp 36.7 C 06/19/18 11:00 Pulse 91 H 06/19/18 11:00 Resp 18 06/19/18 11:00 BP 108/66 06/19/18 11:00 Pulse Ox 95 06/19/18 11:00 Physical Exam: General: no distress Eyes: normal inspection, PERLL Respiratory: chest non tender, clear to auscultation, normal breath sounds, no respiratory distress, no accessory muscle use Cardiac: regular rate and rhythm, no rub or gallop, no murmur, no edema, no jvd GI/: active bowel sounds, no abd pain or tenderness, soft, non distended Extremities: normal range of motion, normal strength, non tender Neuro/Psych: alert and oriented x 3, normal mood and affect Skin: normal color, dry Results & Data Laboratory Results Abnormal lab results 06/18/18 06/19/18 06/19/18 Range/Units 20:00 06:02 06:02 WBC 4.47 L (4.8-10.8) K/uL RBC 2.49 L (4.7-6.1) M/uL Hgb 8.0 L (14.0-18.0) g/dL Hct 24.3 L (42-52) % RDW Std Deviation 56.4 H (36.4-46.3) fL RDW Coeff of Reed 16.2 H (11.5-14.5) % Absolute Nucleated RBC 0.03 H (0-0) K/uL Sodium 135 L (136-145) mmol/L BUN 31 H (7-18) mg/dl Creatinine 2.76 H D (0.6-1.4) mg/dl Glucose 117 H (70-99) mg/dl Urine Protein 1+ H (Negative) _ (1) BPH (benign prostatic hyperplasia) Lower urinary tract symptom detail: Lower urinary tract symptom presence: unspecified whether lower urinary tract symptoms present Qualified Code(s): N40.0 - Benign prostatic hyperplasia without lower urinary tract symptoms (2) Asthma Asthma complication type: unspecified Asthma persistence: unspecified Asthma severity: unspecified severity Qualified Code(s): J45.909 - Unspecified asthma, uncomplicated
[2018-06-19] MEDS ORDERED: ASPIRIN CHEW 324 MG PO STA (14:02)
[2018-06-19] MEDS: PROPRANOLOL HCL 10 MG TAB PO SCH (15:07)
[2018-06-19] MEDS: LIDOCAINE 5% 1 PATCH TD SCH (15:07)
[2018-06-19] MEDS: CALCITONIN SALMON NA 200 IU/AC 3.7 ML BTL SCH (15:07)
[2018-06-19] MEDS: ACETAMINOPHEN 500 MG TAB PO SCH ×2 (15:07→22:54)
[2018-06-19] MEDS: HYDROCORTISONE SOD 50 MG in SYRINGE 0 ML IV SCH ×2 (15:53→22:54)
[2018-06-19] MEDS: DIGOXIN 0.125 MG TAB PO SCH (15:53)
--- NOTE | 2018-06-19 16:36 | Cardiology Consultation ---
Date of Consultation June 19, 2018 Assessment & Plan (1) Acute electrocardiogram changes: He did have worsening ST depression in the anterolateral leads but no angina. He had symptoms rather of palpitations but no arrhythmia. This did coincide with repeating troponin level which was elevated to be within the diagnostic range of myocardial infarction but this does not appear to represent acute coronary syndrome. Repeat ECG has been ordered and demonstrates improvement of the ST depression. (2) Hypotension: Blood pressure has improved. As per other providers. (3) CAD (coronary artery disease): He is status post bypass x2 with ANGUIANO to the LAD and SVG to OM. He has not presented with acute coronary syndrome or angina. He does have elevated troponins within the diagnostic range of myocardial infarction but cardiac catheterization is not recommended at this time given lack of angina and his acute kidney injury. Consider aspirin 81 mg daily. Continue high-intensity statin therapy and beta-damon. (4) Paroxysmal A-fib: He is currently in sinus rhythm. He is on rate control with beta-damon and digoxin. Digoxin level was 1.3. Recommend checking a digoxin trough. With his worsening renal function, digoxin may need to be held or reduced until his renal function improved. Would like to keep digoxin level less than 1 if possible. Can resume anticoagulation therapy when safe from a bleeding standpoint. (5) NSTEMI (non-ST elevated myocardial infarction): Elevated troponin but no angina. LV systolic function remains similar to most recent echo. There does appear to be some regional wall motion abnormalities. Would not advocate for cardiac catheterization currently given his acute kidney injury. Recommend conservative therapy. He has been anticoagulated with Eliquis. Continue medical therapy. Disposition: Plan of care has been discussed with Emmy Leon of the primary hospitalist service. His primary professional development director, Dr. Garcia, will resume his cardiology care tomorrow. Thank you for allowing me to participate in the care of your patient. Please call for any other questions or concerns. Sincerely, Nacho Champagne M.D. History of Present Illness Reason for Consultation: Abnormal ECG Requesting Physician: Emmy DOBBS Attending Physician: Jitendra Lau MD History of Present Illness Mr. Barrios is a pleasant 77-year-old gentleman with a history significant for multivessel CAD status post CABG x2 (ANGUIANO to LAD; SVG to OM), paroxysmal atrial fibrillation, non severe mitral regurgitation, mildly reduced LV systolic function, glomerulonephritis treated with cyclophosphamide, dyslipidemia, and hypertension. His primary professional development director is Dr. Garcia. He was admitted to [facility] on 06/18/2018 with shortness of breath and profound hypotension. He believes he is having an issue between the cyclophosphamide and lisinopril, which was also recently started a few weeks ago. His blood pressure has improved with IV fluids. He reported earlier today that he felt his heart pounding or beating hard. An ECG was done which demonstrated anterolateral ST depression with T-wave abnormality. The ST depression was new compared to prior ECG on 06/18/2018. This prompted cardiology consultation. Telemetry has not demonstrated any arrhythmia. He is in sinus rhythm. He states that this pounding sensation has been present ever since he stop taking digoxin approximately 1 month ago. He did not intend to stop digoxin but thought it was a different pill and therefore simply stop taking it, believing it was an antibiotic. The symptoms would intermittently occur but only at rest , especially while laying down. Symptoms have completely resolved after being placed on oxygen and resuming digoxin therapy during this hospitalization. He denies angina, chest pain, syncope, shortness of breath at rest, orthopnea, PND. He has had lightheadedness and near-syncope while upright, but this once again has subsided with improvement of his blood pressure. He has had chronic back pain for the past 50 years intermittently. He denies actual syncope. He has had some nausea but no vomiting. He denies fevers, chills, melena, hematochezia, hematuria, or other bleeding. He denies edema. He believes he is back to his baseline. Review of systems: As above. Review of systems otherwise negative/ unremarkable. Social history: He quit smoking at the age of 25 years of age. No alcohol or drugs. He is and lives at home with his and 9-year-old grandson. He had 1 daughter who has since . He has a granddaughter in her 20s and also the grandson as noted. He is currently alone in his hospital room. Family history: No known premature CAD. There is a family history of stroke. Allergies Allergy/AdvReac Type Severity Reaction Status Date / Time No Known Drug Allergies Allergy Unknown NONE Verified 06/18/18 10:41 Home Medications Home Medications Medication Instructions Recorded Confirmed Type acetaminophen [Tylenol Extra 500 mg PO Q6H PRN 04/08/18 06/18/18 History Strength] albuterol sulfate [Ventolin HFA] 2 puff INHALATION QID PRN 04/08/18 06/18/18 History atorvastatin 80 mg PO HS 04/08/18 06/18/18 History finasteride 5 mg PO QPM 04/08/18 06/18/18 History fluticasone-salmeterol 1 puff INHALATION BID 04/08/18 06/18/18 History paroxetine HCl 20 mg PO QPM 04/08/18 06/18/18 History propranolol 5 mg PO DAILY 04/08/18 06/18/18 History tamsulosin 0.4 mg PO HS 04/08/18 06/18/18 History bumetanide 2 mg PO BID 30 Days #120 tab 04/25/18 06/18/18 Rx potassium chloride 20 meq PO BID 30 Days #120 tab 04/25/18 06/18/18 Rx apixaban 5 mg PO BID 30 Days #60 tab 05/09/18 06/18/18 Rx cyclophosphamide 150 mg PO DAILY 06/18/18 06/18/18 History lisinopril 2.5 mg PO DAILY 06/18/18 06/18/18 History Patient History Medical History CKD (chronic kidney disease) stage 3, GFR 30-59 ml/min (Chronic) Congestive heart failure (Acute) Pulmonary hypertension (Chronic) Acute on chronic diastolic heart failure Paroxysmal A-fib (Chronic) BPH (benign prostatic hyperplasia) Hyperlipidemia Hypertension (Chronic) Shortness of breath (Acute) Hypoxia (Acute) Severe anemia (Chronic) Asthma (Chronic) Elevated troponin - [place] (Resolved) Unstable angina (Resolved) Pneumonia (Resolved) Hypotension (Resolved) End stage renal disease Anemia chronic; baseline hgb 10's-11's per chart review Hypotension Bronchitis (Inactive) - CXR appears improved from prior visit on 03/23 suggesting resolving pneumonia AV fistula Anxiety Asthma STABLE BPH (benign prostatic hyperplasia) Borderline diabetes DIET CONTROLLED CAD (coronary artery disease) CABG X2 02/2017 Chronic kidney disease STAGE 4; ON CYCLOPHOSPHAMIDE GERD (gastroesophageal reflux disease) CONTROLLED History of atrial fibrillation History of blood transfusion S/P SURGERY 2016 Hyperlipidemia Hypertension On anticoagulant therapy Osteoarthritis Paroxysmal A-fib Tremor of both hands FAMILIAL- ON PROPRANOLOL Family History Father Family history of diabetes mellitus Mother Family history of diabetes mellitus Family/Other Family history of diabetes mellitus Social History marital status: Current Living Situation: Spouse current occupational status: retired Other Information That Helps Us Care for You: No Feels Safe at Home: Yes Safety Concerns: Feels Safe At This Time Smoking Status: Former smoker Do You Dip or Chew Tobacco: No Second Hand Exposure: No Tobacco Cessation Education Requested by Patient: No Hx Alcohol Use: No Hx Substance Use: No Beliefs That Will Affect Care: None Communication Ability: Effective Physical Exam 2 Vital Signs (Past 24 Hours): Last Vital Signs Temp 36.6 C 06/19/18 15:16 Pulse 87 06/19/18 15:53 Resp 18 06/19/18 15:16 BP 125/72 06/19/18 15:16 Pulse Ox 99 06/19/18 15:16 Intake & Output 06/17/18 06/18/18 06/19/18 06/20/18 06:59 06:59 06:59 06:59 Intake Total 2650 / 2650 670 / 670 Output Total 1600 / 1600 Balance 1050 / 1050 670 / 670 Weight 84.4 kg Physical Exam: Gen.: No acute distress. Alert and oriented. HEENT: Anicteric sclera. Neck: No JVD. Bilateral carotid bruits. Normal carotid upstrokes bilaterally. Cardiac: PMI was nonpalpable. No ventricular heave. Regular. Normal S1-S2. No audible murmurs, rubs, or gallops. Pulmonary: Decreased breath sounds throughout but otherwise clear bilaterally. Abdomen: Soft, nontender, nondistended, with normoactive bowel sounds. No bruits noted. Extremities: 2+ right radial pulse. Left upper extremity AV fistula with palpable thrill and audible bruit. 2+ posterior tibialis pulses bilaterally. No edema or cyanosis. Psychiatric: Affect appears appropriate. Results & Data Laboratory Results Laboratory Results - last 24 hr 06/18/18 06/19/18 06/19/18 20:00 06:02 06:02 WBC 4.47 L RBC 2.49 L Hgb 8.0 L Hct 24.3 L MCV 97.6 MCH 32.1 MCHC 32.9 RDW Std Deviation 56.4 H RDW Coeff of Reed 16.2 H Plt Count 173 MPV 9.7 Absolute Nucleated RBC 0.03 H Nucleated RBC % (auto) 0.7 Sodium 135 L Potassium 4.9 Chloride 105 Carbon Dioxide 26 Anion Gap 4.0 BUN 31 H Creatinine 2.76 H D Est Cr Clr Drug Dosing 21.8 Est GFR ( Amer) 24.9 Est GFR (Non-Af Amer) 21.5 BUN/Creatinine Ratio 11.1 Glucose 117 H Calcium 8.6 Troponin I Urine Color Yellow Urine Appearance Clear Urine pH 5.0 Ur Specific [place] 1.014 Urine Protein 1+ H Urine Glucose (UA) Negative Urine Ketones Negative Urine Blood Negative Urine Nitrite Negative Urine Bilirubin Negative Urine Urobilinogen Negative Ur Leukocyte Esterase Negative Urine WBC (Auto) 1-5 Urine RBC (Auto) 0-4 U Hyaline Cast (Auto) 1-5 U Epithel Cells (Auto) 0-5 Urine Bacteria (Auto) Negative 06/19/18 15:43 WBC RBC Hgb Hct MCV MCH MCHC RDW Std Deviation RDW Coeff of Reed Plt Count MPV Absolute Nucleated RBC Nucleated RBC % (auto) Sodium Potassium Chloride Carbon Dioxide Anion Gap BUN Creatinine Est Cr Clr Drug Dosing Est GFR ( Amer) Est GFR (Non-Af Amer) BUN/Creatinine Ratio Glucose Calcium Troponin I 1.250 H* Urine Color Urine Appearance Urine pH Ur Specific [place] Urine Protein Urine Glucose (UA) Urine Ketones Urine Blood Urine Nitrite Urine Bilirubin Urine Urobilinogen Ur Leukocyte Esterase Urine WBC (Auto) Urine RBC (Auto) U Hyaline Cast (Auto) U Epithel Cells (Auto) Urine Bacteria (Auto) Diagnostic Findings ECGs personally reviewed. ECG 06/18/2018: Sinus rhythm 76 bpm. LVH with repolarization abnormality. ECG 06/19/2018: Sinus rhythm [address]/T-wave abnormality, consider anterolateral ischemia. Limited 2D echo reviewed 06/19/2018: Mildly dilated LV with mildly reduced systolic function. EF 40-45%. Severe hypokinesis to akinesis of the basal septum and basal to mid inferior wall. Severe hypokinesis involving the inferolateral wall. Otherwise, mild global hypokinesis. No LVH. Severe left atrial dilation. Telemetry personally reviewed: Sinus rhythm. No arrhythmia. Chest x-ray 06/18/2018: No acute findings per Radiology. Medications Administered Current Inpatient Medications Acetaminophen (Tylenol) 650 mg PO Q4H PRN PRN Reason: Pain or Fever Stop: 07/18/18 11:59 Acetaminophen (Tylenol) 1,000 mg PO Q8 VALERIE Stop: 07/19/18 14:59 Last Admin: 06/19/18 15:07 Dose: 1,000 mg Al Hydrox/Mg Hydrox/Simethicone (Maalox) 15 ml PO Q4H PRN PRN Reason: Dyspepsia Stop: 07/18/18 11:59 Albuterol (Ventolin Hfa) 2 puffs INH QID PRN PRN Reason: Shortness Of Breath Stop: 07/18/18 11:59 Atorvastatin Calcium (Lipitor) 80 mg PO HS VALERIE Stop: 07/19/18 20:59 Calcitonin [place] (Fortical) 1 sprays NA DAILY VALERIE Stop: 07/19/18 13:44 Last Admin: 06/19/18 15:07 Dose: 1 sprays Digoxin (Lanoxin) 0.125 mg PO DAILY@1600 [facility] Stop: 07/18/18 15:59 Last Admin: 06/19/18 15:53 Dose: 0.125 mg Finasteride (Proscar) 5 mg PO QPM VALERIE Stop: 07/18/18 20:59 Last Admin: 06/18/18 20:16 Dose: 5 mg Hydrocortisone Sodium (Succinate 50 mg/ Syringe) 1 mls @ 4 mls/min IV Q8H VALERIE Stop: 07/19/18 14:59 Last Admin: 06/19/18 15:53 Dose: 4 mls/min Lidocaine (Lidoderm 5%) 1 patch TD QAM VALERIE Stop: 07/19/18 13:44 Last Admin: 06/19/18 15:07 Dose: 1 patch Lisinopril (Zestril) 2.5 mg PO DAILY VALERIE Stop: 07/20/18 08:59 Miscellaneous (Remove Lidoderm Patch) 1 ea N/A DAILY@2100 [facility] Stop: 07/19/18 20:59 Ondansetron HCl (Zofran) 4 mg IV Q6H PRN PRN Reason: Nausea Stop: 07/18/18 11:59 Last Admin: 06/19/18 01:40 Dose: 4 mg Oxycodone HCl (Roxicodone Immediate Rel) 10 mg PO Q6 PRN PRN Reason: Pain Stop: 07/02/18 11:59 Last Admin: 06/19/18 03:23 Dose: 10 mg Paroxetine HCl (Paxil) 20 mg PO QPM [facility] Stop: 07/18/18 20:59 Last Admin: 06/18/18 20:16 Dose: 20 mg Prednisone (Prednisone) 10 mg PO DAILY [facility] Stop: 07/18/18 15:59 Last Admin: 06/19/18 07:56 Dose: 10 mg Propranolol HCl (Inderal) 5 mg PO DAILY [facility] Stop: 07/19/18 13:44 Last Admin: 06/19/18 15:07 Dose: 5 mg Fluticasone/Salmeterol (Advair Diskus 500/50) 1 puffs INH BID [facility] Stop: 07/18/18 20:59 Last Admin: 06/19/18 07:56 Dose: Not Given Trimethoprim/Sulfamethoxazole (Septra 400/80mg Tab) 1 tab PO Q2D@1900 [facility] Stop: 07/18/18 18:59 Last Admin: 06/18/18 19:38 Dose: 1 tab _ (1) Hypotension Hypotension type: unspecified hypotension type Trimester: Qualified Code(s) : I95.9 - Hypotension, unspecified (2) CAD (coronary artery disease) Coronary Disease-Associated Artery/Lesion type: cahto artery [place] vs. transplanted heart: cahto heart Associated angina: without angina Qualified Code(s): I25.10 - Atherosclerotic heart disease of cahto coronary artery without angina pectoris
[2018-06-19 17:21] LABS: Hematocrit (blood only) 25.7 % (42-52); Hemoglobin 8.4 g/dL (14.0-18.0)
[2018-06-19] MEDS: APIXABAN 5 MG TABLET PO SCH (20:29)
[2018-06-19] MEDS: FINASTERIDE 5 MG TAB PO SCH (20:29)
[2018-06-19] MEDS: ATORVASTATIN 40 MG TAB PO SCH (20:29)
[2018-06-19] MEDS: PARoxetine HCl 20 MG TAB PO SCH (20:30)
[2018-06-20] MEDS: ONDANSETRON INJ 2 MG/ML 2 ML VIAL IV PRN (01:11)
[2018-06-20] MEDS: ACETAMINOPHEN 500 MG TAB PO SCH ×3 (06:02→23:58)
[2018-06-20] MEDS: HYDROCORTISONE SOD 50 MG in SYRINGE 0 ML IV SCH ×2 (06:03→14:22)
[2018-06-20 06:47] LABS: Hematocrit (blood only) 24.5 % (42-52); Mean Corpuscular Hgb Conc 32.7 g/dL (32-36); Mean Corpuscular Volume 97.6 fL (80-100); Mean Platelet Volume 9.9 fL (7.4-10.4); Nucleated RBC # (auto) 0.02 K/uL (0-0); Nucleated RBC % (auto) 0.4 %; Platelet Count 200 K/uL (130-400); RDW Coefficient of Variation 16.2 % (11.5-14.5); RDW Standard Deviation 55.9 fL (36.4-46.3); Red Blood Count 2.51 M/uL (4.7-6.1); White Blood Count 5.27 K/uL (4.8-10.8)
[2018-06-20 07:19] LABS: BUN Creatinine Ratio 12.5 (10-20); Calcium 8.9 mg/dl (8.5-10.1); Creatinine Clr Calc Pharmacy 26.2 ml/min; Est GFR (African American) 30.9; Est GFR (Non-African American) 26.6; Potassium 4.6 mmol/L (3.5-5.1)
[2018-06-20 07:22] LABS: Ferritin 1008.8 ng/ml (8-388)
[2018-06-20] MEDS: APIXABAN 5 MG TABLET PO SCH ×2 (08:18→20:43)
[2018-06-20] MEDS: FLUTICASONE/SALMETEROL (ADVAIR) 500/50 INH 14 PUFF INH SCH ×2 (08:18→20:45)
[2018-06-20] MEDS: ASPIRIN 81 MG ECTAB PO SCH (08:19)
[2018-06-20] MEDS: CALCITONIN SALMON NA 200 IU/AC 3.7 ML BTL SCH (08:19)
[2018-06-20] MEDS: LIDOCAINE 5% 1 PATCH TD SCH (08:19)
[2018-06-20] MEDS: PROPRANOLOL HCL 10 MG TAB PO SCH (08:20)
--- NOTE | 2018-06-20 10:00 | XRay Report ---
XR chest 1V portable HISTORY: 77 years-old Male adventitious breath sounds acute shortness of breath COMPARISON: Chest radiographs 06/18/2017, CT chest 05/06/2018 TECHNIQUE: Portable AP view of the chest FINDINGS: Cardiac silhouette is enlarged, unchanged. Left atrial exclusion device. Prior median sternotomy and CABG. Calcification the thoracic aortic arch. Trace chronic blunting of the left costophrenic angle. No large pleural effusion. Pulmonary vascular congestion without overt pulmonary edema. Subsegmental left basilar opacities. Degenerative changes of the shoulders and spine. IMPRESSION: 1. Cardiomegaly with prior median sternotomy and CABG. 2. Mild pulmonary vascular congestion without overt pulmonary edema. 3. Chronic blunting of the left costophrenic angle with left basilar opacities suggesting atelectasis or pneumonitis. The above report was generated using voice recognition software. It may contain grammatical, syntax o r spelling errors. Electronically signed by: Jarocho Wu M.D. 06/20/2018 9:59 AM
[2018-06-20] MEDS: SENNA 8.6 MG TAB PO SCH (10:13)
[2018-06-20] MEDS ORDERED: BUMETANIDE 2 MG in SYRINGE 0 ML IV ONE (11:15)
--- NOTE | 2018-06-20 12:30 | Hospitalist Progress Note ---
Date of Service June 20, 2018 Assessment & Plan (1) Acute electrocardiogram changes: NSTEMI - 06/19 - Patient reported that his heart was "beating hard". No other associated symptoms. EKG showed new lateral ST depressions. Troponin peaked at 1.91. Repeat EKG a few hours later showed resolution of ischemia - Consulted cardiology - started ASA, resumed Eliquis. Appears to be ischemia due to hypotensive episode (2) Hypotension: Likely due at least in part to adrenal insufficiency due to recent cessation of prolonged prednisone use. Prednisone restarted by nephrology. Given EKG changes showing lateral ischemia, will add hydrocortisone 50 mg IV q8h x 24 hours. - He was volume resuscitated with 2 L of crystalloid in the ER with improvement of his blood pressure. - Lactic acid was 2.98, likely due to hypoperfusion, BC pending (3) Congestive heart failure: Acute on chronic systolic heart failure - echo showed EF 45% with WMA Bumetadine has been held for kidney function - discussed with nephrology - can restart Bumex now that kidney function is improved. Patient has been coughing and requiring 2L NC (he does not wear O2 at home) with desaturation into the high 80s over the night on room air. CXR showed some mild pulmonary vascular congestion. Will give 2 mg IV Bumex and then restart po dosing tomorrow (4) Chronic kidney disease: pt has acute on chronic kidney disease stage 3 and history of glomerulonephritis and is currently being treated with streoids and cyclophosphamide. He most recently also has been begun on an NEHEMIAS inhibitor around 3 months prior. He typically sees Dr. Chapman. Will restart NEHEMIAS now that creat is back to baseline. Will restart cyclophosphamide for tomorrow since BC have no growth for 48 hours (5) Paroxysmal A-fib: pt is chronically anticoagulated with eliquis, on propronalol and digoxin for rate control. It is incidentally noted that he is in atrial bands seen on his chest x-ray patient is unaware that he had this in his body. The atrial band had been used to obliterate the atrial appendage and reduce the risk of embolic stroke per literature review. - dig level are increasing - 1.7 today, will change dig to every other day per cardiology recommendation (6) BPH (benign prostatic hyperplasia): will remain on proscar, holding flomax with lower blood pressure (7) Asthma: clinically stable at this time, remians no advair with prn albuterol (8) Anemia: Patient history of chronic anemia. Hgb is down 2.5g since admission. May be at least partially dilutional. Nephrology ordered epoeitin. FOBT pending but not high suspicion for bleeding as patient has not had a bm since before admission (9) Low back pain: Patient has chronic low back pain this is been radicular at times - straight leg test was able to induce symptoms - xray showed T12 chronic compression fracture and degenerative changes - tylenol q8h, lidoderm patch, calcitonin nasal spray. (10) DVT prophylaxis: SCDs, Eliquis as above Subjective Mr. Nunn back pain is better. No chest pain today. He feels somewhat run down with continued cough. Review of Systems All systems reviewed & are unremarkable except as noted in HPI & below Physical Exam 2 Vital Signs (Past 24 Hours): Last Vital Signs Temp 36.6 C 06/20/18 11:06 Pulse 71 06/20/18 11:06 Resp 20 06/20/18 11:06 BP 113/67 06/20/18 11:06 Pulse Ox 95 06/20/18 11:06 Physical Exam: General: no distress Eyes: normal inspection, PERLL Respiratory: chest non tender, clear to auscultation, normal breath sounds, no respiratory distress, no accessory muscle use Cardiac: regular rate and rhythm, no rub or gallop, no murmur, no edema, no jvd GI/: active bowel sounds, no abd pain or tenderness, soft, non distended Extremities: normal range of motion, normal strength, non tender Neuro/Psych: alert and oriented x 3, normal mood and affect Skin: normal color, dry Results & Data Laboratory Results Abnormal lab results 06/19/18 06/19/18 06/19/18 Range/Units 15:43 17:09 21:51 RBC (4.7-6.1) M/uL Hgb 8.4 L (14.0-18.0) g/dL Hct 25.7 L (42-52) % RDW Std Deviation (36.4-46.3) fL RDW Coeff of Reed (11.5-14.5) % Absolute Nucleated RBC (0-0) K/uL Sodium (136-145) mmol/L BUN (7-18) mg/dl Creatinine (0.6-1.4) mg/dl Glucose (70-99) mg/dl Ferritin (8-388) ng/ml Troponin I 1.250 H* 1.910 H* (0-0.045) ng/ml 06/20/18 06/20/18 06/20/18 Range/Units 06:15 06:15 08:56 RBC 2.51 L (4.7-6.1) M/uL Hgb 8.0 L (14.0-18.0) g/dL Hct 24.5 L (42-52) % RDW Std Deviation 55.9 H (36.4-46.3) fL RDW Coeff of Reed 16.2 H (11.5-14.5) % Absolute Nucleated RBC 0.02 H (0-0) K/uL Sodium 135 L (136-145) mmol/L BUN 29 H (7-18) mg/dl Creatinine 2.31 H D (0.6-1.4) mg/dl Glucose 123 H (70-99) mg/dl Ferritin 1008.8 H (8-388) ng/ml Troponin I 1.710 H* (0-0.045) ng/ml _ (1) BPH (benign prostatic hyperplasia) Lower urinary tract symptom presence: unspecified whether lower urinary tract symptoms present Lower urinary tract symptom detail: Qualified Code(s): N40.0 - Benign prostatic hyperplasia without lower urinary tract symptoms (2) Asthma Asthma severity: unspecified severity Asthma persistence: unspecified Asthma complication type: unspecified Qualified Code(s): J45.909 - Unspecified asthma, uncomplicated (3) Congestive heart failure Heart failure chronicity: acute on chronic Heart failure type: diastolic Qualified Code(s): I50.33 - Acute on chronic diastolic (congestive) heart failure
--- NOTE | 2018-06-20 13:09 | Nephrology Progress Note ---
Date of Service June 20, 2018 Assessment & Plan (1) Adrenal insufficiency: -- Hypotension was in part due to adrenal insufficiency related to steroid withdrawl -- Blood pressure has stabilized following volume resuscitation and steroid replacement therapy -- Continue Prednisone 10 mg po daily. (2) Nephrotic syndrome with membranous glomerulonephritis: -- On [facility] protocol for idiopathic membranous gn -- No infection identified. Agree w/ resuming Cyclophosphamide 150 mg daily -- Continue TMP/SMX single strength one tablet daily due to immunocompromised status -- Monitor PRP (3) Anemia: -- Hgb 8.0 today. Primary service has ordered FOBT -- Iron saturation 37% w/ ferritin ~ 1,000. Will hold IV iron -- Epogen 10,000 units SQ x 1 administered 06/19/18 (4) Chronic kidney disease, stage 4 (severe): -- Baseline creatinine has risen to 3.0 -- Protect AVF Subjective Mr. Barrios was seen & examined in the PCU this morning. He complains of mild dyspnea. He remains ~ 1 L volume positive since admission. Mr. Barrios denies fever, angina, uremic symptoms or overt blood loss. Constitutional: + weakness; no fever Respiratory: + cough; no dyspnea Gastrointestinal: + nausea; no abdominal pain Physical Exam 2 Vital Signs (Past 24 Hours): Last Vital Signs Temp 36.6 C 06/20/18 11:06 Pulse 71 06/20/18 11:06 Resp 20 06/20/18 11:06 BP 113/67 06/20/18 11:06 Pulse Ox 95 06/20/18 11:06 Constitutional: no acute distress Eyes: PERRL, conjunctivae normal, anicteric sclerae Neck: trachea midline, no thyromegaly Respiratory: normal respiratory effort Auscultation: + crackles (L lung llamas) Cardiovascular: RRR, no murmur, no edema Gastrointestinal (Abdomen): normal bowel sounds, soft, nontender, no hepatosplenomegaly Results & Data Laboratory Results Laboratory Tests 06/20/18 06/20/18 06:15 06:15 WBC 5.27 Hgb 8.0 L Hct 24.5 L Plt Count 200 Sodium 135 L Potassium 4.6 Chloride 105 Carbon Dioxide 24 BUN 29 H Creatinine 2.31 H D Glucose 123 H
[2018-06-20] MEDS ORDERED: BISACODYL 10 MG SUPP PR PRN (17:20)
[2018-06-20] MEDS: AMOXICILLIN/CLAVULANATE 500 MG TAB PO SCH (17:59)
[2018-06-20] MEDS: POLYETHYLENE (MIRALAX) 17 GM PACK PO SCH (17:59)
[2018-06-20] MEDS: SULFA/TRIMETH 400/80MG TAB PO SCH (18:02)
[2018-06-20] MEDS: FINASTERIDE 5 MG TAB PO SCH (20:43)
[2018-06-20] MEDS: PARoxetine HCl 20 MG TAB PO SCH (20:44)
[2018-06-20] MEDS: ATORVASTATIN 40 MG TAB PO SCH (20:45)
[2018-06-21] MEDS: OXYCODONE HCL IR 5 MG TAB (IMMEDIATE RELEASE) PO PRN (00:22)
[2018-06-21] MEDS: ACETAMINOPHEN 500 MG TAB PO SCH ×3 (05:51→20:22)
[2018-06-21 07:29] LABS: Hematocrit (blood only) 23.5 % (42-52); Hemoglobin 7.8 g/dL (14.0-18.0); Mean Corpuscular Hgb Conc 33.2 g/dL (32-36); Mean Corpuscular Volume 98.3 fL (80-100); Mean Platelet Volume 9.7 fL (7.4-10.4); Nucleated RBC # (auto) 0.05 K/uL (0-0); Nucleated RBC % (auto) 1.4 %; Platelet Count 164 K/uL (130-400); RDW Coefficient of Variation 16.2 % (11.5-14.5); RDW Standard Deviation 55.6 fL (36.4-46.3); Red Blood Count 2.39 M/uL (4.7-6.1); White Blood Count 3.23 K/uL (4.8-10.8)
--- NOTE | 2018-06-21 07:41 | Cardiology Progress Note ---
Date of Service June 20, 2018 (LATE ENTRY) Assessment & Plan (1) Acute electrocardiogram changes: Transisent ST changes without correlation of symptoms. He has TWI chronically. (2) Hypotension: Improved with steroids. I would continue his current medications,. NEHEMIAS-I is certainly beneficial to him in liht of his known ischemic cardiomyopathy (3) CAD (coronary artery disease): He is status post bypass x2 with ANGUIANO to the LAD and SVG to OM. Continue aggressive secondary prevention with apixiban and atorvastatin (4) Paroxysmal A-fib: He is currently in sinus rhythm. NO AF isis monitor. ON low dose propranolol, digoxin and apixiban. Digoxin dose reduced to QOD due to renal function and elevated levels. (5) NSTEMI (non-ST elevated myocardial infarction): The timing coincides with his hypotension at the time of presentation. He does have some curious episodes in the middle of the night but no exertional sx. I would not advocate a change in therapy. NO catheterization at this time, especially in the setting of his renal failure. Subjective This evening the patients main concern is constipation. He reports not having a bowel movement for 3-4 days. He does not report abdominal pain. He has been eating well.he reported ambulating around the [place] several times today. He did not report limiting dyspnea or exertional chest pain. He did have two episodes of tachycardia and diaphoresis in the middle of the night. These also involved a sense of discomfort in his throat after a coughing spell. No orthopnea. Physical Exam 2 Vital Signs (Past 24 Hours): Last Vital Signs Temp 36.6 C 06/21/18 07:02 Pulse 75 06/21/18 07:02 Resp 19 06/21/18 07:02 BP 108/62 06/21/18 07:02 Pulse Ox 91 06/21/18 07:02 Physical Exam: Alert. Oriented. Answered questions appropriately. Sclerae anicteric. Lungs clear with good air movement Cardiac: Regular rhythm. Extremities: no edema. No rashes Results & Data Laboratory Results Abnormal Lab Results 06/20/18 06/20/18 06/21/18 08:56 18:15 07:03 WBC 3.23 L RBC 2.39 L Hgb 7.8 L Hct 23.5 L MCV 98.3 MCH 32.6 MCHC 33.2 RDW Std Deviation 55.6 H RDW Coeff of Reed 16.2 H Plt Count 164 MPV 9.7 Absolute Nucleated RBC 0.05 H Nucleated RBC % (auto) 1.4 Troponin I 1.710 H* Stool Occult Bld Scrn Negative _ (1) Hypotension Hypotension type: unspecified hypotension type Trimester: Qualified Code(s) : I95.9 - Hypotension, unspecified (2) CAD (coronary artery disease) Coronary Disease-Associated Artery/Lesion type: [place] artery [place] vs. transplanted heart: [place] heart Associated angina: without angina Qualified Code(s): I25.10 - Atherosclerotic heart disease of [place] coronary artery without angina pectoris
[2018-06-21 08:04] LABS: Est GFR (African American) 34.2; Potassium 4.1 mmol/L (3.5-5.1)
[2018-06-21 08:05] LABS: BUN Creatinine Ratio 13.6 (10-20); Calcium 8.9 mg/dl (8.5-10.1); Creatinine Clr Calc Pharmacy 28.6 ml/min; Est GFR (Non-African American) 29.6
[2018-06-21] MEDS: FLUTICASONE/SALMETEROL (ADVAIR) 500/50 INH 14 PUFF INH SCH ×2 (08:34→20:21)
[2018-06-21] MEDS: LISINOPRIL 2.5 MG TAB PO SCH (08:36)
[2018-06-21] MEDS: PROPRANOLOL HCL 10 MG TAB PO SCH (08:36)
[2018-06-21] MEDS: CALCITONIN SALMON NA 200 IU/AC 3.7 ML BTL SCH (08:37)
[2018-06-21] MEDS: BUMETANIDE 1 MG TAB PO SCH ×2 (08:38→15:39)
[2018-06-21] MEDS: ASPIRIN 81 MG ECTAB PO SCH (08:38)
[2018-06-21] MEDS: AMOXICILLIN/CLAVULANATE 500 MG TAB PO SCH ×2 (08:38→15:38)
[2018-06-21] MEDS: APIXABAN 5 MG TABLET PO SCH ×2 (08:39→20:21)
[2018-06-21] MEDS: LIDOCAINE 5% 1 PATCH TD SCH (08:39)
[2018-06-21] MEDS: SENNA 8.6 MG TAB PO SCH (08:41)
[2018-06-21] MEDS: POLYETHYLENE (MIRALAX) 17 GM PACK PO SCH (08:41)
[2018-06-21] MEDS ORDERED: EPOETIN ALFA 40,000 UNITS/ML VIAL SQ ONE (11:00)
[2018-06-21] MEDS: predniSONE 10 MG TABLET PO SCH (11:03)
--- NOTE | 2018-06-21 12:02 | Nephrology Progress Note ---
Date of Service June 21, 2018 Assessment & Plan (1) Adrenal insufficiency: -- Hypotension was in part due to adrenal insufficiency related to steroid withdrawl -- Blood pressure has stabilized following volume resuscitation and steroid replacement therapy -- blood pressure improve significantly, has been off of lisinopril. Start tapering prednisone off decreased to 5 mg today continue 5 mg 2 days and then 5 mg every other day and then discontinue --with recurrent episode of acute kidney injury and hypotension, will keep him off of lisinopril --continue on Bumex 2 mg twice a day (2) Nephrotic syndrome with membranous glomerulonephritis: -- continue Cyclophosphamide 150 mg daily -- Continue TMP/SMX single strength one tablet daily due to immunocompromised status -- Monitor PRP (3) Anemia: -- Hgb 8.0 today. Primary service has ordered FOBT -- Iron saturation 37% w/ ferritin ~ 1,000. Will hold IV iron -- Epogen 10,000 units SQ x 1 administered 06/19/18 (4) Chronic kidney disease, stage 4 (severe): -- Baseline creatinine has risen to 3.0 -- Protect AVF Subjective Mr. Barrios was seen & examined in the PCU this morning. He is overall feeling better. He remains ~ 1 L volume positive since admission. Blood pressure improved and no further need the hypotensive episode noted. Mr. Barrios denies fever, angina, uremic symptoms or overt blood loss. Physical Exam 2 Vital Signs (Past 24 Hours): Last Vital Signs Temp 36.4 C L 06/21/18 10:56 Pulse 98 H 06/21/18 10:56 Resp 20 06/21/18 10:56 BP 151/81 H 06/21/18 10:56 Pulse Ox 94 06/21/18 10:56 Physical Exam: GENERAL: , AAA x 3, pleasant, not in any distress. Face puffy NECK: Supple, no JVD. RESPIRATORY: , clear to auscultation bilaterally, no wheezes or rales. CARDIOVASCULAR: S1, S2 normal, rate rhythm regular. EXTREMITY: No lower extremity edema NEURO: speech fluent. PSYCHIATRY: Normal mood and judgment
--- NOTE | 2018-06-21 12:22 | Hospitalist Progress Note ---
Date of Service June 21, 2018 Assessment & Plan (1) Acute electrocardiogram changes: NSTEMI - 06/19 - Patient reported that his heart was "beating hard". No other associated symptoms. EKG showed new lateral ST depressions. Troponin peaked at 1.91. Repeat EKG a few hours later showed resolution of ischemia - Consulted cardiology - Catalino DUFFY. Appears to be ischemia due to hypotensive episode (2) Hypotension: Likely due at least in part to adrenal insufficiency due to recent cessation of prolonged prednisone use. Prednisone restarted by nephrology. - will need to taper prednisone: 5 mg today continue 5 mg 2 days and then 5 mg every other day and then discontinue - He was volume resuscitated with 2 L of crystalloid in the ER with improvement of his blood pressure. - Lactic acid was 2.98, likely due to hypoperfusion, BC ng (3) Congestive heart failure: Acute on chronic systolic heart failure - echo showed EF 45% with WMA Bumetadine has been held for kidney function - discussed with nephrology - restarted Bumex (4) Chronic kidney disease: pt has acute on chronic kidney disease stage 3 and history of glomerulonephritis and is currently being treated with steroids and cyclophosphamide. He most recently also has been begun on an NEHEMIAS inhibitor around 3 months prior. He typically sees Dr. Chapman. DC NEHEMIAS per nephrology. Will hold cyclophosphamide given pna vs bronchitis. Restart when abx finished (5) Paroxysmal A-fib: pt is chronically anticoagulated with eliquis, on propronalol and digoxin for rate control. It is incidentally noted that he has atrial bands seen on his chest x-ray patient is unaware that he had this in his body. The atrial band had been used to obliterate the atrial appendage and reduce the risk of embolic stroke per literature review. - dig level should be around 1.0 per cardiology - dosing changed to QOD (6) Anemia: Patient history of chronic anemia. FOBT negative. Epoetin x1 dose this admission. Hgb low but no s/s of bleeding. (7) Low back pain: Patient has chronic low back pain this is been radicular at times - straight leg test was able to induce symptoms - xray showed T12 chronic compression fracture and degenerative changes - tylenol q8h, lidoderm patch, calcitonin nasal spray. (8) Pneumonia: CXR showed chronic blunting of the left costophrenic angle with left basilar opacities suggesting atelectasis or pneumonitis. Patient with cough productive of thick yellow mucous - Augmentin started 06/20. Restart cyclophosphamide when abx finished (9) BPH (benign prostatic hyperplasia): will remain on proscar, restart flomax (10) Asthma: clinically stable at this time, remians no advair with prn albuterol (11) DVT prophylaxis: SCDs, Eliquis as above Subjective Mr. Sotelos cough worsened last evening with increased productive cough which continues today. He otherwise has no complaints. Review of Systems All systems reviewed & are unremarkable except as noted in HPI & below Physical Exam 2 Vital Signs (Past 24 Hours): Last Vital Signs Temp 36.4 C L 06/21/18 10:56 Pulse 98 H 06/21/18 10:56 Resp 20 06/21/18 10:56 BP 151/81 H 06/21/18 10:56 Pulse Ox 94 06/21/18 10:56 Physical Exam: General: no distress Eyes: normal inspection, PERLL Respiratory: chest non tender, expiratory wheezes bilateral bases, no respiratory distress, no accessory muscle use Cardiac: regular rate and rhythm, no rub or gallop, no murmur, no edema, no jvd GI/: active bowel sounds, no abd pain or tenderness, soft, non distended Extremities: normal range of motion, normal strength, non tender Neuro/Psych: alert and oriented x 3, normal mood and affect Skin: normal color, dry Results & Data Laboratory Results Abnormal lab results 06/21/18 06/21/18 Range/Units 07:03 07:03 WBC 3.23 L (4.8-10.8) K/uL RBC 2.39 L (4.7-6.1) M/uL Hgb 7.8 L (14.0-18.0) g/dL Hct 23.5 L (42-52) % RDW Std Deviation 55.6 H (36.4-46.3) fL RDW Coeff of Reed 16.2 H (11.5-14.5) % Absolute Nucleated RBC 0.05 H (0-0) K/uL BUN 29 H (7-18) mg/dl Creatinine 2.12 H (0.6-1.4) mg/dl _ (1) BPH (benign prostatic hyperplasia) Lower urinary tract symptom detail: Lower urinary tract symptom presence: unspecified whether lower urinary tract symptoms present Qualified Code(s): N40.0 - Benign prostatic hyperplasia without lower urinary tract symptoms (2) Congestive heart failure Heart failure chronicity: acute on chronic Heart failure type: diastolic Qualified Code(s): I50.33 - Acute on chronic diastolic (congestive) heart failure (3) Asthma Asthma complication type: unspecified Asthma persistence: unspecified Asthma severity: unspecified severity Qualified Code(s): J45.909 - Unspecified asthma, uncomplicated
[2018-06-21] MEDS ORDERED: DIGOXIN 0.125 MG TAB PO SCH (16:00)
[2018-06-21] MEDS: ATORVASTATIN 40 MG TAB PO SCH (20:21)
[2018-06-21] MEDS: PARoxetine HCl 20 MG TAB PO SCH (20:21)
[2018-06-21] MEDS: FINASTERIDE 5 MG TAB PO SCH (20:21)
[2018-06-21] MEDS ORDERED: TAMSULOSIN HCL 0.4 MG CAP PO SCH (21:00)
[2018-06-22] MEDS: ACETAMINOPHEN 500 MG TAB PO SCH ×3 (05:37→21:15)
[2018-06-22 06:53] LABS: Hematocrit (blood only) 24.4 % (42-52); Hemoglobin 8.1 g/dL (14.0-18.0); Mean Corpuscular Hgb Conc 33.2 g/dL (32-36); Mean Corpuscular Volume 97.6 fL (80-100); Mean Platelet Volume 9.8 fL (7.4-10.4); Nucleated RBC # (auto) 0.17 K/uL (0-0); Nucleated RBC % (auto) 5.2 %; Platelet Count 185 K/uL (130-400); RDW Coefficient of Variation 16.6 % (11.5-14.5); RDW Standard Deviation 56.7 fL (36.4-46.3); White Blood Count 3.16 K/uL (4.8-10.8)
[2018-06-22 07:27] LABS: BUN Creatinine Ratio 15.9 (10-20); Calcium 8.9 mg/dl (8.5-10.1); Est GFR (African American) 35.9; Potassium 3.7 mmol/L (3.5-5.1)
[2018-06-22] MEDS: LIDOCAINE 5% 1 PATCH TD SCH (07:59)
[2018-06-22] MEDS: SENNA 8.6 MG TAB PO SCH (07:59)
[2018-06-22] MEDS: PROPRANOLOL HCL 10 MG TAB PO SCH (08:00)
[2018-06-22] MEDS: APIXABAN 5 MG TABLET PO SCH ×2 (08:00→21:16)
[2018-06-22] MEDS: AMOXICILLIN/CLAVULANATE 500 MG TAB PO SCH ×2 (08:01→16:07)
[2018-06-22] MEDS: ASPIRIN 81 MG ECTAB PO SCH (08:01)
[2018-06-22] MEDS: predniSONE 5 MG TAB PO SCH (08:01)
[2018-06-22] MEDS: BUMETANIDE 1 MG TAB PO SCH ×2 (08:01→16:07)
[2018-06-22] MEDS: LISINOPRIL 2.5 MG TAB PO SCH (08:02)
[2018-06-22] MEDS: FLUTICASONE/SALMETEROL (ADVAIR) 500/50 INH 14 PUFF INH SCH ×2 (08:02→21:16)
[2018-06-22] MEDS: CALCITONIN SALMON NA 200 IU/AC 3.7 ML BTL SCH (08:02)
[2018-06-22] MEDS: POLYETHYLENE (MIRALAX) 17 GM PACK PO SCH (08:02)
--- NOTE | 2018-06-22 11:56 | Nephrology Progress Note ---
Date of Service June 22, 2018 Assessment & Plan (1) Adrenal insufficiency: -- start on midodrine 5 mg p.o. daily. continue to keep off of lisinopril --continue on Bumex 2 mg twice a day -- renal function remained stable, continue on cyclophosphamide. (2) Nephrotic syndrome with membranous glomerulonephritis: -- continue Cyclophosphamide 150 mg daily -- Continue TMP/SMX single strength one tablet daily due to immunocompromised status -- Monitor PRP (3) Anemia: -- Hgb 8.0 today. Primary service has ordered FOBT -- Iron saturation 37% w/ ferritin ~ 1,000. Will hold IV iron -- Epogen 10,000 units SQ x 1 administered 06/19/18 (4) Chronic kidney disease, stage 4 (severe): -- Baseline creatinine has risen to 3.0 -- Protect AVF Subjective Mr. Barrios was seen & examined in the PCU this morning. He is overall feeling better. blood pressure improved but he remain orthostatic with significant drop in blood pressure with sitting up and standing. renal function remained stable, creatinine 2.0. Urine output improved on Bumex 2 mg twice a day Mr. Barrios denies fever, angina, uremic symptoms or overt blood loss. Constitutional: + weakness; no fever Respiratory: + cough; no dyspnea Gastrointestinal: + nausea; no abdominal pain Physical Exam 2 Vital Signs (Past 24 Hours): Last Vital Signs Temp 36.7 C 06/22/18 10:53 Pulse 78 06/22/18 10:53 Resp 19 06/22/18 10:53 BP 119/63 06/22/18 10:53 Pulse Ox 96 06/22/18 10:53
--- NOTE | 2018-06-22 12:33 | Hospitalist Progress Note ---
Date of Service June 22, 2018 Assessment & Plan (1) Acute electrocardiogram changes: NSTEMI - 06/19 - Patient reported that his heart was "beating hard". No other associated symptoms. EKG showed new lateral ST depressions. Troponin peaked at 1.91. Repeat EKG a few hours later showed resolution of ischemia - Consulted cardiology - Catalino DUFFY. Appears to be ischemia due to hypotensive episode (2) Hypotension: Likely due at least in part to adrenal insufficiency due to recent cessation of prolonged prednisone use. Prednisone restarted by nephrology. - will need to taper prednisone at discharge - He was volume resuscitated with 2 L of crystalloid in the ER with improvement of his blood pressure. - Lactic acid was 2.98, likely due to hypoperfusion, BC ng - Per nephrology recommendation - continue with home Bumex dosing of 2 mg bid and add 5 mg daily midodrine - patien with significant orthosasis - drop of 40 points systolically into the 70s (3) Congestive heart failure: Acute on chronic systolic heart failure - echo showed EF 45% with WMA Continue Bumex 2 mg bid (4) Chronic kidney disease: pt has acute on chronic kidney disease stage 3 and history of glomerulonephritis and is currently being treated with steroids and cyclophosphamide. He most recently also has been begun on an NEHEMIAS inhibitor around 3 months prior. He typically sees Dr. Chapman. - DC NEHEMIAS per nephrology. - discussed cyclophosphamide with Dr. Barahona - her recommendation is to restart it as his pulm infection is not severe. (5) Paroxysmal A-fib: pt is chronically anticoagulated with eliquis, on propronalol and digoxin for rate control. It is incidentally noted that he has atrial bands seen on his chest x-ray patient is unaware that he had this in his body. The atrial band had been used to obliterate the atrial appendage and reduce the risk of embolic stroke per literature review. - dig level should be around 1.0 per cardiology - dosing changed to QOD, repeat level pending (6) Anemia: Patient history of chronic anemia. FOBT negative. Epoetin x1 dose this admission. Hgb low but no s/s of bleeding. (7) Low back pain: Patient has chronic low back pain this is been radicular at times - straight leg test was able to induce symptoms - xray showed T12 chronic compression fracture and degenerative changes - tylenol q8h, lidoderm patch, calcitonin nasal spray. (8) Pneumonia: CXR showed chronic blunting of the left costophrenic angle with left basilar opacities suggesting atelectasis or pneumonitis. Patient with cough productive of thick yellow mucous - Augmentin started 06/20. Restarted cyclophosphamide per nephrolology recommendation 06/22 (9) BPH (benign prostatic hyperplasia): will remain on proscar, discontinue flomax as pressures worsened when I attempted to restart (10) Asthma: clinically stable at this time, remians no advair with prn albuterol (11) DVT prophylaxis: SCDs, Eliquis as above Subjective Mr. Barrios's cough has improved. He still has significant orthostasis though he is not particularly symptomatic Review of Systems All systems reviewed & are unremarkable except as noted in HPI & below Physical Exam 2 Vital Signs (Past 24 Hours): Last Vital Signs Temp 36.7 C 06/22/18 10:53 Pulse 78 06/22/18 10:53 Resp 19 06/22/18 10:53 BP 119/63 06/22/18 10:53 Pulse Ox 96 06/22/18 10:53 Physical Exam: General: no distress Eyes: normal inspection, PERLL Respiratory: chest non tender, clear to auscultation, normal breath sounds, no respiratory distress, no accessory muscle use Cardiac: regular rate and rhythm, no rub or gallop, no murmur, no edema, no jvd GI/: active bowel sounds, no abd pain or tenderness, soft, non distended Extremities: normal range of motion, normal strength, non tender Neuro/Psych: alert and oriented x 3, normal mood and affect Skin: normal color, dry _ (1) Congestive heart failure Heart failure chronicity: acute on chronic Heart failure type: diastolic Qualified Code(s): I50.33 - Acute on chronic diastolic (congestive) heart failure (2) BPH (benign prostatic hyperplasia) Lower urinary tract symptom presence: unspecified whether lower urinary tract symptoms present Lower urinary tract symptom detail: Qualified Code(s): N40.0 - Benign prostatic hyperplasia without lower urinary tract symptoms (3) Asthma Asthma severity: unspecified severity Asthma persistence: unspecified Asthma complication type: unspecified Qualified Code(s): J45.909 - Unspecified asthma, uncomplicated
[2018-06-22] MEDS: MIDODRINE HCL 2.5 MG TAB PO SCH (12:39)
[2018-06-22] MEDS: SULFA/TRIMETH 400/80MG TAB PO SCH (17:27)
[2018-06-22] MEDS: ATORVASTATIN 40 MG TAB PO SCH (21:15)
[2018-06-22] MEDS: FINASTERIDE 5 MG TAB PO SCH (21:15)
[2018-06-22] MEDS: PARoxetine HCl 20 MG TAB PO SCH (21:16)
[2018-06-23] MEDS: SENNA 8.6 MG TAB PO SCH (08:27)
[2018-06-23] MEDS: APIXABAN 5 MG TABLET PO SCH ×2 (08:27→20:25)
[2018-06-23] MEDS: LIDOCAINE 5% 1 PATCH TD SCH (08:28)
[2018-06-23] MEDS: predniSONE 5 MG TAB PO SCH (08:28)
[2018-06-23] MEDS: ACETAMINOPHEN 500 MG TAB PO SCH ×3 (08:28→21:28)
[2018-06-23] MEDS: MIDODRINE HCL 2.5 MG TAB PO SCH (08:29)
[2018-06-23] MEDS: ASPIRIN 81 MG ECTAB PO SCH (08:29)
[2018-06-23] MEDS: PROPRANOLOL HCL 10 MG TAB PO SCH (08:29)
[2018-06-23] MEDS: AMOXICILLIN/CLAVULANATE 500 MG TAB PO SCH ×2 (08:29→16:25)
[2018-06-23] MEDS: CALCITONIN SALMON NA 200 IU/AC 3.7 ML BTL SCH (08:30)
[2018-06-23] MEDS: CYCLOPHOSPHAMIDE 25 MG TAB PO SCH (08:30)
[2018-06-23] MEDS: FLUTICASONE/SALMETEROL (ADVAIR) 500/50 INH 14 PUFF INH SCH ×2 (08:31→20:24)
[2018-06-23] MEDS: POLYETHYLENE (MIRALAX) 17 GM PACK PO SCH (08:31)
[2018-06-23] MEDS: BUMETANIDE 1 MG TAB PO SCH ×2 (08:32→16:25)
[2018-06-23 08:38] LABS: Hematocrit (blood only) 29.1 % (42-52); Hemoglobin 9.6 g/dL (14.0-18.0)
[2018-06-23 08:45] LABS: INR 1.2 (0.9-1.1); Prothrombin Time 11.7 Seconds (9.0-12.0)
[2018-06-23 09:11] LABS: BUN Creatinine Ratio 14.8 (10-20); Calcium 9.4 mg/dl (8.5-10.1); Creatinine Clr Calc Pharmacy 25.3 ml/min; Est GFR (African American) 30.4; Est GFR (Non-African American) 26.2; Potassium 3.4 mmol/L (3.5-5.1)
--- NOTE | 2018-06-23 10:07 | Nephrology Progress Note ---
Date of Service June 23, 2018 Assessment & Plan (1) Adrenal insufficiency: -- continue on midodrine 5 mg p.o. daily. --would continue on Bumex 2 mg twice a day although clinically volume status improved and renal functions lightly worsening. Previously he repeatedly had issues with volume overload, SOB requaring ER visit when ever diuretics dose was decreased. --continue on cyclophosphamide. --Renal panel in am will follow (2) Nephrotic syndrome with membranous glomerulonephritis: -- continue Cyclophosphamide 150 mg daily -- Continue TMP/SMX single strength one tablet daily due to immunocompromised status -- Monitor PRP (3) Anemia: -- Hgb 8.0 today. Primary service has ordered FOBT -- Iron saturation 37% w/ ferritin ~ 1,000. Will hold IV iron -- Epogen 10,000 units SQ x 1 administered 06/19/18 (4) Chronic kidney disease, stage 4 (severe): -- Baseline creatinine has risen to 3.0 -- Protect AVF Kimberly Ortega was seen & examined in the PCU this morning. He is overall feeling better. blood pressure improved. Slight worsening of renal function noted creatinine 2.3. Urine output improved on Bumex 2 mg twice a day although I/O in EMR showing low UO. Denies fever, angina. Constitutional: + weakness; no fever Respiratory: + cough; no dyspnea Gastrointestinal: + nausea; no abdominal pain Physical Exam 2 Vital Signs (Past 24 Hours): Last Vital Signs Temp 36.6 C 06/23/18 06:59 Pulse 71 06/23/18 06:59 Resp 19 06/23/18 06:59 BP 121/64 06/23/18 06:59 Pulse Ox 96 06/23/18 06:59 Constitutional: WD/WN, vitals as above + ill appearing Respiratory: Auscultation: + diminished lung sounds Cardiovascular: RRR, no murmur, no edema (face puffy) Neurologic: moves all extremities and awake Psychiatric: A+Ox3, euthymic affect
[2018-06-23] MEDS ORDERED: POTASSIUM CHLORIDE 10 MEQ TABCR PO ONE (10:32)
--- NOTE | 2018-06-23 13:50 | Hospitalist Progress Note ---
Date of Service June 23, 2018 Assessment & Plan (1) Acute electrocardiogram changes: - Presented with complaints of heart "beating hard"; h/o multivessel disease s/p CABG x2. - EKG on admission showed new lateral lead changes. - Troponin peaked at 1.9 on 06/19/18 then trended down. - Consulted cardiology, no indication for cath in setting of renal failure. - Continue Aspirin, Eliquis, beta damon and statin as prescribed. (2) Coronary artery disease: - Multivessel disease s/p CABG x 2. - Continue cardiac meds as noted above. (3) Hypotension: - Likely related to adrenal insufficiency due to recent discontinuation of steroids vs. orthostatic hypotension. - Lactic acid 2.98 - was likely hypoperfusion. Blood cultures were negative. - Continue Prednisone 5 mg PO daily for adrenal insufficiency. - +Orthostatics during this admission, added Midodrine 5 mg daily with improvement; continue home Bumex per nephrology. - Holding IV fluids in setting of heart failure. (4) Adrenal insufficiency: - Continue Prednisone 5 mg PO daily; will need 1-2 week taper at discharge. (5) Acute on chronic systolic heart failure: - TTE 06/19/18 showed EF 40-45%, severe hypokinesis to akinesis of basal septum and basal to mid inferior wall, severe hypokinesis involving inferolateral wall. - Monitor net I/Os and daily weights; weight decreased ~5-6 kg since admission. - Continue home Bumex 2 mg PO BID with close monitoring of renal function and BP. - Holding ACEI in setting of renal failure. (6) Nephrotic syndrome with membranous glomerulonephritis: - Continue Cyclophosphamide 150 mg PO daily per nephro recs. - Continue Bactrim single strength for ID prophylaxis. (7) Acute kidney injury: - Creatinine trending back up, was 2.3 this morning. - Monitor closely. (8) Chronic kidney disease, stage 4 (severe): - H/o stage IV CKD and nephrotic syndrome. - Nephro consulted, appreciate input. - Holding ACEI. (9) Paroxysmal A-fib: - Currently in NSR on child monitor. - Continue Eliquis, Propanolol and Digoxin as prescribed. - Dig level was 1.7 on 06/20, dose was decreased to QOD with goal level ~1. Most recent level was 0.6. - It is incidentally noted that he has atrial bands seen on his chest x-ray patient is unaware that he had this in his body. The atrial band had been used to obliterate the atrial appendage and reduce the risk of embolic stroke per literature review. (10) Anemia: - Has anemia of chronic disease, in setting of CKD Stage IV. - Hemoglobin has been decreased during this admission; received Epoetin during this admission. - FOBT was negative. No evidence of bleeding. (11) Low back pain: - Has chronic low back pain; XR showed T12 chronic compression fracture and degenerative changes. - Tylenol 1 gm PO q8hr scheduled with Lidoderm patch and Calcitonin nasal spray daily. (12) Pneumonia: - CXR showed blunting of left costophrenic angle with left basilar opacities. - Continue Augmentin for empiric coverage (End date: 06/26/2018) (13) BPH (benign prostatic hyperplasia): - Continue home Proscar. - Holding Flomax due to orthostatic hypotension. (14) Asthma: - Albuterol prn. - Advair BID scheduled. (15) Depression: - Continue Paxil 20 mg qPM as prescribed. (16) DVT prophylaxis: - SCDs & Eliquis. Dispo: Continued monitoring of renal function, nephro following. Supervising Physician Co-Signing Physician Notes PA Supervision Note: I did not personally see or examine the patient today, but I verified all sloan points of FISH Doss's assessment and plan with the following exceptions/ additions: None Subjective Patient is stable overall today. Dizziness now improved, was walking in hallways today. He has a productive cough, denies chest pain or shortness of breath. Nephrology following, appreciate input. Review of Systems All systems reviewed & are unremarkable except as noted in HPI & below Constitutional: + weakness; no fever and no chills Respiratory: + cough; no change in sputum, no dyspnea and no dyspnea on exertion Cardiovascular: + lightheadedness; no chest pain, no palpitations and no edema Gastrointestinal: no abdominal pain, no nausea and no constipation Genitourinary (Male): no difficulty urinating Allergy / Immunological: no rash Physical Exam 2 Vital Signs (Past 24 Hours): Last Vital Signs Temp 36.3 C L 06/23/18 11:39 Pulse 86 06/23/18 11:39 Resp 19 06/23/18 11:39 BP 131/75 06/23/18 11:39 Pulse Ox 96 06/23/18 11:39 Physical Exam: General: Resting comfortably in no apparent distress HEENT: NC/AT; PERRLA with EOMI; [place] conjunctiva, MMM. Neck: Supple and nontender Cardiac: RRR w/o murmurs, gallops or rubs Lungs: on room air; scattered rhonchi noted throughout all lung llamas. Abdomen: Bowel normoactive X 4; Nontender to palpation Extremities: Warm. No edema present Neuro: No focal weakness Skin: No rash Results & Data Laboratory Results 06/23/18 06/23/18 06/23/18 Range/Units 08:23 08:23 08:23 Hgb 9.6 L (14.0-18.0) g/dL Hct 29.1 L (42-52) % PT 11.7 (9.0-12.0) Seconds INR 1.2 H (0.9-1.1) Sodium 138 (136-145) mmol/L Potassium 3.4 L (3.5-5.1) mmol/L Chloride 98 (98-107) mmol/L Carbon Dioxide 28 (21-32) mmol/L Anion Gap 12.0 H (3-11) BUN 35 H (7-18) mg/dl Creatinine 2.34 H D (0.6-1.4) mg/dl Est Cr Clr Drug Dosing 25.3 ml/min Est GFR ( Amer) 30.4 Est GFR (Non-Af Amer) 26.2 BUN/Creatinine Ratio 14.8 (10-20) Glucose 156 H (70-99) mg/dl Calcium 9.4 (8.5-10.1) mg/dl Digoxin (0.8-2.0) ng/ml 06/22/18 Range/Units 12:40 Hgb (14.0-18.0) g/dL Hct (42-52) % PT (9.0-12.0) Seconds INR (0.9-1.1) Sodium (136-145) mmol/L Potassium (3.5-5.1) mmol/L Chloride (98-107) mmol/L Carbon Dioxide (21-32) mmol/L Anion Gap (3-11) BUN (7-18) mg/dl Creatinine (0.6-1.4) mg/dl Est Cr Clr Drug Dosing ml/min Est GFR ( Amer) Est GFR (Non-Af Amer) BUN/Creatinine Ratio (10-20) Glucose (70-99) mg/dl Calcium (8.5-10.1) mg/dl Digoxin 0.6 L (0.8-2.0) ng/ml _ (1) BPH (benign prostatic hyperplasia) Lower urinary tract symptom detail: Lower urinary tract symptom presence: unspecified whether lower urinary tract symptoms present Qualified Code(s): N40.0 - Benign prostatic hyperplasia without lower urinary tract symptoms (2) Asthma Asthma complication type: unspecified Asthma persistence: unspecified Asthma severity: unspecified severity Qualified Code(s): J45.909 - Unspecified asthma, uncomplicated
[2018-06-23] MEDS: ATORVASTATIN 40 MG TAB PO SCH (20:25)
[2018-06-23] MEDS: PARoxetine HCl 20 MG TAB PO SCH (20:25)
[2018-06-23] MEDS: FINASTERIDE 5 MG TAB PO SCH (20:25)
[2018-06-24] MEDS: ACETAMINOPHEN 500 MG TAB PO SCH ×2 (05:21→14:29)
[2018-06-24 08:07] LABS: Hematocrit (blood only) 28.3 % (42-52); Hemoglobin 9.4 g/dL (14.0-18.0); Mean Corpuscular Hgb Conc 33.2 g/dL (32-36); Mean Corpuscular Volume 97.9 fL (80-100); Mean Platelet Volume 9.8 fL (7.4-10.4); Nucleated RBC # (auto) 0.17 K/uL (0-0); Nucleated RBC % (auto) 5.1 %; Platelet Count 230 K/uL (130-400); RDW Coefficient of Variation 17.6 % (11.5-14.5); RDW Standard Deviation 56.9 fL (36.4-46.3); Red Blood Count 2.89 M/uL (4.7-6.1); White Blood Count 3.24 K/uL (4.8-10.8)
[2018-06-24] MEDS: FLUTICASONE/SALMETEROL (ADVAIR) 500/50 INH 14 PUFF INH SCH ×2 (08:22→08:32)
[2018-06-24] MEDS: MIDODRINE HCL 2.5 MG TAB PO SCH (08:22)
[2018-06-24] MEDS: SENNA 8.6 MG TAB PO SCH (08:22)
[2018-06-24] MEDS: POLYETHYLENE (MIRALAX) 17 GM PACK PO SCH (08:22)
[2018-06-24] MEDS: PROPRANOLOL HCL 10 MG TAB PO SCH (08:23)
[2018-06-24] MEDS: CYCLOPHOSPHAMIDE 25 MG TAB PO SCH (08:23)
[2018-06-24] MEDS: APIXABAN 5 MG TABLET PO SCH (08:23)
[2018-06-24] MEDS: AMOXICILLIN/CLAVULANATE 500 MG TAB PO SCH ×2 (08:24→16:15)
[2018-06-24] MEDS: predniSONE 5 MG TAB PO SCH (08:24)
[2018-06-24] MEDS: ASPIRIN 81 MG ECTAB PO SCH (08:24)
[2018-06-24] MEDS: BUMETANIDE 1 MG TAB PO SCH ×2 (08:24→16:15)
[2018-06-24] MEDS: CALCITONIN SALMON NA 200 IU/AC 3.7 ML BTL SCH (08:25)
[2018-06-24] MEDS: LIDOCAINE 5% 1 PATCH TD SCH (08:25)
[2018-06-24 08:32] LABS: BUN Creatinine Ratio 15.8 (10-20); Calcium 9.2 mg/dl (8.5-10.1); Creatinine Clr Calc Pharmacy 156.3 ml/min; Est GFR (African American) 35.3; Est GFR (Non-African American) 30.4
[2018-06-24] MEDS ORDERED: POTASSIUM CHLORIDE 20 MEQ TABCR PO STA (08:36)
[2018-06-24] MEDS ORDERED: POTASSIUM CHLORIDE 10 MEQ TABCR PO STA (08:57)
--- NOTE | 2018-06-24 11:41 | Nephrology Progress Note ---
Date of Service June 24, 2018 Assessment & Plan (1) Adrenal insufficiency: -- increase midodrine to 5 mg p.o. twice daily --would continue on Bumex 2 mg twice a day although clinically volume status improved and renal functions lightly worsening. Previously he repeatedly had issues with volume overload, SOB requaring ER visit when ever diuretics dose was decreased. --continue on cyclophosphamide. --Renal panel in am --has f/u scheduled on 07/17/18 --continue on potassium chloride 20 mEq p.o. daily on discharge, should she have lab done in 2-3 days after discharge --okay to be discharged will follow (2) Nephrotic syndrome with membranous glomerulonephritis: (3) Anemia: -- Hgb 8.0 today. Primary service has ordered FOBT -- Iron saturation 37% w/ ferritin ~ 1,000. Will hold IV iron -- Epogen 10,000 units SQ x 1 administered 06/19/18 (4) Chronic kidney disease, stage 4 (severe): -- Baseline creatinine has risen to 3.0 -- Protect AVF Kimberly Ortega was seen & examined in the PCU this morning. He is overall feeling better. Remain orthostatic with significant drop in systolic blood pressure with standing. Renal function remained stable, has hypokalemia with high dose Bumex on board. Constitutional: + weakness; no fever Physical Exam 2 Vital Signs (Past 24 Hours): Last Vital Signs Temp 36.7 C 06/24/18 07:10 Pulse 71 06/24/18 09:21 Resp 16 06/24/18 07:10 BP 109/58 L 06/24/18 07:10 Pulse Ox 96 06/24/18 07:10 Constitutional: WD/WN, vitals as above + ill appearing Respiratory: Auscultation: + diminished lung sounds Cardiovascular: RRR, no murmur, no edema (face puffy) Neurologic: moves all extremities and awake Psychiatric: A+Ox3, euthymic affect
--- NOTE | 2018-06-24 13:34 | Discharge Summary ---
Date of Service June 24, 2018 Admission HPI Per Admitting Provider Patient currently undergoing treatment for glomerulonephritis with cyclic cyclosporine and prednisone therapy. Patient was sent from the office with shortness of breath and profound hypotension. The patient and his state this occurred in the last episode of cyclosporine administration. He received his dose around the first of the year. Other than having some rhinorrhea he has not had any other focal symptoms or signs of illness. He has a history of melena and GI bleeding although he has not had any melena recently and he is currently continuing on Eliquis. Patient also states that he is most recently begun lisinopril as an outpatient approximately 3 weeks ago. Patient received some volume of crystalloid in the ER on 2 L his blood pressure is now 96/56 he is mentating and feeling much better Admission Exam Per Admitting Provider the patient appeared well nourished and normally developed. Vital signs as documented. Head exam is unremarkable. No scleral icterus or corneal arcus noted his oropharynx is clear not no erythema and he is edentulous with dentures Neck is without jugular venous distension, thyromegaly, or lymphademopathy Lungs are clear to auscultation and percussion. Cardiac exam reveals Rhythm is regular. First and second heart sounds normal. Systolic murmurs heard Abdominal exam reveals normal bowel sounds, no masses, no organomegaly Extremities are nonedematous and both pedal pulses are normal. He is a thrill from an AV fistula in his left antecubital area Neurologic exam is A&Ox3, no focal deficits, strength is equal bilateral Skin is warm Dry without bruises or lesions Principal Diagnosis NSTEMI, Orthostatic Hypotension Discharge Exam General: Resting comfortably in no apparent distress HEENT: NC/AT; PERRLA with EOMI; [place] conjunctiva, MMM. Neck: Supple and nontender Cardiac: RRR Lungs: on room air; clear to auscultation throughout Abdomen: Bowel normoactive X 4; Nontender to palpation Extremities: Warm. 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 EKG on admission showed new lateral lead changes. Troponin peaked at 1.9 on 06/19/18 then started to trend down. Cardiology was consulted and did not recommend cardiac cath due to chronic renal failure. Aspirin, Eliquis and statin were continued. Chest pain resolved and he remained in sinus rhythm throughout the remainder of his admission. Pt. will follow up with cardiology as an outpatient. (2) Coronary artery disease: Multivessel disease s/p CABG x 2. Continued cardiac meds as noted above. (3) Hypotension: Hypotension during this admission was likely related to adrenal insufficiency vs. orthostatic hypotension. Lactate was 2.98 on admission, likely related to hypoperfusion. Infectious work up was negative. Orthostatics were positive. Midodrine was started at 5 mg daily. Dose was increased to BID on day of discharge due to ongoing orthostasis. He will follow up with nephrology as an outpatient; orthostatic hypotension has been an ongoing issue for the patient, although he was not symptomatic with this on the day of discharge He was also recently tapered off steroids. Steroids were restarted with improvement in hypotension. He will complete Prednisone 5 mg daily x 1 week followed by 2.5 mg daily x 1 week. (4) Adrenal insufficiency: Pt. was placed on steroids for adrenal insufficiency. He will complete a Prednisone taper as an outpatient. (5) Acute on chronic systolic heart failure: TTE 06/19/18 showed EF 40-45%, severe hypokinesis to akinesis of basal septum and basal to mid inferior wall, severe hypokinesis involving inferolateral wall. I/O's and daily weights were monitored; he lost ~5-6 kg. Home Bumex was continued at 2 mg PO BID per nephro recs. He will need to continue diuresis due to h/o fluid overload. Home ACEI was discontinued due to acute renal failure. (6) Nephrotic syndrome with membranous glomerulonephritis: Continued Cyclophosphamide 150 mg PO daily and Bactrim single strength per nephro. -Has routine follow-up with nephrology (7) Acute kidney injury: Creatinine was monitored closely. Nephro followed for recommendations. Creatinine was stable on day of discharge. (8) Chronic kidney disease, stage 4 (severe): H/o stage IV CKD and nephrotic syndrome. Nephro consulted, appreciate input. (9) Paroxysmal A-fib: He was in NSR on alarm security or surveillance monitor. Eliquis and Digoxin were continued. Dig level was 1.7 on 06/20; dose was decreased to every other day. He will need outpatient monitoring of Dig levels. (10) Anemia: Has anemia of chronic disease, in setting of CKD Stage IV. Hemoglobin has been decreased during this admission; received Epoetin at beginning of admission. FOBT was negative. No evidence of bleeding. (11) Low back pain: Has chronic low back pain; XR showed T12 chronic compression fracture and degenerative changes. Tylenol 1 gm PO q8hr was scheduled with Lidoderm patches and Calcitonin nasal spray daily. A script was provided at discharge for Lidoderm patches. (12) Pneumonia: CXR showed blunting of left costophrenic angle with left basilar opacities. He will complete a 7 day course of Augmentin. (13) BPH (benign prostatic hyperplasia): Continued home Proscar. Flomax was discontinued due to orthostatic hypotension. (14) Asthma: Albuterol prn with Advair BID scheduled. (15) Depression: Continued Paxil 20 mg qPM as prescribed. (16) DVT prophylaxis: SCDs & Eliquis. Patient was stable for discharge to home on 06/24/2018. He will follow up with his PCP, Nephro and Cardiology as an outpt. Total Time Total Time Spent Total Time Spent (In Minutes): >30 minutes Total Time Includes: Examination of the Patient, Discharge Planning, Medication Reconciliation, Communication With Other Providers and Other Discharge Plan Discharge Items Patient Disposition: Home - Self-Care Reason For Visit: SYMPTOMATIC HYPOTENSION Discharge Diagnosis: NSTEMI, Orthostatic Hypotension Condition: Fair Discharge Goals: Diagnostic testing, Improve function, Increase independence and Prevent disease Activity: As commented below Exercise/Sports: Gradually increase as tolerated Non-emergency contact: Primary Care Provider Call non-emergency contact if: you have any medication questions, your symptoms worsen, your pain is worsening and you have a fever Follow-up/Referrals: Chun Collins III, MD [Primary Care Provider] - 07/02/18 2:10 pm (Please, follow up with Dr. Collins on SaturdayJuly 02 at 2:10 pm. *If you need to change this appointment, call the office at [phone].) Kimi Barahona MD [Physician] - 07/17/18 11:25 am (Please, follow up at [facility] Neprhology Office with Dr. Barahona on July 17 at 11:25 am. *If you need to change this appointment, call the office at [phone].) Sebastián Garcia MD [Retail Sales Lead] - 07/01/18 11:15 am (Please, follow up at [facility] Cardiology Office with Dr. Garcia on SaturdayJuly 01 at 11:15 am. *If you need to change this appointment, call the office at [phone].) Diet: Dialysis Renal Addtl Provider Instructions: 1. NSTEMI * Please follow up with cardiology as scheduled on 07/01/2018. * Please continue aspirin, Eliquis and Atorvastatin as prescribed. 2. Orthostatic Hypotension * Midodrine 5 mg twice daily has been started. Please continue this medication as prescribed. 3. Adrenal Insufficiency * Please continue Prednisone taper as follows: - Prednisone 5 mg daily for 1 week (end date: 06/30/2018) - Prednisone 2.5 mg daily for 1 week (end date: 07/07/2018) 4. Acute heart failure exacerbation * Please continue Bumex 2 mg twice daily as prescribed. * Monitor daily weights as noted below in heart failure instructions. * Lisinopril has been discontinued due to renal failure. 5. Paroxysmal Atrial Fibrillation * Continue Eliquis as prescribed. * Digoxin dose has been decreased to every other day dosing due to high levels during this admission. 6. Pneumonia * Please continue Augmentin twice daily for treatment of infection (end date: ) 7. BPH * Continue Proscar as prescribed. * Flomax has been discontinued due to low blood pressure. 8. Low back pain * Continue over the counter Tylenol every 8 hours scheduled for pain. * A prescription for Lidocaine patches is also available and was sent to your pharmacy. 9. Please follow up with your family doctor as scheduled on 07/02/2018. 10. Please follow up with cardiology as scheduled on 07/01/2018. 11. Please follow up with nephrology as scheduled on 07/17/2018. 12. Prescriptions for new medications (Augmentin, Prednisone, Midodrine, Bactrim , Lidocaine patches) were sent to [facility] in [place], [place]. Additional Heart Failure Instructions: Call 911 and go to the Emergency Room if: * You have tightness or pain in your chest that does not go away with rest or Nitroglycerin * You are very short of breath even with rest Call your doctor if any of the following symptoms or problems start or get worse: * Shortness of breath or difficulty breathing * Wake up at night short of breath * Chest pain * Cough * Swelling of your hands, fee, or legs * More fatigued or tired with your normal activity * Palpitations - sudden fast heart beats WEIGHT * Weigh yourself every morning after using the bathroom. * Use the same scale. * Wear the same amount of clothing. * Write your weight down on your chart. * Call your doctor if you gain more than 2-3 pounds in 1-2 days. MEDICATIONS * Use this discharge instruction sheet for instructions. * Take your medications at the time your doctor ordered. * Do not skip a dose of your medicines. * If you miss a dose of medicine, take as soon as possible, but DO NOT DOUBLE A DOSE. * Read your medicine information when you get home. * Know all of the side effects of your medicine. * Call your doctor's office if you have any side effects. * Be sure all of your doctors know what medicine and herbs you take (including cold, flu, and herbal medicine). * Pain Medicine: If you do not get relief from your pain, please call your doctor for help. Take the following with you to your follow-up doctor appointments: * Weight Chart * Medication List * List of questions Do not drink excessive alcohol, beer or wine. Prescriptions: New digoxin 125 mcg Tablet 0.125 mg PO Q2D@1600 30 Days Qty: 15 RF: 1 amoxicillin-pot clavulanate 500-125 mg Tablet 1 tab PO BIDM 3 Days Qty: 6 RF: 0 prednisone 5 mg Tablet 5 mg PO DAILY Qty: 11 RF: 0 midodrine 5 mg tablet 5 mg PO BID@0900,1400 30 Days Qty: 60 RF: 0 sulfamethoxazole-trimethoprim [Bactrim] 400-80 mg tablet 1 tab PO Q OTHER DAY Qty: 14 RF: 0 lidocaine 5 % Adhesive Patch,Medicated 1 patch Transdermal QAM 15 Days Qty: 15 RF: 0 Continue potassium chloride 10 mEq Tablet Extended Release 20 meq PO BID 30 Days Qty: 120 RF: 3 apixaban 5 mg tablet 5 mg PO BID 30 Days Qty: 60 RF: 2 atorvastatin 80 mg tablet 80 mg PO HS RF: 0 propranolol 10 mg Tablet 5 mg PO DAILY RF: 0 paroxetine HCl 20 mg tablet 20 mg PO QPM RF: 0 fluticasone-salmeterol 500-50 mcg/dose blister with device 1 puff Inhalation BID RF: 0 albuterol sulfate [Ventolin HFA] 90 mcg/actuation Hfa Aerosol Inhaler 2 puff INHALATION QID PRN (Reason: Unknown) RF: 0 finasteride 5 mg tablet 5 mg PO QPM RF: 0 cyclophosphamide 50 mg Capsule 150 mg PO DAILY RF: 0 Discontinued bumetanide 1 mg tablet 2 mg PO BID 30 Days Qty: 120 RF: 3 acetaminophen [Tylenol Extra Strength] 500 mg Tablet 500 mg PO Q6H PRN (Reason: Pain) RF: 0 tamsulosin 0.4 mg capsule 0.4 mg PO HS RF: 0 lisinopril 2.5 mg Tablet 2.5 mg PO DAILY RF: 0 Visit Report Forms: My [facility] [employer] Portal Stand-Alone Forms: [facility]/Other Patient Handouts: Injury Acute Kidney Dc, Hypotension Dc Discharge Orders: Discharge Order (Routine); Ordered 06/24/18 Ordered By: Anne Coburn Admission Data Admit Date/Time: 06/18/18 10:30 Attending Provider: Anne Coburn Admit Provider: Jitendra Lau Primary Care Provider: Chun Collins III Other Providers: Jitendra Lau ; Kimi Barahona Alexander W. Service: Telemetry Other Interventions: Discharge Summary Assessment (RN) Last Done: 06/24/18 15:58 Pending Studies at Discharge: No DC Date/Time DO NOT enter until pt leaves facility: 06/24/18 16:44 Supervising Physician Co-Signing Physician Notes PA Supervision Note: I personally saw and examined the patient. I verified all sloan points and agree with FISH Doss with the following exceptions and/or additions: Patient feeling very well the day of discharge. He denied any lightheadedness with sitting or standing. I discussed the case with nephrology who agreed with increase in dose of midodrine to 5 mg twice daily upon discharge. He is being followed closely for his nephropathy and will continue Bumex as prescribed. For his NSTEMI, he denied any further chest pain or shortness of breath. Appreciate cardiology consultation as well. No further ischemic evaluation due to renal failure i.e. cardiac catheterization. He will be medically managed Vitals reviewed Gen: AAOx3, NAD HEENT: Anicteric sclerae, EOMI CV: RRR no mgr nl S1S2 Pulm: CTAB no wcr Abd: +BS soft NT ND no masses or hernias Ext: No edema, 2+ DP pulses Skin: No rashes, warm/dry Neuro: Full strength throughout 77-year-old male with history as above, here with orthostatic hypotension which is now improved with initial colloid fluids and institution of midodrine. Improved, stable for discharge with close follow-up
[2018-06-24] MEDS ORDERED: MIDODRINE HCL 2.5 MG TAB PO SCH (14:00)
== END 2018-06-24 16:44 | disposition home or self-care (01) | DRG 643 ==
LOC: ED 09:07 → SUATTDRO 10:30 → 2S 10:30

== ENCOUNTER 2018-07-24 10:41 | Inpatient (IN) ==
[2018-07-24 11:26] LABS: Basophils # (auto) 0.03 K/uL (0-0.2); Basophils % (auto) 0.6 %; Eosinophils # (auto) 0.19 K/uL (0-0.5); Hematocrit (blood only) 26.8 % (42-52); Hemoglobin 8.9 g/dL (14.0-18.0); Immature Granulocytes # (auto) 0.01 K/uL (0.00-0.02); Immature Granulocytes % (auto) 0.2 %; Lymphocytes # (auto) 0.37 K/uL (1.2-3.4); Lymphocytes % (auto) 7.8 %; Mean Corpuscular Hgb Conc 33.2 g/dL (32-36); Mean Corpuscular Volume 105.9 fL (80-100); Mean Platelet Volume 10.5 fL (7.4-10.4); Monocytes # (auto) 0.85 K/uL (0.11-0.59); Monocytes % (auto) 17.9 %; Neutrophils % (auto) 69.5 %; Platelet Count 168 K/uL (130-400); RDW Coefficient of Variation 19.8 % (11.5-14.5); RDW Standard Deviation 76.3 fL (36.4-46.3); Red Blood Count 2.53 M/uL (4.7-6.1); White Blood Count 4.75 K/uL (4.8-10.8)
--- NOTE | 2018-07-24 11:29 | XRay Report ---
XR chest 1V portable CLINICAL HISTORY: cough COMPARISON STUDY: 07/15/2018 FINDINGS: The heart is enlarged. There are postsurgical changes of a midline sternotomy. There is an atrial occluder. There is no overt failure. There is no focal pulmonary consolidation. There is chron ic blunting of the left lateral costophrenic angle. No large effusions are visualized.[ IMPRESSION: Mild cardiomegaly. No acute findings. Electronically signed by: Ady Roblero M.D. 07/24/2018 11:28 AM
[2018-07-24] MEDS ORDERED: SODIUM CHLORIDE 0.9% 1000ML 1,000 ML IV SCH (11:30)
[2018-07-24 11:34] LABS: Albumin Level 3.2 gm/dl (3.4-5.0); BUN Creatinine Ratio 9.7 (10-20); Calcium 9.1 mg/dl (8.5-10.1); Creatinine Clr Calc Pharmacy 28.7 ml/min; Est GFR (Non-African American) 26.8
[2018-07-24 11:37] LABS: Bilirubin,Total 0.7 mg/dl (0.2-1); Globulin 3.2 gm/dl (2.5-4.0); Total Protein 6.4 gm/dl (6.4-8.2)
[2018-07-24 11:51] LABS: Anisocytosis Present; Macrocytosis Present; Polychromasia 1+; Tear Drop Cells 1+
[2018-07-24 12:52] LABS: Appearance Urine Clear (Clear); Bacteria Urine Automated Negative (Negative); Bilirubin Urine Negative (Negative); Color Urine Yellow; Glucose Urine UA Negative (Negative); Ketones Urine Negative (Negative); Leukocyte Esterase Urine Negative (Negative); Nitrite Urine Negative (Negative); Protein Urine 2+ (Negative); Specific Gravity Urine 1.013 (1.000-1.030); Urobilinogen Urine Negative (Negative); pH Urine 5.5 (4.5-7.5)
[2018-07-24] MEDS ORDERED: LEVOFLOXACIN/D5W 750 MG/150 ML BAG IV SCH (13:00)
[2018-07-24] MEDS ORDERED: HYDROCORTISONE SOD SUCCINATE 100 MG/2 ML VIAL IV STA ×2 (14:11→15:12)
--- NOTE | 2018-07-24 14:27 | History & Physical Report ---
Date of Service July 24, 2018 Assessment & Plan (1) Hypotension: 77 y/o M Hx CKD IV owing to membranous glomerulonephropathy, CAD - recent NSTEMI, HTN, HLD, chronic anemia, BPH, adrenal insufficiency, paroxysmal AF, systolic CHF - 45%, asthma, depression. Pt was recently admitted to the hospital with hypotension, PNM and an elevated trop. He completed a course of antibiotics and denies SOB or fevers although he does have a lingering cough. His NSTEMI was thought to be due to hypoperfusion during his hypertensive episode and his renal function argued against catheterization and for medical management. Regarding his hypotension, this was thought due to adrenal insufficiency rather than sepsis. Until 10 days ago, he was being treated with cyclical cyclosporine and prednisone for his glomerulonephropathy. This was thought to have caused adrenal insufficiency. He had been on a Prednisone taper for this reason which he completed a few days ago. The pt reports that this AM he became lightheaded and unsteady and recognized this as hypotension. He was indeed correct as an SBP of 80 was confirmed on arrival to the ER. He responded promptly to a fluid bolus and then became hypotensive again within an hour showing an SBP of 60. Initial labs are notable for a lactic acid of 3 and a troponin of 0.2 - which per previous labs may be chronic - stable CKD and stable anemia. A CXR did not provide evidence of recurrent PNM. He is afebrile and does not display leukocytosis. 1) Hypotension - there is no present evidence of infection. He has presumed adrenal insufficiency per previous records and has completed a steroid taper approximately 5 days ago. We have provided additional IVF and 100mg of IV Hydrocortisone. As the pt will need close monitoring for potential adrenal crisis. We will assign him to the ICU overnight. He will likely need a cosyntropin stim test, however, this would now have to wait since he received Hydrocortisone. We would advise on q12h dexamethasone going forward. A random cortisol came back at 16 which is in the normal range but would constitute insufficiency in the context of profound hypotension. 2) CAD/Troponin elevation - looks to be chronic - may again be slightly increased due to hypoperfusion and underlying CAD - he is anticoagulated and we will continue Atorvastatin. We can consult cardiology if there is an upward trend. He does not have anginal symptoms. 3) Elevated lactic - suspected due to hypoperfusion as there is no evidence of sepsis - a repeat following IVF is pending. 4) CKD IV - glomerulonephritis - renal function is at baseline 5) Anemia - no evidence of hemorrhage, Hb is at baseline 6) HTN/HLD - currently he takes Midodrine AM and is not treated for HTN - cont Atorvastatin 7) Paroxysmal AF - cont Apixaban, Dig - propranolol held Full code - Apixaban prophylaxis Total time for this admit including review of labs, meds, imaging, records - discussion with pt and ER attending - in critical care time 47 min Present on Admission?: Yes History of Present Illness Chief Complaint: Hypotension Primary Care Provider: Chun Collins MD 77 y/o M Hx CKD IV owing to membranous glomerulonephropathy, CAD - recent NSTEMI , HTN, HLD, chronic anemia, BPH, adrenal insufficiency, paroxysmal AF, systolic CHF - 45%, asthma, depression. Pt was recently admitted to the hospital with hypotension, PNM and an elevated trop. He completed a course of antibiotics and denies SOB or fevers although he does have a lingering cough. His NSTEMI was thought to be due to hypoperfusion during his hypertensive episode and his renal function argued against catheterization and for medical management. Regarding his hypotension, this was thought due to adrenal insufficiency rather than sepsis. Until 10 days ago, he was being treated with cyclical cyclosporine and prednisone for his glomerulonephropathy. This was thought to have caused adrenal insufficiency. He had been on a Prednisone taper for this reason which he completed a few days ago. The pt reports that this AM he became lightheaded and unsteady and recognized this as hypotension. He was indeed correct as an SBP of 80 was confirmed on arrival to the ER. He responded promptly to a fluid bolus and then became hypotensive again within an hour showing an SBP of 60. Initial labs are notable for a lactic acid of 3 and a troponin of 0.2 - which per previous labs may be chronic - stable CKD and stable anemia. A CXR did not provide evidence of recurrent PNM. He is afebrile and does not display leukocytosis. PMH: 1) CKD IV - membranous glomerulonephropathy - treated with cycles of prednisone and cyclosporine. Completed tx 07/15/18 2) CAD - NSTEMI - 06/2018 3) HTN 4) HLD 5) Chronic anemia - Hb 8-9 6) Adrenal insufficiency - thought to be transient due to cyclosporine and prednisone treatment 7) Paroxysmal AF - Apixaban 8) Asthma 9) Depression 10) Chronic systolic CHF - EF 45%, inferior and apical hypokinesis - echo 2018 Surgical: CABG 2V - ANGUIANO to LAD, SVG to OM Social: Does not drink or smoke Family: Both parents - complications of DM Allergies Allergy/AdvReac Type Severity Reaction Status Date / Time No Known Drug Allergies Allergy Unknown NONE Verified 07/24/18 11:54 Home Medications Home Medications Medication Instructions Recorded Confirmed Type albuterol sulfate [Ventolin HFA] 2 puff INHALATION QID PRN 04/08/18 07/24/18 History atorvastatin 80 mg PO HS 04/08/18 07/24/18 History finasteride 5 mg PO QPM 04/08/18 07/24/18 History paroxetine HCl 20 mg PO QPM 04/08/18 07/24/18 History propranolol 5 mg PO DAILY 04/08/18 07/24/18 History potassium chloride 20 meq PO BID 30 Days #120 tab 04/25/18 07/24/18 Rx apixaban 5 mg PO BID 30 Days #60 tab 05/09/18 07/24/18 Rx digoxin 0.125 mg PO Q2D@1600 30 Days #15 06/21/18 07/24/18 Rx tab sulfamethoxazole-trimethoprim 1 tab PO Q OTHER DAY #14 tab 06/24/18 07/24/18 Rx [Bactrim] levofloxacin 1 tab PO DAILY 07/24/18 07/24/18 History midodrine 5 mg PO AMHS 07/24/18 07/24/18 History Past Med/Surg History Social History marital status: Current Living Situation: Spouse current occupational status: retired Other Information That Helps Us Care for You: No Feels Safe at Home: Yes Safety Concerns: Feels Safe At This Time Smoking Status: Former smoker Smoking End Date: quit at age 25 Hx Alcohol Use: No Hx Substance Use: No Beliefs That Will Affect Care: None Preferred Language: Malawian Communication Ability: Effective 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 Review of Systems Gen: Denies fevers, night sweats, rigors, fatigue, malaise, weight loss/gain - reoprts acute weakness ENT: Denies congestion, throat pain, hearing loss Eyes: Denies acute visual changes CV: Denies CP, palpitations Pulmonary: Denies SOB, cough, wheezing GI: Denies N/V, diarrhea, constipation Neuro: Denies acute or unilateral weakness, acute gait impairment, headache or acute visual changes - describes lightheadedness Musculoskeletal: Denies joint pain, inflammation Endocrine: Denies polydipsia, polyuria Skin: Denies acute rashes or ulcers Physical Exam 2 Vital Signs (Past 24 Hours): Last Vital Signs Temp 36.4 C L 07/24/18 10:45 Pulse 91 H 07/24/18 12:17 Resp 16 07/24/18 12:17 BP 121/74 07/24/18 12:17 Pulse Ox 97 07/24/18 11:14 Physical Exam: General: Pleasant, elderly male, AAO x 3, no distress ENT: No erythema or exudates, no thrush Eyes: DENISHA, EOMI Head and neck: Normocephalic, atraumatic, No JVD, neck is supple. Chest/heart: Nontender, S1,2, RRR, no murmurs, no gallops Lungs: CTAB, no wheezing or crackles Abdomen: Nontender, nondistended, BS+ Neuro: AAO x 3, speech is clear, no unilateral weakness or loss of sensation, coordination intact Musculoskeletal: No joint inflammation, muscle tenderness, FROM Skin: No acute rashes or ulcers Extremities: No clubbing, cyanosis, edema
--- NOTE | 2018-07-24 14:46 | CT Scan Report ---
CT SCAN OF THE CHEST WITHOUT IV CONTRAST CLINICAL HISTORY: Cough. COMPARISON STUDY: Chest x-ray dated 07/24/2018. Chest CT scans dated 07/14/2018 and 01/02/2018. TECHNIQUE: CT scan of the thorax was performed from the thoracic inlet to the upper abdomen. Images are reviewed in the axial, sagittal, and coronal planes. IV contrast was not administered for this ex amination as per the referring clinician. A dose lowering technique was utilized adhering to the kni bridgett of KASSANDRA. CT DOSE: 324.17 mGy.cm FINDINGS: Thyroid: Imaged portions of the thyroid gland are normal in size and attenuation. Thoracic aorta: There is atherosclerotic calcification of the thoracic aorta, which is normal in kimi caryl and demonstrates standard 3-vessel arch anatomy. Heart: The patient is status post midline sternotomy. The heart is enlarged and without pericardial e ffusion. The coronary arteries are densely calcified. The main pulmonary arteries appear dilated sugg esting pulmonary artery hypertension. Lungs and pleural spaces: There are trace pleural effusions with bibasilar atelectasis. No airspace c onsolidation is seen typical for pneumonia. Mild diffuse intralobular septal thickening is noted. The trachea and central airways are clear. A calcified granuloma is again seen in the anterior left uppe r lobe. Mediastinum: There are prominent mediastinal lymph nodes. A precarinal node on image #106 measures 11 mm in short axis. A high right peritracheal nodes measure 11 mm in short axis. Krystle: Not well assessed without IV contrast. Axillae: There is no axillary lymphadenopathy. Upper abdomen: Partially visualized upper abdominal viscera is grossly unremarkable. Skeletal structures: The skeletal structures are osteopenic. No lytic or blastic bony lesions are see n. IMPRESSION: 1. Cardiomegaly with evidence of mild congestive failure. 2. Trace pleural effusions are noted. 3. No airspace consolidation is identified typical for pneumonia. 4. Additional findings as above. Electronically signed by: Avtar Martin M.D. 07/24/2018 2:45 PM
[2018-07-24 16:33] LABS: Reticulocyte % 4.8 % (0.5-2.0); Reticulocytes # 0.12 10^6/uL (0.02-0.10)
--- NOTE | 2018-07-24 17:24 | Emergency Department Note ---
Entered by Andrey Bonilla acting as a scribe for Rigo Brown DO History of Present Illness General Chief complaint: Arrhythmia/Palpitations Stated complaint: HEART RACING Source: patient History of Present Illness Onset (ago): hour(s) 1 Location: chest (heart) Pain Consistency: + now resolved Quality: + other (racing heartbeat) Associated symptoms: + cough and + other (occasional nausea) The patient is a 77 year old male who presents to the Emergency Room with complaints of currently resolved racing heartbeat beginning one hour ago. The patient states that his rate regina to 120 bpm at the time. The patient states that his blood pressure was low prior to arrival, although he does not know what his baseline pressure is. He notes that he has felt his heart racing intermittently for the past week as well. He reports cold symptoms including a runny nose for the past two weeks. He states that he has had a cough with light- rajan sputum for the past 6-12 months that has somewhat worsened in the past couple of weeks. He notes occasional nausea. He denies burning pain with urination. He reports that he is scheduled for upcoming dialysis but has not yet started, and he follows Dr. [facility]. He notes that he weighs himself weekly and is usually between 175 and 180 lbs. Home Medications Home Medications Medication Instructions Recorded Confirmed Type albuterol sulfate [Ventolin HFA] 2 puff INHALATION QID PRN 04/08/18 07/24/18 History atorvastatin 80 mg PO HS 04/08/18 07/24/18 History finasteride 5 mg PO QPM 04/08/18 07/24/18 History paroxetine HCl 20 mg PO QPM 04/08/18 07/24/18 History propranolol 5 mg PO DAILY 04/08/18 07/24/18 History potassium chloride 20 meq PO BID 30 Days #120 tab 04/25/18 07/24/18 Rx apixaban 5 mg PO BID 30 Days #60 tab 05/09/18 07/24/18 Rx digoxin 0.125 mg PO Q2D@1600 30 Days #15 06/21/18 07/24/18 Rx tab sulfamethoxazole-trimethoprim 1 tab PO Q OTHER DAY #14 tab 06/24/18 07/24/18 Rx [Bactrim] levofloxacin 1 tab PO DAILY 07/24/18 07/24/18 History midodrine 5 mg PO AMHS 07/24/18 07/24/18 History Allergies Allergy/AdvReac Type Severity Reaction Status Date / Time No Known Drug Allergies Allergy Unknown NONE Verified 07/24/18 11:54 Past Med/Surg History Medical History BPH (benign prostatic hyperplasia) Hyperlipidemia Hypertension (Chronic) Severe anemia (Chronic) Asthma (Chronic) Bronchitis (Inactive) - CXR appears improved from prior visit on 03/23 suggesting resolving pneumonia AV fistula Anxiety Asthma STABLE BPH (benign prostatic hyperplasia) Borderline diabetes DIET CONTROLLED CAD (coronary artery disease) CABG X2 02/2017 Elevated troponin - GERD (gastroesophageal reflux disease) CONTROLLED History of atrial fibrillation History of blood transfusion S/P SURGERY 2017 Hyperlipidemia Hypertension Hypotension Lipoma On anticoagulant therapy Osteoarthritis Paroxysmal A-fib Paroxysmal A-fib Pulmonary hypertension Tremor of both hands FAMILIAL- ON PROPRANOLOL Unstable angina Surgical History History of colonoscopy History of coronary artery bypass graft CABG X2 02/2017- POST OP INFECTION/DEBRIDEMENT X 2 History of cystoscopy History of ear surgery RIGHT History of repair of rotator cuff RIGHT History of tonsillectomy Family History Father Family history of diabetes mellitus Mother Family history of diabetes mellitus Family/Other Family history of diabetes mellitus Social History marital status: Current Living Situation: Spouse current occupational status: retired Other Information That Helps Us Care for You: No Feels Safe at Home: Yes Safety Concerns: Feels Safe At This Time Smoking Status: Former smoker Smoking End Date: quit at age 25 Hx Alcohol Use: No Hx Substance Use: No Beliefs That Will Affect Care: None Preferred Language: Afghan Communication Ability: Effective Wind Development Director Required: No Review of Systems See HPI for pertinent positives & negatives. and A total of 10 systems reviewed and were otherwise negative Physical Exam Vital Signs Vital Signs - 24 hr 07/24/18 10:45 07/24/18 11:14 07/24/18 11:30 Temperature 36.4 C L Temperature Source Oral Sepsis Recent Fever Within 48 Hours No Sepsis New/Unexplained Change in Mental Status No Sepsis Action Taken by Nursing No Action Required Pulse Rate - Lying Pulse Rate - Sitting Pulse Rate - Standing Pulse Rate 101 H 84 88 Pulse Rate [Apical] Pulse Rhythm [Apical] Pulse Strength [Apical] Respiratory Rate 18 26 H 18 Respiratory Effort / Characteristics Non-Labored Respiratory Depth Normal Respiratory Pattern Regular Blood Pressure - Lying Blood Pressure - Sitting Blood Pressure- Standing Blood Pressure 81/59 L 132/75 Blood Pressure [Right Arm] Blood Pressure Mean 66 94 Blood Pressure Mean [Right Arm] Blood Pressure Position Sitting Pulse Oximetry 96 97 75 L Oxygen Delivery Method Room Air 07/24/18 11:40 07/24/18 11:50 07/24/18 12:00 Temperature Temperature Source Sepsis Recent Fever Within 48 Hours Sepsis New/Unexplained Change in Mental Status Sepsis Action Taken by Nursing Pulse Rate - Lying Pulse Rate - Sitting Pulse Rate - Standing Pulse Rate 87 89 86 Pulse Rate [Apical] Pulse Rhythm [Apical] Pulse Strength [Apical] Respiratory Rate 25 H 16 15 Respiratory Effort / Characteristics Respiratory Depth Respiratory Pattern Blood Pressure - Lying Blood Pressure - Sitting Blood Pressure- Standing Blood Pressure Blood Pressure [Right Arm] Blood Pressure Mean Blood Pressure Mean [Right Arm] Blood Pressure Position Pulse Oximetry Oxygen Delivery Method 07/24/18 12:10 07/24/18 12:17 07/24/18 12:23 Temperature Temperature Source Sepsis Recent Fever Within 48 Hours Sepsis New/Unexplained Change in Mental Status Sepsis Action Taken by Nursing Pulse Rate - Lying Pulse Rate - Sitting Pulse Rate - Standing Pulse Rate 90 110 H Pulse Rate [Apical] 91 H Pulse Rhythm [Apical] Pulse Strength [Apical] Respiratory Rate 15 16 53 H Respiratory Effort / Characteristics Respiratory Depth Respiratory Pattern Blood Pressure - Lying Blood Pressure - Sitting Blood Pressure- Standing Blood Pressure Blood Pressure [Right Arm] 121/74 Blood Pressure Mean Blood Pressure Mean [Right Arm] 89 Blood Pressure Position Pulse Oximetry Oxygen Delivery Method Free Flow/Blow- by 07/24/18 12:24 07/24/18 12:30 07/24/18 12:40 Temperature Temperature Source Sepsis Recent Fever Within 48 Hours Sepsis New/Unexplained Change in Mental Status Sepsis Action Taken by Nursing Pulse Rate - Lying Pulse Rate - Sitting Pulse Rate - Standing Pulse Rate 106 H 109 H 89 Pulse Rate [Apical] Pulse Rhythm [Apical] Pulse Strength [Apical] Respiratory Rate 28 H 21 18 Respiratory Effort / Characteristics Respiratory Depth Respiratory Pattern Blood Pressure - Lying Blood Pressure - Sitting Blood Pressure- Standing Blood Pressure 121/74 Blood Pressure [Right Arm] Blood Pressure Mean 89 Blood Pressure Mean [Right Arm] Blood Pressure Position Pulse Oximetry Oxygen Delivery Method 07/24/18 12:50 07/24/18 13:00 07/24/18 13:02 Temperature Temperature Source Sepsis Recent Fever Within 48 Hours Sepsis New/Unexplained Change in Mental Status Sepsis Action Taken by Nursing Pulse Rate - Lying Pulse Rate - Sitting Pulse Rate - Standing Pulse Rate 88 90 90 Pulse Rate [Apical] Pulse Rhythm [Apical] Pulse Strength [Apical] Respiratory Rate 19 26 H 19 Respiratory Effort / Characteristics Respiratory Depth Respiratory Pattern Blood Pressure - Lying Blood Pressure - Sitting Blood Pressure- Standing Blood Pressure 130/73 Blood Pressure [Right Arm] Blood Pressure Mean 92 Blood Pressure Mean [Right Arm] Blood Pressure Position Pulse Oximetry Oxygen Delivery Method 07/24/18 13:10 07/24/18 13:22 07/24/18 13:23 Temperature Temperature Source Sepsis Recent Fever Within 48 Hours Sepsis New/Unexplained Change in Mental Status Sepsis Action Taken by Nursing Pulse Rate - Lying Pulse Rate - Sitting Pulse Rate - Standing Pulse Rate 87 106 H Pulse Rate [Apical] Pulse Rhythm [Apical] Pulse Strength [Apical] Respiratory Rate 17 28 H Respiratory Effort / Characteristics Non-Labored Spontaneous Respiratory Depth Normal Respiratory Pattern Regular Blood Pressure - Lying Blood Pressure - Sitting Blood Pressure- Standing Blood Pressure Blood Pressure [Right Arm] Blood Pressure Mean Blood Pressure Mean [Right Arm] Blood Pressure Position Pulse Oximetry Oxygen Delivery Method Room Air Free Flow/Blow- by 07/24/18 13:30 07/24/18 13:40 07/24/18 13:50 Temperature Temperature Source Sepsis Recent Fever Within 48 Hours Sepsis New/Unexplained Change in Mental Status Sepsis Action Taken by Nursing Pulse Rate - Lying Pulse Rate - Sitting Pulse Rate - Standing Pulse Rate 95 H 95 H 90 Pulse Rate [Apical] Pulse Rhythm [Apical] Pulse Strength [Apical] Respiratory Rate 23 17 14 Respiratory Effort / Characteristics Respiratory Depth Respiratory Pattern Blood Pressure - Lying Blood Pressure - Sitting Blood Pressure- Standing Blood Pressure Blood Pressure [Right Arm] Blood Pressure Mean Blood Pressure Mean [Right Arm] Blood Pressure Position Pulse Oximetry Oxygen Delivery Method 07/24/18 14:01 07/24/18 14:10 07/24/18 14:20 Temperature Temperature Source Sepsis Recent Fever Within 48 Hours Sepsis New/Unexplained Change in Mental Status Sepsis Action Taken by Nursing Pulse Rate - Lying Pulse Rate - Sitting Pulse Rate - Standing Pulse Rate 84 86 81 Pulse Rate [Apical] Pulse Rhythm [Apical] Pulse Strength [Apical] Respiratory Rate 17 17 17 Respiratory Effort / Characteristics Respiratory Depth Respiratory Pattern Blood Pressure - Lying Blood Pressure - Sitting Blood Pressure- Standing Blood Pressure Blood Pressure [Right Arm] Blood Pressure Mean Blood Pressure Mean [Right Arm] Blood Pressure Position Pulse Oximetry Oxygen Delivery Method 07/24/18 14:39 07/24/18 14:40 07/24/18 14:47 Temperature Temperature Source Sepsis Recent Fever Within 48 Hours Sepsis New/Unexplained Change in Mental Status Sepsis Action Taken by Nursing Pulse Rate - Lying Pulse Rate - Sitting Pulse Rate - Standing Pulse Rate 96 H 99 H 89 Pulse Rate [Apical] Pulse Rhythm [Apical] Pulse Strength [Apical] Respiratory Rate 16 23 14 Respiratory Effort / Characteristics Respiratory Depth Respiratory Pattern Blood Pressure - Lying Blood Pressure - Sitting Blood Pressure- Standing Blood Pressure 130/67 Blood Pressure [Right Arm] Blood Pressure Mean 88 Blood Pressure Mean [Right Arm] Blood Pressure Position Pulse Oximetry 92 Oxygen Delivery Method 07/24/18 14:48 07/24/18 14:50 07/24/18 14:57 Temperature Temperature Source Sepsis Recent Fever Within 48 Hours Sepsis New/Unexplained Change in Mental Status Sepsis Action Taken by Nursing Pulse Rate - Lying Pulse Rate - Sitting Pulse Rate - Standing Pulse Rate 97 H 96 H Pulse Rate [Apical] 90 Pulse Rhythm [Apical] Regular Pulse Strength [Apical] Normal Respiratory Rate 16 23 20 Respiratory Effort / Characteristics Respiratory Depth Respiratory Pattern Blood Pressure - Lying Blood Pressure - Sitting Blood Pressure- Standing Blood Pressure 120/83 Blood Pressure [Right Arm] 130/67 Blood Pressure Mean 95 Blood Pressure Mean [Right Arm] 88 Blood Pressure Position Pulse Oximetry 92 92 92 Oxygen Delivery Method Room Air 07/24/18 14:59 07/24/18 15:00 07/24/18 15:01 Temperature Temperature Source Sepsis Recent Fever Within 48 Hours Sepsis New/Unexplained Change in Mental Status Sepsis Action Taken by Nursing Pulse Rate - Lying 93 H Pulse Rate - Sitting 99 H Pulse Rate - Standing 100 H Pulse Rate 96 H 95 H 97 H Pulse Rate [Apical] Pulse Rhythm [Apical] Pulse Strength [Apical] Respiratory Rate 23 26 H 24 Respiratory Effort / Characteristics Respiratory Depth Respiratory Pattern Blood Pressure - Lying 130/67 Blood Pressure - Sitting 120/83 Blood Pressure- Standing 60/47 L Blood Pressure 60/47 L 104/58 L Blood Pressure [Right Arm] Blood Pressure Mean 51 73 Blood Pressure Mean [Right Arm] Blood Pressure Position Pulse Oximetry 90 89 L 87 L Oxygen Delivery Method 07/24/18 15:10 07/24/18 15:20 07/24/18 15:30 Temperature Temperature Source Sepsis Recent Fever Within 48 Hours Sepsis New/Unexplained Change in Mental Status Sepsis Action Taken by Nursing Pulse Rate - Lying Pulse Rate - Sitting Pulse Rate - Standing Pulse Rate 87 81 85 Pulse Rate [Apical] Pulse Rhythm [Apical] Pulse Strength [Apical] Respiratory Rate 19 20 13 Respiratory Effort / Characteristics Respiratory Depth Respiratory Pattern Blood Pressure - Lying Blood Pressure - Sitting Blood Pressure- Standing Blood Pressure Blood Pressure [Right Arm] Blood Pressure Mean Blood Pressure Mean [Right Arm] Blood Pressure Position Pulse Oximetry 92 90 83 L Oxygen Delivery Method 07/24/18 15:31 Temperature Temperature Source Sepsis Recent Fever Within 48 Hours Sepsis New/Unexplained Change in Mental Status Sepsis Action Taken by Nursing Pulse Rate - Lying Pulse Rate - Sitting Pulse Rate - Standing Pulse Rate 82 Pulse Rate [Apical] Pulse Rhythm [Apical] Pulse Strength [Apical] Respiratory Rate 16 Respiratory Effort / Characteristics Respiratory Depth Respiratory Pattern Blood Pressure - Lying Blood Pressure - Sitting Blood Pressure- Standing Blood Pressure 118/61 Blood Pressure [Right Arm] Blood Pressure Mean 80 Blood Pressure Mean [Right Arm] Blood Pressure Position Pulse Oximetry 94 Oxygen Delivery Method GENERAL: Lying in bed, chronically ill appearing, disheveled, non-toxic EYE EXAM: normal conjunctiva. OROPHARYNX: no exudate, no erythema, lips, buccal mucosa, and tongue normal and mucous membranes are moist NECK: supple, no nuchal rigidity, no adenopathy, non-tender LUNGS: Wheezing of the right base. Normal chest wall mechanics HEART: no murmurs, S1 normal and S2 normal ABDOMEN: abdomen soft, non-tender, normo-active bowel, sounds, no masses, no rebound or guarding. BACK: Back is symmetrical on inspection and there is no deformity, no midline tenderness, no CVA tenderness. SKIN: no rashes and no bruising UPPER EXTREMITIES: upper extremities are grossly normal. LOWER EXTREMITIES: No pitting edema. NEURO EXAM: Normal sensorium, cranial nerves II-XII grossly intact, normal speech, no gross weakness of arms, no gross weakness of legs. Gross sensation intact. Course ED COURSE: Vital signs were reviewed and showed hypotension The patients medical record was reviewed The above diagnostic studies were performed and reviewed. ED treatments and interventions as stated above. 1112: The patient was evaluated in room C1B. A complete history and physical examination was performed. 1320: Dr. Varghese [facility] Hospitalist was notified of the patients case and will reevaluate the patient for hospitalization. 1400: I consulted Dr. Varghese, who is evaluating the patient. Based on the patients age, coexisting illnesses, exam and lab findings the decision to treat as an inpatient was made. The patient remained stable while under my care. The patient will be evaluated for further management. Consultations Consultation #1: Dr. Varghese [facility] Hospitalist was notified of the patients case and will reevaluate the patient for hospitalization. Time: 13:20 Administered Medications Levofloxacin/Dextrose (Levaquin/D5w) 750 mg in 150 mls @ 100 mls/hr IV Q24H VALERIE Stop: 08/07/18 12:59 Last Infusion: 07/24/18 14:50 Dose: 0 mls/hr Admin: 07/24/18 13:18 Dose: 100 mls/hr Discontinued Medications Hydrocortisone Sodium Succinate (Solu-Cortef) 50 mg IV NOW STA Stop: 07/24/18 14:12 Last Admin: 07/24/18 14:44 Dose: 50 mg Hydrocortisone Sodium Succinate (Solu-Cortef) 50 mg IV NOW STA Stop: 07/24/18 15:13 Last Admin: 07/24/18 15:33 Dose: 50 mg Sodium Chloride (Nss 1000ml) 1,000 mls @ 999 mls/hr IV .Q1H1M VALERIE Stop: 07/24/18 12:30 Last Infusion: 07/24/18 12:40 Dose: 0 mls/hr Admin: 07/24/18 11:39 Dose: 999 mls/hr Medical Decision Making Differential Diagnosis Differential Diagnosis includes but is not limited to dehydration, stroke, anemia, hypoglycemia, hyponatremia, hypernatremia, urinary tract infection, pneumonia, bronchitis, sepsis, gastroenteritis, additional abdominal pathology, metabolic abnormalities and infections. Medical Records Attestation: I reviewed the patient's medical records. Home Medications Current Medication List: was personally reviewed by me Laboratory Data Attestation: I reviewed the patient's lab results. Result diagrams: 07/24/18 11:05 07/24/18 11:05 Lab Results 07/24/18 07/24/18 07/24/18 Range/Units 11:05 11:05 11:05 WBC 4.75 L (4.8-10.8) K/uL RBC 2.53 L (4.7-6.1) M/uL Hgb 8.9 L (14.0-18.0) g/dL Hct 26.8 L (42-52) % MCV 105.9 H (80-100) fL MCH 35.2 H (25-34) pg MCHC 33.2 (32-36) g/dL RDW Std Deviation 76.3 H (36.4-46.3) fL RDW Coeff of Reed 19.8 H (11.5-14.5) % Plt Count 168 (130-400) K/uL MPV 10.5 H (7.4-10.4) fL Immature Gran % (Auto) 0.2 % Neut % (Auto) 69.5 % Lymph % (Auto) 7.8 % Highland % (Auto) 17.9 % Eos % (Auto) 4.0 % Baso % (Auto) 0.6 % Reticulocyte % (Auto) (0.5-2.0) % Immature Gran # (Auto) 0.01 (0.00-0.02) K/uL Neut # (Auto) 3.30 (1.4-6.5) K/uL Lymph # (Auto) 0.37 L (1.2-3.4) K/uL Highland # (Auto) 0.85 H (0.11-0.59) K/uL Eos # (Auto) 0.19 (0-0.5) K/uL Baso # (Auto) 0.03 (0-0.2) K/uL Reticulocyte # (0.02-0.10) 10^6/uL Polychromasia 1+ Anisocytosis Present Macrocytosis Present Tear Drop Cells 1+ Sodium 137 (136-145) mmol/L Potassium 4.0 (3.5-5.1) mmol/L Chloride 101 (98-107) mmol/L Carbon Dioxide 26 (21-32) mmol/L Anion Gap 10.0 (3-11) BUN 22 H (7-18) mg/dl Creatinine 2.30 H (0.6-1.4) mg/dl Est Cr Clr Drug Dosing 28.7 ml/min Est GFR ( Amer) 31.0 Est GFR (Non-Af Amer) 26.8 BUN/Creatinine Ratio 9.7 L (10-20) Glucose 150 H (70-99) mg/dl POC Lactic Acid Brian (0.90-1.70) mmol/L Lactate (0.4-2.0) mmol/L Calcium 9.1 (8.5-10.1) mg/dl Total Bilirubin 0.7 (0.2-1) mg/dl AST 23 (15-37) U/L ALT 20 (12-78) U/L Alkaline Phosphatase 78 (45-117) U/L Troponin I 0.232 H* (0-0.045) ng/ml Total Protein 6.4 (6.4-8.2) gm/dl Albumin 3.2 L (3.4-5.0) gm/dl Globulin 3.2 (2.5-4.0) gm/dl Albumin/Globulin Ratio 1.0 (0.9-2) Lipase 178 (73-393) U/L Random Cortisol mcg/dl Urine Color Urine Appearance (Clear) Urine pH (4.5-7.5) Ur Specific Godwin (1.000-1.030) Urine Protein (Negative) Urine Glucose (UA) (Negative) Urine Ketones (Negative) Urine Blood (Negative) Urine Nitrite (Negative) Urine Bilirubin (Negative) Urine Urobilinogen (Negative) Ur Leukocyte Esterase (Negative) Urine WBC (Auto) (0-5) /hpf Urine RBC (Auto) (0-4) /hpf U Hyaline Cast (Auto) (0-5) /lpf U Epithel Cells (Auto) (0-5) /lpf Urine Bacteria (Auto) (Negative) Influenza Type A Ag (Neg) Influenza Type B Ag (Neg) 07/24/18 07/24/18 07/24/18 Range/Units 11:05 11:05 11:33 WBC (4.8-10.8) K/uL RBC (4.7-6.1) M/uL Hgb (14.0-18.0) g/dL Hct (42-52) % MCV (80-100) fL MCH (25-34) pg MCHC (32-36) g/dL RDW Std Deviation (36.4-46.3) fL RDW Coeff of Reed (11.5-14.5) % Plt Count (130-400) K/uL MPV (7.4-10.4) fL Immature Gran % (Auto) % Neut % (Auto) % Lymph % (Auto) % Highland % (Auto) % Eos % (Auto) % Baso % (Auto) % Reticulocyte % (Auto) 4.8 H (0.5-2.0) % Immature Gran # (Auto) (0.00-0.02) K/uL Neut # (Auto) (1.4-6.5) K/uL Lymph # (Auto) (1.2-3.4) K/uL Highland # (Auto) (0.11-0.59) K/uL Eos # (Auto) (0-0.5) K/uL Baso # (Auto) (0-0.2) K/uL Reticulocyte # 0.12 H (0.02-0.10) 10^6/uL Polychromasia Anisocytosis Macrocytosis Tear Drop Cells Sodium (136-145) mmol/L Potassium (3.5-5.1) mmol/L Chloride (98-107) mmol/L Carbon Dioxide (21-32) mmol/L Anion Gap (3-11) BUN (7-18) mg/dl Creatinine (0.6-1.4) mg/dl Est Cr Clr Drug Dosing ml/min Est GFR ( Amer) Est GFR (Non-Af Amer) BUN/Creatinine Ratio (10-20) Glucose (70-99) mg/dl POC Lactic Acid Brian 3.06 H (0.90-1.70) mmol/L Lactate (0.4-2.0) mmol/L Calcium (8.5-10.1) mg/dl Total Bilirubin (0.2-1) mg/dl AST (15-37) U/L ALT (12-78) U/L Alkaline Phosphatase (45-117) U/L Troponin I (0-0.045) ng/ml Total Protein (6.4-8.2) gm/dl Albumin (3.4-5.0) gm/dl Globulin (2.5-4.0) gm/dl Albumin/Globulin Ratio (0.9-2) Lipase (73-393) U/L Random Cortisol 16.35 mcg/dl Urine Color Urine Appearance (Clear) Urine pH (4.5-7.5) Ur Specific Godwin (1.000-1.030) Urine Protein (Negative) Urine Glucose (UA) (Negative) Urine Ketones (Negative) Urine Blood (Negative) Urine Nitrite (Negative) Urine Bilirubin (Negative) Urine Urobilinogen (Negative) Ur Leukocyte Esterase (Negative) Urine WBC (Auto) (0-5) /hpf Urine RBC (Auto) (0-4) /hpf U Hyaline Cast (Auto) (0-5) /lpf U Epithel Cells (Auto) (0-5) /lpf Urine Bacteria (Auto) (Negative) Influenza Type A Ag (Neg) Influenza Type B Ag (Neg) 07/24/18 07/24/18 07/24/18 Range/Units 12:25 13:25 15:25 WBC (4.8-10.8) K/uL RBC (4.7-6.1) M/uL Hgb (14.0-18.0) g/dL Hct (42-52) % MCV (80-100) fL MCH (25-34) pg MCHC (32-36) g/dL RDW Std Deviation (36.4-46.3) fL RDW Coeff of Reed (11.5-14.5) % Plt Count (130-400) K/uL MPV (7.4-10.4) fL Immature Gran % (Auto) % Neut % (Auto) % Lymph % (Auto) % Highland % (Auto) % Eos % (Auto) % Baso % (Auto) % Reticulocyte % (Auto) (0.5-2.0) % Immature Gran # (Auto) (0.00-0.02) K/uL Neut # (Auto) (1.4-6.5) K/uL Lymph # (Auto) (1.2-3.4) K/uL Highland # (Auto) (0.11-0.59) K/uL Eos # (Auto) (0-0.5) K/uL Baso # (Auto) (0-0.2) K/uL Reticulocyte # (0.02-0.10) 10^6/uL Polychromasia Anisocytosis Macrocytosis Tear Drop Cells Sodium (136-145) mmol/L Potassium (3.5-5.1) mmol/L Chloride (98-107) mmol/L Carbon Dioxide (21-32) mmol/L Anion Gap (3-11) BUN (7-18) mg/dl Creatinine (0.6-1.4) mg/dl Est Cr Clr Drug Dosing ml/min Est GFR ( Amer) Est GFR (Non-Af Amer) BUN/Creatinine Ratio (10-20) Glucose (70-99) mg/dl POC Lactic Acid Brian (0.90-1.70) mmol/L Lactate 1.6 (0.4-2.0) mmol/L Calcium (8.5-10.1) mg/dl Total Bilirubin (0.2-1) mg/dl AST (15-37) U/L ALT (12-78) U/L Alkaline Phosphatase (45-117) U/L Troponin I (0-0.045) ng/ml Total Protein (6.4-8.2) gm/dl Albumin (3.4-5.0) gm/dl Globulin (2.5-4.0) gm/dl Albumin/Globulin Ratio (0.9-2) Lipase (73-393) U/L Random Cortisol mcg/dl Urine Color Yellow Urine Appearance Clear (Clear) Urine pH 5.5 (4.5-7.5) Ur Specific Godwin 1.013 (1.000-1.030) Urine Protein 2+ H (Negative) Urine Glucose (UA) Negative (Negative) Urine Ketones Negative (Negative) Urine Blood Trace H (Negative) Urine Nitrite Negative (Negative) Urine Bilirubin Negative (Negative) Urine Urobilinogen Negative (Negative) Ur Leukocyte Esterase Negative (Negative) Urine WBC (Auto) 1-5 (0-5) /hpf Urine RBC (Auto) 0-4 (0-4) /hpf U Hyaline Cast (Auto) 10-30 H (0-5) /lpf U Epithel Cells (Auto) 10-20 H (0-5) /lpf Urine Bacteria (Auto) Negative (Negative) Influenza Type A Ag Neg for Influ A (Neg) Influenza Type B Ag Neg for Influ B (Neg) Imaging Data Radiologist's Impression: Radiology results as stated below per my review and the radiologist's interpretation: XR chest 1V portable CLINICAL HISTORY: cough COMPARISON STUDY: 07/15/2018 FINDINGS: The heart is enlarged. There are postsurgical changes of a midline sternotomy. There is an atrial occluder. There is no overt failure. There is no focal pulmonary consolidation. There is chronic blunting of the left lateral costophrenic angle. No large effusions are visualized.[ IMPRESSION: Mild cardiomegaly. No acute findings. Electronically signed by: Ady Roblero M.D. 07/24/2018 11:28 AM ECG Data Attestation: I personally reviewed and interpreted this ECG as follows: Indication: tachycardia Rate (beats per minute): 98 Rhythm: sinus rhythm Findings: + other (normal axis), + nonspecific-ST abn (lateral and inferior leads) and + PVC Comparison ECG Date: from (06/19/18) Change: no significant change (nonspecific ST abnormalities are old) Blood Pressure Blood Pressure Findings: Low blood pressure Blood Pressure Disposition: further management by hospitalist MAYDA Narrative Patient is a 77-year-old male who presents the ER for weakness, cough and runny nose. Patient does have some nausea. Labs were obtained showed a leukopenia of white count of 4.7. Hemoglobin was 9 which consistent with previous. BMP shows a creatinine 2.3 off of a baseline of 2. LFTs were normal. Troponin was 0.2. EKG showed no acute findings. UA was unremarkable. Influenza was negative. Chest x-ray was unremarkable as well but did have faint wheezing in the right lower lobe. With these findings and elevated lactate of 3 patient was given IV dose of Levaquin. He was given IV bolus of normal saline and his blood pressure increased from 80-120s. He rested comfortably in the ER. Patient was monitored closely. He was discussed with the hospitalist. He does have a history of adrenal insufficiency. He was admitted to the hospital for further workup. Patient had no chest pain or shortness of breath I do believe the elevated troponin was secondary to the hypotension. Impression & Plan Chronic anemia, NATALIE (acute kidney injury), Chronic kidney disease Discharge Plan Visit Data Chief Complaint: Arrhythmia/Palpitations Stated Complaint: HEART RACING ED Provider: Rigo Brown Discharge Problem: Chronic anemia, NATALIE (acute kidney injury), Chronic kidney disease Patient Disposition: Being Evaluated by Hospitalist Discharge Instructions Interventions: ED Discharge Assessment Last Done: 07/24/18 17:15 Forms Stand Alone Forms: [email or web address] Prescriptions Prescriptions: No Action potassium chloride 10 mEq Tablet Extended Release 20 meq PO BID 30 Days Qty: 120 RF: 3 apixaban 5 mg tablet 5 mg PO BID 30 Days Qty: 60 RF: 2 midodrine 5 mg tablet 5 mg PO AMHS RF: 0 levofloxacin 750 mg tablet 1 tab PO DAILY RF: 0 atorvastatin 80 mg tablet 80 mg PO HS RF: 0 propranolol 10 mg Tablet 5 mg PO DAILY RF: 0 paroxetine HCl 20 mg tablet 20 mg PO QPM RF: 0 albuterol sulfate [Ventolin HFA] 90 mcg/actuation Hfa Aerosol Inhaler 2 puff INHALATION QID PRN (Reason: Unknown) RF: 0 finasteride 5 mg tablet 5 mg PO QPM RF: 0 digoxin 125 mcg Tablet 0.125 mg PO Q2D@1600 30 Days Qty: 15 RF: 1 sulfamethoxazole-trimethoprim [Bactrim] 400-80 mg tablet 1 tab PO Q OTHER DAY Qty: 14 RF: 0 Referrals Referrals: Chun Collins III, MD [Primary Care Provider] - The scribe's documentation has been prepared under my direction and personally reviewed by me in its entirety. I confirm that the note above accurately reflects all work, treatment, procedures, and medical decision making performed by me.
--- NOTE | 2018-07-24 17:35 | Critical Care Consultation ---
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 Was found to have severe hypotension with concern for adrenal insufficiency and admitted to the ICU for monitoring. NEURO: Alert and oriented CAM ICU: negative Continue home paxil CARDIAC/VASCULAR: Hypotension in the setting of acute adrenal insufficiency / influenza. Pt has hx of adrenal insufficiency s/p treatment with cyclosporine and prednisone for glomerulonephropathy PMhx: CAD - recent NSTEMI (06/2018) and CABG x 2, HTN, HLD, paroxysmal AF on apixaban, systolic CHF - 45% Patient completed steroid taper 5 days ago Random cortisol 16 - insufficient in the setting of profound hypotension despite being normal Troponin mildly elevated 0.232 (per records previously elevated as well) likely from hypoperfusion in the setting of hypotension Received IVF 1.5L and 100mg of hydrocortisone on arrival Continue home apixaban, atorvastatin, digoxin Hold home propranolol Monitor closely for potential adrenal crisis PULM: On RA Hx of asthma CT chest: cardiomegaly with evidence of mild congestive failure and trace pleural effusion CXR mild cardiomegaly Albuterol inh PRN GI: LFT and lipase wnl Diet: renal and HH RENAL/LYTES: Acute on chronic kidney disease PMhx: CKD4 owing to membranous glomerulonephropathy (treated with cycles of prednisone and cyclosporine, completed tx on 07/15/18) BUN/Cr 22/2.3 - Cr at baseline around 1.6-1.7 Electrolytes wnl Received 1.5L NS bolus Continue KCL 20meq BID : Hx of BPH Continue finasteride ENDO: Concern for acute adrenal insufficiency likely in the setting of recent influenza A infection on 07/20. Per records, concern for adrenal insufficiency secondary to treatment with cyclical cyclosporine and prednisone for glomerulonephropathy. He received a prednisone taper for this reason which he completed a few days ago. Received hydrocortisone 100mg on arrival Recommend outpt cosyntropin stimulation test (since he received hydrocortisone cannot be completed at this time) HEME: chronic stable anemia and no evidence of acute hemorrhage H&H stable at 8.9 (baseline 8-9) Continue to monitor CBC ID: Influenza A infection per record (positive test on 07/20) Influenza test today negative No leukocytosis and afebrile; WBC 4.75, appears to be chronically low Lactate 1.6 Received a dose of levaquin in the ED and received finish course given by PCP LINES: PIV x 1 L arm fistula DVT prop: Code Full Dispo: pending clinical improvement (5) Coronary artery disease: (6) Depression: (7) NSTEMI (non-ST elevated myocardial infarction): (8) Adrenal insufficiency: (9) Nephrotic syndrome with membranous glomerulonephritis: (10) BPH (benign prostatic hyperplasia): (11) Hyperlipidemia: (12) Hypertension: (13) Asthma: Supervising Physician Co-Signing Physician Notes Dr. Gan was resident physician during care of patient. I separately evaluated patient for sloan portions of the history and the exam. I was present during the critical portion of medical decision making, and I discussed the case with the resident. I generally agree with the findings and plan. Patient is critically ill due to acute adrenal insufficiency, this is likely secondary to influenza. Patient reports that he was seen by his primary care doctor for upper respiratory tract infection and started on Levaquin. He was unaware that he was positive for influenza A as of July 20, I noticed this in his previous lab reports. He has been off steroids for approximately 2 weeks. I feel that the patient is likely adrenally insufficient due to chronic steroid use, he is Shamar been given hydrocortisone so hydrocortisone stimulation test will be nondiagnostic anticipate the patient will follow-up as an outpatient for formal cosyntropin stim testing. He may require permanent adrenal support. He has an acute kidney injury in the setting of chronic renal disease and his troponins are once again elevated. I suspect the relative hypotension probably elicited the elevation in the troponins. We will continue to trend the troponins. I have personally spent 35 minutes of critical care time in the direct management of this patient. This is a life/limb threatening event. This includes time spent evaluating patient, direct bedside care, chart review, placing orders, interpretation of diagnostic studies, discussion with consultants, patient, and/or family members regarding treatment decisions, as well as other required patient management activities. This time is exclusive of all separately billable procedures, and teaching time and separate from and in addition to any other critical care service time. History of Present Illness Reason for Consultation: Hypotension - Adrenal insufficiency Requesting Physician: Dr. Dilshad Varghese Attending Physician: Dr. 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 Presented with lightheadedness and unsteadiness starting this AM which he though was from hypotension. His SBP was 80 on arrival to the ER. He responded promptly to a fluid bolus and then became hypotensive again within an hour showing an SBP of 60. Initial labs are notable for a lactate of 1.6 and a troponin of 0.2 which has been previously elevated as well. He also has acute on chronic renal failure and stable anemia. CXR did not not show recurrent PNM. He is afebrile without leukocytosis. Patient reports not feeling well saturday to saturday of this week and being seen by his primary care doctor who started him on levaquin for upper respiratory tract infection. He was unaware that he was positive for influenza A as of July 20 per chart review. He reports mild productive cough now but congestion has improved. Of note pt was recently admitted for hypotension, PNM and an elevated trop. His NSTEMI was thought to be due to hypoperfusion during his hypertensive episode and his renal function argued against catheterization and for medical management. Hypotension was thought to be due to adrenal insufficiency rather than sepsis. Until 10 days ago, he was being treated with cyclical cyclosporine and prednisone for his glomerulonephropathy which is thought to have caused adrenal insufficiency. He had been on a Prednisone taper for this reason which he completed a few days ago. ROS: Denies headache, f/c, cp, sob, vomiting, diarrhea, dysuria, hematuria, hematochezia or melena. Allergies Allergy/AdvReac Type Severity Reaction Status Date / Time No Known Drug Allergies Allergy Unknown NONE Verified 07/24/18 11:54 Home Medications Home Medications Medication Instructions Recorded Confirmed Type albuterol sulfate [Ventolin HFA] 2 puff INHALATION QID PRN 04/08/18 07/24/18 History atorvastatin 80 mg PO HS 04/08/18 07/24/18 History finasteride 5 mg PO QPM 04/08/18 07/24/18 History paroxetine HCl 20 mg PO QPM 04/08/18 07/24/18 History propranolol 5 mg PO DAILY 04/08/18 07/24/18 History potassium chloride 20 meq PO BID 30 Days #120 tab 04/25/18 07/24/18 Rx apixaban 5 mg PO BID 30 Days #60 tab 05/09/18 07/24/18 Rx digoxin 0.125 mg PO Q2D@1600 30 Days #15 06/21/18 07/24/18 Rx tab sulfamethoxazole-trimethoprim 1 tab PO Q OTHER DAY #14 tab 06/24/18 07/24/18 Rx [Bactrim] levofloxacin 1 tab PO DAILY 07/24/18 07/24/18 History midodrine 5 mg PO AMHS 07/24/18 07/24/18 History Patient History Medical History BPH (benign prostatic hyperplasia) Hyperlipidemia Hypertension (Chronic) Severe anemia (Chronic) Asthma (Chronic) Bronchitis (Inactive) - CXR appears improved from prior visit on 03/23 suggesting resolving pneumonia AV fistula Anxiety Asthma STABLE BPH (benign prostatic hyperplasia) Borderline diabetes DIET CONTROLLED CAD (coronary artery disease) CABG X2 02/2017 Elevated troponin - GERD (gastroesophageal reflux disease) CONTROLLED History of atrial fibrillation History of blood transfusion S/P SURGERY 2017 Hyperlipidemia Hypertension Hypotension Lipoma On anticoagulant therapy Osteoarthritis Paroxysmal A-fib Paroxysmal A-fib Pulmonary hypertension Tremor of both hands FAMILIAL- ON PROPRANOLOL Unstable angina Surgical History History of colonoscopy History of coronary artery bypass graft CABG X2 02/2017- POST OP INFECTION/DEBRIDEMENT X 2 History of cystoscopy History of ear surgery RIGHT History of repair of rotator cuff RIGHT History of tonsillectomy Family History Father Family history of diabetes mellitus Mother Family history of diabetes mellitus Family/Other Family history of diabetes mellitus Social History marital status: Current Living Situation: Spouse current occupational status: retired Other Information That Helps Us Care for You: No Feels Safe at Home: Yes Safety Concerns: Feels Safe At This Time Smoking Status: Former smoker Smoking End Date: quit at age 25 Hx Alcohol Use: No Hx Substance Use: No Beliefs That Will Affect Care: None Preferred Language: Greek Communication Ability: Effective Greens Picker Required: No Physical Exam 2 Vital Signs (Past 24 Hours): Last Vital Signs Temp 36.4 C L 07/24/18 10:45 Pulse 82 07/24/18 15:31 Resp 16 07/24/18 15:31 BP 118/61 07/24/18 15:31 Pulse Ox 94 07/24/18 15:31 Physical Exam: General: In NAD, exhibiting generalized tremor (reports chronic and familial worse when sick) Neuro: Alert and oriented x4, clear speech CV: RRR, no m/r/g, cap refill < 2 sec, extremities warm and well perfused Pulm: Occasional rhonchi appreciated, equal breath sounds bilaterally, no crackles or wheezing appreciated Abdomen: +BS, non-distended, non-tender to palpation in all quadrants LE: No LE edema or calf tenderness Results & Data Laboratory Results Abnormal lab results 07/24/18 07/24/18 07/24/18 Range/Units 11:05 11:05 11:05 WBC 4.75 L (4.8-10.8) K/uL RBC 2.53 L (4.7-6.1) M/uL Hgb 8.9 L (14.0-18.0) g/dL Hct 26.8 L (42-52) % MCV 105.9 H (80-100) fL MCH 35.2 H (25-34) pg RDW Std Deviation 76.3 H (36.4-46.3) fL RDW Coeff of Reed 19.8 H (11.5-14.5) % MPV 10.5 H (7.4-10.4) fL Reticulocyte % (Auto) (0.5-2.0) % Lymph # (Auto) 0.37 L (1.2-3.4) K/uL Cottle # (Auto) 0.85 H (0.11-0.59) K/uL Reticulocyte # (0.02-0.10) 10^6/uL BUN 22 H (7-18) mg/dl Creatinine 2.30 H (0.6-1.4) mg/dl BUN/Creatinine Ratio 9.7 L (10-20) Glucose 150 H (70-99) mg/dl POC Lactic Acid Brian (0.90-1.70) mmol/L Troponin I 0.232 H* (0-0.045) ng/ml Albumin 3.2 L (3.4-5.0) gm/dl Urine Protein (Negative) Urine Blood (Negative) U Hyaline Cast (Auto) (0-5) /lpf U Epithel Cells (Auto) (0-5) /lpf 07/24/18 07/24/18 07/24/18 Range/Units 11:05 11:33 12:25 WBC (4.8-10.8) K/uL RBC (4.7-6.1) M/uL Hgb (14.0-18.0) g/dL Hct (42-52) % MCV (80-100) fL MCH (25-34) pg RDW Std Deviation (36.4-46.3) fL RDW Coeff of Reed (11.5-14.5) % MPV (7.4-10.4) fL Reticulocyte % (Auto) 4.8 H (0.5-2.0) % Lymph # (Auto) (1.2-3.4) K/uL Cottle # (Auto) (0.11-0.59) K/uL Reticulocyte # 0.12 H (0.02-0.10) 10^6/uL BUN (7-18) mg/dl Creatinine (0.6-1.4) mg/dl BUN/Creatinine Ratio (10-20) Glucose (70-99) mg/dl POC Lactic Acid Brian 3.06 H (0.90-1.70) mmol/L Troponin I (0-0.045) ng/ml Albumin (3.4-5.0) gm/dl Urine Protein 2+ H (Negative) Urine Blood Trace H (Negative) U Hyaline Cast (Auto) 10-30 H (0-5) /lpf U Epithel Cells (Auto) 10-20 H (0-5) /lpf Diagnostic Findings CT SCAN OF THE CHEST WITHOUT IV CONTRAST CLINICAL HISTORY: Cough. COMPARISON STUDY: Chest x-ray dated 07/24/2018. Chest CT scans dated 07/14/2018 and 01/02/2018. TECHNIQUE: CT scan of the thorax was performed from the thoracic inlet to the upper abdomen. Images are reviewed in the axial, sagittal, and coronal planes. IV contrast was not administered for this examination as per the referring clinician. A dose lowering technique was utilized adhering to the principles of ALARA. CT DOSE: 324.17 mGy.cm FINDINGS: Thyroid: Imaged portions of the thyroid gland are normal in size and attenuation. Thoracic aorta: There is atherosclerotic calcification of the thoracic aorta, which is normal in caliber and demonstrates standard 3-vessel arch anatomy. Heart: The patient is status post midline sternotomy. The heart is enlarged and without pericardial effusion. The coronary arteries are densely calcified. The main pulmonary arteries appear dilated suggesting pulmonary artery hypertension. Lungs and pleural spaces: There are trace pleural effusions with bibasilar atelectasis. No airspace consolidation is seen typical for pneumonia. Mild diffuse intralobular septal thickening is noted. The trachea and central airways are clear. A calcified granuloma is again seen in the anterior left upper lobe. Mediastinum: There are prominent mediastinal lymph nodes. A precarinal node on image #106 measures 11 mm in short axis. A high right peritracheal nodes measure 11 mm in short axis. Krystle: Not well assessed without IV contrast. Axillae: There is no axillary lymphadenopathy. Upper abdomen: Partially visualized upper abdominal viscera is grossly unremarkable. Skeletal structures: The skeletal structures are osteopenic. No lytic or blastic bony lesions are seen. IMPRESSION: 1. Cardiomegaly with evidence of mild congestive failure. 2. Trace pleural effusions are noted. 3. No airspace consolidation is identified typical for pneumonia. 4. Additional findings as above. Medications Administered Current Inpatient Medications Albuterol (Ventolin Hfa) 2 puffs INH QID PRN PRN Reason: Unknown Stop: 08/23/18 17:43 Apixaban (Eliquis) 5 mg PO BID [facility] Stop: 08/23/18 20:59 Atorvastatin Calcium (Lipitor) 80 mg PO HS [facility] Stop: 08/23/18 20:59 Digoxin (Lanoxin) 0.125 mg PO Q2D@1600 [facility] Stop: 08/23/18 17:43 Finasteride (Proscar) 5 mg PO QPM [facility] Stop: 08/23/18 20:59 Sodium Chloride (Nss) 500 mls @ 500 mls/hr IV .Q1H [facility] Stop: 07/24/18 18:43 Miscellaneous (Icu Protocol For Hyperglycemia) 1 ea N/A PRN PRN; Protocol PRN Reason: Hyperglycemia Protocol Stop: 07/26/18 17:43 Paroxetine HCl (Paxil) 20 mg PO QPM [facility] Stop: 08/23/18 20:59 Potassium Chloride (Klor-Con M20) 20 meq PO BID [facility] Stop: 08/23/18 20:59 Resident Activity Tracking Resident Involvement: Resident Care Provided Care Provided: [facility] Medicine _ (1) BPH (benign prostatic hyperplasia) Lower urinary tract symptom detail: Lower urinary tract symptom presence: unspecified whether lower urinary tract symptoms present Qualified Code(s): N40.0 - Benign prostatic hyperplasia without lower urinary tract symptoms (2) Hyperlipidemia Hyperlipidemia type: unspecified Qualified Code(s): E78.5 - Hyperlipidemia, unspecified (3) Chronic kidney disease Chronic kidney disease stage: unspecified stage Qualified Code(s): N18.9 - Chronic kidney disease, unspecified (4) Hypertension Hypertension type: essential hypertension Qualified Code(s): I10 - Essential (primary) hypertension (5) Asthma Asthma complication type: unspecified Asthma persistence: unspecified Asthma severity: unspecified severity Qualified Code(s): J45.909 - Unspecified asthma, uncomplicated
[2018-07-24] MEDS ORDERED: ALBUTEROL HFA 8 GM INHALER INH PRN (17:44)
[2018-07-24] MEDS ORDERED: ICU PROTOCOL FOR HYPERGLYCEMIA PRN (17:44)
[2018-07-24] MEDS ORDERED: SODIUM CHLORIDE 0.9% 500 ML IV SCH (17:44)
[2018-07-24] MEDS: APIXABAN 5 MG TABLET PO SCH (19:23)
[2018-07-24] MEDS: ATORVASTATIN 40 MG TAB PO SCH (19:23)
[2018-07-24] MEDS: DIGOXIN 0.125 MG TAB PO SCH (19:23)
[2018-07-24] MEDS: FINASTERIDE 5 MG TAB PO SCH (19:23)
[2018-07-24] MEDS: PARoxetine HCl 20 MG TAB PO SCH (19:24)
[2018-07-24] MEDS: POTASSIUM CHLORIDE 20 MEQ TABCR PO SCH (19:24)
[2018-07-25 03:11] LABS: Basophils # (auto) 0.01 K/uL (0-0.2); Basophils % (auto) 0.2 %; Eosinophils # (auto) 0.01 K/uL (0-0.5); Eosinophils % (auto) 0.2 %; Hematocrit (blood only) 24.4 % (42-52); Hemoglobin 8.1 g/dL (14.0-18.0); Lymphocytes # (auto) 0.35 K/uL (1.2-3.4); Lymphocytes % (auto) 7.8 %; Mean Corpuscular Hgb Conc 33.2 g/dL (32-36); Mean Corpuscular Volume 105.2 fL (80-100); Monocytes # (auto) 0.58 K/uL (0.11-0.59); Monocytes % (auto) 12.9 %; Neutrophils # (auto) 3.56 K/uL (1.4-6.5); Neutrophils % (auto) 78.9 %; Platelet Count 143 K/uL (130-400); RDW Coefficient of Variation 19.3 % (11.5-14.5); RDW Standard Deviation 74.2 fL (36.4-46.3); Red Blood Count 2.32 M/uL (4.7-6.1); White Blood Count 4.51 K/uL (4.8-10.8)
[2018-07-25 03:27] LABS: Albumin Level 2.7 gm/dl (3.4-5.0); BUN Creatinine Ratio 11.2 (10-20); Calcium 8.2 mg/dl (8.5-10.1); Est GFR (African American) 36.7; Est GFR (Non-African American) 31.7; Magnesium 1.4 mg/dl (1.8-2.4)
[2018-07-25 03:35] LABS: Albumin Globulin Ratio 0.9 (0.9-2); Bilirubin,Total 0.6 mg/dl (0.2-1); Total Protein 5.7 gm/dl (6.4-8.2); Troponin I 0.298 ng/ml (0-0.045)
[2018-07-25 03:50] LABS: Anisocytosis Present
[2018-07-25] MEDS: MAGNESIUM SULFATE / D5W 1 GM/100 ML BAG IV SCH ×2 (05:05→05:58)
[2018-07-25] MEDS: APIXABAN 5 MG TABLET PO SCH ×2 (07:37→21:19)
[2018-07-25] MEDS: POTASSIUM CHLORIDE 20 MEQ TABCR PO SCH (07:37)
--- NOTE | 2018-07-25 07:58 | Critical Care Progress Note ---
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 Was found to have severe hypotension with concern for adrenal insufficiency and admitted to the ICU for monitoring. NEURO: Alert and oriented CAM ICU: negative Continue home paxil CARDIAC/VASCULAR: Hypotension in the setting of possible acute adrenal insufficiency 2/2 influenza. 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 (ANGUIANO to LAD, SVG to OM) 02/14/2017, chronic combined systolic and diastolic CHF, HTN, HLD, paroxysmal AF on apixaban Troponin elevated to 3.3 EKG while tachycardic to 124 sinus but concerning for ST changes in anterior/ lateral leads which improved when HR improved to 93 s/p metoprolol 5mg IV, aspirin 324mg, and morphine 2mg IV x 1 today ECHO 06/19/18: EF 40-45%, severe hypokinesis to akinesis of basal septum and basal to mid inferior wall, severe hypokinesis involving inferolateral wall Limited ECHO pending Random cortisol 16 - low in the setting of hypotension Received IVF 1.5L and 100mg of hydrocortisone on arrival Started on prednisone 5mg daily Started on atenolol 12.5mg daily Continue home apixaban, atorvastatin, digoxin Trend troponin Obtain EKG with chest pain PULM: On NC 3L due to sob and hypoxia in the setting of productive cough and influenza A infection Hx of asthma CT chest: cardiomegaly with evidence of mild congestive failure and trace pleural effusion CXR mild cardiomegaly Albuterol osvaldo QID PRN GI: LFT and lipase wnl Diet: renal and HH RENAL/LYTES: Acute on chronic kidney disease likely 2/2 hypotension and prenal in etiology vs. worsening baseline intrinsic renal disease PMhx: Hx of chronic kidney disease - membranous glomerulonephropathy (treated with cycles of prednisone and cyclosporine, completed tx on 07/15/18) BUN/Cr 22/2.3 --> 22/2, Cr at baseline around 1.6-1.7 Hypomagnesemia 1.4, received 2g Mag Sulfate Received 1.5L NS bolus initially : Hx of BPH Continue finasteride and flomax restarted given hesitancy and increased urinary frequency (was dced last admission due to concern for orthostatic hypotension) ENDO: Concern for acute adrenal insufficiency likely in the setting of recent influenza A infection on 07/20. Per records, concern for adrenal insufficiency secondary to treatment with cyclical cyclosporine and prednisone for glomerulonephropathy but no official work up completed. Nephrology had started pt on midodrine 5mg BID (held) Received hydrocortisone 100mg on arrival Started on prednisone 5mg daily PCP or endocrinology follow up needed for outpt cosyntropin stimulation test ( since he received hydrocortisone and cannot be completed at this time) HEME: chronic anemia and no evidence of acute hemorrhage Hgb 8.1 this AM (baseline 8-9) MCV 105 06/20/18: Iron 98, TIBC 270 and Ferritin 1008 Epogen 10,000 units SQ x 1 administered 06/19/18 by nephrology Hemeoccult positive in Apr 27 - pt had declined GI work up as melena improved peripheral smear: non-specific anemia and leukopenia (no overt hemolysis changes or schistocytes seen) Haptoglobin pending B12 and folate wnl on 05/01/18 Hemeoccult ordered Continue to monitor CBC ID: Influenza A infection per record (positive test on 07/20) Influenza test today negative - continue droplet precautions until 07/25 No leukocytosis and afebrile; WBC 4.75, appears to be chronically low Peripheral smear - no myelodysplastic changes noted Lactate 1.6 Received a dose of levaquin in the ED and recently finished course given by PCP LINES: PIV x 1 L arm fistula DVT prop: Code Full Dispo: pending clinical improvement (5) Coronary artery disease: (6) Depression: (7) NSTEMI (non-ST elevated myocardial infarction): (8) Adrenal insufficiency: (9) Nephrotic syndrome with membranous glomerulonephritis: (10) BPH (benign prostatic hyperplasia): (11) Hyperlipidemia: (12) Hypertension: (13) Asthma: Supervising Physician Co-Signing Physician Notes Dr. Gan was resident physician during care of patient. I separately evaluated patient for sloan portions of the history and the exam. I was present during the critical portion of medical decision making, and I discussed the case with the resident. I generally agree with the findings and plan. Cardiology consult for antihypertensive regimen. Patient's blood pressure continues to improve, stable for downgrade out of the ICU. Subjective This AM pt was complaining of sob and requiring 3L NC. His troponin increased from 0.298 to 3.3. He was tachycardic. EKG was obtained: rate 124 sinus tach QTc [address] changes in anterior and lateral leads. Pt was given aspirin 324mg, morphine 2mg IV x 1 and metoprolol 2.5mg IV x 2. His heart rate improved to 93 and repeat EKG was NSR with improved ST changes (only had mild ST depression in V5 and V6). Case was discussed with Dr. Marie, glove boarder who reviewed limited repeat ECHO significant for septal hypokinesis and recommended ischemic work up at some point. Cardiology was consulted and repeat troponin ordered. Pt denied any cp, dizziness, headache, f/ c, n/v, abdominal pain. Pt continues to have a mild productive cough. Physical Exam 2 Vital Signs (Past 24 Hours): Last Vital Signs Temp 36.6 C 07/25/18 04:01 Pulse 99 H 07/25/18 06:01 Resp 23 07/25/18 06:01 BP 136/75 07/25/18 06:01 Pulse Ox 96 07/25/18 06:01 Physical Exam: General: In mild distress due to difficulty breathing Neuro: Alert and oriented x4, clear speech, continues to exhibit generalized tremor CV: RRR, no m/r/g, extremities warm and well perfused Pulm: Diminished but equal breath sounds bilaterally, no crackles or wheezing appreciated Abdomen: +BS, non-distended, non-tender to palpation in all quadrants LE: No LE edema or calf tenderness Results & Data Laboratory Results Abnormal lab results 07/24/18 07/24/18 07/25/18 Range/Units 11:05 19:17 00:56 WBC (4.8-10.8) K/uL RBC (4.7-6.1) M/uL Hgb (14.0-18.0) g/dL Hct (42-52) % MCV (80-100) fL MCH (25-34) pg RDW Std Deviation (36.4-46.3) fL RDW Coeff of Reed (11.5-14.5) % Reticulocyte % (Auto) 4.8 H (0.5-2.0) % Lymph # (Auto) (1.2-3.4) K/uL Reticulocyte # 0.12 H (0.02-0.10) 10^6/uL Chloride (98-107) mmol/L BUN (7-18) mg/dl Creatinine (0.6-1.4) mg/dl Glucose (70-99) mg/dl POC Glucose 103 H (70-99) Calcium (8.5-10.1) mg/dl Magnesium (1.8-2.4) mg/dl CK-MB (CK-2) (0.5-3.6) ng/ml Troponin I 0.205 H* (0-0.045) ng/ml Total Protein (6.4-8.2) gm/dl Albumin (3.4-5.0) gm/dl 07/25/18 07/25/18 07/25/18 Range/Units 02:48 02:48 06:13 WBC 4.51 L (4.8-10.8) K/uL RBC 2.32 L (4.7-6.1) M/uL Hgb 8.1 L (14.0-18.0) g/dL Hct 24.4 L (42-52) % MCV 105.2 H (80-100) fL MCH 34.9 H (25-34) pg RDW Std Deviation 74.2 H (36.4-46.3) fL RDW Coeff of Reed 19.3 H (11.5-14.5) % Reticulocyte % (Auto) (0.5-2.0) % Lymph # (Auto) 0.35 L (1.2-3.4) K/uL Reticulocyte # (0.02-0.10) 10^6/uL Chloride 108 H (98-107) mmol/L BUN 22 H (7-18) mg/dl Creatinine 2.00 H D (0.6-1.4) mg/dl Glucose (70-99) mg/dl POC Glucose 100 H (70-99) Calcium 8.2 L (8.5-10.1) mg/dl Magnesium 1.4 L (1.8-2.4) mg/dl CK-MB (CK-2) (0.5-3.6) ng/ml Troponin I 0.298 H* (0-0.045) ng/ml Total Protein 5.7 L (6.4-8.2) gm/dl Albumin 2.7 L (3.4-5.0) gm/dl 07/25/18 Range/Units 09:47 WBC (4.8-10.8) K/uL RBC (4.7-6.1) M/uL Hgb (14.0-18.0) g/dL Hct (42-52) % MCV (80-100) fL MCH (25-34) pg RDW Std Deviation (36.4-46.3) fL RDW Coeff of Reed (11.5-14.5) % Reticulocyte % (Auto) (0.5-2.0) % Lymph # (Auto) (1.2-3.4) K/uL Reticulocyte # (0.02-0.10) 10^6/uL Chloride (98-107) mmol/L BUN 23 H (7-18) mg/dl Creatinine 2.02 H (0.6-1.4) mg/dl Glucose 110 H (70-99) mg/dl POC Glucose (70-99) Calcium (8.5-10.1) mg/dl Magnesium (1.8-2.4) mg/dl CK-MB (CK-2) 30.5 H (0.5-3.6) ng/ml Troponin I 3.320 H* (0-0.045) ng/ml Total Protein (6.4-8.2) gm/dl Albumin (3.4-5.0) gm/dl Medications Administered Current Inpatient Medications Albuterol (Ventolin Hfa) 2 puffs INH QID PRN PRN Reason: Unknown Stop: 08/23/18 17:43 Albuterol (Ventolin 0.083% 2.5mg/3ml) 2.5 mg INH QIDR PRN PRN Reason: Shortness Of Breath Stop: 08/24/18 08:33 Last Admin: 07/25/18 14:46 Dose: 2.5 mg Apixaban (Eliquis) 5 mg PO BID VALERIE Stop: 08/23/18 20:59 Last Admin: 07/25/18 07:37 Dose: 5 mg Atorvastatin Calcium (Lipitor) 80 mg PO HS VALERIE Stop: 08/23/18 20:59 Last Admin: 07/24/18 19:23 Dose: 80 mg Digoxin (Lanoxin) 0.125 mg PO Q2D@1600 [facility] Stop: 08/23/18 17:43 Last Admin: 07/24/18 19:23 Dose: 0.125 mg Finasteride (Proscar) 5 mg PO QPM VALERIE Stop: 08/23/18 20:59 Last Admin: 07/24/18 19:23 Dose: 5 mg Miscellaneous (Icu Protocol For Hyperglycemia) 1 ea N/A PRN PRN; Protocol PRN Reason: Hyperglycemia Protocol Stop: 07/26/18 17:43 Paroxetine HCl (Paxil) 20 mg PO QPM [facility] Stop: 08/23/18 20:59 Last Admin: 07/24/18 19:24 Dose: 20 mg Prednisone (Prednisone) 5 mg PO QAM [facility] Stop: 07/31/18 09:01 Last Admin: 07/25/18 10:22 Dose: 5 mg Resident Activity Tracking Resident Involvement: Resident Care Provided Care Provided: [facility] Medicine _ (1) BPH (benign prostatic hyperplasia) Lower urinary tract symptom detail: Lower urinary tract symptom presence: unspecified whether lower urinary tract symptoms present Qualified Code(s): N40.0 - Benign prostatic hyperplasia without lower urinary tract symptoms (2) Hyperlipidemia Hyperlipidemia type: unspecified Qualified Code(s): E78.5 - Hyperlipidemia, unspecified (3) Chronic kidney disease Chronic kidney disease stage: unspecified stage Qualified Code(s): N18.9 - Chronic kidney disease, unspecified (4) Hypertension Hypertension type: essential hypertension Qualified Code(s): I10 - Essential (primary) hypertension (5) Asthma Asthma complication type: unspecified Asthma persistence: unspecified Asthma severity: unspecified severity Qualified Code(s): J45.909 - Unspecified asthma, uncomplicated
[2018-07-25] MEDS: ALBUTEROL 0.083% NEBU SOLN 3 ML VIAL INH PRN ×2 (08:00→14:46)
[2018-07-25] MEDS: predniSONE 10 MG TABLET PO SCH (10:22)
[2018-07-25 10:45] LABS: BUN Creatinine Ratio 11.2 (10-20); Blood Urea Nitrogen 23 mg/dl (7-18); Calcium 8.9 mg/dl (8.5-10.1); Carbon Dioxide 27 mmol/L (21-32); Chloride 104 mmol/L (98-107); Creatinine Clr Calc Pharmacy 32.6 ml/min; Est GFR (African American) 36.3; Est GFR (Non-African American) 31.3; Glucose 110 mg/dl (70-99); Magnesium 2.1 mg/dl (1.8-2.4); Potassium 3.9 mmol/L (3.5-5.1); Sodium 138 mmol/L (136-145)
[2018-07-25 10:55] LABS: Creatine Kinase MB 30.5 ng/ml (0.5-3.6)
[2018-07-25] MEDS ORDERED: ASPIRIN 81 MG CHEW PO ONE (11:17)
[2018-07-25] MEDS ORDERED: METOPROLOL TARTRATE 1 MG/ML VIAL IV STA ×2 (11:18→11:23)
[2018-07-25] MEDS ORDERED: MoRPHine SULFATE 4 MG/ML 1 ML CARP\\VIAL IV STA (11:25)
--- NOTE | 2018-07-25 11:57 | Hospitalist Progress Note ---
Date of Service July 25, 2018 Assessment & Plan (1) Hypotension: (2) Coronary artery disease: (3) Acute kidney injury: (4) Chronic anemia: (5) NATALIE (acute kidney injury): (6) Chronic kidney disease: (7) Nephrotic syndrome with membranous glomerulonephritis: (8) Hyperlipidemia: (9) Hypertension: (10) Severe anemia: (11) Asthma: 77 y/oM with 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, CAD - recent NSTEMI (06/2018) and CABG x 2, HTN, HLD, chronic anemia, BPH, adrenal insufficiency, paroxysmal AF on apixaban, systolic CHF - 45%, asthma, depression admitted on July 24, 2018 because of hypotensive associated with lightheadedness and unsteadiness Possible ACS with non-STEMI, with elevated troponin >3 hx of CAD - recent NSTEMI (06/2018) and CABG x 2, HTN, HLD, paroxysmal AF on apixaban, systolic CHF - 45% Was hypotensive upon admission which was resolved Hypotension upon admission with possible acute adrenal insufficiency 2/2 influenza. hx of afib , on eluiqis hx of adrenal insufficiency s/p treatment with cyclosporine and prednisone for glomerulonephropathy Recent influenza A: Acute on chronic kidney disease with hx of CKD4 owing to membranous glomerulonephropathy Hx of asthma CT chest: cardiomegaly with evidence of mild congestive failure and trace pleural effusion CXR mild cardiomegaly Hx of BPH, dyslipidemia, continue current medication chronic anemia and no evidence of acute hemorrhage ICU team is work together with bulk plant operator, follow-up echo results, trend troponin level, follow-up renal function Physical Exam 2 Vital Signs (Past 24 Hours): Last Vital Signs Temp 36.7 C 07/25/18 08:00 Pulse 92 H 07/25/18 11:46 Resp 27 H 07/25/18 11:46 BP 102/64 07/25/18 11:46 Pulse Ox 95 07/25/18 11:46 _ (1) Hyperlipidemia Hyperlipidemia type: unspecified Qualified Code(s): E78.5 - Hyperlipidemia, unspecified (2) Chronic kidney disease Chronic kidney disease stage: unspecified stage Qualified Code(s): N18.9 - Chronic kidney disease, unspecified (3) Hypertension Hypertension type: essential hypertension Qualified Code(s): I10 - Essential (primary) hypertension (4) Asthma Asthma complication type: unspecified Asthma persistence: unspecified Asthma severity: unspecified severity Qualified Code(s): J45.909 - Unspecified asthma, uncomplicated
--- NOTE | 2018-07-25 12:09 | Hospitalist Progress Note ---
Date of Service July 25, 2018 Assessment & Plan (1) Coronary artery disease: (1) Hypotension: (2) Coronary artery disease: (3) Acute kidney injury: (4) Chronic anemia: (5) NATALIE (acute kidney injury): (6) Chronic kidney disease: (7) Nephrotic syndrome with membranous glomerulonephritis: (8) Hyperlipidemia: (9) Hypertension: (10) Severe anemia: (11) Asthma: 77 y/oM with 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, CAD - recent NSTEMI (06/2018) and CABG x 2, HTN, HLD, chronic anemia, BPH, adrenal insufficiency, paroxysmal AF on apixaban, systolic CHF - 45%, asthma, depression admitted on July 24, 2018 because of hypotensive associated with lightheadedness and unsteadiness Possible ACS with non-STEMI, with elevated troponin >3 hx of CAD - recent NSTEMI (06/2018) and CABG x 2, HTN, HLD, paroxysmal AF on apixaban, systolic CHF - 45% Was hypotensive upon admission which was resolved Hypotension upon admission with possible acute adrenal insufficiency 2/2 influenza. hx of afib , on eluiqis hx of adrenal insufficiency s/p treatment with cyclosporine and prednisone for glomerulonephropathy Recent influenza A: Acute on chronic kidney disease with hx of CKD4 owing to membranous glomerulonephropathy Hx of asthma CT chest: cardiomegaly with evidence of mild congestive failure and trace pleural effusion CXR mild cardiomegaly Hx of BPH, dyslipidemia, continue current medication chronic anemia and no evidence of acute hemorrhage ICU team is work together with candy feeder, follow-up echo results, trend troponin level, follow-up renal function Subjective Reported doing fair, and no complaint No chest pain, Review of Systems Constitutional: Positive weakness, or fatigue Respiratory: no cough, sputum, wheezing, Cardiac: No chest pain, No orthopnea, Abdomen: No pain, No nausea, No vomiting, Musculoskeletal: No joint pain, No muscle pain, No swelling, : No dysuria, No urinary frequency, No incontinence, No hematuria Neurologic: No paralysis, No weakness, No numbness/tingling, Psychiatric: No depression symptoms, No anhedonism, No anxiety, Heme: No abnormal bleeding/bruising, No clotting problems, Skin: No rash, No itch, No new/changing skin lesions, No color change, No bleeding Physical Exam 2 Vital Signs (Past 24 Hours): Last Vital Signs Temp 36.7 C 07/25/18 08:00 Pulse 92 H 07/25/18 11:46 Resp 27 H 07/25/18 11:46 BP 102/64 07/25/18 11:46 Pulse Ox 95 07/25/18 11:46 Physical Exam: General Appearance: WD/WN, no apparent distress, pleasant conversational Eyes: normal inspection, PERRL, EOMI, sclerae normal ENT: normal ENT inspection, hearing grossly normal, pharynx normal Neck: supple, no adenopathy, thyroid normal, no carotid bruits, trachea midline Respiratory/Chest: chest non-tender, normal breath sounds, no respiratory distress, no accessory muscle use, breath sounds, rales, wheezing Cardiovascular: regular rate, rhythm, no JVD, no murmur Abdomen: normal bowel sounds, non tender, soft, no organomegaly, Extremities: normal range of motion, non-tender, normal inspection, no pedal edema, joint has no limited range of motion, capillary refill is normal, no cyanosis clubbing Neurologic/Psychiatric: form setter/driver II-XII nml as tested, no motor/sensory deficits, alert, normal mood/affect, oriented x 3 Skin: normal color, warm/dry, no rash Lymphatic: no adenopathy Results & Data Laboratory Results Laboratory Results - last 24 hr 07/24/18 07/24/18 07/24/18 11:05 11:05 11:05 WBC RBC Hgb Hct MCV MCH MCHC RDW Std Deviation RDW Coeff of Reed Plt Count MPV Immature Gran % (Auto) Neut % (Auto) Lymph % (Auto) [place] % (Auto) Eos % (Auto) Baso % (Auto) Reticulocyte % (Auto) 4.8 H Immature Gran # (Auto) Neut # (Auto) Lymph # (Auto) [place] # (Auto) Eos # (Auto) Baso # (Auto) Reticulocyte # 0.12 H Anisocytosis Sodium Potassium Chloride Carbon Dioxide Anion Gap BUN Creatinine Est Cr Clr Drug Dosing Est GFR ( Amer) Est GFR (Non-Af Amer) BUN/Creatinine Ratio Glucose POC Glucose Lactate Calcium Phosphorus Magnesium Total Bilirubin AST ALT Alkaline Phosphatase CK-MB (CK-2) Troponin I 0.232 H* Total Protein Albumin Globulin Albumin/Globulin Ratio Random Cortisol 16.35 Urine Color Urine Appearance Urine pH Ur Specific [place] Urine Protein Urine Glucose (UA) Urine Ketones Urine Blood Urine Nitrite Urine Bilirubin Urine Urobilinogen Ur Leukocyte Esterase Urine WBC (Auto) Urine RBC (Auto) U Hyaline Cast (Auto) U Epithel Cells (Auto) Urine Bacteria (Auto) Nasal Screen MRSA (PCR) Digoxin Influenza Type A Ag Influenza Type B Ag 07/24/18 07/24/18 07/24/18 12:25 13:25 15:25 WBC RBC Hgb Hct MCV MCH MCHC RDW Std Deviation RDW Coeff of Reed Plt Count MPV Immature Gran % (Auto) Neut % (Auto) Lymph % (Auto) [place] % (Auto) Eos % (Auto) Baso % (Auto) Reticulocyte % (Auto) Immature Gran # (Auto) Neut # (Auto) Lymph # (Auto) [place] # (Auto) Eos # (Auto) Baso # (Auto) Reticulocyte # Anisocytosis Sodium Potassium Chloride Carbon Dioxide Anion Gap BUN Creatinine Est Cr Clr Drug Dosing Est GFR ( Amer) Est GFR (Non-Af Amer) BUN/Creatinine Ratio Glucose POC Glucose Lactate 1.6 Calcium Phosphorus Magnesium Total Bilirubin AST ALT Alkaline Phosphatase CK-MB (CK-2) Troponin I Total Protein Albumin Globulin Albumin/Globulin Ratio Random Cortisol Urine Color Yellow Urine Appearance Clear Urine pH 5.5 Ur Specific [place] 1.013 Urine Protein 2+ H Urine Glucose (UA) Negative Urine Ketones Negative Urine Blood Trace H Urine Nitrite Negative Urine Bilirubin Negative Urine Urobilinogen Negative Ur Leukocyte Esterase Negative Urine WBC (Auto) 1-5 Urine RBC (Auto) 0-4 U Hyaline Cast (Auto) 10-30 H U Epithel Cells (Auto) 10-20 H Urine Bacteria (Auto) Negative Nasal Screen MRSA (PCR) Digoxin Influenza Type A Ag Neg for Influ A Influenza Type B Ag Neg for Influ B 07/24/18 07/24/18 07/24/18 18:05 19:17 Unknown WBC RBC Hgb Hct MCV MCH MCHC RDW Std Deviation RDW Coeff of Reed Plt Count MPV Immature Gran % (Auto) Neut % (Auto) Lymph % (Auto) [place] % (Auto) Eos % (Auto) Baso % (Auto) Reticulocyte % (Auto) Immature Gran # (Auto) Neut # (Auto) Lymph # (Auto) [place] # (Auto) Eos # (Auto) Baso # (Auto) Reticulocyte # Anisocytosis Sodium Potassium Chloride Carbon Dioxide Anion Gap BUN Creatinine Est Cr Clr Drug Dosing Est GFR ( Amer) Est GFR (Non-Af Amer) BUN/Creatinine Ratio Glucose POC Glucose Lactate Calcium Phosphorus Magnesium Total Bilirubin AST ALT Alkaline Phosphatase CK-MB (CK-2) Troponin I 0.205 H* Total Protein Albumin Globulin Albumin/Globulin Ratio Random Cortisol Urine Color Urine Appearance Urine pH Ur Specific [place] Urine Protein Urine Glucose (UA) Urine Ketones Urine Blood Urine Nitrite Urine Bilirubin Urine Urobilinogen Ur Leukocyte Esterase Urine WBC (Auto) Urine RBC (Auto) U Hyaline Cast (Auto) U Epithel Cells (Auto) Urine Bacteria (Auto) Nasal Screen MRSA (PCR) Negative Digoxin 1.0 Influenza Type A Ag Influenza Type B Ag 07/25/18 07/25/18 07/25/18 00:56 02:48 02:48 WBC 4.51 L RBC 2.32 L Hgb 8.1 L Hct 24.4 L MCV 105.2 H MCH 34.9 H MCHC 33.2 RDW Std Deviation 74.2 H RDW Coeff of Reed 19.3 H Plt Count 143 MPV 10.0 Immature Gran % (Auto) 0.0 Neut % (Auto) 78.9 Lymph % (Auto) 7.8 [place] % (Auto) 12.9 Eos % (Auto) 0.2 Baso % (Auto) 0.2 Reticulocyte % (Auto) Immature Gran # (Auto) 0.00 Neut # (Auto) 3.56 Lymph # (Auto) 0.35 L [place] # (Auto) 0.58 Eos # (Auto) 0.01 Baso # (Auto) 0.01 Reticulocyte # Anisocytosis Present Sodium 137 Potassium 4.0 Chloride 108 H Carbon Dioxide 26 Anion Gap 3.0 BUN 22 H Creatinine 2.00 H D Est Cr Clr Drug Dosing 33.0 Est GFR ( Amer) 36.7 Est GFR (Non-Af Amer) 31.7 BUN/Creatinine Ratio 11.2 Glucose 95 POC Glucose 103 H Lactate Calcium 8.2 L Phosphorus 3.0 Magnesium 1.4 L Total Bilirubin 0.6 AST 20 ALT 16 Alkaline Phosphatase 65 CK-MB (CK-2) Troponin I 0.298 H* Total Protein 5.7 L Albumin 2.7 L Globulin 3.0 Albumin/Globulin Ratio 0.9 Random Cortisol Urine Color Urine Appearance Urine pH Ur Specific [place] Urine Protein Urine Glucose (UA) Urine Ketones Urine Blood Urine Nitrite Urine Bilirubin Urine Urobilinogen Ur Leukocyte Esterase Urine WBC (Auto) Urine RBC (Auto) U Hyaline Cast (Auto) U Epithel Cells (Auto) Urine Bacteria (Auto) Nasal Screen MRSA (PCR) Digoxin Influenza Type A Ag Influenza Type B Ag 07/25/18 07/25/18 06:13 09:47 WBC RBC Hgb Hct MCV MCH MCHC RDW Std Deviation RDW Coeff of Reed Plt Count MPV Immature Gran % (Auto) Neut % (Auto) Lymph % (Auto) [place] % (Auto) Eos % (Auto) Baso % (Auto) Reticulocyte % (Auto) Immature Gran # (Auto) Neut # (Auto) Lymph # (Auto) [place] # (Auto) Eos # (Auto) Baso # (Auto) Reticulocyte # Anisocytosis Sodium 138 Potassium 3.9 Chloride 104 Carbon Dioxide 27 Anion Gap 7.0 BUN 23 H Creatinine 2.02 H Est Cr Clr Drug Dosing 32.6 Est GFR ( Amer) 36.3 Est GFR (Non-Af Amer) 31.3 BUN/Creatinine Ratio 11.2 Glucose 110 H POC Glucose 100 H Lactate Calcium 8.9 Phosphorus Magnesium 2.1 Total Bilirubin AST ALT Alkaline Phosphatase CK-MB (CK-2) 30.5 H Troponin I 3.320 H* Total Protein Albumin Globulin Albumin/Globulin Ratio Random Cortisol Urine Color Urine Appearance Urine pH Ur Specific [place] Urine Protein Urine Glucose (UA) Urine Ketones Urine Blood Urine Nitrite Urine Bilirubin Urine Urobilinogen Ur Leukocyte Esterase Urine WBC (Auto) Urine RBC (Auto) U Hyaline Cast (Auto) U Epithel Cells (Auto) Urine Bacteria (Auto) Nasal Screen MRSA (PCR) Digoxin Influenza Type A Ag Influenza Type B Ag
--- NOTE | 2018-07-25 14:44 | Cardiology Consultation ---
Date of Consultation July 25, 2018 Assessment & Plan (1) Elevated troponin I level: Mr. 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 Yesterday his pulse rate gradually increased into the 120s (sinus tachycardia) and he experience some angina at his higher heart rates. Briefly after receiving IV Lopressor his heart rate began to decrease, and his angina completely resolved. This albert NOT appear to be an ACS -- it is likely the result of myocardial O2 supply demand mismatch related to underlying CAD and Anemia. Recommendations: -- Initiate beta damon therapy now -- so his BP / HR response can be closely monitored while hospitalized. -- Begin Atenolol 12.5 po daily. -- Continue high intensity statin therapy. -- No further ischemic work up at this time. Present on Admission?: No (2) CAD, multiple vessel: -- Initiate beta damon as stated above. -- Continue Atorvastatin 80 mg daily. -- No aspirin for the time being due anemia and heme + stool. Present on Admission?: Yes (3) Paroxysmal atrial fibrillation: Has not had any Atrial Flutter or Atrial Fibrillation during this hospitalization. -- Continue Eliquis. -- Continue Digoxin 125 mcg every other day. -- Add Atenolol 12.5 mg daily. Present on Admission?: No (4) Acute on chronic systolic heart failure: Patient appears euvolemic / compensated. -- Monitor daily I&O's, body weights. -- Furosemide as needed. Present on Admission?: No Supervising Physician Co-Signing Physician Notes Jordan Thornton MD Agree with above. Continue anticoagulation and rate control medications. History of Present Illness Reason for Consultation: -- Elevated Troponin I level. -- CAD. Requesting Physician: Vasquez Guerrero MD, PhD, [facility] Attending Physician: Jordan Thornton MD History of Present Illness Mr. 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 His SBP was 80 mmHg when he came into the ER. It is felt that his hypotension may be related to cycles of cyclosporin and prednisone to treat his membranous nephritis. Yesterday his pulse gradually increased into the 120's, although he was not hypotensive during the same time frame -if anything, he was a bit hypertensive at the time. When his heart rate was that high he did feel some of his angina. He received IV Lopressor 2.5 mg and as soon as his heart rate began coming down his angina resolved. He subsequently has had a bump in his troponin which was likely a myocardial O2 supply demand mismatch. Ever since his heart rate has stayed in the normal range -- he has not had any further angina pectoris. At the present time, patient states that he is feeling well. He still gets dyspnea when he walks but that has certainly improved since he was admitted. Patient denies any orthopnea, PND, peripheral edema, or any recent weight gain. He currently denies any angina pectoris, chest discomfort, pain, pressure, tightness, or heaviness. He denies any syncope. Allergies Allergy/AdvReac Type Severity Reaction Status Date / Time No Known Drug Allergies Allergy Unknown NONE Verified 07/24/18 11:54 Home Medications Home Medications Medication Instructions Recorded Confirmed Type albuterol sulfate [Ventolin HFA] 2 puff INHALATION QID PRN 04/08/18 07/24/18 History atorvastatin 80 mg PO HS 04/08/18 07/24/18 History finasteride 5 mg PO QPM 04/08/18 07/24/18 History paroxetine HCl 20 mg PO QPM 04/08/18 07/24/18 History potassium chloride 20 meq PO BID 30 Days #120 tab 04/25/18 07/24/18 Rx apixaban 5 mg PO BID 30 Days #60 tab 05/09/18 07/24/18 Rx digoxin 0.125 mg PO Q2D@1600 30 Days #15 06/21/18 07/24/18 Rx tab midodrine 10 mg PO AMHS #60 tab 07/30/18 07/24/18 Rx prednisone 5 mg PO UD #60 tab 07/30/18 Rx ferrous sulfate [iron] 325 mg PO BID #60 tab 07/31/18 Rx metoprolol succinate 25 mg PO QAM #30 tab 07/31/18 Rx Patient History Medical History BPH (benign prostatic hyperplasia) Hyperlipidemia Hypertension (Chronic) Severe anemia (Chronic) Asthma (Chronic) Bronchitis (Inactive) - CXR appears improved from prior visit on 03/23 suggesting resolving pneumonia AV fistula Anxiety Asthma STABLE BPH (benign prostatic hyperplasia) Borderline diabetes DIET CONTROLLED CAD (coronary artery disease) CABG X2 02/2017 Elevated troponin - GERD (gastroesophageal reflux disease) CONTROLLED History of atrial fibrillation History of blood transfusion S/P SURGERY 2017 Hyperlipidemia Hypertension Hypotension Lipoma On anticoagulant therapy Osteoarthritis Paroxysmal A-fib Paroxysmal A-fib Pulmonary hypertension Tremor of both hands FAMILIAL- ON PROPRANOLOL Unstable angina Surgical History History of colonoscopy History of coronary artery bypass graft CABG X2 02/2017- POST OP INFECTION/DEBRIDEMENT X 2 History of cystoscopy History of ear surgery RIGHT History of repair of rotator cuff RIGHT History of tonsillectomy Family History Father Family history of diabetes mellitus Mother Family history of diabetes mellitus Family/Other Family history of diabetes mellitus Social History marital status: Current Living Situation: Spouse current occupational status: retired Other Information That Helps Us Care for You: No Feels Safe at Home: Yes Safety Concerns: Feels Safe At This Time Smoking Status: Former smoker Smoking End Date: quit at age 25 Hx Alcohol Use: No Hx Substance Use: No Beliefs That Will Affect Care: None Preferred Language: Sinhala Physical Exam 2 Vital Signs (Past 24 Hours): Last Vital Signs Temp 36.7 C 07/25/18 08:00 Pulse 93 H 07/25/18 14:30 Resp 27 H 07/25/18 14:30 BP 107/68 07/25/18 14:30 Pulse Ox 98 07/25/18 14:30 Physical Exam: General: Patient is in no acute distress. HEENT: Head is atraumatic, normocephalic. EOMs intact. Sclera anicteric. Facies symmetric. No perioral cyanosis. Mucous membranes moist. Neck: No adenopathy, thyromegaly, or JVD. Jugular venous pressures at the level of the clavicle sitting upright. Carotid upstrokes +2 bilaterally without bruits. Chest and Lungs: Mildly diminished breath sounds throughout, no wheezes. No rales. CVS: S1 and S2 are regular at a rate of 92 bpm. No obvious murmurs, gallops, or rubs. PMI is nondisplaced. No lifts, heaves, or thrills. No abdominal aortic or renal bruits. Sternotomy incision is closed, well-healed. Abdominal Exam: Bowel sounds present. No masses, organomegaly, or tenderness. Extremities: No clubbing, cyanosis, or edema. Intact radial pulses bilaterally. Neurologic Exam: Patient is awake, alert, and oriented. Pleasant and cooperative. Answers questions appropriately. Speech is clear. Normal movement in all 4 extremities. Gait pattern was not assessed. Telemetry Monitoring: -- Currently NSR with rates in the 90's. EKG 07/25/2018 at 11:06:37: Sinus tachycardia Marked ST abnormality, possible anterolateral subendocardial injury Abnormal ECG When compared with ECG of 24-JUL-2018 10:57, Premature ventricular complexes are no longer Present ST more depressed Lateral leads T wave inversion now evident in Lateral leads. EKG 07/25/2018 at 12:02:25 showed: Normal sinus rhythm Nonspecific ST and T wave abnormality Prolonged QT Abnormal ECG When compared with ECG of 25-JUL-2018 11:06, (unconfirmed) ST no longer depressed in Anterior leads T wave inversion no longer evident in Inferior leads T wave inversion no longer evident in Lateral leads. Results & Data Laboratory Results Laboratory Results - last 24 hr 07/24/18 07/24/18 07/24/18 11:05 15:25 18:05 WBC RBC Hgb Hct MCV MCH MCHC RDW Std Deviation RDW Coeff of Reed Plt Count MPV Immature Gran % (Auto) Neut % (Auto) Lymph % (Auto) Glynn % (Auto) Eos % (Auto) Baso % (Auto) Reticulocyte % (Auto) 4.8 H Immature Gran # (Auto) Neut # (Auto) Lymph # (Auto) Glynn # (Auto) Eos # (Auto) Baso # (Auto) Reticulocyte # 0.12 H Anisocytosis Peripher Smr Path Cons Sodium Potassium Chloride Carbon Dioxide Anion Gap BUN Creatinine Est Cr Clr Drug Dosing Est GFR ( Amer) Est GFR (Non-Af Amer) BUN/Creatinine Ratio Glucose POC Glucose Lactate 1.6 Calcium Phosphorus Magnesium Total Bilirubin AST ALT Alkaline Phosphatase CK-MB (CK-2) Troponin I Total Protein Albumin Globulin Albumin/Globulin Ratio Nasal Screen MRSA (PCR) Digoxin 1.0 07/24/18 07/24/18 07/25/18 19:17 Unknown 00:56 WBC RBC Hgb Hct MCV MCH MCHC RDW Std Deviation RDW Coeff of Reed Plt Count MPV Immature Gran % (Auto) Neut % (Auto) Lymph % (Auto) Glynn % (Auto) Eos % (Auto) Baso % (Auto) Reticulocyte % (Auto) Immature Gran # (Auto) Neut # (Auto) Lymph # (Auto) Glynn # (Auto) Eos # (Auto) Baso # (Auto) Reticulocyte # Anisocytosis Peripher Smr Path Cons Sodium Potassium Chloride Carbon Dioxide Anion Gap BUN Creatinine Est Cr Clr Drug Dosing Est GFR ( Amer) Est GFR (Non-Af Amer) BUN/Creatinine Ratio Glucose POC Glucose 103 H Lactate Calcium Phosphorus Magnesium Total Bilirubin AST ALT Alkaline Phosphatase CK-MB (CK-2) Troponin I 0.205 H* Total Protein Albumin Globulin Albumin/Globulin Ratio Nasal Screen MRSA (PCR) Negative Digoxin 07/25/18 07/25/18 07/25/18 02:48 02:48 06:13 WBC 4.51 L RBC 2.32 L Hgb 8.1 L Hct 24.4 L MCV 105.2 H MCH 34.9 H MCHC 33.2 RDW Std Deviation 74.2 H RDW Coeff of Reed 19.3 H Plt Count 143 MPV 10.0 Immature Gran % (Auto) 0.0 Neut % (Auto) 78.9 Lymph % (Auto) 7.8 Glynn % (Auto) 12.9 Eos % (Auto) 0.2 Baso % (Auto) 0.2 Reticulocyte % (Auto) Immature Gran # (Auto) 0.00 Neut # (Auto) 3.56 Lymph # (Auto) 0.35 L Glynn # (Auto) 0.58 Eos # (Auto) 0.01 Baso # (Auto) 0.01 Reticulocyte # Anisocytosis Present Peripher Smr Path Cons Sodium 137 Potassium 4.0 Chloride 108 H Carbon Dioxide 26 Anion Gap 3.0 BUN 22 H Creatinine 2.00 H D Est Cr Clr Drug Dosing 33.0 Est GFR ( Amer) 36.7 Est GFR (Non-Af Amer) 31.7 BUN/Creatinine Ratio 11.2 Glucose 95 POC Glucose 100 H Lactate Calcium 8.2 L Phosphorus 3.0 Magnesium 1.4 L Total Bilirubin 0.6 AST 20 ALT 16 Alkaline Phosphatase 65 CK-MB (CK-2) Troponin I 0.298 H* Total Protein 5.7 L Albumin 2.7 L Globulin 3.0 Albumin/Globulin Ratio 0.9 Nasal Screen MRSA (PCR) Digoxin 07/25/18 07/25/18 09:47 09:47 WBC RBC Hgb Hct MCV MCH MCHC RDW Std Deviation RDW Coeff of Reed Plt Count MPV Immature Gran % (Auto) Neut % (Auto) Lymph % (Auto) Glynn % (Auto) Eos % (Auto) Baso % (Auto) Reticulocyte % (Auto) Immature Gran # (Auto) Neut # (Auto) Lymph # (Auto) Glynn # (Auto) Eos # (Auto) Baso # (Auto) Reticulocyte # Anisocytosis Peripher Smr Path Cons Sodium 138 Potassium 3.9 Chloride 104 Carbon Dioxide 27 Anion Gap 7.0 BUN 23 H Creatinine 2.02 H Est Cr Clr Drug Dosing 32.6 Est GFR ( Amer) 36.3 Est GFR (Non-Af Amer) 31.3 BUN/Creatinine Ratio 11.2 Glucose 110 H POC Glucose Lactate Calcium 8.9 Phosphorus Magnesium 2.1 Total Bilirubin AST ALT Alkaline Phosphatase CK-MB (CK-2) 30.5 H Troponin I 3.320 H* Total Protein Albumin Globulin Albumin/Globulin Ratio Nasal Screen MRSA (PCR) Digoxin Medications Administered Active Medications Generic Name Dose Route Start Last Admin Trade Name Freq PRN Reason Stop Dose Admin Albuterol 2 puffs 07/24/18 17:44 Ventolin Hfa INH 08/23/18 17:43 QID PRN Unknown Albuterol 2.5 mg 07/25/18 08:34 07/25/18 14:46 Ventolin 0.083% 2.5mg/3ml INH 08/24/18 08:33 2.5 mg QIDR PRN Administration Shortness Of Breath Apixaban 5 mg 07/24/18 21:00 07/25/18 07:37 Eliquis PO 08/23/18 20:59 5 mg BID VALERIE Administration Atorvastatin Calcium 80 mg 07/24/18 21:00 07/24/18 19:23 Lipitor PO 08/23/18 20:59 80 mg HS VALERIE Administration Digoxin 0.125 mg 07/24/18 17:44 07/24/18 19:23 Lanoxin PO 08/23/18 17:43 0.125 mg Q2D@1600 VALERIE Administration Finasteride 5 mg 07/24/18 21:00 07/24/18 19:23 Proscar PO 08/23/18 20:59 5 mg QPM VALERIE Administration Miscellaneous 1 ea 07/24/18 17:44 Icu Protocol For Hyperglycemia N/A 07/26/18 17:43 PRN PRN Hyperglycemia Protocol Protocol Paroxetine HCl 20 mg 07/24/18 21:00 07/24/18 19:24 Paxil PO 08/23/18 20:59 20 mg QPM VALERIE Administration Prednisone 5 mg 07/25/18 10:00 07/25/18 10:22 Prednisone PO 07/31/18 09:01 5 mg QAM VALERIE Administration
[2018-07-25] MEDS: ATENOLOL 25 MG TABLET PO SCH (16:51)
[2018-07-25 18:33] LABS: Basophils # (auto) 0.03 K/uL (0-0.2); Basophils % (auto) 0.4 %; Eosinophils # (auto) 0.01 K/uL (0-0.5); Eosinophils % (auto) 0.1 %; Hematocrit (blood only) 26.8 % (42-52); Hemoglobin 8.7 g/dL (14.0-18.0); Immature Granulocytes # (auto) 0.02 K/uL (0.00-0.02); Immature Granulocytes % (auto) 0.3 %; Lymphocytes # (auto) 0.44 K/uL (1.2-3.4); Mean Corpuscular Hgb Conc 32.5 g/dL (32-36); Mean Corpuscular Volume 106.3 fL (80-100); Mean Platelet Volume 9.6 fL (7.4-10.4); Monocytes # (auto) 1.01 K/uL (0.11-0.59); Monocytes % (auto) 13.8 %; Neutrophils # (auto) 5.82 K/uL (1.4-6.5); Neutrophils % (auto) 79.4 %; Platelet Count 163 K/uL (130-400); RDW Coefficient of Variation 19.7 % (11.5-14.5); RDW Standard Deviation 76.1 fL (36.4-46.3); Red Blood Count 2.52 M/uL (4.7-6.1); White Blood Count 7.33 K/uL (4.8-10.8)
[2018-07-25 18:56] LABS: Anisocytosis Present
[2018-07-25] MEDS ORDERED: SODIUM CHLORIDE 0.9% 1000ML 500 ML IV ONE (19:00)
[2018-07-25] MEDS: FINASTERIDE 5 MG TAB PO SCH (21:19)
[2018-07-25] MEDS: TAMSULOSIN HCL 0.4 MG CAP PO SCH (21:19)
[2018-07-25] MEDS: PARoxetine HCl 20 MG TAB PO SCH (21:19)
[2018-07-25] MEDS: ATORVASTATIN 40 MG TAB PO SCH (21:20)
[2018-07-26 02:11] LABS: Basophils # (auto) 0.02 K/uL (0-0.2); Basophils % (auto) 0.3 %; Eosinophils # (auto) 0.01 K/uL (0-0.5); Eosinophils % (auto) 0.2 %; Hematocrit (blood only) 23.5 % (42-52); Hemoglobin 7.7 g/dL (14.0-18.0); Immature Granulocytes # (auto) 0.01 K/uL (0.00-0.02); Immature Granulocytes % (auto) 0.2 %; Lymphocytes # (auto) 0.68 K/uL (1.2-3.4); Lymphocytes % (auto) 11.8 %; Mean Corpuscular Hgb Conc 32.8 g/dL (32-36); Mean Corpuscular Volume 106.8 fL (80-100); Mean Platelet Volume 9.6 fL (7.4-10.4); Monocytes # (auto) 0.71 K/uL (0.11-0.59); Monocytes % (auto) 12.3 %; Neutrophils # (auto) 4.34 K/uL (1.4-6.5); Neutrophils % (auto) 75.2 %; Platelet Count 123 K/uL (130-400); RDW Coefficient of Variation 19.8 % (11.5-14.5); RDW Standard Deviation 76.5 fL (36.4-46.3); White Blood Count 5.77 K/uL (4.8-10.8)
[2018-07-26 02:32] LABS: Tear Drop Cells 1+
[2018-07-26 02:33] LABS: BUN Creatinine Ratio 13.5 (10-20); Calcium 8.4 mg/dl (8.5-10.1); Est GFR (African American) 35.5; Est GFR (Non-African American) 30.6; Magnesium 2.1 mg/dl (1.8-2.4); Potassium 4.6 mmol/L (3.5-5.1)
[2018-07-26 02:45] LABS: Troponin I 7.1 ng/ml (0-0.045)
[2018-07-26] MEDS: APIXABAN 5 MG TABLET PO SCH ×2 (07:30→20:20)
[2018-07-26] MEDS: predniSONE 10 MG TABLET PO SCH (07:30)
[2018-07-26] MEDS: ATENOLOL 25 MG TABLET PO SCH (07:32)
[2018-07-26] MEDS: ALBUTEROL 0.083% NEBU SOLN 3 ML VIAL INH PRN (07:54)
--- NOTE | 2018-07-26 08:04 | Critical Care Progress Note ---
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 Was found to have severe hypotension with concern for adrenal insufficiency and admitted to the ICU for monitoring. NEURO: Alert and oriented CAM ICU: negative Continue home paxil Lidocaine patch ordered for back pain CARDIAC/VASCULAR: Hypotension in the setting of possible acute adrenal insufficiency 2/2 influenza. 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 (ANGUIANO to LAD, SVG to OM) 02/14/2017, chronic combined systolic and diastolic CHF, HTN, HLD, paroxysmal AF on apixaban Troponin elevated to 7.49 downtrended to 7.1 EKG while tachycardic to 124 sinus but concerning for ST changes in anterior/ lateral leads which improved when HR improved to 93 s/p metoprolol 5mg IV, aspirin 324mg, and morphine 2mg IV x 1 on 07/25/18 ECHO 06/19/18: EF 40-45%, severe hypokinesis to akinesis of basal septum and basal to mid inferior wall, severe hypokinesis involving inferolateral wall Limited ECHO 07/25/18: EF 35-40%, mildly dilated, mild concentric LVH, moderate global hypokinesis of LV, mild-mod MV regurg and moderate LA enlargement Random cortisol 16 - low in the setting of hypotension Received IVF 1.5L and 100mg of hydrocortisone on arrival Started on prednisone 5mg daily Started on atenolol 12.5mg daily Started on midodrine 10mg BID (was on 5mg BID at home) Continue home apixaban, atorvastatin, digoxin Cardiology consulted Cards held aspirin due to anemia/previously positive heme-occult EKG and troponin PRN with chest pain PULM: On NC 3L due to sob and hypoxia in the setting of productive cough and influenza A infection Hx of asthma takes albuterol neb PRN and advair CT chest: cardiomegaly with evidence of mild congestive failure and trace pleural effusion CXR mild cardiomegaly Started on Advair BID Albuterol osvaldo QID PRN GI: LFT and lipase wnl Bowel regimen ordered Hemeoccult ordered Diet: renal and HH RENAL/LYTES: Acute on chronic kidney disease likely 2/2 hypotension and prenal in etiology vs. worsening baseline intrinsic renal disease PMhx: Hx of CKD3B- membranous glomerulonephropathy (treated with cycles of prednisone and cyclosporine, completed tx on 07/15/18) BUN/Cr 22/2.3 --> 28/2, Cr at baseline around 1.6-1.7 Mild hyperphosphatemia 5 Received 1.5L NS bolus initially and 500ml on 06/24 Continue to monitor renal function and electrolytes : Hx of BPH Continue finasteride and flomax - restarted given hesitancy and increased urinary frequency (was dced last admission due to concern for orthostatic hypotension) ENDO: Concern for acute adrenal insufficiency likely in the setting of recent influenza A infection on 07/20. Per records, concern for adrenal insufficiency secondary to treatment with cyclical cyclosporine and prednisone for glomerulonephropathy but no official work up completed. Nephrology had started pt on midodrine 5mg BID - restarted on midodrine 10mg BID Received hydrocortisone 100mg on arrival Started on prednisone 5mg daily PCP or endocrinology follow up needed for outpt cosyntropin stimulation test ( since he received hydrocortisone and cannot be completed at this time) HEME: chronic anemia and no evidence of acute hemorrhage likely anemia of chronic disease in the setting of CKD3B Hgb 7.7 this AM from 8.7 last night - decrease likely dilutional given 500ml fluid bolus yesterday (baseline 8-9) MCV 105 06/20/18: Iron 98, TIBC 270 and Ferritin 1008 Epogen 10,000 units SQ x 1 administered 06/19/18 by nephrology Hemeoccult positive in Apr 27 - pt had declined GI work up as melena improved peripheral smear: non-specific anemia and leukopenia (no overt hemolysis changes or schistocytes seen) Haptoglobin pending B12 and folate wnl on 05/01/18 Erythropoietin level ordered Given dose of epogen 10,000u SQ today Hemeoccult ordered Continue to monitor CBC ID: Influenza A infection per record (positive test on 07/20) Repeat influenza test negative - droplet precautions dced today No leukocytosis and afebrile; WBC improved to 5.7, appears to be chronically low Peripheral smear - no myelodysplastic changes noted Lactate 1.6 Received a dose of levaquin in the ED and recently finished course given by PCP LINES: PIV x 1 L arm fistula DVT prop: Code Full Dispo: pending clinical improvement (5) Coronary artery disease: (6) Depression: (7) NSTEMI (non-ST elevated myocardial infarction): (8) Adrenal insufficiency: (9) Nephrotic syndrome with membranous glomerulonephritis: (10) BPH (benign prostatic hyperplasia): (11) Hyperlipidemia: (12) Hypertension: (13) Asthma: Supervising Physician Co-Signing Physician Notes Dr. Gan was resident physician during care of patient. I separately evaluated patient for sloan portions of the history and the exam. I was present during the critical portion of medical decision making, and I discussed the case with the resident. I generally agree with the findings and plan. Reviewed cardiology consult. Lightheadedness is improved despite patient being relatively hypotensive this morning. It appears the patient has anemia of chronic disease , he has not moved his bowels so we have not been able to check for gastrointestinal bleeding. Given his significant kidney disease I think he is probably in need of erythropoietin we will send a reference E Po level and treat the patient with 1 dose, this is similar to his previous admission he is not on erythropoietin as an outpatient. Atenolol was held this morning due to relative hypotension. If the patient's blood pressure stabilizes any continues to remain asymptomatic he would be stable for downgrade later today. Subjective This AM pt was complaining of sob and requiring 2L oxymask. His troponin downtrended to 7.2 from 7.49. Per cardiology no intervention at this time. He denies any cp. His lightheadedness has improved despite being hypotensive still. His HR has also improved, 70s-90s after starting atenolol 12.5mg which he received yesterday but was held today due to parameters. Midodrine 10mg BID was added today. He was also started on bowel regimen and fecal occult blood reordered. His Hgb was 7.7 this AM from 8.7 last night which was likely dilutionnal given he received 500ml IVF bolus last night for hypotension. Anemia likely from chronic disease - erythropoietin level ordered and epogen [id number] SQ ordered. Pt denied any headache, f/c, n/v, abdominal pain. Pt continues to have a mild productive cough. Physical Exam 2 Vital Signs (Past 24 Hours): Last Vital Signs Temp 36.6 C 07/25/18 16:00 Pulse 70 07/26/18 07:54 Resp 18 07/26/18 07:54 BP 93/59 L 07/25/18 18:31 Pulse Ox 95 07/26/18 07:54 Physical Exam: General: In mild distress due to difficulty breathing Neuro: Alert and oriented x4, clear speech, continues to exhibit generalized tremor CV: RRR, no m/r/g, extremities warm and well perfused Pulm: Mild wheezing appreciated, diminished but equal breath sounds bilaterally , no crackles appreciated Abdomen: +BS, non-distended, non-tender to palpation in all quadrants LE: No LE edema or calf tenderness Results & Data Laboratory Results Abnormal lab results 07/25/18 07/25/18 07/25/18 Range/Units 09:47 18:25 18:25 RBC 2.52 L (4.7-6.1) M/uL Hgb 8.7 L (14.0-18.0) g/dL Hct 26.8 L (42-52) % MCV 106.3 H (80-100) fL MCH 34.5 H (25-34) pg RDW Std Deviation 76.1 H (36.4-46.3) fL RDW Coeff of Reed 19.7 H (11.5-14.5) % Plt Count (130-400) K/uL Lymph # (Auto) 0.44 L (1.2-3.4) K/uL [place] # (Auto) 1.01 H (0.11-0.59) K/uL BUN 23 H (7-18) mg/dl Creatinine 2.02 H (0.6-1.4) mg/dl Glucose 110 H (70-99) mg/dl Calcium (8.5-10.1) mg/dl Phosphorus (2.5-4.9) mg/dl CK-MB (CK-2) 30.5 H (0.5-3.6) ng/ml Troponin I 3.320 H* 7.490 H* (0-0.045) ng/ml 07/26/18 07/26/18 Range/Units 02:00 02:00 RBC 2.20 L (4.7-6.1) M/uL Hgb 7.7 L (14.0-18.0) g/dL Hct 23.5 L (42-52) % MCV 106.8 H (80-100) fL MCH 35.0 H (25-34) pg RDW Std Deviation 76.5 H (36.4-46.3) fL RDW Coeff of Reed 19.8 H (11.5-14.5) % Plt Count 123 L (130-400) K/uL Lymph # (Auto) 0.68 L (1.2-3.4) K/uL [place] # (Auto) 0.71 H (0.11-0.59) K/uL BUN 28 H (7-18) mg/dl Creatinine 2.06 H (0.6-1.4) mg/dl Glucose 111 H (70-99) mg/dl Calcium 8.4 L (8.5-10.1) mg/dl Phosphorus 5.0 H D (2.5-4.9) mg/dl CK-MB (CK-2) (0.5-3.6) ng/ml Troponin I 7.100 H* (0-0.045) ng/ml Medications Administered Current Inpatient Medications Albuterol (Ventolin Hfa) 2 puffs INH QID PRN PRN Reason: Unknown Stop: 08/23/18 17:43 Albuterol (Ventolin 0.083% 2.5mg/3ml) 2.5 mg INH QIDR PRN PRN Reason: Shortness Of Breath Stop: 08/24/18 08:33 Last Admin: 07/26/18 07:54 Dose: 2.5 mg Apixaban (Eliquis) 5 mg PO BID VALERIE Stop: 08/23/18 20:59 Last Admin: 07/26/18 07:30 Dose: 5 mg Atenolol (Tenormin) 12.5 mg PO QAM [facility] Stop: 08/24/18 15:44 Last Admin: 07/26/18 07:32 Dose: Not Given Atorvastatin Calcium (Lipitor) 80 mg PO HS [facility] Stop: 08/23/18 20:59 Last Admin: 07/25/18 21:20 Dose: 80 mg Digoxin (Lanoxin) 0.125 mg PO Q2D@1600 [facility] Stop: 08/23/18 17:43 Last Admin: 07/24/18 19:23 Dose: 0.125 mg Docusate Sodium (Colace) 100 mg PO BID [facility] Stop: 08/25/18 10:44 Epoetin Jacob (Procrit) 10,000 units SQ ONE ONE Stop: 07/26/18 11:01 Finasteride (Proscar) 5 mg PO QPM [facility] Stop: 08/23/18 20:59 Last Admin: 07/25/18 21:19 Dose: 5 mg Lidocaine (Anecream 4%) 1 appln EXT DAILY PRN PRN Reason: Pain Stop: 08/25/18 10:34 Midodrine (Proamatine) 10 mg PO BID@0900,1800 [facility] Stop: 08/25/18 10:14 Miscellaneous (Icu Protocol For Hyperglycemia) 1 ea N/A PRN PRN; Protocol PRN Reason: Hyperglycemia Protocol Stop: 07/26/18 17:43 Paroxetine HCl (Paxil) 20 mg PO QPM [facility] Stop: 08/23/18 20:59 Last Admin: 07/25/18 21:19 Dose: 20 mg Polyethylene Glycol (Miralax Powder Packet) 17 gm PO DAILY PRN PRN Reason: Constipation Stop: 08/25/18 10:30 Prednisone (Prednisone) 5 mg PO QAM [facility] Stop: 07/31/18 09:01 Last Admin: 07/26/18 07:30 Dose: 5 mg Fluticasone/Salmeterol (Advair Diskus 250/50) 1 puffs INH BID [facility] Stop: 08/25/18 08:59 Last Admin: 07/26/18 10:20 Dose: 1 puffs Tamsulosin HCl (Flomax) 0.4 mg PO HS [facility] Stop: 08/24/18 20:59 Last Admin: 07/25/18 21:19 Dose: 0.4 mg Resident Activity Tracking Resident Involvement: Resident Care Provided Care Provided: Adult [facility] Medicine _ (1) BPH (benign prostatic hyperplasia) Lower urinary tract symptom detail: Lower urinary tract symptom presence: unspecified whether lower urinary tract symptoms present Qualified Code(s): N40.0 - Benign prostatic hyperplasia without lower urinary tract symptoms (2) Hyperlipidemia Hyperlipidemia type: unspecified Qualified Code(s): E78.5 - Hyperlipidemia, unspecified (3) Chronic kidney disease Chronic kidney disease stage: unspecified stage Qualified Code(s): N18.9 - Chronic kidney disease, unspecified (4) Hypertension Hypertension type: essential hypertension Qualified Code(s): I10 - Essential (primary) hypertension (5) Asthma Asthma complication type: unspecified Asthma persistence: unspecified Asthma severity: unspecified severity Qualified Code(s): J45.909 - Unspecified asthma, uncomplicated
[2018-07-26] MEDS: FLUTICASONE/SALMETEROL 250/50 (ADVAIR) 14 PUFF/1 INHALER INH SCH ×2 (10:20→20:19)
[2018-07-26] MEDS ORDERED: POLYETHYLENE (MIRALAX) 17 GM PACK PO PRN (10:31)
[2018-07-26] MEDS ORDERED: LIDOCAINE 4% CREAM 15 GM TUBE EXT PRN (10:35)
[2018-07-26] MEDS ORDERED: DOCUSATE SODIUM SYRUP 100 MG/10 ML UDC PO SCH (10:45)
[2018-07-26] MEDS: MIDODRINE HCL 10 MG TAB PO SCH ×2 (10:57→17:17)
[2018-07-26] MEDS ORDERED: EPOETIN ALFA 10,000 UNITS/ML VIAL SQ ONE (11:00)
[2018-07-26] MEDS: LIDOCAINE 5% 1 PATCH TD SCH (11:58)
[2018-07-26] MEDS: SENNA 8.6 MG TAB PO SCH (11:59)
--- NOTE | 2018-07-26 13:57 | Hospitalist Progress Note ---
Date of Service July 26, 2018 Assessment & Plan (1) Coronary artery disease: (2) Paroxysmal atrial fibrillation: (3) Elevated troponin I level: (4) CAD, multiple vessel: (5) Chronic anemia: (6) NATALIE (acute kidney injury): (7) Chronic kidney disease: (8) BPH (benign prostatic hyperplasia): (9) Hyperlipidemia: (10) Hypertension: (11) Severe anemia: (12) Asthma: 77 y/oM with 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, CAD - recent NSTEMI (06/2018) and CABG x 2, HTN, HLD, chronic anemia, BPH, adrenal insufficiency, paroxysmal AF on apixaban, systolic CHF - 45%, asthma, depression admitted on July 24, 2018 because of hypotensive associated with lightheadedness and unsteadiness Possible ACS with non-STEMI, with elevated troponin , troponin peak, hx of CAD - recent NSTEMI (06/2018) and CABG x 2, HTN, HLD, paroxysmal AF on apixaban, rate controlled, systolic CHF - 45% Was hypotensive upon admission which was resolved Possible acute on chronic anemia, history of CKD stage III, nephrology give 1 dose of Epogen, Will check vitamin B12 folate acid because MCV 106 Patient has a history of Hemoccult positive Hypotension upon admission with possible acute adrenal insufficiency 2/2 influenza. Was on midodrine at home which was restarted hx of afib , on eluiqis hx of adrenal insufficiency s/p treatment with cyclosporine and prednisone for glomerulonephropathy Recent influenza A: Acute on chronic kidney disease with hx of CKD4 owing to membranous glomerulonephropathy Hx of asthma CT chest: cardiomegaly with evidence of mild congestive failure and trace pleural effusion CXR mild cardiomegaly Hx of BPH, dyslipidemia, continue current medication chronic anemia and no evidence of acute hemorrhage PTOT, increase activities, Subjective On oxygen max 2 L/min, smiling, no complaint, No chest pain, Review of Systems Constitutional: Positive weakness, or fatigue Respiratory: no cough, sputum, wheezing, Cardiac: No chest pain, No orthopnea, Abdomen: No pain, No nausea, No vomiting, Musculoskeletal: No joint pain, No muscle pain, No swelling, : No dysuria, No urinary frequency, No incontinence, No hematuria Neurologic: No paralysis, No weakness, No numbness/tingling, Psychiatric: No depression symptoms, No anhedonism, No anxiety, Heme: No abnormal bleeding/bruising, No clotting problems, Skin: No rash, No itch, No new/changing skin lesions, No color change, No bleeding Physical Exam 2 Vital Signs (Past 24 Hours): Last Vital Signs Temp 36.7 C 07/26/18 08:00 Pulse 93 H 07/26/18 11:32 Resp 27 H 07/26/18 11:32 BP 98/55 L 07/26/18 11:32 Pulse Ox 89 L 07/26/18 08:13 Physical Exam: General Appearance: Mild labored breathing with oxygen mask, however smiling , pleasant conversational Eyes: normal inspection, PERRL, EOMI, sclerae normal ENT: normal ENT inspection, hearing grossly normal, pharynx normal Neck: supple, no adenopathy, thyroid normal, no carotid bruits, trachea midline Respiratory/Chest: chest non-tender, normal breath sounds, no respiratory distress, no accessory muscle use, breath sounds, rales, wheezing Cardiovascular: regular rate, rhythm, no JVD, no murmur Abdomen: normal bowel sounds, non tender, soft, no organomegaly, Extremities: normal range of motion, non-tender, normal inspection, no pedal edema, joint has no limited range of motion, capillary refill is normal, no cyanosis clubbing 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, no motor/sensory deficits, alert, normal mood/affect, oriented x 3 Skin: normal color, warm/dry, no rash Lymphatic: no adenopathy Results & Data Laboratory Results Laboratory Results - last 24 hr 07/25/18 07/25/18 07/25/18 09:47 18:25 18:25 WBC 7.33 RBC 2.52 L Hgb 8.7 L Hct 26.8 L MCV 106.3 H MCH 34.5 H MCHC 32.5 RDW Std Deviation 76.1 H RDW Coeff of Reed 19.7 H Plt Count 163 MPV 9.6 Immature Gran % (Auto) 0.3 Neut % (Auto) 79.4 Lymph % (Auto) 6.0 [place] % (Auto) 13.8 Eos % (Auto) 0.1 Baso % (Auto) 0.4 Immature Gran # (Auto) 0.02 Neut # (Auto) 5.82 Lymph # (Auto) 0.44 L [place] # (Auto) 1.01 H Eos # (Auto) 0.01 Baso # (Auto) 0.03 Anisocytosis Present Tear Drop Cells Peripher Smr Path Cons Sodium Potassium Chloride Carbon Dioxide Anion Gap BUN Creatinine Est Cr Clr Drug Dosing Est GFR ( Amer) Est GFR (Non-Af Amer) BUN/Creatinine Ratio Glucose Calcium Phosphorus Magnesium Troponin I 7.490 H* 07/26/18 07/26/18 02:00 02:00 WBC 5.77 RBC 2.20 L Hgb 7.7 L Hct 23.5 L MCV 106.8 H MCH 35.0 H MCHC 32.8 RDW Std Deviation 76.5 H RDW Coeff of Reed 19.8 H Plt Count 123 L MPV 9.6 Immature Gran % (Auto) 0.2 Neut % (Auto) 75.2 Lymph % (Auto) 11.8 [place] % (Auto) 12.3 Eos % (Auto) 0.2 Baso % (Auto) 0.3 Immature Gran # (Auto) 0.01 Neut # (Auto) 4.34 Lymph # (Auto) 0.68 L [place] # (Auto) 0.71 H Eos # (Auto) 0.01 Baso # (Auto) 0.02 Anisocytosis Tear Drop Cells 1+ Peripher Smr Path Cons Sodium 138 Potassium 4.6 D Chloride 106 Carbon Dioxide 26 Anion Gap 6.0 BUN 28 H Creatinine 2.06 H Est Cr Clr Drug Dosing 32.0 Est GFR ( Amer) 35.5 Est GFR (Non-Af Amer) 30.6 BUN/Creatinine Ratio 13.5 Glucose 111 H Calcium 8.4 L Phosphorus 5.0 H D Magnesium 2.1 Troponin I 7.100 H* _ (1) Chronic kidney disease Chronic kidney disease stage: unspecified stage Qualified Code(s): N18.9 - Chronic kidney disease, unspecified (2) BPH (benign prostatic hyperplasia) Lower urinary tract symptom presence: unspecified whether lower urinary tract symptoms present Lower urinary tract symptom detail: Qualified Code(s): N40.0 - Benign prostatic hyperplasia without lower urinary tract symptoms (3) Hyperlipidemia Hyperlipidemia type: unspecified Qualified Code(s): E78.5 - Hyperlipidemia, unspecified (4) Hypertension Hypertension type: essential hypertension Qualified Code(s): I10 - Essential (primary) hypertension (5) Asthma Asthma severity: unspecified severity Asthma persistence: unspecified Asthma complication type: unspecified Qualified Code(s): J45.909 - Unspecified asthma, uncomplicated
[2018-07-26 15:08] LABS: Folate (Folic Acid) 22.79 ng/ml (>5.38)
[2018-07-26] MEDS: DIGOXIN 0.125 MG TAB PO SCH (16:26)
[2018-07-26] MEDS: TAMSULOSIN HCL 0.4 MG CAP PO SCH (20:20)
[2018-07-26] MEDS: FINASTERIDE 5 MG TAB PO SCH (20:20)
[2018-07-26] MEDS: ATORVASTATIN 40 MG TAB PO SCH (20:20)
[2018-07-26] MEDS: PARoxetine HCl 20 MG TAB PO SCH (20:20)
--- NOTE | 2018-07-27 04:04 | Critical Care Progress Note ---
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 Was found to have severe hypotension with concern for adrenal insufficiency and admitted to the ICU for monitoring. NEURO: Alert and oriented CAM ICU: negative Continue home paxil Lidocaine patch for back pain CARDIAC/VASCULAR: Hypotension in the setting of possible acute adrenal insufficiency 2/2 influenza. 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 (ANGUIANO to LAD, SVG to OM) 02/14/2017, chronic combined systolic and diastolic CHF, HTN, HLD, paroxysmal AF on apixaban Troponin elevated to 7.49 downtrended to 7.1 EKG while tachycardic to 124 sinus but concerning for ST changes in anterior/ lateral leads which improved when HR improved to 93 s/p metoprolol 5mg IV, aspirin 324mg, and morphine 2mg IV x 1 on 07/25/18 ECHO 06/19/18: EF 40-45%, severe hypokinesis to akinesis of basal septum and basal to mid inferior wall, severe hypokinesis involving inferolateral wall Limited ECHO 07/25/18: EF 35-40%, mildly dilated, mild concentric LVH, moderate global hypokinesis of LV, mild-mod MV regurg and moderate LA enlargement Random cortisol 16 - low in the setting of hypotension Received IVF 1.5L and 100mg of hydrocortisone on arrival On prednisone 5mg daily On midodrine 10mg BID (was on 5mg BID at home) On atenolol 12.5mg daily (started for elevated HR with ST changes and elevation in troponin) Continue home apixaban, atorvastatin, digoxin Cardiology consulted: Cards held aspirin due to anemia/previously positive heme- occult and started atenolol, no intervention at this time but patient will need cardiac cath once acute illness improves EKG and troponin PRN with chest pain PULM: On NC 2L due to sob and hypoxia in the setting of productive cough and influenza A infection Hx of asthma takes albuterol neb PRN and advair CT chest: cardiomegaly with evidence of mild congestive failure and trace pleural effusion CXR mild cardiomegaly On Advair BID and Albuterol osvaldo QID PRN GI: LFT and lipase wnl Bowel regimen: Sennokot and Miralax Hemeoccult pending Diet: renal and HH RENAL/LYTES: Acute on chronic kidney disease likely 2/2 hypotension and prenal in etiology vs. worsening baseline intrinsic renal disease PMhx: Hx of CKD3B- membranous glomerulonephropathy (treated with cycles of prednisone and cyclosporine, completed tx on 07/15/18) BUN/Cr 28/2.06 --> 36/2.01 Cr at baseline around 1.6-1.7 Received 1.5L NS bolus initially and 500ml on 06/24 Continue to monitor renal function and electrolytes : Hx of BPH Continue finasteride and flomax - restarted given hesitancy and increased urinary frequency (was dced last admission due to concern for orthostatic hypotension) ENDO: Concern for acute adrenal insufficiency likely in the setting of recent influenza A infection on 07/20. Per records, concern for adrenal insufficiency secondary to treatment with cyclical cyclosporine and prednisone for glomerulonephropathy but no official work up completed. Nephrology had started pt on midodrine 5mg BID - restarted on midodrine 10mg BID Received hydrocortisone 100mg on arrival On prednisone 5mg daily PCP or endocrinology follow up needed for outpt cosyntropin stimulation test ( since he received hydrocortisone and cannot be completed at this time) HEME: chronic anemia and no evidence of acute hemorrhage likely anemia of chronic disease in the setting of CKD3B Hgb 7.6 this AM from 7.7 on 07/26 (baseline 8-9) MCV 105 06/20/18: Iron 98, TIBC 270 and Ferritin 1008 Epogen 10,000 units SQ x 1 administered 06/19/18 by nephrology B12 and folate wnl on 05/01/18 Hemeoccult positive in Apr 27 - pt had declined GI work up as melena improved peripheral smear: non-specific anemia and leukopenia (no overt hemolysis changes or schistocytes seen) Haptoglobin pending Erythropoietin level pending Given dose of epogen 10,000u SQ on 07/26 Hemeoccult ordered Continue to monitor CBC ID: Influenza A infection per record (positive test on 07/20) Repeat influenza test negative - droplet precautions dced 07/26 No leukocytosis and afebrile; WBC improved to 5.85 Peripheral smear - no myelodysplastic changes noted Lactate 1.6 Received a dose of levaquin in the ED and recently finished course given by PCP LINES: PIV x 1 L arm fistula DVT prop: Code Full Dispo: pending clinical improvement (5) Coronary artery disease: (6) Depression: (7) NSTEMI (non-ST elevated myocardial infarction): (8) Adrenal insufficiency: (9) Nephrotic syndrome with membranous glomerulonephritis: (10) BPH (benign prostatic hyperplasia): (11) Hyperlipidemia: (12) Hypertension: (13) Asthma: Supervising Physician Co-Signing Physician Notes Dr. Gan was resident physician during care of patient. I separately evaluated patient for sloan portions of the history and the exam. I was present during the critical portion of medical decision making, and I discussed the case with the resident. I generally agree with the findings and plan. No overnight events. Blood pressure within acceptable limits. Anemia slightly downtrending, no indication for transfusion received EPO yesterday. E Po level pending suspect anemia of chronic disease will require fecal occult blood specimen possibly outpatient colonoscopy as he previously had positive stools in approximately March and did not follow-up with GI. Haptoglobin also pending however I do not feel the patient has anemia secondary to increased obstruction. Patient is stable for downgrade to telemetry status today. Subjective This AM pt sob about the same and requiring 2L oxymask. Pt reports improvement in productive cough. His lightheadedness has improved. His BP has improved after adding midodrine 10mg BID on 07/26. No Bowel movement yet but has bowel regimen ordered and hemeoccult pending. His Hgb was 7.6 this AM from 7.7 yesterday. Anemia likely from chronic disease - erythropoietin level pending and epogen [id number] SQ given on 07/26. Pt denied any headache, f/c, cp, n/v, abdominal pain. Physical Exam 2 Vital Signs (Past 24 Hours): Last Vital Signs Temp 36.6 C 07/26/18 16:00 Pulse 74 07/26/18 18:00 Resp 24 07/26/18 18:00 BP 104/59 L 07/26/18 18:00 Pulse Ox 100 07/26/18 18:00 Physical Exam: General: In NAD Neuro: Alert and oriented x4, clear speech, continues to exhibit generalized tremor CV: RRR, no m/r/g, extremities warm and well perfused Pulm: Mild wheezing appreciated, diminished but equal breath sounds bilaterally , no crackles appreciated Abdomen: +BS, non-distended, non-tender to palpation in all quadrants LE: No LE edema or calf tenderness Results & Data Laboratory Results Abnormal lab results 07/27/18 07/27/18 Range/Units 04:20 04:20 RBC 2.14 L (4.7-6.1) M/uL Hgb 7.6 L (14.0-18.0) g/dL Hct 22.8 L (42-52) % MCV 106.5 H (80-100) fL MCH 35.5 H (25-34) pg RDW Std Deviation 74.6 H (36.4-46.3) fL RDW Coeff of Reed 19.1 H (11.5-14.5) % Plt Count 126 L (130-400) K/uL Immature Gran # (Auto) 0.03 H (0.00-0.02) K/uL Lymph # (Auto) 0.38 L (1.2-3.4) K/uL [place] # (Auto) 0.86 H (0.11-0.59) K/uL BUN 36 H (7-18) mg/dl Creatinine 2.01 H (0.6-1.4) mg/dl Calcium 8.3 L (8.5-10.1) mg/dl Medications Administered Current Inpatient Medications Albuterol (Ventolin Hfa) 2 puffs INH QID PRN PRN Reason: Unknown Stop: 08/23/18 17:43 Albuterol (Ventolin 0.083% 2.5mg/3ml) 2.5 mg INH QIDR PRN PRN Reason: Shortness Of Breath Stop: 08/24/18 08:33 Last Admin: 07/26/18 07:54 Dose: 2.5 mg Apixaban (Eliquis) 5 mg PO BID [facility] Stop: 08/23/18 20:59 Last Admin: 07/26/18 20:20 Dose: 5 mg Atenolol (Tenormin) 12.5 mg PO QAM [facility] Stop: 08/24/18 15:44 Last Admin: 07/26/18 07:32 Dose: Not Given Atorvastatin Calcium (Lipitor) 80 mg PO HS [facility] Stop: 08/23/18 20:59 Last Admin: 07/26/18 20:20 Dose: 80 mg Digoxin (Lanoxin) 0.125 mg PO Q2D@1600 [facility] Stop: 08/23/18 17:43 Last Admin: 07/26/18 16:26 Dose: 0.125 mg Finasteride (Proscar) 5 mg PO QPM [facility] Stop: 08/23/18 20:59 Last Admin: 07/26/18 20:20 Dose: 5 mg Lidocaine (Lidoderm 5%) 1 patch TD QAM [facility] Stop: 08/25/18 11:29 Last Admin: 07/26/18 11:58 Dose: 1 patch Midodrine (Proamatine) 10 mg PO BID@0900,1800 [facility] Stop: 08/25/18 10:14 Last Admin: 07/26/18 17:17 Dose: 10 mg Miscellaneous (Remove Lidoderm Patch) 1 ea N/A DAILY@2100 [facility] Stop: 08/25/18 20:59 Last Admin: 07/26/18 20:20 Dose: 1 ea Paroxetine HCl (Paxil) 20 mg PO QPM [facility] Stop: 08/23/18 20:59 Last Admin: 07/26/18 20:20 Dose: 20 mg Polyethylene Glycol (Miralax Powder Packet) 17 gm PO DAILY PRN PRN Reason: Constipation Stop: 08/25/18 10:30 Last Admin: 07/26/18 10:59 Dose: 17 gm Prednisone (Prednisone) 5 mg PO QAM [facility] Stop: 07/31/18 09:01 Last Admin: 07/26/18 07:30 Dose: 5 mg Fluticasone/Salmeterol (Advair Diskus 250/50) 1 puffs INH BID [facility] Stop: 08/25/18 08:59 Last Admin: 07/26/18 20:19 Dose: 1 puffs Sennosides (Senokot) 17.2 mg PO QAM [facility] Stop: 08/25/18 11:44 Last Admin: 07/26/18 11:59 Dose: Not Given Tamsulosin HCl (Flomax) 0.4 mg PO HS [facility] Stop: 08/24/18 20:59 Last Admin: 07/26/18 20:20 Dose: 0.4 mg Resident Activity Tracking Resident Involvement: Resident Care Provided Care Provided: [facility] Medicine _ (1) BPH (benign prostatic hyperplasia) Lower urinary tract symptom detail: Lower urinary tract symptom presence: unspecified whether lower urinary tract symptoms present Qualified Code(s): N40.0 - Benign prostatic hyperplasia without lower urinary tract symptoms (2) Hyperlipidemia Hyperlipidemia type: unspecified Qualified Code(s): E78.5 - Hyperlipidemia, unspecified (3) Chronic kidney disease Chronic kidney disease stage: unspecified stage Qualified Code(s): N18.9 - Chronic kidney disease, unspecified (4) Hypertension Hypertension type: essential hypertension Qualified Code(s): I10 - Essential (primary) hypertension (5) Asthma Asthma complication type: unspecified Asthma persistence: unspecified Asthma severity: unspecified severity Qualified Code(s): J45.909 - Unspecified asthma, uncomplicated
[2018-07-27 04:41] LABS: Basophils # (auto) 0.02 K/uL (0-0.2); Basophils % (auto) 0.3 %; Eosinophils # (auto) 0.12 K/uL (0-0.5); Eosinophils % (auto) 2.1 %; Hematocrit (blood only) 22.8 % (42-52); Hemoglobin 7.6 g/dL (14.0-18.0); Immature Granulocytes # (auto) 0.03 K/uL (0.00-0.02); Immature Granulocytes % (auto) 0.5 %; Lymphocytes # (auto) 0.38 K/uL (1.2-3.4); Lymphocytes % (auto) 6.5 %; Mean Corpuscular Hgb Conc 33.3 g/dL (32-36); Mean Corpuscular Volume 106.5 fL (80-100); Mean Platelet Volume 10.2 fL (7.4-10.4); Monocytes # (auto) 0.86 K/uL (0.11-0.59); Monocytes % (auto) 14.7 %; Neutrophils # (auto) 4.44 K/uL (1.4-6.5); Neutrophils % (auto) 75.9 %; Platelet Count 126 K/uL (130-400); RDW Coefficient of Variation 19.1 % (11.5-14.5); RDW Standard Deviation 74.6 fL (36.4-46.3); Red Blood Count 2.14 M/uL (4.7-6.1); White Blood Count 5.85 K/uL (4.8-10.8)
[2018-07-27 05:04] LABS: RBC Morphology Unremarkable
[2018-07-27 05:10] LABS: Calcium 8.3 mg/dl (8.5-10.1); Creatinine Clr Calc Pharmacy 32.8 ml/min; Est GFR (African American) 36.5; Est GFR (Non-African American) 31.5; Magnesium 2.1 mg/dl (1.8-2.4); Potassium 3.7 mmol/L (3.5-5.1)
[2018-07-27] MEDS: FLUTICASONE/SALMETEROL 250/50 (ADVAIR) 14 PUFF/1 INHALER INH SCH ×2 (07:23→20:48)
[2018-07-27] MEDS: predniSONE 10 MG TABLET PO SCH (07:24)
[2018-07-27] MEDS: LIDOCAINE 5% 1 PATCH TD SCH (07:24)
[2018-07-27] MEDS: APIXABAN 5 MG TABLET PO SCH ×2 (07:24→20:49)
[2018-07-27] MEDS: SENNA 8.6 MG TAB PO SCH (07:25)
[2018-07-27] MEDS: MIDODRINE HCL 10 MG TAB PO SCH ×2 (07:25→18:09)
[2018-07-27] MEDS: ATENOLOL 25 MG TABLET PO SCH (07:27)
[2018-07-27] MEDS: ALBUTEROL 0.083% NEBU SOLN 3 ML VIAL INH PRN (09:32)
--- NOTE | 2018-07-27 10:20 | Hospitalist Progress Note ---
Date of Service July 27, 2018 Assessment & Plan (1) Coronary artery disease: (2) Paroxysmal atrial fibrillation: (3) Elevated troponin I level: (4) CAD, multiple vessel: (5) Chronic anemia: (6) NATALIE (acute kidney injury): (7) Chronic kidney disease: (8) BPH (benign prostatic hyperplasia): (9) Hyperlipidemia: (10) Hypertension: (11) Severe anemia: (12) Asthma: 77 y/oM with 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, CAD - recent NSTEMI (06/2018) and CABG x 2, HTN, HLD, chronic anemia, BPH, adrenal insufficiency, paroxysmal AF on apixaban, systolic CHF - 45%, asthma, depression admitted on July 24, 2018 because of hypotensive associated with lightheadedness and unsteadiness likely ischemic heart disease with obvious elevated troponin , international 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 and 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 input appreciated, troponin peak, ischemic heart disease disease with elevated troponin, also likely contributed with the episodes of hypotensive upon admission hx of CAD - recent NSTEMI (06/2018) and CABG x 2, HTN, HLD, paroxysmal AF on apixaban, rate controlled, systolic CHF - 45% Cardiology follow-up, has planned possible cardiac cath in 1 month Possible acute on chronic anemia, Today's hemoglobin decreased to 7.6 from 7.7 history of CKD stage III, got 1 dose of Epogen, Discussed with international 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, to not feel need need a transfusion for now vitamin B12 folate acid were within normal limits, Patient has a history of Hemoccult positive Hypotension upon admission with possible acute adrenal insufficiency 2/2 influenza. Was on midodrine at home which was restarted, will continue hx of afib , on eluiqis hx of adrenal insufficiency s/p treatment with cyclosporine and prednisone for glomerulonephropathy Acute on chronic kidney disease with hx of CKD4 owing to membranous glomerulonephropathy Hx of asthma, home O2 dependent chronic respiratory failure at home, Recent influenza A continue nebulizer treatment give cough medicine CT chest: cardiomegaly with evidence of mild congestive failure and trace pleural effusion CXR mild cardiomegaly Hx of BPH, dyslipidemia, continue current medication chronic anemia and no evidence of acute hemorrhage PTOT, increase activities, PCU, Subjective Continue doing well, some wet cough, mild shortness of breath when up and walk, no chest pain, on oxygen max 2 L/min, smiling, no complaint, Review of Systems Constitutional: Positive weakness, or fatigue Respiratory: no sputum, wheezing, Cardiac: No chest pain, No orthopnea, Abdomen: No pain, No nausea, No vomiting, Musculoskeletal: No joint pain, No muscle pain, No swelling, : No dysuria, No urinary frequency, No incontinence, No hematuria Neurologic: No paralysis, No weakness, No numbness/tingling, Psychiatric: No depression symptoms, No anhedonism, No anxiety, Heme: No abnormal bleeding/bruising, No clotting problems, Skin: No rash, No itch, No new/changing skin lesions, No color change, No bleeding Physical Exam 2 Vital Signs (Past 24 Hours): Last Vital Signs Temp 36.7 C 07/27/18 04:00 Pulse 86 07/27/18 09:32 Resp 22 07/27/18 09:32 BP 106/54 L 07/27/18 06:16 Pulse Ox 98 07/27/18 09:32 Physical Exam: General Appearance: smiling , pleasant conversational, on oxygen mask which he has been using at home Eyes: normal inspection, PERRL, EOMI, sclerae normal ENT: normal ENT inspection, hearing grossly normal, pharynx normal Neck: supple, no adenopathy, thyroid normal, no carotid bruits, trachea midline Respiratory/Chest: chest non-tender, decreased breath sounds, no respiratory distress, no accessory muscle use, rales, wheezing Cardiovascular: regular rate, rhythm, no JVD, no murmur Abdomen: normal bowel sounds, non tender, soft, no organomegaly, Extremities: normal range of motion, non-tender, normal inspection, no pedal edema, joint has no limited range of motion, capillary refill is normal, no cyanosis clubbing Neurologic/Psychiatric: 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-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 nml as tested, no motor/sensory deficits, alert, normal mood/affect, oriented x 3 Skin: normal color, warm/dry, no rash Lymphatic: no adenopathy Results & Data Laboratory Results Laboratory Results - last 24 hr 07/26/18 07/26/18 07/27/18 14:15 14:15 04:20 WBC 5.85 RBC 2.14 L Hgb 7.6 L Hct 22.8 L MCV 106.5 H MCH 35.5 H MCHC 33.3 RDW Std Deviation 74.6 H RDW Coeff of Reed 19.1 H Plt Count 126 L MPV 10.2 Immature Gran % (Auto) 0.5 Neut % (Auto) 75.9 Lymph % (Auto) 6.5 [place] % (Auto) 14.7 Eos % (Auto) 2.1 Baso % (Auto) 0.3 Immature Gran # (Auto) 0.03 H Neut # (Auto) 4.44 Lymph # (Auto) 0.38 L [place] # (Auto) 0.86 H Eos # (Auto) 0.12 Baso # (Auto) 0.02 RBC Morphology Unremarkable Sodium Potassium Chloride Carbon Dioxide Anion Gap BUN Creatinine Est Cr Clr Drug Dosing Est GFR ( Amer) Est GFR (Non-Af Amer) BUN/Creatinine Ratio Glucose Calcium Phosphorus Magnesium Vitamin B12 636 Cancelled Folate 22.79 07/27/18 04:20 WBC RBC Hgb Hct MCV MCH MCHC RDW Std Deviation RDW Coeff of Reed Plt Count MPV Immature Gran % (Auto) Neut % (Auto) Lymph % (Auto) [place] % (Auto) Eos % (Auto) Baso % (Auto) Immature Gran # (Auto) Neut # (Auto) Lymph # (Auto) [place] # (Auto) Eos # (Auto) Baso # (Auto) RBC Morphology Sodium 136 Potassium 3.7 D Chloride 104 Carbon Dioxide 25 Anion Gap 7.0 BUN 36 H Creatinine 2.01 H Est Cr Clr Drug Dosing 32.8 Est GFR ( Amer) 36.5 Est GFR (Non-Af Amer) 31.5 BUN/Creatinine Ratio 18.0 Glucose 93 Calcium 8.3 L Phosphorus 4.0 D Magnesium 2.1 Vitamin B12 Folate _ (1) Chronic kidney disease Chronic kidney disease stage: unspecified stage Qualified Code(s): N18.9 - Chronic kidney disease, unspecified (2) BPH (benign prostatic hyperplasia) Lower urinary tract symptom presence: unspecified whether lower urinary tract symptoms present Lower urinary tract symptom detail: Qualified Code(s): N40.0 - Benign prostatic hyperplasia without lower urinary tract symptoms (3) Hyperlipidemia Hyperlipidemia type: unspecified Qualified Code(s): E78.5 - Hyperlipidemia, unspecified (4) Hypertension Hypertension type: essential hypertension Qualified Code(s): I10 - Essential (primary) hypertension (5) Asthma Asthma severity: unspecified severity Asthma persistence: unspecified Asthma complication type: unspecified Qualified Code(s): J45.909 - Unspecified asthma, uncomplicated
[2018-07-27] MEDS: guaiFENesin SUGAR FREE 200 MG/10 ML UDC PO SCH ×3 (11:27→23:29)
[2018-07-27] MEDS: ALBUTEROL 0.083% NEBU SOLN 3 ML VIAL INH SCH ×3 (11:36→18:53)
[2018-07-27] MEDS: PARoxetine HCl 20 MG TAB PO SCH (20:49)
[2018-07-27] MEDS: FINASTERIDE 5 MG TAB PO SCH (20:49)
[2018-07-27] MEDS: TAMSULOSIN HCL 0.4 MG CAP PO SCH (20:49)
[2018-07-27] MEDS: ATORVASTATIN 40 MG TAB PO SCH (20:50)
[2018-07-28] MEDS: guaiFENesin SUGAR FREE 200 MG/10 ML UDC PO SCH ×4 (05:28→23:32)
[2018-07-28 06:23] LABS: Basophils # (auto) 0.01 K/uL (0-0.2); Basophils % (auto) 0.2 %; Eosinophils # (auto) 0.11 K/uL (0-0.5); Eosinophils % (auto) 2.3 %; Hematocrit (blood only) 22.1 % (42-52); Hemoglobin 7.3 g/dL (14.0-18.0); Immature Granulocytes # (auto) 0.02 K/uL (0.00-0.02); Immature Granulocytes % (auto) 0.4 %; Lymphocytes # (auto) 0.52 K/uL (1.2-3.4); Lymphocytes % (auto) 10.8 %; Mean Corpuscular Volume 105.7 fL (80-100); Mean Platelet Volume 10.5 fL (7.4-10.4); Monocytes # (auto) 0.65 K/uL (0.11-0.59); Monocytes % (auto) 13.5 %; Neutrophils # (auto) 3.52 K/uL (1.4-6.5); Neutrophils % (auto) 72.8 %; Nucleated RBC # (auto) 0.02 K/uL (0-0); Nucleated RBC % (auto) 0.4 %; Platelet Count 119 K/uL (130-400); RDW Coefficient of Variation 19.1 % (11.5-14.5); RDW Standard Deviation 73.7 fL (36.4-46.3); Red Blood Count 2.09 M/uL (4.7-6.1); White Blood Count 4.83 K/uL (4.8-10.8)
[2018-07-28 06:43] LABS: BUN Creatinine Ratio 19.4 (10-20); Calcium 8.5 mg/dl (8.5-10.1); Creatinine Clr Calc Pharmacy 40.7 ml/min; Est GFR (African American) 47.4; Est GFR (Non-African American) 40.9; Magnesium 2.3 mg/dl (1.8-2.4); Potassium 3.5 mmol/L (3.5-5.1)
[2018-07-28 06:46] LABS: Phosphorus 3.4 mg/dl (2.5-4.9)
[2018-07-28] MEDS: ALBUTEROL 0.083% NEBU SOLN 3 ML VIAL INH SCH ×4 (06:58→19:24)
[2018-07-28 07:06] LABS: Tear Drop Cells 1+
[2018-07-28] MEDS: ATENOLOL 25 MG TABLET PO SCH (07:41)
[2018-07-28] MEDS: SENNA 8.6 MG TAB PO SCH (07:41)
[2018-07-28] MEDS: predniSONE 10 MG TABLET PO SCH (07:43)
[2018-07-28] MEDS: LIDOCAINE 5% 1 PATCH TD SCH (07:44)
[2018-07-28] MEDS: APIXABAN 5 MG TABLET PO SCH ×2 (07:45→21:27)
[2018-07-28] MEDS: MIDODRINE HCL 10 MG TAB PO SCH ×2 (07:46→18:28)
[2018-07-28] MEDS: FLUTICASONE/SALMETEROL 250/50 (ADVAIR) 14 PUFF/1 INHALER INH SCH ×2 (07:46→21:26)
--- NOTE | 2018-07-28 09:21 | Cardiology Progress Note ---
Date of Service July 28, 2018 Assessment & Plan (1) Elevated troponin I level: I do not believe this was related to an acute coronary syndrome. He was known to be hypotensive, tachycardic and anemic. This is in the setting of known coronary disease. Currently, he does not have symptoms of angina either at rest or with exertion. While arise and troponin of this magnitude would prompt consideration for angiography, he is at significant risk for kidney failure and the need for dialysis with contrast administration. I think we need to carefully weigh the potential benefit of coronary angiography with the risks. I think in the absence of anginal symptoms, we can certainly defer any repeat angiography. His left ventricular function is compromised, but he appears to be compensated currently. At some point he may require dialysis based on his intrinsic kidney disease. That may offer an opportunity for invasive evaluation. Will continue to consider this option as his condition improves. (2) CAD, multiple vessel: Patient was started on atenolol as an alternative to propranolol. However, given his renal dysfunction a better choice may be metoprolol. I would consider switching him to metoprolol tartrate 12.5 mg twice daily while hospitalized with a transition to metoprolol tartrate 25 mg daily at the time of discharge. Currently he is not having symptoms of angina. However, given his degree of anemia and known coronary disease will need to monitor his symptoms closely. I would have low threshold for transfusion. (3) Paroxysmal atrial fibrillation: Has not had any Atrial Flutter or Atrial Fibrillation during this hospitalization. -- Continue Eliquis. -- Continue Digoxin 125 mcg every other day. Continue beta-blockade. (4) Acute on chronic systolic heart failure: He has some compromised LV function. He does have an element of dyspnea. His lung examination is not normal but not entirely consistent with pulmonary edema. His diuretic was discontinued at the time of his discharge last month. I would have low threshold for a dose of diuretic if his breathing did not improve. Subjective This morning the patient continues to complain of dyspnea. This occurs primarily with exertion. He states that his breathing is twice as good as yesterday, but still not normal. He denies any symptoms of chest discomfort either at rest or with exertion. He denies any dizziness or lightheadedness. Physical Exam 2 Vital Signs (Past 24 Hours): Last Vital Signs Temp 36.7 C 07/28/18 07:27 Pulse 95 H 07/28/18 07:42 Resp 20 07/28/18 07:42 BP 127/71 07/28/18 07:27 Pulse Ox 94 07/28/18 07:42 Physical Exam: The patient is alert and oriented. Mood and affect appeared normal. He answered all questions appropriately. HEENT: Pupils are equal and reactive to light and accommodation. Extraocular movements are intact. The sclerae are anicteric. Neuro: Cranial nerves intact Neck: Patient's neck is supple. He has palpable carotid pulses bilaterally without bruits on auscultation. There is no evidence of jugular venous distention. The thyroid is not enlarged. Lungs: Crackles in left base. No expiratory wheezing. Normal respiratory effort. Cardiac: Heart demonstrates a regular rate and rhythm. Normal S1 and S2. Holosystolic murmur. Pulses: The patient has palpable radial pulses bilaterally that are equal in intensity Extremities: There was no evidence of hypoperfusion. There is no cyanosis or clubbing. There is no edema. He does have a resting tremor. Skin: I did not appreciate any rashes on examination today. Results & Data Laboratory Results Abnormal Lab Results 07/27/18 07/28/18 07/28/18 14:15 05:44 05:44 WBC 4.83 RBC 2.09 L Hgb 7.3 L Hct 22.1 L MCV 105.7 H MCH 34.9 H MCHC 33.0 RDW Std Deviation 73.7 H RDW Coeff of Reed 19.1 H Plt Count 119 L MPV 10.5 H Immature Gran % (Auto) 0.4 Neut % (Auto) 72.8 Lymph % (Auto) 10.8 [place] % (Auto) 13.5 Eos % (Auto) 2.3 Baso % (Auto) 0.2 Immature Gran # (Auto) 0.02 Neut # (Auto) 3.52 Lymph # (Auto) 0.52 L [place] # (Auto) 0.65 H Eos # (Auto) 0.11 Baso # (Auto) 0.01 Absolute Nucleated RBC 0.02 H Nucleated RBC % (auto) 0.4 Tear Drop Cells 1+ Sodium 139 Potassium 3.5 Chloride 104 Carbon Dioxide 29 Anion Gap 6.0 BUN 32 H Creatinine 1.62 H D Est Cr Clr Drug Dosing 40.7 Est GFR ( Amer) 47.4 Est GFR (Non-Af Amer) 40.9 BUN/Creatinine Ratio 19.4 Glucose 106 H Calcium 8.5 Phosphorus 3.4 Magnesium 2.3 Stool Occult Bld Scrn Negative ECG Additional Comments: Telemetry did not demonstrate any significant arrhythmias. Does have episodes of higher heart rates, presumably with activity.
--- NOTE | 2018-07-28 09:35 | Hospitalist Progress Note ---
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 Hx of asthma CT chest: cardiomegaly with evidence of mild congestive failure and trace pleural effusion CXR mild cardiomegaly Hx of BPH, dyslipidemia, continue current medication chronic anemia and no evidence of acute hemorrhage (2) Steroid dependent for adrenal supression: hx of adrenal insufficiency s/p treatment with cyclosporine and prednisone for glomerulonephropathy (3) Paroxysmal atrial fibrillation: apixaban and atenolol (4) Elevated troponin I level: felt more likely to be demand ischemia (5) CAD, multiple vessel: (6) Chronic anemia: Patient appears to have acute on chronic anemia was given adult dose of erythropoietin his hemoglobin continues to drift downward given his cardiac history we will consider transfusion maintains on a proton pump inhibitor at this time no melanotic stools noted, however the patient continues on apixaban (7) NATALIE (acute kidney injury): (8) Chronic kidney disease: (9) BPH (benign prostatic hyperplasia): (10) Hyperlipidemia: (11) Hypertension: (12) Severe anemia: (13) Asthma: 77 y/oM with 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, CAD - recent NSTEMI (06/2018) and CABG x 2, HTN, HLD, chronic anemia, BPH, adrenal insufficiency, paroxysmal AF on apixaban, systolic CHF - 45%, asthma, depression admitted on July 24, 2018 because of hypotensive associated with lightheadedness and unsteadiness likely ischemic heart disease with obvious elevated troponin , store stock help and cardiology input appreciated, troponin peak, ischemic heart disease disease with elevated troponin, also likely contributed with the episodes of hypotensive upon admission hx of CAD - recent NSTEMI (06/2018) and CABG x 2, HTN, HLD, paroxysmal AF on apixaban, rate controlled, systolic CHF - 45% Cardiology follow-up, has planned possible cardiac cath in 1 month Possible acute on chronic anemia, Today's hemoglobin decreased to 7.6 from 7.7 history of CKD stage III, got 1 dose of Epogen, Discussed with store stock help, to not feel need need a transfusion for now vitamin B12 folate acid were within normal limits, Patient has a history of Hemoccult positive Hypotension upon admission with possible acute adrenal insufficiency 2/2 influenza. Was on midodrine at home which was restarted, will continue hx of afib , on eluiqis hx of adrenal insufficiency s/p treatment with cyclosporine and prednisone for glomerulonephropathy Acute on chronic kidney disease with hx of CKD4 owing to membranous glomerulonephropathy Hx of asthma, home O2 dependent chronic respiratory failure at home, Recent influenza A continue nebulizer treatment give cough medicine CT chest: cardiomegaly with evidence of mild congestive failure and trace pleural effusion CXR mild cardiomegaly Hx of BPH, dyslipidemia, continue current medication chronic anemia and no evidence of acute hemorrhage PTOT, increase activities, PCU, Subjective Patient states he feels improved since when he came in he still has fairly significant shakiness but no weakness or dizziness which are what symptoms brought him to the hospital Review of Systems ROS: well nourished well developed. He complains of a bothersome resting tremor which makes it difficult to eat No double vision blurry vision No problems with speech or swallowing No palpitations, chest pain or pressure No Wheezing or breathing issues No abdominal pain nausea vomiting diarrhea changes in appetite or weight No burning urine urine frequency or changes in color No focal joint pain or muscle pain No skin rashes or oral lesions No unusual bruising or bleeding No focused back pain or numbness or loss of strength No changes in memory or confusion Physical Exam 2 Vital Signs (Past 24 Hours): Last Vital Signs Temp 36.7 C 07/28/18 07:27 Pulse 95 H 07/28/18 07:42 Resp 20 07/28/18 07:42 BP 127/71 07/28/18 07:27 Pulse Ox 94 07/28/18 07:42 The patient appeared well nourished and normally developed. Vital signs as documented. Head exam is unremarkable. normocephalic, atraumatic Neck is without jugular venous distension, thyromegaly, or lymphademopathy Lungs are clear to auscultation and percussion. Cardiac exam reveals Rhythm is regular. First and second heart sounds normal. Abdominal exam reveals normal bowel sounds, no masses, no organomegaly Extremities are nonedematous and both pedal pulses are present Neurologic exam is A&Ox3, he is an intention tremor no cogwheeling or rigidity noted Psychologically seems neither anxious or depressed Skin is warm Dry without bruises or lesions _ (1) BPH (benign prostatic hyperplasia) Lower urinary tract symptom detail: Lower urinary tract symptom presence: unspecified whether lower urinary tract symptoms present Qualified Code(s): N40.0 - Benign prostatic hyperplasia without lower urinary tract symptoms (2) Hyperlipidemia Hyperlipidemia type: unspecified Qualified Code(s): E78.5 - Hyperlipidemia, unspecified (3) Chronic kidney disease Chronic kidney disease stage: unspecified stage Qualified Code(s): N18.9 - Chronic kidney disease, unspecified (4) Hypertension Hypertension type: essential hypertension Qualified Code(s): I10 - Essential (primary) hypertension (5) Asthma Asthma complication type: unspecified Asthma persistence: unspecified Asthma severity: unspecified severity Qualified Code(s): J45.909 - Unspecified asthma, uncomplicated
[2018-07-28] MEDS: DIGOXIN 0.125 MG TAB PO SCH (15:37)
[2018-07-28] MEDS: FINASTERIDE 5 MG TAB PO SCH (21:27)
[2018-07-28] MEDS: PANTOprazole 40 MG TAB PO SCH (21:27)
[2018-07-28] MEDS: ATORVASTATIN 40 MG TAB PO SCH (21:28)
[2018-07-28] MEDS: TAMSULOSIN HCL 0.4 MG CAP PO SCH (21:28)
[2018-07-28] MEDS: PARoxetine HCl 20 MG TAB PO SCH (21:29)
[2018-07-29] MEDS: guaiFENesin SUGAR FREE 200 MG/10 ML UDC PO SCH ×4 (05:52→23:35)
[2018-07-29 05:55] LABS: Hemoglobin 7.2 g/dL (14.0-18.0); Mean Corpuscular Hgb Conc 32.7 g/dL (32-36); Mean Corpuscular Volume 106.3 fL (80-100); Mean Platelet Volume 10.4 fL (7.4-10.4); Nucleated RBC # (auto) 0.02 K/uL (0-0); Nucleated RBC % (auto) 0.4 %; Platelet Count 122 K/uL (130-400); RDW Standard Deviation 73.4 fL (36.4-46.3); Red Blood Count 2.07 M/uL (4.7-6.1); White Blood Count 4.84 K/uL (4.8-10.8)
[2018-07-29 06:23] LABS: BUN Creatinine Ratio 16.5 (10-20); Calcium 8.3 mg/dl (8.5-10.1); Creatinine Clr Calc Pharmacy 39.9 ml/min; Est GFR (African American) 46.4; Magnesium 2.2 mg/dl (1.8-2.4); Potassium 3.3 mmol/L (3.5-5.1)
[2018-07-29 06:24] LABS: Phosphorus 3.2 mg/dl (2.5-4.9)
[2018-07-29] MEDS: ALBUTEROL 0.083% NEBU SOLN 3 ML VIAL INH SCH ×4 (07:05→18:56)
[2018-07-29] MEDS: FLUTICASONE/SALMETEROL 250/50 (ADVAIR) 14 PUFF/1 INHALER INH SCH ×2 (08:28→20:24)
[2018-07-29] MEDS: PANTOprazole 40 MG TAB PO SCH ×2 (08:28→20:24)
[2018-07-29] MEDS: APIXABAN 5 MG TABLET PO SCH ×2 (08:28→20:25)
[2018-07-29] MEDS: SENNA 8.6 MG TAB PO SCH (08:28)
[2018-07-29] MEDS: LIDOCAINE 5% 1 PATCH TD SCH (08:29)
[2018-07-29] MEDS: MIDODRINE HCL 10 MG TAB PO SCH ×2 (08:29→18:43)
[2018-07-29] MEDS: ATENOLOL 25 MG TABLET PO SCH (08:29)
[2018-07-29] MEDS: predniSONE 10 MG TABLET PO SCH (08:29)
--- NOTE | 2018-07-29 09:09 | Cardiology Progress Note ---
Date of Service July 29, 2018 Assessment & Plan (1) Elevated troponin I level: Not likely related to an acute coronary syndrome. He has not had any symptoms of chest discomfort or angina even with activity. His breathing is much improved. For most pacing to angiography would seem indicated, but in the absence of symptoms and the likelihood that this represented demand ischemia given the presenting factors, think angiography can be deferred. This is especially true given concerns over the nephrotoxicity of contrast dye and the possibility that he has occult gastrointestinal bleeding. (2) CAD, multiple vessel: Patient was started on atenolol as an alternative to propranolol. However, given his renal dysfunction a better choice may be metoprolol. I would consider switching him to metoprolol tartrate 12.5 mg twice daily while hospitalized with a transition to metoprolol tartrate 25 mg daily at the time of discharge. His hemoglobin appears to be stable but not improving. His symptoms appear to be improving. (3) Paroxysmal atrial fibrillation: Has not had any Atrial Flutter or Atrial Fibrillation during this hospitalization. -- Continue Eliquis. -- Continue Digoxin 125 mcg every other day. Continue beta-blockade. (4) Acute on chronic systolic heart failure: He has some compromised LV function. He does have an element of dyspnea. His lung examination is not normal but not entirely consistent with pulmonary edema. His diuretic was discontinued at the time of his discharge last month. Despite an abnormal exam, his breathing has continued to improve. I suppose we can defer reinstitution of diuretic currently. Subjective This morning the patient claims to be feeling better. He states that he feels between good and great. His breathing is much improved since admission. He has not use oxygen in 24 hours. He states that he was ambulatory yesterday without significant dyspnea. He has never had symptoms of chest discomfort. He did report an element of dizziness at times. He feels this was associated with systolic blood pressures below 90. Physical Exam 2 Vital Signs (Past 24 Hours): Last Vital Signs Temp 36.5 C 07/29/18 07:19 Pulse 86 07/29/18 07:19 Resp 20 07/29/18 07:19 BP 102/64 07/29/18 07:19 Pulse Ox 95 07/29/18 07:19 Physical Exam: The patient is alert and oriented. Mood and affect appeared normal. He answered all questions appropriately. HEENT: Pupils are equal and reactive to light and accommodation. Extraocular movements are intact. The sclerae are anicteric. Neuro: Cranial nerves intact Neck: Patient's neck is supple. He has palpable carotid pulses bilaterally without bruits on auscultation. There is no evidence of jugular venous distention. The thyroid is not enlarged. Lungs: Crackles at the bases bilaterally, worse on the left. No expiratory wheezing. Cardiac: Heart demonstrates a regular rate and rhythm. Normal S1 and S2. No murmurs on examination. Chest: Well-healed median sternotomy scar. Pulses: The patient has palpable radial pulses bilaterally that are equal in intensity Extremities: There was no evidence of hypoperfusion. There is no cyanosis or clubbing. There is no edema. Skin: I did not appreciate any rashes on examination today. Results & Data Laboratory Results Abnormal Lab Results 07/25/18 07/28/18 07/29/18 09:47 17:14 05:13 WBC RBC Hgb 7.3 L Hct MCV MCH MCHC RDW Std Deviation RDW Coeff of Reed Plt Count MPV Absolute Nucleated RBC Nucleated RBC % (auto) Haptoglobin 164 Sodium 138 Potassium 3.3 L Chloride 104 Carbon Dioxide 29 Anion Gap 5.0 BUN 27 H Creatinine 1.65 H Est Cr Clr Drug Dosing 39.9 Est GFR ( Amer) 46.4 Est GFR (Non-Af Amer) 40.0 BUN/Creatinine Ratio 16.5 Glucose 95 Calcium 8.3 L Phosphorus 3.2 Magnesium 2.2 07/29/18 05:13 WBC 4.84 RBC 2.07 L Hgb 7.2 L Hct 22.0 L MCV 106.3 H MCH 34.8 H MCHC 32.7 RDW Std Deviation 73.4 H RDW Coeff of Reed 19.0 H Plt Count 122 L MPV 10.4 Absolute Nucleated RBC 0.02 H Nucleated RBC % (auto) 0.4 Haptoglobin Sodium Potassium Chloride Carbon Dioxide Anion Gap BUN Creatinine Est Cr Clr Drug Dosing Est GFR ( Amer) Est GFR (Non-Af Amer) BUN/Creatinine Ratio Glucose Calcium Phosphorus Magnesium ECG Additional Comments: Telemetry did not reveal any significant arrhythmia. No significant tachycardia.
[2018-07-29] MEDS ORDERED: SODIUM CHLORIDE 0.9% 250 ML IV PRN (09:52)
--- NOTE | 2018-07-29 11:34 | Nephrology Consultation ---
Date of Consultation July 29, 2018 Assessment & Plan (1) Chronic kidney disease: -- Membranous GN w/ baseline creatinine 2.0 EGFR 33 cc/min -- Patient has completed 3 cycles of Cyclophosphamide alternating w/ Prednisone (2) Anemia: -- Do not expect progressive anemia in the setting of stage III CKD. Patient should have adequate Erythropoietin production -- Prior evaluation revealed guaiac + stool and melena. Patient declined GI evaluation 04/27 -- Hgb has dropped ~ 2 g since admission. Recommend blood transfusion to correct acute anemia. Consent has been discussed and signed. 2 U PRBC transfusion has been ordered -- Monitor H&H -- Consider checking iron studies and obtaining GI evaluation if patient will consent -- On Apixiban due to chronic atrial fibrillation (3) Steroid dependent for adrenal supression: -- Will change Prednisone to 5 mg po qAM and 2.5 mg po qPM as adrenal replacement therapy -- On Metoprolol for cardiac rate control and Midodrine for BP stabilization History of Present Illness Reason for Consultation: CKD, anemia Attending Physician: Jitendra Lau MD History of Present Illness Mr. Barrios is a 77 year old white male who is seen at the request of Dr. Lau for evalation of CKD and anemia. Medical records in the EMR were reviewed this am and are summarized as follows: Mr. Sarmiento suffered NATALIE following CABG 2016. His creatinine stabilized at 2.0 but he developed proteinuria w/ nephrotic syndrome. Nephrology evaluation by Dr. Barahona revealed no paraprotein or DM. DEBORA was negative. [place] kidney biopsy 11/25 revealed membranous nephropathy. Histology was negative for PLA2 Ab staining. Evaluation for secondary causes including PSA, colonoscopy, CT abdomen/chest & pelvis were all negative for malignancy. L brachiocephalic AVF was placed . Mr. 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 He completed his 3rd cycle of Prednisone therapy in late 05/27. Prednisone 40 mg daily was stopped. In early June 2018 he began his 3rd cycle of Cyclophosphamide 150 mg po daily but was admitted due to profound hypotension (SBP ~ 50 mmHG). He received volume resuscitation and was restarted on Prednisone due to adrenal insufficiency. Mr. Barrios was readmitted 07/24 with profound hypotension (SBP ~ 50 mmHG). He had been tapered off Prednisone 5 days prior. His cortisol level was checked and found to be low normal. This was felt to be c/w adrenal insufficiency due to the setting of severe hypotension. Adrenal replacement therapy was then resumed. Over the course of his hospitalization Mr. Nunn creatinine has remained stable at 2.0 - 2.5. He has a history of guaiac + stool. He has suffered a 2 g drop in Hgb. Nephrology consultation is requested to determine whether blood transfusion or SQ FIDENCIO should be considered. Allergies Allergy/AdvReac Type Severity Reaction Status Date / Time No Known Drug Allergies Allergy Unknown NONE Verified 07/24/18 11:54 Home Medications Home Medications Medication Instructions Recorded Confirmed Type albuterol sulfate [Ventolin HFA] 2 puff INHALATION QID PRN 04/08/18 07/24/18 History atorvastatin 80 mg PO HS 04/08/18 07/24/18 History finasteride 5 mg PO QPM 04/08/18 07/24/18 History paroxetine HCl 20 mg PO QPM 04/08/18 07/24/18 History propranolol 5 mg PO DAILY 04/08/18 07/24/18 History potassium chloride 20 meq PO BID 30 Days #120 tab 04/25/18 07/24/18 Rx apixaban 5 mg PO BID 30 Days #60 tab 05/09/18 07/24/18 Rx digoxin 0.125 mg PO Q2D@1600 30 Days #15 06/21/18 07/24/18 Rx tab sulfamethoxazole-trimethoprim 1 tab PO Q OTHER DAY #14 tab 06/24/18 07/24/18 Rx [Bactrim] levofloxacin 1 tab PO DAILY 07/24/18 07/24/18 History midodrine 5 mg PO AMHS 07/24/18 07/24/18 History Patient History Medical History BPH (benign prostatic hyperplasia) Hyperlipidemia Hypertension (Chronic) Severe anemia (Chronic) Asthma (Chronic) Bronchitis (Inactive) - CXR appears improved from prior visit on 03/23 suggesting resolving pneumonia AV fistula Anxiety Asthma STABLE BPH (benign prostatic hyperplasia) Borderline diabetes DIET CONTROLLED CAD (coronary artery disease) CABG X2 02/2017 Elevated troponin - GERD (gastroesophageal reflux disease) CONTROLLED History of atrial fibrillation History of blood transfusion S/P SURGERY 2016 Hyperlipidemia Hypertension Hypotension Lipoma On anticoagulant therapy Osteoarthritis Paroxysmal A-fib Paroxysmal A-fib Pulmonary hypertension Tremor of both hands FAMILIAL- ON PROPRANOLOL Unstable angina Surgical History History of colonoscopy History of coronary artery bypass graft CABG X2 02/2017- POST OP INFECTION/DEBRIDEMENT X 2 History of cystoscopy History of ear surgery RIGHT History of repair of rotator cuff RIGHT History of tonsillectomy Family History Father Family history of diabetes mellitus Mother Family history of diabetes mellitus Family/Other Family history of diabetes mellitus Social History marital status: Current Living Situation: Spouse current occupational status: retired Other Information That Helps Us Care for You: No Feels Safe at Home: Yes Safety Concerns: Feels Safe At This Time Smoking Status: Former smoker Smoking End Date: quit at age 25 Hx Alcohol Use: No Hx Substance Use: No Beliefs That Will Affect Care: None Communication Ability: Effective Review of Systems Constitutional: no fever Eyes: no diplopia Respiratory: no dyspnea Cardiovascular: no chest pain Gastrointestinal: no abdominal pain Genitourinary (Male): no dysuria Physical Exam 2 Vital Signs (Past 24 Hours): Last Vital Signs Temp 36.4 C L 07/29/18 11:06 Pulse 62 07/29/18 11:13 Resp 22 07/29/18 11:13 BP 102/59 L 07/29/18 11:06 Pulse Ox 91 07/29/18 11:13 Constitutional: well developed and well nourished Eyes: PERRL, conjunctivae normal, anicteric sclerae Neck: trachea midline, no thyromegaly Respiratory: normal respiratory effort, lungs clear to auscultation Cardiovascular: RRR, no murmur, no edema Gastrointestinal (Abdomen): normal bowel sounds, soft, nontender, no hepatosplenomegaly Results & Data Laboratory Results Laboratory Tests 07/29/18 07/29/18 05:13 05:13 WBC 4.84 Hgb 7.2 L Hct 22.0 L Plt Count 122 L Sodium 138 Potassium 3.3 L Chloride 104 Carbon Dioxide 29 BUN 27 H Creatinine 1.65 H Glucose 95 _ (1) Chronic kidney disease Chronic kidney disease stage: unspecified stage Qualified Code(s): N18.9 - Chronic kidney disease, unspecified
[2018-07-29] MEDS ORDERED: FUROSEMIDE 40 MG in SYRINGE 0 ML IV ONE (14:45)
[2018-07-29] MEDS: POTASSIUM CHLORIDE 20 MEQ TABCR PO SCH ×2 (14:53→20:24)
--- NOTE | 2018-07-29 17:56 | Hospitalist Progress Note ---
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 Hx of asthma CT chest: cardiomegaly with evidence of mild congestive failure and trace pleural effusion CXR mild cardiomegaly Hx of BPH, dyslipidemia, continue current medication chronic anemia and no evidence of acute hemorrhage (2) Steroid dependent for adrenal supression: hx of adrenal insufficiency s/p treatment with cyclosporine and prednisone for glomerulonephropathy initial symptoms could have been adrenal insufficiency (3) Paroxysmal atrial fibrillation: Continues with apixaban and atenolol with renal dysfunction cardiology is considering transition to metoprolol at time of discharge (4) Elevated troponin I level: felt more likely to be demand ischemia (5) CAD, multiple vessel: (6) Chronic anemia: Patient appears to have acute on chronic anemia was given adult dose of erythropoietin his hemoglobin continues to drift downward nephrology was consulted has recommended proceeding to transfusion which were performed on with Lasix administration between units (7) NATALIE (acute kidney injury): (8) Chronic kidney disease: (9) BPH (benign prostatic hyperplasia): (10) Hyperlipidemia: (11) Hypertension: (12) Severe anemia: (13) Asthma: Subjective Patient still fairly tremulous. His hemoglobin did drop and transfusion was ordered he continues to have some abnormal pulmonary exam but cardiology is satisfied it is not any any risk stratification testing Review of Systems ROS: well nourished well developed. 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 Vital signs as documented. Head exam is unremarkable. normocephalic, atraumatic Neck is with mild jugular venous distension, thyromegaly, or lymphademopathy Lungs are coarse at both bases no focal air loss no egophony Cardiac exam reveals Rhythm is regular. Systolic murmur Abdominal exam reveals normal bowel sounds, no masses, no organomegaly Extremities are nonedematous and both pedal pulses are present Neurologic exam is A&Ox3, no focal deficits, strength is equal bilateral he does have significant tremor at rest and with intention Psychologically seems neither anxious or depressed Skin is warm Dry without bruises or lesions _ (1) Chronic kidney disease Chronic kidney disease stage: unspecified stage Qualified Code(s): N18.9 - Chronic kidney disease, unspecified (2) BPH (benign prostatic hyperplasia) Lower urinary tract symptom presence: unspecified whether lower urinary tract symptoms present Lower urinary tract symptom detail: Qualified Code(s): N40.0 - Benign prostatic hyperplasia without lower urinary tract symptoms (3) Hyperlipidemia Hyperlipidemia type: unspecified Qualified Code(s): E78.5 - Hyperlipidemia, unspecified (4) Hypertension Hypertension type: essential hypertension Qualified Code(s): I10 - Essential (primary) hypertension (5) Asthma Asthma severity: unspecified severity Asthma persistence: unspecified Asthma complication type: unspecified Qualified Code(s): J45.909 - Unspecified asthma, uncomplicated
[2018-07-29] MEDS: ATORVASTATIN 40 MG TAB PO SCH (20:24)
[2018-07-29] MEDS: PARoxetine HCl 20 MG TAB PO SCH (20:25)
[2018-07-29] MEDS: predniSONE 2.5 MG TAB PO SCH (20:25)
[2018-07-29] MEDS: TAMSULOSIN HCL 0.4 MG CAP PO SCH (20:25)
[2018-07-29] MEDS: FINASTERIDE 5 MG TAB PO SCH (20:25)
[2018-07-30 05:39] LABS: Hematocrit (blood only) 28.7 % (42-52); Hemoglobin 9.4 g/dL (14.0-18.0); Mean Corpuscular Hgb Conc 32.8 g/dL (32-36); Mean Corpuscular Volume 101.4 fL (80-100); Mean Platelet Volume 10.5 fL (7.4-10.4); Nucleated RBC # (auto) 0.03 K/uL (0-0); Nucleated RBC % (auto) 0.5 %; Platelet Count 117 K/uL (130-400); RDW Standard Deviation 80.2 fL (36.4-46.3); Red Blood Count 2.83 M/uL (4.7-6.1); White Blood Count 5.64 K/uL (4.8-10.8)
[2018-07-30 06:12] LABS: BUN Creatinine Ratio 15.5 (10-20); Calcium 8.3 mg/dl (8.5-10.1); Est GFR (African American) 42.3; Est GFR (Non-African American) 36.5; Potassium 3.7 mmol/L (3.5-5.1)
[2018-07-30] MEDS: ALBUTEROL 0.083% NEBU SOLN 3 ML VIAL INH SCH (07:02)
[2018-07-30] MEDS: guaiFENesin SUGAR FREE 200 MG/10 ML UDC PO SCH ×4 (09:09→23:45)
[2018-07-30] MEDS: APIXABAN 5 MG TABLET PO SCH ×2 (09:19→20:59)
[2018-07-30] MEDS: PANTOprazole 40 MG TAB PO SCH ×2 (09:19→21:00)
[2018-07-30] MEDS: POTASSIUM CHLORIDE 20 MEQ TABCR PO SCH (09:19)
[2018-07-30] MEDS: FLUTICASONE/SALMETEROL 250/50 (ADVAIR) 14 PUFF/1 INHALER INH SCH ×2 (09:20→20:58)
[2018-07-30] MEDS: LIDOCAINE 5% 1 PATCH TD SCH (09:20)
[2018-07-30] MEDS: SENNA 8.6 MG TAB PO SCH (09:22)
[2018-07-30] MEDS: predniSONE 5 MG TAB PO SCH (09:23)
[2018-07-30] MEDS: MIDODRINE HCL 10 MG TAB PO SCH ×2 (09:23→17:00)
[2018-07-30] MEDS: ATENOLOL 25 MG TABLET PO SCH (09:43)
[2018-07-30] MEDS ORDERED: ALBUTEROL 0.083% NEBU SOLN 3 ML VIAL INH PRN (09:50)
--- NOTE | 2018-07-30 10:37 | Nephrology Progress Note ---
Date of Service July 30, 2018 Assessment & Plan (1) Chronic kidney disease: -- Membranous GN w/ baseline creatinine 2.0 EGFR 33 cc/min -- Patient has completed 3 cycles of Cyclophosphamide alternating w/ Prednisone (2) Anemia: -- Patient should have adequate Erythropoietin production. Do not expect progressive anemia in the setting of stage III CKD. -- Prior evaluation revealed guaiac + stool and melena. Patient declined GI evaluation 04/27. He is now agreeable to colonoscopy if indicated. Will order follow up FOBT -- Patient has been transfused 2 U PRBC 07/29/18 -- Monitor H&H -- On Apixiban due to chronic atrial fibrillation (3) Steroid dependent for adrenal supression: -- Continue Prednisone 5 mg po qAM and 2.5 mg po qPM as adrenal replacement therapy -- On Metoprolol for cardiac rate control and Midodrine for BP stabilization Subjective Mr. Barrios was seen & examined in his hospital room this morning. He tolerated transfusion w/ 2 U PRBC without complication. He denies melena or hematochezia. Respiratory: no dyspnea Cardiovascular: no chest pain Gastrointestinal: no abdominal pain Physical Exam 2 Vital Signs (Past 24 Hours): Last Vital Signs Temp 36.4 C L 07/30/18 07:53 Pulse 116 H 07/30/18 07:53 Resp 20 07/30/18 07:53 BP 119/64 07/30/18 07:53 Pulse Ox 95 07/30/18 07:53 Constitutional: well developed and well nourished Eyes: PERRL, conjunctivae normal, anicteric sclerae Neck: trachea midline, no thyromegaly Respiratory: normal respiratory effort, lungs clear to auscultation Cardiovascular: RRR, no murmur, no edema Gastrointestinal (Abdomen): normal bowel sounds, soft, nontender, no hepatosplenomegaly Results & Data Laboratory Results Laboratory Tests 05/01/18 07/26/18 07/30/18 Unknown 14:15 05:16 WBC 5.64 Hgb 9.4 L Hct 28.7 L Plt Count 117 L Sodium Potassium Chloride Carbon Dioxide BUN Creatinine Glucose Vitamin B12 636 Folate 22.79 Stool Occult Bld Scrn Positive H 07/30/18 05:16 WBC Hgb Hct Plt Count Sodium 139 Potassium 3.7 Chloride 106 Carbon Dioxide 27 BUN 28 H Creatinine 1.78 H Glucose 123 H Vitamin B12 Folate Stool Occult Bld Scrn _ (1) Chronic kidney disease Chronic kidney disease stage: unspecified stage Qualified Code(s): N18.9 - Chronic kidney disease, unspecified
[2018-07-30] MEDS: METOPROLOL SUCC 25MG EXT REL TAB PO SCH (10:50)
--- NOTE | 2018-07-30 15:19 | Hospitalist Progress Note ---
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 Hx of asthma CT chest: cardiomegaly with evidence of mild congestive failure and trace pleural effusion CXR mild cardiomegaly Hx of BPH, dyslipidemia, continue current medication chronic anemia and no evidence of acute hemorrhage (2) Steroid dependent for adrenal supression: hx of adrenal insufficiency s/p treatment with cyclosporine and prednisone for glomerulonephropathy initial symptoms could have been adrenal insufficiency (3) Paroxysmal atrial fibrillation: Continues with apixaban and atenolol with renal dysfunction cardiology is considering transition to metoprolol at time of discharge (4) Elevated troponin I level: felt more likely to be demand ischemia (5) CAD, multiple vessel: (6) Chronic anemia: Patient appears to have acute on chronic anemia was given adult dose of erythropoietin his hemoglobin continues to drift downward nephrology was consulted 2U PRBC transfusion on 07/29 with Lasix administration between units , patient had appropriate rise of hemoglobin there is some concern this could be from GI blood loss he is on Protonix. 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, CAD - recent NSTEMI (06/2018) and CABG x 2, HTN, HLD, chronic anemia, BPH, adrenal insufficiency, paroxysmal AF on apixaban, systolic CHF - 45%, asthma, depression admitted on July 24, 2018 because of hypotensive associated with lightheadedness and unsteadiness likely ischemic heart disease with obvious elevated troponin , yard person and cardiology input appreciated, troponin peak, ischemic heart disease disease with elevated troponin, also likely contributed with the episodes of hypotensive upon admission hx of CAD - recent NSTEMI (06/2018) and CABG x 2, HTN, HLD, paroxysmal AF on apixaban, rate controlled, systolic CHF - 45% Cardiology follow-up, has planned possible cardiac cath in 1 month Possible acute on chronic anemia, Today's hemoglobin decreased to 7.6 from 7.7 history of CKD stage III, got 1 dose of Epogen, Discussed with yard person, to not feel need need a transfusion for now vitamin B12 folate acid were within normal limits, Patient has a history of Hemoccult positive Hypotension upon admission with possible acute adrenal insufficiency 2/2 influenza. 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 Ablating without challenges in the unit Review of Systems ROS: well nourished well developed. No double vision blurry vision No problems with speech or swallowing No palpitations, chest pain or pressure No Wheezing does have some chronic dyspnea on exertion No abdominal pain nausea vomiting diarrhea changes in appetite or weight No burning urine urine frequency or changes in color No focal joint pain or muscle pain No skin rashes or oral lesions No unusual bruising or bleeding denies any melena No focused back pain or numbness or loss of strength complains of chronic tremor No changes in memory or confusion Physical Exam 2 Vital Signs (Past 24 Hours): Last Vital Signs Temp 36.6 C 07/30/18 11:37 Pulse 81 07/30/18 11:37 Resp 18 07/30/18 11:37 BP 124/62 07/30/18 11:37 Pulse Ox 94 07/30/18 11:37 The patient appeared well nourished and normally developed. Vital signs as documented. Head exam is unremarkable. normocephalic, atraumatic Neck is without jugular venous distension, thyromegaly, or lymphademopathy Lungs are clear to auscultation with some coarse breath sounds at the bases improved since Lasix dosing Cardiac exam reveals Rhythm is regular. Did have brief runs of paroxysmal A. fib return to sinus rhythm does have a systolic murmur. Abdominal exam reveals normal bowel sounds, no masses, no organomegaly Extremities are nonedematous and both pedal pulses are present Neurologic exam is A&Ox3, no focal deficits, strength is equal bilateral does have a intention and resting tremor Psychologically seems neither anxious Skin is warm Dry _ (1) Chronic kidney disease Chronic kidney disease stage: unspecified stage Qualified Code(s): N18.9 - Chronic kidney disease, unspecified (2) BPH (benign prostatic hyperplasia) Lower urinary tract symptom presence: unspecified whether lower urinary tract symptoms present Lower urinary tract symptom detail: Qualified Code(s): N40.0 - Benign prostatic hyperplasia without lower urinary tract symptoms (3) Hyperlipidemia Hyperlipidemia type: unspecified Qualified Code(s): E78.5 - Hyperlipidemia, unspecified (4) Hypertension Hypertension type: essential hypertension Qualified Code(s): I10 - Essential (primary) hypertension (5) Asthma Asthma severity: unspecified severity Asthma persistence: unspecified Asthma complication type: unspecified Qualified Code(s): J45.909 - Unspecified asthma, uncomplicated
--- NOTE | 2018-07-30 15:52 | Cardiology Progress Note ---
Date of Service July 30, 2018 Assessment & Plan (1) Elevated troponin I level: No current symptoms of angina or coronary insufficiency. He seems to feel better with the blood transfusion and is certainly favorable from a cardiovascular standpoint. His renal function has improved, but I still do not see a pressing indication for angiography. I still think there is some risk to angiography and potential intervention given the unknown etiology of his anemia and the possibility that this represents some form of gastrointestinal blood loss. (2) CAD, multiple vessel: Atenolol switch to metoprolol. (3) Paroxysmal atrial fibrillation: He had about 3 hours of atrial fibrillation overnight he was likely sedentary. We put him on a slightly higher dose of beta blockade today with initiation of metoprolol succinate. In general he should continue anticoagulation, however if there is some concern regarding occult gastrointestinal bleeding or if there is definite gastrointestinal bleeding, anticoagulation could certainly be held for a limited period. (4) Acute on chronic systolic heart failure: He has some compromised LV function. He does have an element of dyspnea. His lung examination is not normal but not entirely consistent with pulmonary edema. His diuretic was discontinued at the time of his discharge last month. Despite an abnormal exam, his breathing has continued to improve. I think a sigle dose of diuretic would be helpful. Subjective This morning the patient came to be feeling well. He was aware of some atrial fibrillation last evening, but it is unclear if that is because he was told he had atrial fibrillation he was actually symptomatic. He reported ambulating yesterday without symptoms of dizziness or dyspnea. He had no symptoms of chest discomfort. He seemed to feel somewhat better after receiving 2 units of blood yesterday. Physical Exam 2 Vital Signs (Past 24 Hours): Last Vital Signs Temp 36.8 C 07/30/18 15:37 Pulse 75 07/30/18 15:37 Resp 20 07/30/18 15:37 BP 114/69 07/30/18 15:37 Pulse Ox 95 07/30/18 15:37 Physical Exam: The patient is alert and oriented. Mood and affect appeared normal. He answered all questions appropriately. HEENT: Pupils are equal and reactive to light and accommodation. Extraocular movements are intact. The sclerae are anicteric. Neuro: Cranial nerves intact Neck: Patient's neck is supple. He has palpable carotid pulses bilaterally without bruits on auscultation. There is no evidence of jugular venous distention. The thyroid is not enlarged. Lungs: Crackles in the bases bilateraly with some crackles in the mid-left lung. Cardiac: Heart demonstrates a regular rate and rhythm. Normal S1 and S2. No murmurs on examination. Pulses: The patient has palpable radial pulses bilaterally that are equal in intensity Extremities: There was no evidence of hypoperfusion. There is no cyanosis or clubbing. There is no edema. Skin: I did not appreciate any rashes on examination today. Atrial fibrillation Results & Data Laboratory Results Abnormal Lab Results 07/26/18 07/29/18 07/30/18 10:30 10:21 05:16 WBC 5.64 RBC 2.83 L Hgb 9.4 L Hct 28.7 L MCV 101.4 H MCH 33.2 MCHC 32.8 RDW Std Deviation 80.2 H RDW Coeff of Reed 22.0 H Plt Count 117 L MPV 10.5 H Absolute Nucleated RBC 0.03 H Nucleated RBC % (auto) 0.5 Sodium Potassium Chloride Carbon Dioxide Anion Gap BUN Creatinine Est Cr Clr Drug Dosing Est GFR ( Amer) Est GFR (Non-Af Amer) BUN/Creatinine Ratio Glucose Calcium Erythropoietin 283.3 H Stool Occult Bld Scrn Stool Occult Blood Stool Occult Blood #2 Stool Occult Blood #3 Blood Type AB Positive Antibody Screen NEGATIVE Crossmatch See Detail 07/30/18 07/30/18 07/30/18 05:16 10:05 10:05 WBC RBC Hgb Hct MCV MCH MCHC RDW Std Deviation RDW Coeff of Reed Plt Count MPV Absolute Nucleated RBC Nucleated RBC % (auto) Sodium 139 Potassium 3.7 Chloride 106 Carbon Dioxide 27 Anion Gap 6.0 BUN 28 H Creatinine 1.78 H Est Cr Clr Drug Dosing 37.0 Est GFR ( Amer) 42.3 Est GFR (Non-Af Amer) 36.5 BUN/Creatinine Ratio 15.5 Glucose 123 H Calcium 8.3 L Erythropoietin Stool Occult Bld Scrn Negative Stool Occult Blood Cancelled Stool Occult Blood #2 Cancelled Stool Occult Blood #3 Cancelled Blood Type Antibody Screen Crossmatch
[2018-07-30] MEDS ORDERED: FUROSEMIDE 40 MG in SYRINGE 0 ML IV ONE (16:15)
[2018-07-30] MEDS: DIGOXIN 0.125 MG TAB PO SCH (17:00)
[2018-07-30] MEDS: FINASTERIDE 5 MG TAB PO SCH (21:00)
[2018-07-30] MEDS: PARoxetine HCl 20 MG TAB PO SCH (21:00)
[2018-07-30] MEDS: predniSONE 2.5 MG TAB PO SCH (21:00)
[2018-07-30] MEDS: ATORVASTATIN 40 MG TAB PO SCH (21:00)
[2018-07-30] MEDS: TAMSULOSIN HCL 0.4 MG CAP PO SCH (21:00)
[2018-07-31] MEDS: guaiFENesin SUGAR FREE 200 MG/10 ML UDC PO SCH (05:26)
[2018-07-31 05:54] LABS: Hematocrit (blood only) 29.3 % (42-52); Hemoglobin 9.5 g/dL (14.0-18.0); Mean Corpuscular Hgb Conc 32.4 g/dL (32-36); Mean Corpuscular Volume 102.4 fL (80-100); Mean Platelet Volume 10.3 fL (7.4-10.4); Platelet Count 118 K/uL (130-400); RDW Standard Deviation 81.6 fL (36.4-46.3); Red Blood Count 2.86 M/uL (4.7-6.1); White Blood Count 6.75 K/uL (4.8-10.8)
[2018-07-31 06:35] LABS: BUN Creatinine Ratio 14.1 (10-20); Calcium 8.5 mg/dl (8.5-10.1); Est GFR (African American) 42.3; Est GFR (Non-African American) 36.5; Potassium 4.3 mmol/L (3.5-5.1)
[2018-07-31 06:37] LABS: Ferritin 962.8 ng/ml (8-388)
[2018-07-31] MEDS: MIDODRINE HCL 10 MG TAB PO SCH (07:45)
[2018-07-31] MEDS: predniSONE 5 MG TAB PO SCH (07:45)
[2018-07-31] MEDS: FLUTICASONE/SALMETEROL 250/50 (ADVAIR) 14 PUFF/1 INHALER INH SCH (07:45)
[2018-07-31] MEDS: PANTOprazole 40 MG TAB PO SCH (07:45)
[2018-07-31] MEDS: METOPROLOL SUCC 25MG EXT REL TAB PO SCH (07:45)
[2018-07-31] MEDS: APIXABAN 5 MG TABLET PO SCH (07:46)
[2018-07-31] MEDS: LIDOCAINE 5% 1 PATCH TD SCH (07:46)
[2018-07-31] MEDS: SENNA 8.6 MG TAB PO SCH (08:27)
[2018-07-31] MEDS ORDERED: guaiFENesin SUGAR FREE 200 MG/10 ML UDC PO PRN (08:27)
--- NOTE | 2018-07-31 09:51 | Nephrology Progress Note ---
Date of Service July 31, 2018 Assessment & Plan (1) Chronic kidney disease: -- Membranous GN w/ baseline creatinine 2.0 EGFR 33 cc/min -- Patient has completed 3 cycles of Cyclophosphamide alternating w/ Prednisone -- Kidney function is stable at this time. Will sign off. Please call if further Nephrology assistance is needed (2) Anemia: -- Erythropoietin level was resulted this am and found to be appropriately elevated. -- Prior evaluation revealed guaiac + stool and melena. Patient declined GI evaluation 04/27. FOBT is now negative. -- Clinically suspect intermittent LGI blood loss -- Iron saturation is low. Will start FeSO4 325 mg daily -- On Apixiban due to chronic atrial fibrillation (3) Steroid dependent for adrenal supression: -- Continue Prednisone 5 mg po qAM and 2.5 mg po qPM as adrenal replacement therapy -- On Metoprolol for cardiac rate control and Midodrine for BP stabilization Subjective Mr. Barrios was seen & examined in his hospital room this morning. He was last transfused 07/29. He currently denies abdominal discomfort, melena or hematochezia. Physical Exam 2 Vital Signs (Past 24 Hours): Last Vital Signs Temp 36.5 C 07/31/18 08:27 Pulse 73 07/31/18 08:27 Resp 16 07/31/18 08:27 BP 112/56 L 07/31/18 08:27 Pulse Ox 94 07/31/18 08:27 Constitutional: well developed and well nourished Eyes: PERRL, conjunctivae normal, anicteric sclerae Neck: trachea midline, no thyromegaly Respiratory: normal respiratory effort, lungs clear to auscultation Cardiovascular: RRR, no murmur, no edema Gastrointestinal (Abdomen): normal bowel sounds, soft, nontender, no hepatosplenomegaly Results & Data Laboratory Results Laboratory Tests 07/26/18 07/31/18 07/31/18 10:30 05:21 05:21 WBC 6.75 Hgb 9.5 L Hct 29.3 L Plt Count 118 L Sodium 138 Potassium 4.3 D Chloride 105 Carbon Dioxide 27 BUN 25 H Creatinine 1.78 H Transferrin % Sat 11 L Erythropoietin 283.3 H Ferritin 962.8 H _ (1) Chronic kidney disease Chronic kidney disease stage: unspecified stage Qualified Code(s): N18.9 - Chronic kidney disease, unspecified
[2018-07-31] MEDS ORDERED: FERROUS SULFATE 325 MG TAB PO SCH (10:00)
--- NOTE | 2018-07-31 18:32 | Discharge Summary ---
Date of Service July 31, 2018 Admission HPI Per Admitting Provider 77 y/o M Hx CKD IV owing to membranous glomerulonephropathy, CAD - recent NSTEMI , HTN, HLD, chronic anemia, BPH, adrenal insufficiency, paroxysmal AF, systolic CHF - 45%, asthma, depression. Pt was recently admitted to the hospital with hypotension, PNM and an elevated trop. He completed a course of antibiotics and denies SOB or fevers although he does have a lingering cough. His NSTEMI was thought to be due to hypoperfusion during his hypertensive episode and his renal function argued against catheterization and for medical management. Regarding his hypotension, this was thought due to adrenal insufficiency rather than sepsis. Until 10 days ago, he was being treated with cyclical cyclosporine and prednisone for his glomerulonephropathy. This was thought to have caused adrenal insufficiency. He had been on a Prednisone taper for this reason which he completed a few days ago. The pt reports that this AM he became lightheaded and unsteady and recognized this as hypotension. He was indeed correct as an SBP of 80 was confirmed on arrival to the ER. He responded promptly to a fluid bolus and then became hypotensive again within an hour showing an SBP of 60. Initial labs are notable for a lactic acid of 3 and a troponin of 0.2 - which per previous labs may be chronic - stable CKD and stable anemia. A CXR did not provide evidence of recurrent PNM. He is afebrile and does not display leukocytosis. PMH: 1) CKD IV - membranous glomerulonephropathy - treated with cycles of prednisone and cyclosporine. Completed tx 07/15/18 2) CAD - NSTEMI - 06/2018 3) HTN 4) HLD 5) Chronic anemia - Hb 8-9 6) Adrenal insufficiency - thought to be transient due to cyclosporine and prednisone treatment 7) Paroxysmal AF - Apixaban 8) Asthma 9) Depression 10) Chronic systolic CHF - EF 45%, inferior and apical hypokinesis - echo 2018 Surgical: CABG 2V - ANGUIANO to LAD, SVG to OM Social: Does not drink or smoke Family: Both parents - complications of DM Principal Diagnosis adrenal insufficiency acute on chronic anemia ckd 3 Discharge Exam Constitutional well developed and average body habitus Eyes no conjunctival abnormality and no scleral abnormality Neck normal visual inspection and trachea midline Respiratory normal respiratory effort; no respiratory distress Auscultation: lungs clear to auscultation bilaterally Discharge Data Allergies Allergy/AdvReac Type Severity Reaction Status Date / Time No Known Drug Allergies Allergy Unknown NONE Verified 07/24/18 11:54 Consultations 07/24/18 13:13 ED Decision to Admit Stat 07/24/18 16:52 Consult Text Transcriber Stat 07/24/18 17:44 Consult Case Management - Discharge Planning Routine Consult Text Transcriber Routine 07/25/18 13:13 Consult Cardiology Routine 07/29/18 08:21 Consult Nephrology Routine Ordered Studies 07/24/18 14:11 CT chest wo con Stat Hospital Course (1) Coronary artery disease: 77 y/oM with 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 Acute on chronic kidney disease with hx of CKD3 owing to membranous glomerulonephropathy Hx of asthma CT chest: cardiomegaly with evidence of mild congestive failure and trace pleural effusion CXR mild cardiomegaly Hx of BPH, dyslipidemia, continue current medication chronic anemia and no evidence of acute hemorrhage (2) Steroid dependent for adrenal supression: hx of adrenal insufficiency s/p treatment with cyclosporine and prednisone for glomerulonephropathy initial symptoms could have been adrenal insufficiency (3) Paroxysmal atrial fibrillation: Continues with apixaban and atenolol with renal dysfunction cardiology is recommending transition to metoprolol at time of discharge (4) Elevated troponin I level: felt more likely to be demand ischemia (5) CAD, multiple vessel: (6) Chronic anemia: Patient appears to have acute on chronic anemia was given adult dose of erythropoietin his hemoglobin continues to drift downward nephrology was consulted 2U PRBC transfusion on 07/29 with Lasix administration between units , patient had appropriate rise of hemoglobin there is some concern this could be from GI blood loss since hgb is stable will follow and not proceed to further workup unless required, will have d/c on iron (7) NATALIE (acute kidney injury): (8) Chronic kidney disease: (9) BPH (benign prostatic hyperplasia): (10) Hyperlipidemia: (11) Hypertension: (12) Severe anemia: (13) Asthma: Total Time Total Time Spent Total Time Spent (In Minutes): greater than 30 minutes were required to prepare discharge Discharge Plan Discharge Items Patient Disposition: Home - Home Health Services Reason For Visit: HYPOTENSION Discharge Diagnosis: adrenal insufficiency, anemia Discharge Goals: Decrease discomfort, Diagnostic testing and Improve disease control Activity: Resume your previous activity Non-emergency contact: Primary Care Provider, Crew Mess Attendant and Room Service Supervisor Call non-emergency contact if: you have any medication questions Follow-up/Referrals: Delonte Yung III, MD [Physician] - Diet: Heart Healthy Addtl Provider Instructions: Please follow up as an outpt with Dr Yung for your tremor Prescriptions: New metoprolol succinate 25 mg Tablet Extended Release 24 Hr 25 mg PO QAM Qty: 30 RF: 3 ferrous sulfate [iron] 325 mg (65 mg iron) tablet 325 mg PO BID Qty: 60 RF: 4 prednisone 5 mg tablet 5 mg PO DAILY Qty: 45 RF: 1 Continue potassium chloride 10 mEq Tablet Extended Release 20 meq PO BID 30 Days Qty: 120 RF: 3 apixaban 5 mg tablet 5 mg PO BID 30 Days Qty: 60 RF: 2 atorvastatin 80 mg tablet 80 mg PO HS RF: 0 paroxetine HCl 20 mg tablet 20 mg PO QPM RF: 0 albuterol sulfate [Ventolin HFA] 90 mcg/actuation Hfa Aerosol Inhaler 2 puff INHALATION QID PRN (Reason: Unknown) RF: 0 finasteride 5 mg tablet 5 mg PO QPM RF: 0 digoxin 125 mcg Tablet 0.125 mg PO Q2D@1600 30 Days Qty: 15 RF: 1 Changed midodrine 5 mg tablet 10 mg PO AMHS Qty: 60 RF: 3 Discontinued levofloxacin 750 mg tablet 1 tab PO DAILY RF: 0 propranolol 10 mg Tablet 5 mg PO DAILY RF: 0 sulfamethoxazole-trimethoprim [Bactrim] 400-80 mg tablet 1 tab PO Q OTHER DAY Qty: 14 RF: 0 Stand-Alone Forms: [facility] Discharge Orders: Discharge Order (Routine); Ordered 07/31/18 Ordered By: Jitendra Lau Admission Data Admit Date/Time: 07/24/18 15:28 Attending Provider: Jitendra Lau Admit Provider: Dilshad Varghese Primary Care Provider: Chun Collins III Other Providers: Dustin Lawson ; Dilshad Varghese ; Jordan Thornton ; Vasquez Guerrero Service: Telemetry Other Interventions: Discharge Summary Assessment (RN) Last Done: 07/31/18 10:08 DC Date/Time DO NOT enter until pt leaves facility: 07/31/18 11:40
== END 2018-07-31 11:40 | disposition home or self-care (01) | DRG 643 ==
LOC: ED 10:41 → SUATTDRO 15:28 → 1E 15:28 → 2S 07-27 10:13

== ENCOUNTER 2018-10-22 09:07 | Inpatient (IN) ==
[2018-10-22] MEDS ORDERED: ALBUT/IPRATROP 3MG/0.5MG NEB 3 ML VIAL INH STA (09:34)
[2018-10-22] MEDS ORDERED: methylPREDNISolone 125 MG/2 ML VIAL IV STA ×2 (09:36→11:43)
[2018-10-22 10:07] LABS: Basophils # (auto) 0.01 K/uL (0-0.2); Basophils % (auto) 0.1 %; Eosinophils # (auto) 0.15 K/uL (0-0.5); Eosinophils % (auto) 2.2 %; Hematocrit (blood only) 31.4 % (42-52); Hemoglobin 10.2 g/dL (14.0-18.0); Immature Granulocytes # (auto) 0.01 K/uL (0.00-0.02); Immature Granulocytes % (auto) 0.1 %; Lymphocytes # (auto) 0.65 K/uL (1.2-3.4); Lymphocytes % (auto) 9.6 %; Mean Corpuscular Hgb Conc 32.5 g/dL (32-36); Mean Corpuscular Volume 103.6 fL (80-100); Monocytes # (auto) 0.57 K/uL (0.11-0.59); Monocytes % (auto) 8.4 %; Neutrophils # (auto) 5.36 K/uL (1.4-6.5); Neutrophils % (auto) 79.6 %; Platelet Count 150 K/uL (130-400); RDW Coefficient of Variation 16.9 % (11.5-14.5); RDW Standard Deviation 64.2 fL (36.4-46.3); Red Blood Count 3.03 M/uL (4.7-6.1); White Blood Count 6.75 K/uL (4.8-10.8)
--- NOTE | 2018-10-22 10:08 | XRay Report ---
XR chest 1V portable HISTORY: Dyspnea COMPARISON: Chest 10/07/2018. FINDINGS: No pneumothorax. Trace left pleural effusion and left basilar interstitial thickening remai ns unchanged. The right pleural effusion has resolved. The heart remains mildly enlarged. There are p oststernotomy changes. Mild central pulmonary vascular congestion without overt edema. No new focal l too consolidations to suggest pneumonia. IMPRESSION: No significant change in the mild cardiomegaly, mild central pulmonary vascular congestion, and trace left pleural effusion. Electronically signed by: Ethan Garcia M.D. 10/22/2018 10:07 AM
[2018-10-22 10:21] LABS: Albumin Level 3.1 gm/dl (3.4-5.0); BUN Creatinine Ratio 22.5 (10-20); Calcium 8.9 mg/dl (8.5-10.1); Creatinine Clr Calc Pharmacy 32.9 ml/min; Est GFR (African American) 37.2; Est GFR (Non-African American) 32.1; Potassium 3.8 mmol/L (3.5-5.1)
[2018-10-22 10:34] LABS: Bilirubin,Total 0.6 mg/dl (0.2-1); Globulin 3.1 gm/dl (2.5-4.0); Total Protein 6.2 gm/dl (6.4-8.2); Troponin I 0.097 ng/ml (0-0.045)
[2018-10-22 10:51] LABS: Appearance Urine Clear (Clear); Bacteria Urine Automated Negative (Negative); Bilirubin Urine Negative (Negative); Blood Urine Negative (Negative); Color Urine Yellow; Epithelial Cell Urine Auto 0-5 /lpf (0-5); Glucose Urine UA Negative (Negative); Ketones Urine Negative (Negative); Leukocyte Esterase Urine Negative (Negative); Nitrite Urine Negative (Negative); Protein Urine 1+ (Negative); RBC Urine Automated 0-4 /hpf (0-4); Specific Gravity Urine 1.014 (1.000-1.030); Urobilinogen Urine Negative (Negative); WBC Urine Automated 0 /hpf (0-5); pH Urine 5.5 (4.5-7.5)
--- NOTE | 2018-10-22 11:16 | History & Physical Report ---
Date of Service October 22, 2018 Assessment & Plan (1) Asthma: With acute exacerbation and dyspnea on exertion PFTs from 08/2018 with moderate obstruction with reversibility with bronchodilators. Improved as outpt with recent mild increase in prednisone and course of Levaquin for LLL PNA PNA now cleared. Trace pleural effusion on chest x-ray here but no infiltrate -Admit to tele -continue IV Solu Medrol-loaded with 125 mill grams in the ER now continue on 60 mg IV every 12 hours-holding home daily prednisone but will need to convert back to this eventually after taper given chronic prednisone use -continue scheduled bronchodilators -consult Pulm -will need 2 step prior to discharge-not significantly hypoxic at rest but is with exertion-has O2 at home but uses when feels like he needs it -no abx needed at this point (2) Elevated troponin: Mild elevation here. No chest pain. ECG slightly changed from previous could be myocardial demand ischemia in setting of known CAD -Trend serial troponin -Daily ECG in the morning -Continue home medications with atorvastatin, metoprolol, Eliquis -Consult his incident manager (3) Dyspnea on exertion: Most likely secondary to acute asthma exacerbation as above. He does have some mild respiratory insufficiency with pulse ox 91% at rest on admission Could be some mild component of CHF previously but this was treated as an outpatient with doubled diuretics with good effect. Has minimal residual lower extremity edema -Continue home doses of bumetanide 1 mg p.o. twice daily -Treating for asthma exacerbation as above -Supplemental O2 as needed (4) History of coronary artery bypass graft: Noted (5) Hyperlipidemia: Continue statin (6) Tremor of both hands: With essential tremor, recently switch from propranolol to metoprolol last hospitalization given diagnosis of chronic systolic CHF (7) Anxiety: Stable -Continue paroxetine 20 mg daily (8) GERD (gastroesophageal reflux disease): -Continue home PPI (9) BPH (benign prostatic hyperplasia): Stable, not currently complain of any urinary issues or retention -Continue home tamsulosin, finasteride (10) Paroxysmal A-fib: And normal sinus rhythm here on admission Follows with Dr. Garcia of cardiology -Continue metoprolol for rate control -Continue digoxin for rate control every other day -Continue apixaban for anticoagulation -Monitor on telemetry (11) Hypertension: Stable to mildly elevated pressures here -Follow BPs -Continue metoprolol -Taken off NEHEMIAS inhibitor due to CKD (12) CAD (coronary artery disease): Status post CABG, with mildly elevated troponin here and slightly changed ECG as above -Continue apixaban, atorvastatin, metoprolol (13) Anemia: Stable from recent labs at 10.2, macrocytic Was transfused 2 units PRBCs last admission for hemoglobin of 7-had Hemoccult positive stool back in 04/2018 but most recently was negative. No recent GI work-up has been done B12 and folate were normal in 07/2018 Likely anemia of chronic renal disease, however had a normal erythropoietin level ordered by nephrology in July as well but is on Procrit periodically as an outpatient -We will repeat iron studies, B12, folate here -Continue home ferrous sulfate supplementation for now -Follow CBC (14) Chronic systolic (congestive) heart failure: With recent LVEF 35-40%, with wall motion of normalities, ischemic cardiomyopathy Had recent lower extremity edema was treated with doubling his dose of Bumex as an outpatient for 4 days last week with improvement With mild lower extremity edema here, no longer an acute exacerbation -Continue home Bumex 1 mg p.o. 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 -Remains on chronic prednisone for adrenal insufficiency -Holding home prednisone and treat with IV Solu-Medrol for now -Follow BMP -Avoid nephrotoxins -Renally dose medications when appropriate (16) DVT prophylaxis: Eliquis Disposition-admit to telemetry, expect at least 2 midnight stay given elevated troponin, asthma exacerbation History of Present Illness Chief Complaint: Shortness of breath Primary Care Provider: Chun Collins MD This patient is a 78 y/o male with a history of 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 He was seen by his PCP on 10/07 and diagnosed with pneumonia based on chest x-ray and symptoms. He was treated with a course of Levaquin and doubled his dose of prednisone during that time. He felt much improved, but then after that course was completed, he had return of his dyspnea. He denies chest pain, headache, sore throat, abdominal pain or diarrhea. He has intermittent sinus congestion. He has been afebrile without chills or sweats at home. He did report that he had significant lower extremity edema in the last 2 weeks and had doubled up on his bumetanide to 2 mg twice daily for 4 days and his edema improved, however his shortness of breath did not. Work-up in the ER included a chest x-ray which only showed mild cardiomegaly and mild pulmonary congestion with trace left pleural effusion, no infiltrate. He was not hypoxic but had a mildly low pulse ox at 91% on room air. His troponin was mildly elevated at 0.097, creatinine at baseline at 1.9. His ECG showed nonspecific T wave changes in the anterior leads. His proBNP was significantly elevated at 31,157. In the ER, he was given IV Solu-Medrol, and albuterol nebulizer with improvement in his symptoms. PMH: 1) CKD III-IV - membranous glomerulonephropathy - treated with cycles of prednisone and cyclosporine. 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 Family: Both parents - complications of DM Allergies Allergy/AdvReac Type Severity Reaction Status Date / Time No Known Drug Allergies Allergy Unknown NONE Verified 10/22/18 10:24 Home Medications Home Medications Medication Instructions Recorded Confirmed Type albuterol sulfate [Ventolin HFA] 2 puff INHALATION QID PRN 04/08/18 10/22/18 History atorvastatin 80 mg PO HS 04/08/18 10/22/18 History finasteride 5 mg PO QPM 04/08/18 10/22/18 History paroxetine HCl 20 mg PO QPM 04/08/18 10/22/18 History potassium chloride 20 meq PO BID 30 Days #120 tab 04/25/18 10/22/18 Rx midodrine 10 mg PO AMHS #60 tab 07/30/18 10/22/18 Rx ferrous sulfate [iron] 325 mg PO BID #60 tab 07/31/18 10/22/18 Rx metoprolol succinate 25 mg PO QAM #30 tab 07/31/18 10/22/18 Rx albuterol sulfate 2.5 mg INHALATION QID PRN 10/22/18 10/22/18 History apixaban [Eliquis] 5 mg PO BID 10/22/18 10/22/18 History bumetanide 1 mg PO BID 10/22/18 10/22/18 History digoxin 125 mcg PO Q2D 10/22/18 10/22/18 History pantoprazole 40 mg PO QAM 10/22/18 10/22/18 History prednisone 5 mg PO DIRECTED 10/22/18 10/22/18 History tamsulosin 0.4 mg PO Q2D 10/22/18 10/22/18 History Past Med/Surg History Medical History BPH (benign prostatic hyperplasia) Hyperlipidemia Hypertension (Chronic) Asthma (Chronic) Anemia Chronic systolic (congestive) heart failure Bronchitis (Inactive) - CXR appears improved from prior visit on 03/23 suggesting resolving pneumo spenser AV fistula Anxiety Asthma STABLE BPH (benign prostatic hyperplasia) Borderline diabetes DIET CONTROLLED CAD (coronary artery disease) CABG X2 02/2017 Elevated troponin - GERD (gastroesophageal reflux disease) CONTROLLED History of atrial fibrillation History of blood transfusion S/P SURGERY 2017 Hyperlipidemia Hypertension Lipoma On anticoagulant therapy Osteoarthritis Paroxysmal A-fib Paroxysmal A-fib Pulmonary hypertension Tremor of both hands FAMILIAL- ON PROPRANOLOL Unstable angina Surgical History History of colonoscopy History of coronary artery bypass graft CABG X2 02/2017- POST OP INFECTION/DEBRIDEMENT X 2 History of cystoscopy History of ear surgery RIGHT History of repair of rotator cuff RIGHT History of tonsillectomy Family History Father Family history of diabetes mellitus Mother Family history of diabetes mellitus Family/Other Family history of diabetes mellitus Social History Preferred Language: [place] Communication Ability: Effective Visual Impairment: No Limitations Beliefs That Will Affect Care: None marital status: Current Living Situation: Spouse current occupational status: retired Other Information That Helps Us Care for You: No Feels Safe at Home: Yes Safety Concerns: Feels Safe At This Time Smoking Status: Former smoker Tobacco Type: cigarettes Age Quit Using Tobacco: 22 packs per day: 0.5 Years Smoked: 4 Second Hand Exposure: No Hx Alcohol Use: No Hx Substance Use: No Review of Systems Review of Systems: All systems reviewed & are unremarkable except as noted in HPI & below Physical Exam 2 Constitutional: WD/WN, vitals as above average body habitus Eyes: PERRL, conjunctivae normal, anicteric sclerae ENMT: external ear and nose normal, oropharynx normal Ears: no hearing impairment, no EAC abnormality and no TM abnormality Mouth: no lip abno rmality and no oropharynx abnormality Throat: + tonsils absent Neck: trachea midline, no thyromegaly Respiratory: normal respiratory effort Auscultation: + wheezes (Diffuse expiratory); no crackles and no rhonchi Cardiovascular: Rate/Rhythm: regular rate and regular rhythm Extremities: + edema (Trace pitting edema lower extremities to the mid tibia bilaterally) Gastrointestinal (Abdomen): normal bowel sounds, soft, nontender, no hepatosplenomegaly Musculoskeletal: Extremities: extremities normal to inspection; no cyanosis and no clubbing Skin: no rashes, warm and dry Neurologic: moves all extremities and awake; no focal motor deficits Psychiatric: A+Ox3, euthymic affect Results & Data Vital Signs (Past 12 Hours) Vital Signs Temp Pulse Pulse Resp BP BP Pulse Ox 10/22/18 10:35 64 22 144/73 H 94 10/22/18 10:00 63 18 94 10/22/18 09:13 36.4 C L 67 18 120/70 91 Laboratory Results 10/22/18 10/22/18 10/22/18 Range/Units 10:36 09:50 09:50 WBC 6.75 (4.8-10.8) K/uL RBC 3.03 L (4.7-6.1) M/uL Hgb 10.2 L (14.0-18.0) g/dL Hct 31.4 L (42-52) % MCV 103.6 H (80-100) fL MCH 33.7 (25-34) pg MCHC 32.5 (32-36) g/dL RDW Std Deviation 64.2 H (36.4-46.3) fL RDW Coeff of Reed 16.9 H (11.5-14.5) % Plt Count 150 (130-400) K/uL MPV 10.0 (7.4-10.4) fL Immature Gran % (Auto) 0.1 % Neut % (Auto) 79.6 % Lymph % (Auto) 9.6 % [place] % (Auto) 8.4 % Eos % (Auto) 2.2 % Baso % (Auto) 0.1 % Immature Gran # (Auto) 0.01 (0.00-0.02) K/uL Neut # (Auto) 5.36 (1.4-6.5) K/uL Lymph # (Auto) 0.65 L (1.2-3.4) K/uL [place] # (Auto) 0.57 (0.11-0.59) K/uL Eos # (Auto) 0.15 (0-0.5) K/uL Baso # (Auto) 0.01 (0-0.2) K/uL Sodium 144 (136-145) mmol/L Potassium 3.8 (3.5-5.1) mmol/L Chloride 109 H (98-107) mmol/L Carbon Dioxide 30 (21-32) mmol/L Anion Gap 5.0 (3-11) BUN 44 H (7-18) mg/dl Creatinine 1.97 H (0.6-1.4) mg/dl Est Cr Clr Drug Dosing 32.9 ml/min Est GFR ( Amer) 37.2 Est GFR (Non-Af Amer) 32.1 BUN/Creatinine Ratio 22.5 H (10-20) Glucose 140 H (70-99) mg/dl Calcium 8.9 (8.5-10.1) mg/dl Total Bilirubin 0.6 (0.2-1) mg/dl AST 22 (15-37) U/L ALT 33 (12-78) U/L Alkaline Phosphatase 74 (45-117) U/L Troponin I 0.097 H* (0-0.045) ng/ml NT-Pro-B Natriuret Pep 09398 H (0-1800) pg/ml Total Protein 6.2 L (6.4-8.2) gm/dl Albumin 3.1 L (3.4-5.0) gm/dl Globulin 3.1 (2.5-4.0) gm/dl Albumin/Globulin Ratio 1.0 (0.9-2) Urine Color Yellow Urine Appearance Clear (Clear) Urine pH 5.5 (4.5-7.5) Ur Specific [place] 1.014 (1.000-1.030) Urine Protein 1+ H (Negative) Urine Glucose (UA) Negative (Negative) Urine Ketones Negative (Negative) Urine Blood Negative (Negative) Urine Nitrite Negative (Negative) Urine Bilirubin Negative (Negative) Urine Urobilinogen Negative (Negative) Ur Leukocyte Esterase Negative (Negative) Urine WBC (Auto) 0 (0-5) /hpf Urine RBC (Auto) 0-4 (0-4) /hpf U Hyaline Cast (Auto) 1-5 (0-5) /lpf U Epithel Cells (Auto) 0-5 (0-5) /lpf Urine Bacteria (Auto) Negative (Negative) Diagnostic Findings CXR image personally reviewed by me and agree with the following report: XR chest 1V portable HISTORY: Dyspnea COMPARISON: Chest 10/07/2018. FINDINGS: No pneumothorax. Trace left pleural effusion and left basilar interstitial thickening remains unchanged. The right pleural effusion has resolved. The heart remains mildly enlarged. There are poststernotomy changes. Mild central pulmonary vascular congestion without overt edema. No new focal lung consolidations to suggest pneumonia. IMPRESSION: No significant change in the mild cardiomegaly, mild central pulmonary vascular congestion, and trace left pleural effusion. ECG Rhythm: sinus rhythm Additional Comments: nonspecific TW changes in anterior leads changed from previous Code Status & VTE Plan Code Status DNR/DNI VTE Prophylaxis Plan VTE Prophylaxis will be ordered: Yes
[2018-10-22] MEDS ORDERED: ONDANSETRON INJ 2 MG/ML 2 ML VIAL IV PRN (12:55)
[2018-10-22] MEDS ORDERED: NITROGLYCERIN SL 0.4 MG/TAB TAB SL PRN (12:55)
[2018-10-22] MEDS ORDERED: ACETAMINOPHEN 325 MG TAB PO PRN (12:55)
[2018-10-22] MEDS: ALBUT/IPRATROP 3MG/0.5MG NEB 3 ML VIAL NEB SCH ×4 (13:10→19:39)
[2018-10-22] MEDS: FERROUS SULFATE 325 MG TAB PO SCH (16:53)
[2018-10-22] MEDS: BUMETANIDE 1 MG TAB PO SCH (16:53)
[2018-10-22] MEDS ORDERED: BUMETANIDE 2 MG in SYRINGE 0 ML IV ONE (19:30)
--- NOTE | 2018-10-22 21:04 | Cardiology Consultation ---
Date of Consultation October 22, 2018 Assessment & Plan (1) Elevated troponin: His slight Troponin elevation is not diagnostic of myocardial infarction. He did not present with acute coronary syndrome but rather dyspnea with exertion which is likely mostly related to his pulmonary issues. Would not pursue cardiac catheterization or ischemic evaluation based on this laboratory data. He does have underlying CAD status post CABG. (2) Dyspnea on exertion: He is responding nicely to pulmonary treatment. He may be a bit hypervolemic swell and therefore 1 time dose of Bumex 2 mg IV ordered tonight. Otherwise, continue home diuretic for now. Low-sodium diet strongly recommended. (3) Paroxysmal atrial fibrillation: He is on digoxin and low-dose beta-damon. He is on anticoagulation for stroke risk reduction. Currently he is in sinus rhythm. (4) CAD, multiple vessel: He is status post CABG x2 (bowman to LAD and SVG to OM). No angina. Continue high-intensity statin therapy and beta-damon. Not on aspirin as he has had recent anemia issues and is also on anticoagulation. He did not present with acute coronary syndrome. (5) Chronic systolic CHF (congestive heart failure): He recently had increased diuretic therapy for 4 days by doubling his home Bumex with improvement in lower extremity edema and breathing. Will give 1 time dose of Bumex 2 mg IV x1 now in addition to home oral diuretics. He appears to be mildly hypervolemic, but not significantly so. Low-sodium diet strongly recommended. Home weights. (6) Cardiomyopathy: He is on metoprolol succinate. He has chronic kidney disease but creatinine appears to be at baseline. He is also on midodrine. For these reasons, he likely will not tolerate NEHEMIAS-inhibitor. Disposition: His primary glass designer, Dr. Garcia, will resume his cardiology care tomorrow. Plan of care discussed with nursing staff. Thank you for allowing me to participate in the care of your patient. Please call for any other questions or concerns. Sincerely, Nacho Champagne M.D. History of Present Illness Reason for Consultation: Elevated troponin and CHF Requesting Physician: Dr. Coburn Attending Physician: Anne Coburn MD History of Present Illness Mr. Barrios is a very pleasant 78-year-old gentleman with a history significant for CAD status post CABG, cardiomyopathy, paroxysmal atrial fibrillation, hypertension, dyslipidemia, asthma, anemia, adrenal insufficiency on chronic prednisone, and systolic CHF. His primary glass designer is Dr. Garcia. He presented to [facility] with shortness of breath. Over the past 2 weeks, he had a productive cough with brown sputum but no fevers. He was given Levaquin by his PCP and prednisone was increased. Symptoms improved but after completion of his antibiotic and increased prednisone course, dyspnea once again worsened but productive cough did not. He also had increased lower extremity edema and Bumex was increased to 2 mg twice daily for 4 days. Over this time, his edema improved and his breathing also improved. He had been taking Bumex 1 mg twice daily according to records. He admits that he does not add salt to food but does not pay attention to how much sodium is in the food that he consumes. While here, he has been given albuterol and methylprednisolone. He feels as though his breathing has improved even further. He is thought to have predominantly asthma exacerbation according to hospitalist records. He denies chest pain, syncope, near-syncope, palpitations, orthopnea, shortness of breath at rest, PND, or significant edema on upon presentation. His breathing difficulties have been mostly with exertion. He denies melena, hematochezia, or hematuria. Review of systems: As above. Review of systems otherwise negative/unremarkable. Family history: Diabetes. Social history: He quit smoking at the age of 25. No alcohol or drugs. He lives at home with his and grandson. He has 3 grandchildren total. He and his had 1 daughter who has since . He is alone in his hospital room. Allergies Allergy/AdvReac Type Severity Reaction Status Date / Time No Known Drug Allergies Allergy Unknown NONE Verified 10/22/18 10:24 Home Medications Home Medications Medication Instructions Recorded Confirmed Type albuterol sulfate [Ventolin HFA] 2 puff INHALATION QID PRN 04/08/18 10/22/18 History atorvastatin 80 mg PO HS 04/08/18 10/22/18 History finasteride 5 mg PO QPM 04/08/18 10/22/18 History paroxetine HCl 20 mg PO QPM 04/08/18 10/22/18 History potassium chloride 20 meq PO BID 30 Days #120 tab 04/25/18 10/22/18 Rx midodrine 10 mg PO AMHS #60 tab 07/30/18 10/22/18 Rx ferrous sulfate [iron] 325 mg PO BID #60 tab 07/31/18 10/22/18 Rx metoprolol succinate 25 mg PO QAM #30 tab 07/31/18 10/22/18 Rx albuterol sulfate 2.5 mg INHALATION QID PRN 10/22/18 10/22/18 History apixaban [Eliquis] 5 mg PO BID 10/22/18 10/22/18 History bumetanide 1 mg PO BID 10/22/18 10/22/18 History digoxin 125 mcg PO Q2D 10/22/18 10/22/18 History pantoprazole 40 mg PO QAM 10/22/18 10/22/18 History prednisone 5 mg PO DIRECTED 10/22/18 10/22/18 History tamsulosin 0.4 mg PO DAILY 10/22/18 10/22/18 History Patient History Medical History BPH (benign prostatic hyperplasia) Hyperlipidemia Hypertension (Chronic) Asthma (Chronic) Anemia Chronic systolic (congestive) heart failure Bronchitis (Inactive) - CXR appears improved from prior visit on 03/23 suggesting resolving pneumonia AV fistula Anxiety Asthma STABLE BPH (benign prostatic hyperplasia) Borderline diabetes DIET CONTROLLED CAD (coronary artery disease) CABG X2 02/2017 Elevated troponin - GERD (gastroesophageal reflux disease) CONTROLLED History of atrial fibrillation History of blood transfusion S/P SURGERY 2017 Hyperlipidemia Hypertension Lipoma On anticoagulant therapy Osteoarthritis Paroxysmal A-fib Paroxysmal A-fib Pulmonary hypertension Tremor of both hands FAMILIAL- ON PROPRANOLOL Unstable angina Surgical History History of colonoscopy History of coronary artery bypass graft CABG X2 02/2017- POST OP INFECTION/DEBRIDEMENT X 2 History of cystoscopy History of ear surgery RIGHT History of repair of rotator cuff RIGHT History of tonsillectomy Family History Father Family history of diabetes mellitus Mother Family history of diabetes mellitus Family/Other Family history of diabetes mellitus Social History Preferred Language: Spanish Communication Ability: Effective Visual Impairment: No Limitations Beliefs That Will Affect Care: None marital status: Current Living Situation: Spouse current occupational status: retired Other Information That Helps Us Care for You: No Feels Safe at Home: Yes Safety Concerns: Feels Safe At This Time Smoking Status: Former smoker Tobacco Type: cigarettes Age Quit Using Tobacco: 22 packs per day: 0.5 Years Smoked: 4 Second Hand Exposure: No Hx Alcohol Use: No Hx Substance Use: No Physical Exam Physical Exam: Gen.: No acute distress. Alert and oriented. HEENT: Anicteric sclera. Neck: mild JVD. No bruits. Normal carotid upstrokes bilaterally. Cardiac: PMI was nondisplaced. No ventricular heave. Regular. Normal S1-S2. 2/6 systolic murmur. No rubs, or gallops. Pulmonary: Clear to auscultation bilaterally without wheezes, rales, or rhonchi. Abdomen: Soft, nontender, nondistended, with normoactive bowel sounds. No bruits noted. Extremities: 2+ radial pulses bilaterally. 2+ posterior tibialis pulses bilaterally. Trace bilateral lower extremity edema independent areas. No cyanosis. Psychiatric: Affect appears appropriate. Results & Data Vital Signs (Past 12 Hours) Vital Signs Temp Pulse Pulse Resp BP BP Pulse Ox 10/22/18 19:37 80 18 95 10/22/18 18:52 36.6 C 76 20 155/80 H 90 10/22/18 15:04 98 H 18 94 10/22/18 14:57 36.5 C 65 19 160/81 H 93 10/22/18 13:13 74 16 92 10/22/18 13:06 36.7 C 71 16 135/71 92 10/22/18 12:15 63 20 134/88 94 10/22/18 10:35 64 22 144/73 H 94 10/22/18 10:00 63 18 94 10/22/18 09:13 36.4 C L 67 18 120/70 91 Intake & Output 10/20/18 10/21/18 10/22/18 10/23/18 06:59 06:59 06:59 06:59 Intake Total 240 / 240 Balance 240 / 240 Weight 81.7 kg Laboratory Results Laboratory Results - last 24 hr 10/22/18 10/22/18 10/22/18 09:50 09:50 10:36 WBC 6.75 RBC 3.03 L Hgb 10.2 L Hct 31.4 L MCV 103.6 H MCH 33.7 MCHC 32.5 RDW Std Deviation 64.2 H RDW Coeff of Reed 16.9 H Plt Count 150 MPV 10.0 Immature Gran % (Auto) 0.1 Neut % (Auto) 79.6 Lymph % (Auto) 9.6 [place] % (Auto) 8.4 Eos % (Auto) 2.2 Baso % (Auto) 0.1 Immature Gran # (Auto) 0.01 Neut # (Auto) 5.36 Lymph # (Auto) 0.65 L [place] # (Auto) 0.57 Eos # (Auto) 0.15 Baso # (Auto) 0.01 Sodium 144 Potassium 3.8 Chloride 109 H Carbon Dioxide 30 Anion Gap 5.0 BUN 44 H Creatinine 1.97 H Est Cr Clr Drug Dosing 32.9 Est GFR ( Amer) 37.2 Est GFR (Non-Af Amer) 32.1 BUN/Creatinine Ratio 22.5 H Glucose 140 H Calcium 8.9 Total Bilirubin 0.6 AST 22 ALT 33 Alkaline Phosphatase 74 Troponin I 0.097 H* NT-Pro-B Natriuret Pep 47841 H Total Protein 6.2 L Albumin 3.1 L Globulin 3.1 Albumin/Globulin Ratio 1.0 Urine Color Yellow Urine Appearance Clear Urine pH 5.5 Ur Specific [place] 1.014 Urine Protein 1+ H Urine Glucose (UA) Negative Urine Ketones Negative Urine Blood Negative Urine Nitrite Negative Urine Bilirubin Negative Urine Urobilinogen Negative Ur Leukocyte Esterase Negative Urine WBC (Auto) 0 Urine RBC (Auto) 0-4 U Hyaline Cast (Auto) 1-5 U Epithel Cells (Auto) 0-5 Urine Bacteria (Auto) Negative 10/22/18 17:51 WBC RBC Hgb Hct MCV MCH MCHC RDW Std Deviation RDW Coeff of Reed Plt Count MPV Immature Gran % (Auto) Neut % (Auto) Lymph % (Auto) [place] % (Auto) Eos % (Auto) Baso % (Auto) Immature Gran # (Auto) Neut # (Auto) Lymph # (Auto) [place] # (Auto) Eos # (Auto) Baso # (Auto) Sodium Potassium Chloride Carbon Dioxide Anion Gap BUN Creatinine Est Cr Clr Drug Dosing Est GFR ( Amer) Est GFR (Non-Af Amer) BUN/Creatinine Ratio Glucose Calcium Total Bilirubin AST ALT Alkaline Phosphatase Troponin I 0.071 H* NT-Pro-B Natriuret Pep Total Protein Albumin Globulin Albumin/Globulin Ratio Urine Color Urine Appearance Urine pH Ur Specific [place] Urine Protein Urine Glucose (UA) Urine Ketones Urine Blood Urine Nitrite Urine Bilirubin Urine Urobilinogen Ur Leukocyte Esterase Urine WBC (Auto) Urine RBC (Auto) U Hyaline Cast (Auto) U Epithel Cells (Auto) Urine Bacteria (Auto) Diagnostic Findings ECG personally reviewed: ECG 10/22/2018: Sinus rhythm 64 bpm. Nonspecific T-wave abnormality. Telemetry personally reviewed: Sinus rhythm. No sustained arrhythmia. Echo07/25/2018: Moderately reduced LV systolic function. EF 35-40%. Mild to moderate MR. Moderate left atrial dilation. Chest x-ray 10/22/2018 per Radiology: Mild central pulmonary vascular congestion and trace left pleural effusion. No significant change from prior study on 10/07/2018. Medications Administered Current Inpatient Medications Acetaminophen (Tylenol) 650 mg PO Q4H PRN PRN Reason: Pain or Fever Stop: 11/21/18 12:54 Albuterol (Duoneb) 3 ml NEB QIDR [facility] Stop: 11/21/18 13:14 Last Admin: 10/22/18 19:39 Dose: 3 ml Documented by: Apixaban (Eliquis) 5 mg PO BID [facility] Stop: 11/21/18 20:59 Atorvastatin Calcium (Lipitor) 80 mg PO HS [facility] Stop: 11/21/18 20:59 Bumetanide (Bumex) 1 mg PO BID17 [facility] Stop: 11/21/18 16:59 Last Admin: 10/22/18 16:53 Dose: 1 mg Documented by: Digoxin (Lanoxin) 0.125 mg PO Q2D@0900 [facility] Stop: 11/23/18 08:59 Ferrous Sulfate (Feosol) 325 mg PO BIDM [facility] Stop: 11/21/18 16:59 Last Admin: 10/22/18 16:53 Dose: 325 mg Documented by: Finasteride (Proscar) 5 mg PO QPM [facility] Stop: 11/21/18 20:59 Methylprednisolone 60 mg/ (Syringe) 0.96 mls @ 1.5 mls/min IV Q12 [facility] Stop: 11/21/18 20:59 Metoprolol Succinate (Toprol Xl) 25 mg PO QAM [facility] Stop: 11/22/18 08:59 Midodrine (Proamatine) 10 mg PO AMHS [facility] Stop: 11/21/18 20:59 Nitroglycerin (Nitrostat) 0.4 mg SL UD PRN PRN Reason: Chest Pain Stop: 11/21/18 12:54 Ondansetron HCl (Zofran) 4 mg IV Q6H PRN PRN Reason: Nausea Stop: 11/21/18 12:54 Pantoprazole Sodium (Protonix) 40 mg PO QAM [facility] Stop: 11/22/18 08:59 Paroxetine HCl (Paxil) 20 mg PO QPM [facility] Stop: 11/21/18 20:59 Potassium Chloride (Klor-Con M10) 20 meq PO BID [facility] Stop: 11/21/18 20:59 Tamsulosin HCl (Flomax) 0.4 mg PO DAILY [facility] Stop: 11/22/18 08:59
[2018-10-22] MEDS: methylPREDNISolone 60 MG in SYRINGE 0 ML IV SCH (21:07)
[2018-10-22] MEDS: POTASSIUM CHLORIDE 10 MEQ TABCR PO SCH (21:09)
[2018-10-22] MEDS: ATORVASTATIN 40 MG TAB PO SCH (21:09)
[2018-10-22] MEDS: FINASTERIDE 5 MG TAB PO SCH (21:10)
[2018-10-22] MEDS: MIDODRINE HCL 2.5 MG TAB PO SCH (21:11)
[2018-10-22] MEDS: PARoxetine HCl 20 MG TAB PO SCH (21:12)
[2018-10-22] MEDS: APIXABAN 5 MG TABLET PO SCH (21:12)
[2018-10-23 05:55] LABS: Hematocrit (blood only) 29.7 % (42-52); Hemoglobin 9.6 g/dL (14.0-18.0); Immature Granulocytes # (auto) 0.01 K/uL (0.00-0.02); Immature Granulocytes % (auto) 0.2 %; Lymphocytes # (auto) 0.35 K/uL (1.2-3.4); Lymphocytes % (auto) 5.6 %; Mean Corpuscular Hgb Conc 32.3 g/dL (32-36); Mean Corpuscular Volume 102.4 fL (80-100); Mean Platelet Volume 10.2 fL (7.4-10.4); Monocytes # (auto) 0.09 K/uL (0.11-0.59); Monocytes % (auto) 1.4 %; Neutrophils # (auto) 5.81 K/uL (1.4-6.5); Neutrophils % (auto) 92.8 %; Platelet Count 141 K/uL (130-400); RDW Coefficient of Variation 16.7 % (11.5-14.5); RDW Standard Deviation 62.6 fL (36.4-46.3); White Blood Count 6.26 K/uL (4.8-10.8)
[2018-10-23 06:34] LABS: BUN Creatinine Ratio 23.5 (10-20); Calcium 9.1 mg/dl (8.5-10.1); Creatinine Clr Calc Pharmacy 34.5 ml/min; Est GFR (African American) 39.3; Est GFR (Non-African American) 33.9; Potassium 3.6 mmol/L (3.5-5.1)
[2018-10-23 06:39] LABS: Ferritin 611.5 ng/ml (8-388)
[2018-10-23] MEDS: ALBUT/IPRATROP 3MG/0.5MG NEB 3 ML VIAL NEB SCH ×4 (07:23→19:07)
[2018-10-23 08:05] LABS: Folate (Folic Acid) 11.13 ng/ml (>5.38)
[2018-10-23] MEDS: TAMSULOSIN HCL 0.4 MG CAP PO SCH (08:54)
[2018-10-23] MEDS: BUMETANIDE 1 MG TAB PO SCH ×2 (08:54→16:09)
[2018-10-23] MEDS: MIDODRINE HCL 2.5 MG TAB PO SCH ×2 (08:54→20:56)
[2018-10-23] MEDS: methylPREDNISolone 60 MG in SYRINGE 0 ML IV SCH (08:54)
[2018-10-23] MEDS: APIXABAN 5 MG TABLET PO SCH ×2 (08:54→20:54)
[2018-10-23] MEDS: POTASSIUM CHLORIDE 10 MEQ TABCR PO SCH ×2 (08:54→20:55)
[2018-10-23] MEDS: METOPROLOL SUCC 25MG EXT REL TAB PO SCH (08:54)
[2018-10-23] MEDS: PANTOprazole 40 MG TAB PO SCH (08:54)
[2018-10-23] MEDS: FERROUS SULFATE 325 MG TAB PO SCH ×2 (08:54→16:08)
[2018-10-23] MEDS: POLYETHYLENE (MIRALAX) 17 GM PACK PO PRN (14:00)
--- NOTE | 2018-10-23 14:51 | Hospitalist Progress Note ---
Date of Service October 23, 2018 Assessment & Plan (1) Asthma: With acute exacerbation and dyspnea on exertion PFTs from 08/2018 with moderate obstruction with reversibility with bronchodilators. Improved as outpt with recent mild increase in prednisone and course of Levaquin for LLL PNA PNA now cleared. Trace pleural effusion on chest x-ray here but no infiltrate lungs clear, no wheezing, no distress continue Solu Medrol today, plan to give Prednisone tomorrow continue LABA, nebs likely d/c to home tomorrow check two step tomorrow transfer to medical floor today (2) Elevated troponin: Mild elevation here. No chest pain. ECG slightly changed from previous could be myocardial demand ischemia in setting of known CAD -appreciate cardiology consult, no further work up needed, this does NOT represent ACS -Continue home medications with atorvastatin, metoprolol, Eliquis (3) Dyspnea on exertion: Most likely secondary to acute asthma exacerbation as above. He does have some mild respiratory insufficiency with pulse ox 91% at rest on admission Could be some mild component of CHF previously but this was treated as an outpatient with doubled diuretics with good effect. Has minimal residual lower extremity edema -Continue home doses of bumetanide 1 mg p.o. twice daily -Treating for asthma exacerbation as above breathing room air at rest today check two step tomorrow (4) History of coronary artery bypass graft: Noted (5) Hyperlipidemia: Continue statin (6) Tremor of both hands: With essential tremor, recently switch from propranolol to metoprolol last hospitalization given diagnosis of chronic systolic CHF (7) Anxiety: Stable -Continue paroxetine 20 mg daily (8) GERD (gastroesophageal reflux disease): -Continue home PPI (9) BPH (benign prostatic hyperplasia): Stable, not currently complain of any urinary issues or retention -Continue home tamsulosin, finasteride (10) Paroxysmal A-fib: And normal sinus rhythm here on admission Follows with Dr. Garcia of cardiology -Continue metoprolol for rate control -Continue digoxin for rate control every other day -Continue apixaban for anticoagulation transfer to medical floor (11) Hypertension: Stable to mildly elevated pressures here -Follow BPs -Continue metoprolol -Taken off NEHEMIAS inhibitor due to CKD (12) CAD (coronary artery disease): Status post CABG, with mildly elevated troponin here and slightly changed ECG as above -Continue apixaban, atorvastatin, metoprolol (13) Anemia: Stable from recent labs at 10.2, macrocytic Was transfused 2 units PRBCs last admission for hemoglobin of 7-had Hemoccult positive stool back in 04/2018 but most recently was negative. No recent GI work-up has been done B12 and folate were normal in 07/2018 Likely anemia of chronic renal disease, however had a normal erythropoietin level ordered by nephrology in July as well but is on Procrit periodically as an outpatient -We will repeat iron studies, B12, folate here -Continue home ferrous sulfate supplementation for now -Follow CBC (14) Chronic systolic (congestive) heart failure: With recent LVEF 35-40%, with wall motion of normalities, ischemic c ardiomyopathy Had recent lower extremity edema was treated with doubling his dose of Bumex as an outpatient for 4 days last week with improvement With mild lower extremity edema here, no longer an acute exacerbation -Continue home Bumex 1 mg p.o. 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 -Remains on chronic prednisone for adrenal insufficiency -Holding home prednisone and treat with IV Solu-Medrol for now -Follow BMP -Avoid nephrotoxins -Renally dose medications when appropriate (16) DVT prophylaxis: Eliquis Disposition- transfer to medical, check two step tomorrow, likely d/c to home tomorrow Subjective patient states he feels a lot better, breathing easier minimal cough he says he responded really well to Lasix IV discussed with cardiology, he can resume home dosing of diuretics and home heart regimen reviewed labs, Cr stable at 1.88, electrolytes stable, CBC stable, no leukocytosis Review of Systems Review of Systems: All systems reviewed & are unremarkable except as noted in HPI & below Respiratory: + cough and + dyspnea on exertion; no dyspnea Physical Exam Constitutional: WD/WN, vitals as above Eyes: PERRL, conjunctivae normal, anicteric sclerae ENMT: external ear and nose normal, oropharynx normal Neck: trachea midline, no thyromegaly Respiratory: normal respiratory effort, lungs clear to auscultation Cardiovascular: RRR, no murmur, no edema Gastrointestinal (Abdomen): normal bowel sounds, soft, nontender, no hepatosplenomegaly Musculoskeletal: no cyanosis or clubbing, extremities motor strength 5/5 Skin: no rashes, warm and dry Neurologic: patellar DTR's 2+ bilat, sensation intact and PERRL, EOMI, accommodation nl, no face palsy, no dysarthria Psychiatric: A+Ox3, euthymic affect Lymphatic: no cervical or axillary lymphadenopathy Results & Data Vital Signs (Past 12 Hours) Vital Signs Temp Pulse Resp BP Pulse Ox 10/23/18 11:15 76 18 90 10/23/18 11:03 36.8 C 76 20 135/72 92 10/23/18 07:24 71 16 93 10/23/18 07:00 36.4 C L 73 16 154/80 H 90 Laboratory Results Laboratory Results - last 24 hr 10/22/18 10/22/18 10/23/18 17:51 23:26 05:35 WBC RBC Hgb Hct MCV MCH MCHC RDW Std Deviation RDW Coeff of Reed Plt Count MPV Immature Gran % (Auto) Neut % (Auto) Lymph % (Auto) [place] % (Auto) Eos % (Auto) Baso % (Auto) Immature Gran # (Auto) Neut # (Auto) Lymph # (Auto) [place] # (Auto) Eos # (Auto) Baso # (Auto) Sodium Potassium Chloride Carbon Dioxide Anion Gap BUN Creatinine Est Cr Clr Drug Dosing Est GFR ( Amer) Est GFR (Non-Af Amer) BUN/Creatinine Ratio Glucose Calcium Iron TIBC Transferrin Transferrin % Sat Ferritin Troponin I 0.071 H* 0.067 H* Vitamin B12 473 Folate 11.13 10/23/18 10/23/18 05:35 05:35 WBC 6.26 RBC 2.90 L Hgb 9.6 L Hct 29.7 L MCV 102.4 H MCH 33.1 MCHC 32.3 RDW Std Deviation 62.6 H RDW Coeff of Reed 16.7 H Plt Count 141 MPV 10.2 Immature Gran % (Auto) 0.2 Neut % (Auto) 92.8 Lymph % (Auto) 5.6 [place] % (Auto) 1.4 Eos % (Auto) 0.0 Baso % (Auto) 0.0 Immature Gran # (Auto) 0.01 Neut # (Auto) 5.81 Lymph # (Auto) 0.35 L [place] # (Auto) 0.09 L Eos # (Auto) 0.00 Baso # (Auto) 0.00 Sodium 140 Potassium 3.6 Chloride 105 Carbon Dioxide 28 Anion Gap 7.0 BUN 44 H Creatinine 1.88 H Est Cr Clr Drug Dosing 34.5 Est GFR ( Amer) 39.3 Est GFR (Non-Af Amer) 33.9 BUN/Creatinine Ratio 23.5 H Glucose 144 H Calcium 9.1 Iron 45 TIBC 286 Transferrin 223 Transferrin % Sat 14 L Ferritin 611.5 H Troponin I Vitamin B12 Folate Medications Administered Current Inpatient Medications Acetaminophen (Tylenol) 650 mg PO Q4H PRN PRN Reason: Pain or Fever Stop: 11/21/18 12:54 Albuterol (Duoneb) 3 ml NEB QIDR [facility] Stop: 11/21/18 13:14 Last Admin: 10/23/18 11:12 Dose: 3 ml Documented by: Apixaban (Eliquis) 5 mg PO BID [facility] Stop: 11/21/18 20:59 Last Admin: 10/23/18 08:54 Dose: 5 mg Documented by: Atorvastatin Calcium (Lipitor) 80 mg PO HS [facility] Stop: 11/21/18 20:59 Last Admin: 10/22/18 21:09 Dose: 80 mg Documented by: Bumetanide (Bumex) 1 mg PO BID17 [facility] Stop: 11/21/18 16:59 Last Admin: 10/23/18 08:54 Dose: 1 mg Documented by: Digoxin (Lanoxin) 0.125 mg PO Q2D@0900 [facility] Stop: 11/23/18 08:59 Ferrous Sulfate (Feosol) 325 mg PO BIDM [facility] Stop: 11/21/18 16:59 Last Admin: 10/23/18 08:54 Dose: 325 mg Documented by: Finasteride (Proscar) 5 mg PO QPM [facility] Stop: 11/21/18 20:59 Last Admin: 10/22/18 21:10 Dose: 5 mg Documented by: Methylprednisolone 60 mg/ (Syringe) 0.96 mls @ 1.5 mls/min IV Q12 [facility] Stop: 11/21/18 20:59 Last Admin: 10/23/18 08:54 Dose: 1.5 mls/min Documented by: Metoprolol Succinate (Toprol Xl) 25 mg PO QAM [facility] Stop: 11/22/18 08:59 Last Admin: 10/23/18 08:54 Dose: 25 mg Documented by: Midodrine (Proamatine) 10 mg PO AMHS [facility] Stop: 11/21/18 20:59 Last Admin: 10/23/18 08:54 Dose: 10 mg Documented by: Nitroglycerin (Nitrostat) 0.4 mg SL UD PRN PRN Reason: Chest Pain Stop: 11/21/18 12:54 Ondansetron HCl (Zofran) 4 mg IV Q6H PRN PRN Reason: Nausea Stop: 11/21/18 12:54 Pantoprazole Sodium (Protonix) 40 mg PO QAM [facility] Stop: 11/22/18 08:59 Last Admin: 10/23/18 08:54 Dose: 40 mg Documented by: Paroxetine HCl (Paxil) 20 mg PO QPM [facility] Stop: 11/21/18 20:59 Last Admin: 10/22/18 21:12 Dose: 20 mg Documented by: Polyethylene Glycol (Miralax Powder Packet) 17 gm PO DAILY PRN PRN Reason: Constipation Stop: 11/22/18 10:51 Last Admin: 10/23/18 14:00 Dose: 17 gm Documented by: Potassium Chloride (Klor-Con M10) 20 meq PO BID [facility] Stop: 11/21/18 20:59 Last Admin: 10/23/18 08:54 Dose: 20 meq Documented by: Tamsulosin HCl (Flomax) 0.4 mg PO DAILY [facility] Stop: 11/22/18 08:59 Last Admin: 10/23/18 08:54 Dose: 0.4 mg Documented by:
--- NOTE | 2018-10-23 15:58 | Cardiology Progress Note ---
Date of Service October 23, 2018 Assessment & Plan (1) Elevated troponin: His slight Troponin elevation is not diagnostic of myocardial infarction. He has not had symptoms of chest pain. This is actually relatively low value for him based on prior records. I do not believe he requires any additional assessment in this regard. (2) Dyspnea on exertion: His symptoms seem to have turned around quite rapidly. This may be related to the aggressive treatment for asthma. He also did receive a dose of diuretic. Possibly both were contributing. I would agree with continuing him on his outpatient diuretic regimen. (3) Paroxysmal atrial fibrillation: In sinus rhythm. Continue outpatient medical regimen. (4) CAD, multiple vessel: No current symptoms of coronary disease. (5) Chronic systolic CHF (congestive heart failure): We will continue his outpatient medical regimen including his diuretics. (6) Cardiomyopathy: I think his outpatient medical regimen can be continued. Subjective The patient states that his breathing is much improved today. He reported ambulating around the [place] several times with a significant improvement in his dyspnea. At the time of admission he would have had trouble walking across the room by his report. He has not had dizziness or lightheadedness. No symptoms of chest pain. No coughing. Review of Systems Review of Systems: Per HPI Physical Exam Physical Exam: The patient is alert and oriented. Mood and affect appeared normal. He answered all questions appropriately. HEENT: Pupils are equal and reactive to light and accommodation. Extraocular movements are intact. The sclerae are anicteric. Neuro: Cranial nerves intact Lungs: Occasional crackle bilaterally with some reduced breath sounds at the left base. No expiratory wheezing. Normal respiratory effort. Cardiac: Heart demonstrates a regular rate and rhythm. Normal S1 and S2. No murmurs on examination. Pulses: The patient has palpable radial pulses bilaterally that are equal in intensity Extremities: There was no evidence of hypoperfusion. There is no cyanosis or clubbing. Skin: I did not appreciate any rashes on examination today. Atrial fibrillation Results & Data Vital Signs (Past 12 Hours) Vital Signs Temp Pulse Resp BP Pulse Ox 10/23/18 15:39 36.2 C L 83 20 137/75 92 10/23/18 11:15 76 18 90 10/23/18 11:03 36.8 C 76 20 135/72 92 10/23/18 07:24 71 16 93 10/23/18 07:00 36.4 C L 73 16 154/80 H 90 Laboratory Results Abnormal Lab Results 10/22/18 10/22/18 10/23/18 17:51 23:26 05:35 WBC RBC Hgb Hct MCV MCH MCHC RDW Std Deviation RDW Coeff of Reed Plt Count MPV Immature Gran % (Auto) Neut % (Auto) Lymph % (Auto) [place] % (Auto) Eos % (Auto) Baso % (Auto) Immature Gran # (Auto) Neut # (Auto) Lymph # (Auto) [place] # (Auto) Eos # (Auto) Baso # (Auto) Sodium Potassium Chloride Carbon Dioxide Anion Gap BUN Creatinine Est Cr Clr Drug Dosing Est GFR ( Amer) Est GFR (Non-Af Amer) BUN/Creatinine Ratio Glucose Calcium Iron TIBC Transferrin Transferrin % Sat Ferritin Troponin I 0.071 H* 0.067 H* Vitamin B12 473 Folate 11.13 10/23/18 10/23/18 05:35 05:35 WBC 6.26 RBC 2.90 L Hgb 9.6 L Hct 29.7 L MCV 102.4 H MCH 33.1 MCHC 32.3 RDW Std Deviation 62.6 H RDW Coeff of Reed 16.7 H Plt Count 141 MPV 10.2 Immature Gran % (Auto) 0.2 Neut % (Auto) 92.8 Lymph % (Auto) 5.6 [place] % (Auto) 1.4 Eos % (Auto) 0.0 Baso % (Auto) 0.0 Immature Gran # (Auto) 0.01 Neut # (Auto) 5.81 Lymph # (Auto) 0.35 L [place] # (Auto) 0.09 L Eos # (Auto) 0.00 Baso # (Auto) 0.00 Sodium 140 Potassium 3.6 Chloride 105 Carbon Dioxide 28 Anion Gap 7.0 BUN 44 H Creatinine 1.88 H Est Cr Clr Drug Dosing 34.5 Est GFR ( Amer) 39.3 Est GFR (Non-Af Amer) 33.9 BUN/Creatinine Ratio 23.5 H Glucose 144 H Calcium 9.1 Iron 45 TIBC 286 Transferrin 223 Transferrin % Sat 14 L Ferritin 611.5 H Troponin I Vitamin B12 Folate Diagnostic Findings Chest x-ray obtained today was essentially unchanged. Small left pleural effusion.
--- NOTE | 2018-10-23 18:26 | Pulmonary Consultation ---
Date of Consultation October 23, 2018 Assessment & Plan (1) Cardiomyopathy: Impression: 1. Dyspnea likely secondary to fluid overload with pulmonary vascular congestion. Most recent echo showed his EF of 35%. He does have moderate LA enlargement. 2. History of COPD with not statistically significant response to bronchodilators which favor COPD than asthma. 3. Recently treated pneumonia, resolved. 4. Remnant of left-sided pleural effusion. 5. Coronary artery disease status post CABG. 6. Chronic kidney disease. Plan: 1. Continue DuoNeb which the patient uses at home only and he does not use any long-acting beta agonist. 2. I would add Symbicort or Advair to his regimen. 3. Change Solu-Medrol to prednisone p.o. 60 mg daily. 4. Gentle diuresis. If his kidney function will allow. 5. Trending pulse oximetry on room air. Thank you, will follow. History of Present Illness Reason for Consultation: Shortness of breath Requesting Physician: Dr. Ham Attending Physician: Magan Ham, DO History of Present Illness Dear Dr. Ham: Thank you for the kind referral Mr. Barrios to pulmonary service. 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 The patient started to do better however he developed pleural effusion and become fluid overloaded and having increasing shortness of breath. The patient could not even walk a short distance according to him to the door. The patient was admitted to the hospital with diagnosis of dyspnea on exertion, asthma exacerbation, fluid overload. The patient denies limitation to his exercise capacity as an outpatient. Since he got sick he is unable even to walk 30 feet. Denies any orthopnea, no nocturnal symptoms and no chest pain. Although he had a history of CABG and coronary artery disease in 2016. He denies any cough with sputum production, no hemoptysis. Allergies Allergy/AdvReac Type Severity Reaction Status Date / Time No Known Drug Allergies Allergy Unknown NONE Verified 10/22/18 10:24 Home Medications Home Medications Medication Instructions Recorded Confirmed Type albuterol sulfate [Ventolin HFA] 2 puff INHALATION QID PRN 04/08/18 10/22/18 History atorvastatin 80 mg PO HS 04/08/18 10/22/18 History finasteride 5 mg PO QPM 04/08/18 10/22/18 History paroxetine HCl 20 mg PO QPM 04/08/18 10/22/18 History potassium chloride 20 meq PO BID 30 Days #120 tab 04/25/18 10/22/18 Rx midodrine 10 mg PO AMHS #60 tab 07/30/18 10/22/18 Rx ferrous sulfate [iron] 325 mg PO BID #60 tab 07/31/18 10/22/18 Rx metoprolol succinate 25 mg PO QAM #30 tab 07/31/18 10/22/18 Rx albuterol sulfate 2.5 mg INHALATION QID PRN 10/22/18 10/22/18 History apixaban [Eliquis] 5 mg PO BID 10/22/18 10/22/18 History bumetanide 1 mg PO BID 10/22/18 10/22/18 History digoxin 125 mcg PO Q2D 10/22/18 10/22/18 History pantoprazole 40 mg PO QAM 10/22/18 10/22/18 History prednisone 5 mg PO DIRECTED 10/22/18 10/22/18 History tamsulosin 0.4 mg PO DAILY 10/22/18 10/22/18 History Patient History Medical History BPH (benign prostatic hyperplasia) Hyperlipidemia Hypertension (Chronic) Asthma (Chronic) Anemia Chronic systolic (congestive) heart failure Bronchitis (Inactive) - CXR appears improved from prior visit on 03/23 suggesting resolving pneumonia AV fistula Anxiety Asthma STABLE BPH (benign prostatic hyperplasia) Borderline diabetes DIET CONTROLLED CAD (coronary artery disease) CABG X2 02/2017 Elevated troponin - GERD (gastroesophageal reflux disease) CONTROLLED History of atrial fibrillation History of blood transfusion S/P SURGERY 2017 Hyperlipidemia Hypertension Lipoma On anticoagulant therapy Osteoarthritis Paroxysmal A-fib Paroxysmal A-fib Pulmonary hypertension Tremor of both hands FAMILIAL- ON PROPRANOLOL Unstable angina Surgical History History of colonoscopy History of coronary artery bypass graft CABG X2 02/2017- POST OP INFECTION/DEBRIDEMENT X 2 History of cystoscopy History of ear surgery RIGHT History of repair of rotator cuff RIGHT History of tonsillectomy Family History Father Family history of diabetes mellitus Mother Family history of diabetes mellitus Family/Other Family history of diabetes mellitus Social History Preferred Language: [place] Communication Ability: Effective Visual Impairment: No Limitations Beliefs That Will Affect Care: None marital status: Current Living Situation: Spouse current occupational status: retired Other Information That Helps Us Care for You: No Feels Safe at Home: Yes Safety Concerns: Feels Safe At This Time Smoking Status: Former smoker Tobacco Type: cigarettes Age Quit Using Tobacco: 22 packs per day: 0.5 Years Smoked: 4 Second Hand Exposure: No Hx Alcohol Use: No Hx Substance Use: No Review of Systems Review of Systems: Review of system otherwise was unremarkable including 14 systems. Physical Exam Physical Exam: 78-year-old nice gentleman does not appear to be in respiratory distress, vital signs remained stable with O2 sat of 93% on room air, crackles mainly at the bases noted with scattered rhonchi, S1-S2, abdomen is benign, 2+ edema in the periphery, neurologically he is intact. He appears to be in good mood, no skin rash. Results & Data Vital Signs (Past 12 Hours) Vital Signs Temp Pulse Resp BP Pulse Ox 10/23/18 15:39 36.2 C L 83 20 137/75 92 10/23/18 11:15 76 18 90 10/23/18 11:03 36.8 C 76 20 135/72 92 10/23/18 07:24 71 16 93 10/23/18 07:00 36.4 C L 73 16 154/80 H 90 Laboratory Results CBC has been stable. BMP also been stable, noted for chronic BUN and creatinine elevation. Diagnostic Findings Chest x-ray showed pulmonary vascular congestion with left-sided pleural effusion. Previous CAT scan of the chest revealed cardiomegaly, trace pleural effusion only. Pulmonary function test showed FEV1 of 51% pretreatment and 54% posttreatment. With a ratio of 79%. TLC was 79% and diffusion capacity was 133% corrected to lung volume at 108%. These findings are consistent with small airway disease especially with FEF 25-75% being at 20%. No clinically significant bronchodilator response.
[2018-10-23] MEDS: ATORVASTATIN 40 MG TAB PO SCH (20:54)
[2018-10-23] MEDS: PARoxetine HCl 20 MG TAB PO SCH (20:55)
[2018-10-23] MEDS: BUDESONIDE/FORMOTEROL FUMARATE 160/4.5 60 PUFFS/INHALER INH SCH (20:59)
[2018-10-23] MEDS: FINASTERIDE 5 MG TAB PO SCH (20:59)
[2018-10-24] MEDS: POLYETHYLENE (MIRALAX) 17 GM PACK PO PRN (05:05)
[2018-10-24] MEDS: ALBUT/IPRATROP 3MG/0.5MG NEB 3 ML VIAL NEB SCH ×2 (07:13→11:09)
[2018-10-24] MEDS: PANTOprazole 40 MG TAB PO SCH (08:03)
[2018-10-24] MEDS: TAMSULOSIN HCL 0.4 MG CAP PO SCH (08:03)
[2018-10-24] MEDS: METOPROLOL SUCC 25MG EXT REL TAB PO SCH (08:03)
[2018-10-24] MEDS: FERROUS SULFATE 325 MG TAB PO SCH (08:03)
[2018-10-24] MEDS: MIDODRINE HCL 2.5 MG TAB PO SCH (08:03)
[2018-10-24] MEDS: POTASSIUM CHLORIDE 10 MEQ TABCR PO SCH (08:03)
[2018-10-24] MEDS: BUDESONIDE/FORMOTEROL FUMARATE 160/4.5 60 PUFFS/INHALER INH SCH (08:04)
[2018-10-24] MEDS: APIXABAN 5 MG TABLET PO SCH (08:04)
[2018-10-24] MEDS: BUMETANIDE 1 MG TAB PO SCH (08:04)
[2018-10-24] MEDS ORDERED: DIGOXIN 0.125 MG TAB PO SCH (09:00)
[2018-10-24] MEDS ORDERED: predniSONE 20 MG TAB PO SCH (09:00)
[2018-10-24] MEDS ORDERED: BUMETANIDE 1 MG TAB PO ONE (12:15)
--- NOTE | 2018-10-24 15:17 | Emergency Department Note ---
Entered by Kyleigh Peterson acting as a scribe for Dustin Lemus MD History of Present Illness General Chief complaint: Shortness of Breath/Dyspnea Stated complaint: SHORTNESS OF BREATH - REFERRED Time Seen by Provider: 10/22/18 09:26 Source: patient History of Present Illness Onset (ago): week(s) 4 Location: chest Pain Consistency: + other (persistent) Maximum Pain Intensity: 0 Quality: + other (shortness of breath) Relieved By: + other (O2 treatments); not by medication (antibiotics) Exacerbated By: + other (exertion) Associated symptoms: + denies other symptoms (legs, abdominal pain, black or bloody stools, fever, or chest pain), + cough and + other (water weight gain (resolved)) The patient is a 78 year old male that is presenting to the Emergency Room with complaints of persistent shortness of breath over the past 3-4 weeks. The patient reports that his symptoms are worse with exertion. He states that he has an associated cough. He denies any swelling in his legs, abdominal pain, black or bloody stools, fever, or chest pain. 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 He notes that he saw the doctor again 1 week ago and that he was told that his pneumonia had resolved at that time. He denies taking any antibiotics currently. The patient notes that he has a history of asthma and that he uses O2 at home as needed. He states that he has used it intermittently over the past 4 weeks. He reports that he has a history of CHF and gained 5 lbs last week. He notes that the weight gain resolved after he doubled his dosage of Lasix. The patient reports that he has a history of anemia and that he has received blood transfusions in the past. He notes that he has a history of atrial fibrillation and that he takes Elliquis. He denies any history of COPD or emphysema. He states that he takes prednisone daily due to a history of adrenal issues. He denies missing any doses. Home Medications Home Medications Medication Instructions Recorded Confirmed Type albuterol sulfate [Ventolin HFA] 2 puff INHALATION QID PRN 04/08/18 10/22/18 History atorvastatin 80 mg PO HS 04/08/18 10/22/18 History finasteride 5 mg PO QPM 04/08/18 10/22/18 History paroxetine HCl 20 mg PO QPM 04/08/18 10/22/18 History potassium chloride 20 meq PO BID 30 Days #120 tab 04/25/18 10/22/18 Rx midodrine 10 mg PO AMHS #60 tab 07/30/18 10/22/18 Rx ferrous sulfate [iron] 325 mg PO BID #60 tab 07/31/18 10/22/18 Rx metoprolol succinate 25 mg PO QAM #30 tab 07/31/18 10/22/18 Rx Eliquis 5 mg PO BID 10/22/18 10/22/18 History albuterol sulfate 2.5 mg INHALATION QID PRN 10/22/18 10/22/18 History bumetanide 1 mg PO BID 10/22/18 10/22/18 History digoxin 125 mcg PO Q2D 10/22/18 10/22/18 History pantoprazole 40 mg PO QAM 10/22/18 10/22/18 History tamsulosin 0.4 mg PO DAILY 10/22/18 10/22/18 History budesonide-formoterol [Symbicort] 2 puff INHALATION BID 30 Days #6 gm 10/24/18 Rx bumetanide 1 mg PO DAILY #14 tab 10/24/18 Rx prednisone 60 mg PO UD #63 tab 10/24/18 Rx Allergies Allergy/AdvReac Type Severity Reaction Status Date / Time No Known Drug Allergies Allergy Unknown NONE Verified 10/22/18 10:24 Past Med/Surg History Medical History BPH (benign prostatic hyperplasia) Hyperlipidemia Hypertension (Chronic) Asthma (Chronic) Anemia Chronic systolic (congestive) heart failure Bronchitis (Inactive) - CXR appears improved from prior visit on 03/23 suggesting resolving pneumonia AV fistula Anxiety Asthma STABLE BPH (benign prostatic hyperplasia) Borderline diabetes DIET CONTROLLED CAD (coronary artery disease) CABG X2 02/2017 Elevated troponin - GERD (gastroesophageal reflux disease) CONTROLLED History of atrial fibrillation History of blood transfusion S/P SURGERY 2017 Hyperlipidemia Hypertension Lipoma On anticoagulant therapy Osteoarthritis Paroxysmal A-fib Paroxysmal A-fib Pulmonary hypertension Tremor of both hands FAMILIAL- ON PROPRANOLOL Unstable angina Surgical History History of colonoscopy History of coronary artery bypass graft CABG X2 02/2017- POST OP INFECTION/DEBRIDEMENT X 2 History of cystoscopy History of ear surgery RIGHT History of repair of rotator cuff RIGHT History of tonsillectomy Family History Father Family history of diabetes mellitus Mother Family history of diabetes mellitus Family/Other Family history of diabetes mellitus Social History Preferred Language: Welsh Communication Ability: Effective Visual Impairment: No Limitations Beliefs That Will Affect Care: None marital status: Current Living Situation: Spouse current occupational status: retired Other Information That Helps Us Care for You: No Feels Safe at Home: Yes Safety Concerns: Feels Safe At This Time Smoking Status: Former smoker Tobacco Type: cigarettes Age Quit Using Tobacco: 22 packs per day: 0.5 Years Smoked: 4 Second Hand Exposure: No Hx Alcohol Use: No Hx Substance Use: No Review of Systems See HPI for pertinent positives & negatives. and A total of 10 systems reviewed and were otherwise negative Physical Exam Vital Signs Vital Signs - 24 hr 10/22/18 09:13 10/22/18 10:00 10/22/18 10:35 Temperature 97.5 F L Temperature Source Oral Sepsis Recent Fever Within 48 Hours No Sepsis New/Unexplained Change in Mental Status No Sepsis Action Taken by Nursing No Action Required Pulse Rate 67 Pulse Rate [Right Finger] 63 64 Respiratory Rate 18 18 22 Respiratory Effort / Characteristics Non-Labored Spontaneous Blood Pressure 120/70 Blood Pressure [Right Arm] 144/73 H Blood Pressure Mean 86 Blood Pressure Mean [Right Arm] 96 Pulse Oximetry 91 94 94 Oxygen Delivery Method Room Air Room Air 10/22/18 11:23 Temperature Temperature Source Sepsis Recent Fever Within 48 Hours Sepsis New/Unexplained Change in Mental Status Sepsis Action Taken by Nursing Pulse Rate Pulse Rate [Right Finger] Respiratory Rate Respiratory Effort / Characteristics Blood Pressure Blood Pressure [Right Arm] Blood Pressure Mean Blood Pressure Mean [Right Arm] Pulse Oximetry Oxygen Delivery Method Room Air General: Chronically-ill appearing older male in no acute distress. HEENT: Normal cephalic atraumatic. Pupils are equal round and reactive to light. Extraocular movements are intact. Oropharynx is pink with moist mucous membranes. No swelling of the mouth lips or tongue. Neck: Supple with a midline trachea. No meningeal signs or stiffness, no JVD or bruits. No Stridor. Chest: Coarse breath sounds bilaterally. Good air movement. No wheezes or rhonchi. No increased work of breathing. Heart: regular rate and rhythm. Abdomen: Soft nontender, nondistended without rebound guarding or rigidity. Extremities: No cyanosis clubbing or edema. No calf tenderness or asymmetry Spine/Back. Non tender to palpation. No CVA tenderness Skin: Good turgor without rashes. Neurologic exam: Cranial nerves two through 12 are intact. Motor and sensation are intact and symmetrical throughout. Course 09:The patient was evaluated in room A09B. A complete history and physical examination was performed. 1100: I updated the patient on his current lab and imaging results. 1200: I discussed the patient's case with BAYRON Lei, who evaluate the patient for further management and care. 1230: Upon reevaluation, the patient is resting comfortably. I discussed laboratory and radiographic results with the patient. He verbalized agreement of the treatment plan. The patient will be evaluated for further management and care. Consultations Consultation #1: I discussed the patient's case with BAYRON Lei, who evaluate the patient for further management and care. Time: 12:00 Administered Medications Discontinued Medications Albuterol (Duoneb) 3 ml INH NOW STA Stop: 10/22/18 09:35 Last Admin: 10/22/18 10:00 Dose: 3 ml Documented by: [id number] Albuterol (Duoneb) 3 ml NEB QIDR VALERIE Stop: 11/21/18 13:14 Last Admin: 10/24/18 11:09 Dose: 3 ml Documented by: [id number] Admin: 10/24/18 07:13 Dose: 3 ml Documented by: [id number] Admin: 10/23/18 19:07 Dose: 3 ml Documented by: [id number] Admin: 10/23/18 15:38 Dose: 3 ml Documented by: [id number] Admin: 10/23/18 11:12 Dose: 3 ml Documented by: [id number] Admin: 10/23/18 07:23 Dose: 3 ml Documented by: [id number] Admin: 10/22/18 19:39 Dose: 3 ml Documented by: [id number] Admin: 10/22/18 15:03 Dose: 3 ml Documented by: [id number] Admin: 10/22/18 14:00 Dose: Not Given Documented by: [id number] Admin: 10/22/18 13:10 Dose: 3 ml Documented by: [id number] Apixaban (Eliquis) 5 mg PO BID [facility] Stop: 11/21/18 20:59 Last Admin: 10/24/18 08:04 Dose: 5 mg Documented by: [id number] Admin: 10/23/18 20:54 Dose: 5 mg Documented by: [id number] Admin: 10/23/18 08:54 Dose: 5 mg Documented by: [id number] Admin: 10/22/18 21:12 Dose: 5 mg Documented by: [id number] Atorvastatin Calcium (Lipitor) 80 mg PO HS [facility] Stop: 11/21/18 20:59 Last Admin: 10/23/18 20:54 Dose: 80 mg Documented by: [id number] Admin: 10/22/18 21:09 Dose: 80 mg Documented by: [id number] Budesonide/Formoterol Fumarate (Symbicort 160mcg/4.5mcg) 2 puffs INH BID [facility] Stop: 11/22/18 20:59 Last Admin: 10/24/18 08:04 Dose: Not Given Documented by: [id number] Admin: 10/23/18 20:59 Dose: Not Given Documented by: [id number] Bumetanide (Bumex) 1 mg PO BID17 [facility] Stop: 11/21/18 16:59 Last Admin: 10/24/18 08:04 Dose: 1 mg Documented by: [id number] Admin: 10/23/18 16:09 Dose: 1 mg Documented by: [id number] Admin: 10/23/18 08:54 Dose: 1 mg Documented by: [id number] Admin: 10/22/18 16:53 Dose: 1 mg Documented by: [id number] Bumetanide (Bumex) 1 mg PO NOW ONE Stop: 10/24/18 12:16 Last Admin: 10/24/18 12:53 Dose: 1 mg Documented by: [id number] Digoxin (Lanoxin) 0.125 mg PO Q2D@0900 [facility] Stop: 11/23/18 08:59 Last Admin: 10/24/18 08:03 Dose: 0.125 mg Documented by: [id number] Ferrous Sulfate (Feosol) 325 mg PO BIDM [facility] Stop: 11/21/18 16:59 Last Admin: 10/24/18 08:03 Dose: 325 mg Documented by: [id number] Admin: 10/23/18 16:08 Dose: 325 mg Documented by: [id number] Admin: 10/23/18 08:54 Dose: 325 mg Documented by: [id number] Admin: 10/22/18 16:53 Dose: 325 mg Documented by: [id number] Finasteride (Proscar) 5 mg PO QPM VALERIE Stop: 11/21/18 20:59 Last Admin: 10/23/18 20:59 Dose: 5 mg Documented by: [id number] Admin: 10/22/18 21:10 Dose: 5 mg Documented by: [id number] Methylprednisolone 60 mg/ (Syringe) 0.96 mls @ 1.5 mls/min IV Q12 [facility]ERIE Stop: 11/21/18 20:59 Last Admin: 10/23/18 08:54 Dose: 1.5 mls/min Documented by: [id number] Admin: 10/22/18 21:07 Dose: 1.5 mls/min Documented by: [id number] Bumetanide 2 mg/ Syringe 8 mls @ 4 mls/min IV NOW ONE Stop: 10/22/18 19:31 Last Admin: 10/22/18 19:59 Dose: 4 mls/min Documented by: [id number] Methylprednisolone (Solumedrol) 125 mg IV NOW STA Stop: 10/22/18 09:37 Last Admin: 10/22/18 10:34 Dose: 125 mg Documented by: [id number] Methylprednisolone (Solumedrol) 125 mg IV NOW STA Stop: 10/22/18 11:44 Last Admin: 10/22/18 12:05 Dose: Not Given Documented by: [id number] Metoprolol Succinate (Toprol Xl) 25 mg PO QAM [facility]ERIE Stop: 11/22/18 08:59 Last Admin: 10/24/18 08:03 Dose: 25 mg Documented by: [id number] Admin: 10/23/18 08:54 Dose: 25 mg Documented by: [id number] Midodrine (Proamatine) 10 mg PO AMHS [facility]ERIE Stop: 11/21/18 20:59 Last Admin: 10/24/18 08:03 Dose: 10 mg Documented by: [id number] Admin: 10/23/18 20:56 Dose: 10 mg Documented by: [id number] Admin: 10/23/18 08:54 Dose: 10 mg Documented by: [id number] Admin: 10/22/18 21:11 Dose: 10 mg Documented by: [id number] Pantoprazole Sodium (Protonix) 40 mg PO QAM VALERIE Stop: 11/22/18 08:59 Last Admin: 10/24/18 08:03 Dose: 40 mg Documented by: [id number] Admin: 10/23/18 08:54 Dose: 40 mg Documented by: [id number] Paroxetine HCl (Paxil) 20 mg PO QPM [facility]IE Stop: 11/21/18 20:59 Last Admin: 10/23/18 20:55 Dose: 20 mg Documented by: [id number] Admin: 10/22/18 21:12 Dose: 20 mg Documented by: [id number] Polyethylene Glycol (Miralax Powder Packet) 17 gm PO DAILY PRN PRN Reason: Constipation Stop: 11/22/18 10:51 Last Admin: 10/24/18 05:05 Dose: 17 gm Documented by: [id number] Admin: 10/23/18 14:00 Dose: 17 gm Documented by: [id number] Potassium Chloride (Klor-Con M10) 20 meq PO BID [facility] Stop: 11/21/18 20:59 Last Admin: 10/24/18 08:03 Dose: 20 meq Documented by: [id number] Admin: 10/23/18 20:55 Dose: 20 meq Documented by: [id number] Admin: 10/23/18 08:54 Dose: 20 meq Documented by: [id number] Admin: 10/22/18 21:09 Dose: 20 meq Documented by: [id number] Prednisone (Prednisone) 60 mg PO DAILY [facility]ERIE Stop: 11/23/18 08:59 Last Admin: 10/24/18 08:04 Dose: 60 mg Documented by: [id number] Tamsulosin HCl (Flomax) 0.4 mg PO DAILY VALERIE Stop: 11/22/18 08:59 Last Admin: 10/24/18 08:03 Dose: 0.4 mg Documented by: [id number] Admin: 10/23/18 08:54 Dose: 0.4 mg Documented by: [id number] Medical Decision Making Differential Diagnosis Differential diagnosis includes: Etiologies such as COPD, asthma, CHF, pneumonia, electrolyte or metabolic abnormalities, arrhythmia as well as others were entertained. Medical Records Attestation: I reviewed the patient's medical records. Home Medications Current Medication List: was personally reviewed by me Laboratory Data Attestation: I reviewed the patient's lab results. Result diagrams: 10/23/18 05:35 10/23/18 05:35 Lab Results 10/22/18 10/22/18 10/22/18 Range/Units 09:50 09:50 10:36 WBC 6.75 (4.8-10.8) K/uL RBC 3.03 L (4.7-6.1) M/uL Hgb 10.2 L (14.0-18.0) g/dL Hct 31.4 L (42-52) % MCV 103.6 H (80-100) fL MCH 33.7 (25-34) pg MCHC 32.5 (32-36) g/dL RDW Std Deviation 64.2 H (36.4-46.3) fL RDW Coeff of Reed 16.9 H (11.5-14.5) % Plt Count 150 (130-400) K/uL MPV 10.0 (7.4-10.4) fL Immature Gran % (Auto) 0.1 % Neut % (Auto) 79.6 % Lymph % (Auto) 9.6 % [place] % (Auto) 8.4 % Eos % (Auto) 2.2 % Baso % (Auto) 0.1 % Immature Gran # (Auto) 0.01 (0.00-0.02) K/uL Neut # (Auto) 5.36 (1.4-6.5) K/uL Lymph # (Auto) 0.65 L (1.2-3.4) K/uL [place] # (Auto) 0.57 (0.11-0.59) K/uL Eos # (Auto) 0.15 (0-0.5) K/uL Baso # (Auto) 0.01 (0-0.2) K/uL Sodium 144 (136-145) mmol/L Potassium 3.8 (3.5-5.1) mmol/L Chloride 109 H (98-107) mmol/L Carbon Dioxide 30 (21-32) mmol/L Anion Gap 5.0 (3-11) BUN 44 H (7-18) mg/dl Creatinine 1.97 H (0.6-1.4) mg/dl Est Cr Clr Drug Dosing 32.9 ml/min Est GFR ( Amer) 37.2 Est GFR (Non-Af Amer) 32.1 BUN/Creatinine Ratio 22.5 H (10-20) Glucose 140 H (70-99) mg/dl Calcium 8.9 (8.5-10.1) mg/dl Total Bilirubin 0.6 (0.2-1) mg/dl AST 22 (15-37) U/L ALT 33 (12-78) U/L Alkaline Phosphatase 74 (45-117) U/L Troponin I 0.097 H* (0-0.045) ng/ml NT-Pro-B Natriuret Pep 86262 H (0-1800) pg/ml Total Protein 6.2 L (6.4-8.2) gm/dl Albumin 3.1 L (3.4-5.0) gm/dl Globulin 3.1 (2.5-4.0) gm/dl Albumin/Globulin Ratio 1.0 (0.9-2) Urine Color Yellow Urine Appearance Clear (Clear) Urine pH 5.5 (4.5-7.5) Ur Specific [place] 1.014 (1.000-1.030) Urine Protein 1+ H (Negative) Urine Glucose (UA) Negative (Negative) Urine Ketones Negative (Negative) Urine Blood Negative (Negative) Urine Nitrite Negative (Negative) Urine Bilirubin Negative (Negative) Urine Urobilinogen Negative (Negative) Ur Leukocyte Esterase Negative (Negative) Urine WBC (Auto) 0 (0-5) /hpf Urine RBC (Auto) 0-4 (0-4) /hpf U Hyaline Cast (Auto) 1-5 (0-5) /lpf U Epithel Cells (Auto) 0-5 (0-5) /lpf Urine Bacteria (Auto) Negative (Negative) Imaging Data Radiologist's Impression: Radiology results as stated below per my review and the radiologist's interpretation: XR chest 1V portable HISTORY: Dyspnea COMPARISON: Chest 10/07/2018. FINDINGS: No pneumothorax. Trace left pleural effusion and left basilar interstitial thickening remains unchanged. The right pleural effusion has resolved. The heart remains mildly enlarged. There are poststernotomy changes. Mild central pulmonary vascular congestion without overt edema. No new focal lung consolidations to suggest pneumonia. IMPRESSION: No significant change in the mild cardiomegaly, mild central pulmonary vascular congestion, and trace left pleural effusion. Electronically signed by: Ethan Garcia M.D. 10/22/2018 10:07 AM ECG Data Attestation: I personally reviewed and interpreted this ECG as follows: Indication: SOB/dyspnea Rate (beats per minute): 64 Rhythm: normal sinus Findings: + nonspecific-ST abn Comparison ECG Date: from (07/25/2018) Change: the following changes noted (non-specific t-wave abnormalities now present) Blood Pressure Blood Pressure Findings: Elevated blood pressure Blood Pressure Disposition: Referred to patients primary care provider MDM Narrative This patient comes in as described above. He is placed in room 89 on a tooling mechanic. IV access was established and multiple blood testing was EKG. He has had shortness of breath that is primarily dyspnea on exertion. He does have history of CHF and they did increase his diuretics as an outpatient has been seen twice he apparently has diuresed and his weights down but he still feels very short of breath and weak at times no chest pain. EKG shows some no acute ST changes. There may be some mild T wave abnormalities. Troponin is mildly elevated. I am concerned about this this is could be more anginal equivalent. Looking back through his chart, he does tend to have an elevated troponin but not every time his BNP is also elevated and there could still be a CHF component although on his chest x-ray there is no acute pulmonary edema. This may be an u nderlying pulmonary process as well. Is no significant electrolyte or metabolic ab maladies with exception of some baseline renal insufficiency. At this point, I do think he needs to be admitted/observe for further inpatient treatment and evaluation and cardiac/pulmonary work-up. I Have consulted the [facility] see in the ER for these measures. Impression & Plan Shortness of breath, Elevated troponin Discharge Plan Visit Data *Final* Discharge Date/Time: 10/22/18 12:27 Chief Complaint: Shortness of Breath/Dyspnea Stated Complaint: SHORTNESS OF BREATH - REFERRED ED Provider: Dustin Lemus Discharge Problem: Shortness of breath, Elevated troponin Patient Disposition: Admitted As Inpatient Condition: Good Discharge Instructions Interventions: ED Discharge Assessment Last Done: 10/22/18 12:27 The scribe's documentation has been prepared under my direction and personally reviewed by me in its entirety. I confirm that the note above accurately reflects all work, treatment, procedures, and medical decision making performed by me.
--- NOTE | 2018-10-24 23:07 | Discharge Summary ---
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 He was seen by his PCP on 10/07 and diagnosed with pneumonia based on chest x-ray and symptoms. He was treated with a course of Levaquin and doubled his dose of prednisone during that time. He felt much improved, but then after that course was completed, he had return of his dyspnea. He denies chest pain, headache, sore throat, abdominal pain or diarrhea. He has intermittent sinus congestion. He has been afebrile without chills or sweats at home. He did report that he had significant lower extremity edema in the last 2 weeks and had doubled up on his bumetanide to 2 mg twice daily for 4 days and his edema improved, however his shortness of breath did not. Work-up in the ER included a chest x-ray which only showed mild cardiomegaly and mild pulmonary congestion with trace left pleural effusion, no infiltrate. He was not hypoxic but had a mildly low pulse ox at 91% on room air. His troponin was mildly elevated at 0.097, creatinine at baseline at 1.9. His ECG showed nonspecific T wave changes in the anterior leads. His proBNP was significantly elevated at 31,157. In the ER, he was given IV Solu-Medrol, and albuterol nebulizer with improvement in his symptoms. PMH: 1) CKD III-IV - membranous glomerulonephropathy - treated with cycles of prednisone and cyclosporine. 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 Family: Both parents - complications of DM Principal Diagnosis Acute asthma exacerbation Discharge Exam Constitutional WD/WN, vitals as above Eyes PERRL, conjunctivae normal, anicteric sclerae ENMT external ear and nose normal, oropharynx normal Neck trachea midline, no thyromegaly Respiratory normal respiratory effort, lungs clear to auscultation Cardiovascular RRR, no murmur, no edema Gastrointestinal (Abdomen) normal bowel sounds, soft, nontender, no hepatosplenomegaly Musculoskeletal no cyanosis or clubbing, extremities motor strength 5/5 Skin no rashes, warm and dry Neurologic patellar DTR's 2+ bilat, sensation intact and PERRL, EOMI, accommodation nl, no face palsy, no dysarthria Psychiatric A+Ox3, euthymic affect Lymphatic no cervical or axillary lymphadenopathy Discharge Data Allergies Allergy/AdvReac Type Severity Reaction Status Date / Time No Known Drug Allergies Allergy Unknown NONE Verified 10/22/18 10:24 Consultations 10/22/18 10:53 ED Decision to Admit Stat 10/22/18 12:55 Consult Cardiology Routine Consult Case Management - Discharge Planning Routine Consult Pulmonology Routine Hospital Course (1) Asthma: With acute exacerbation and dyspnea on exertion PFTs from 08/2018 with moderate obstruction with reversibility with bronchodilators. Improved as outpt with recent mild increase in prednisone and course of Levaquin for LLL PNA PNA now cleared. Trace pleural effusion on chest x-ray here but no infiltrate lungs clear, no wheezing, no distress on day 2 and 3 of admission converted Solu Medrol to Prednisone plan for prolonged taper on discharge continue LABA, nebs two step done, no home oxygen required will d/c to home, PCP and pulm follow up (2) Elevated troponin: Mild elevation here. No chest pain. ECG slightly changed from previous could be myocardial demand ischemia in setting of known CAD -appreciate cardiology consult, no further work up needed, this does NOT represent ACS -Continue home medications with atorvastatin, metoprolol, Eliquis (3) Dyspnea on exertion: Most likely secondary to acute asthma exacerbation as above. He does have some mild respiratory insufficiency with pulse ox 91% at rest on admission Could be some mild component of CHF previously but this was treated as an outpatient with doubled diuretics with good effect. Has minimal residual lower extremity edema -Continue home doses of bumetanide 1 mg p.o. twice daily -Treating for asthma exacerbation as above breathing room air at rest, no oxygen needed on exertion based on two step testing (4) Chronic systolic (congestive) heart failure: With recent LVEF 35-40%, with wall motion of normalities, ischemic cardiomyopathy Had recent lower extremity edema was treated with doubling his dose of Bumex as an outpatient for 4 days last week with improvement With mild lower extremity edema here responded well to one time dose of Bumex 1mg IV suspected mild acute on chronic systolic heart failure, could have been due to steroids recently causing some volume retention -Continue home Bumex 1 mg p.o. twice daily, potassium replacement for time being, while on Prednisone will take Bumex 2mg in the AM and 1mg in the afternoon CHF discharge instructions provided discussed importance of fluid restriction and daily weights with the patient will follow up closely with Dr. Garcia (5) History of coronary artery bypass graft: Noted (6) Hyperlipidemia: Continue statin (7) Tremor of both hands: With essential tremor, recently switch from propranolol to metoprolol last hospitalization given diagnosis of chronic systolic CHF (8) Anxiety: Stable -Continue paroxetine 20 mg daily (9) GERD (gastroesophageal reflux disease): -Continue home PPI (10) BPH (benign prostatic hyperplasia): Stable, not currently complain of any urinary issues or retention -Continue home tamsulosin, finasteride (11) Paroxysmal A-fib: And normal sinus rhythm here on admission Follows with Dr. Garcia of cardiology -Continue metoprolol for rate control -Continue digoxin for rate control every other day -Continue apixaban for anticoagulation transfer to medical floor (12) Hypertension: Stable to mildly elevated pressures here -Follow BPs -Continue metoprolol -Taken off NEHEMIAS inhibitor due to CKD (13) CAD (coronary artery disease): Status post CABG, with mildly elevated troponin here and slightly changed ECG as above -Continue apixaban, atorvastatin, metoprolol (14) Anemia: Stable from recent labs at 10.2, macrocytic Was transfused 2 units PRBCs last admission for hemoglobin of 7-had Hemoccult positive stool back in 04/2018 but most recently was negative. No recent GI work-up has been done B12 and folate were normal in 07/2018 Likely anemia of chronic renal disease, however had a normal erythropoietin level ordered by nephrology in July as well but is on Procrit periodically as an outpatient -We will repeat iron studies, B12, folate here -Continue home ferrous sulfate supplementation for now -Follow CBC (15) CKD (chronic kidney disease) stage 3, GFR 30-59 ml/min: Creatinine stable at baseline today at 1.9 Secondary to previous membranous glomerulonephropathy treated with cyclosporine and prednisone -Remains on chronic prednisone for adrenal insufficiency -Holding home prednisone and treat with IV Solu-Medrol for now -Follow BMP -Avoid nephrotoxins -Renally dose medications when appropriate (16) DVT prophylaxis: Eliquis Disposition- transfer to medical, check two step tomorrow, likely d/c to home tomorrow Total Time Total Time Spent Total Time Spent (In Minutes): 40 minutes Discharge Plan Discharge Items Patient Disposition: Home - Self-Care Reason For Visit: DYSPNEA ELEVATED TROPONIN Discharge Diagnosis: Dyspnea Asthma exacerbation Chronic heart failure Condition: Good Discharge Goals: Improve disease control and Improve function Activity: Resume your previous activity Non-emergency contact: Primary Care Provider Call non-emergency contact if: you have any medication questions, your symptoms worsen, your pain is not controlled and you have a fever Follow-up/Referrals: Chun Collins III, MD [Primary Care Provider] - 10/30/18 2:30 pm (Please, follow up with Dr. Collins's associate, Jessika Chow PA-C, on October 30 at 2:30 pm. NOTE THAT THIS PROVIDER'S OFFICE IS LOCATED IN [address] OF THE [facility] [place]. THIS IS THE BIG BUILDING LOCATED NEXT TO THIS [facility]. THERE WERE NO AVAILABLE APPOINTMENTS IN DR. COLLINS'S OFFICE NEXT WEEK AND WE DIDN'T WANT TO YOU HAVE TO WAIT FOR A FOLLOW UP APPOINTMENT. If you need to change or cancel this appointment, call the office at [phone].) Sebastián Garcia MD [Physician] - 11/07/18 11:00 am (Please, follow up at [facility] Cardiology Office with Dr. Garcia on SaturdayNovember 07 at 11:00 am. *The office is located in [address] of [facility]. This is the big building located next to this [facility]. If you need to change this appointment, call the office at [phone]. ) Diet: Heart Healthy and Low Sodium (2gm) Fluids: 2000ml (8 cups) Addtl Provider Instructions: Medications: - PREDNISONE: will complete a long taper to try to prevent asthma exacerbation, start at 60mg daily, see below for instructions - SYMBICORT: maintenance inhaler that you use EVERY day, twice a day - BUMEX: while you are on the Prednisone, likely good to take an extra Bumex in the morning, recommend 2mg in the morning, 1mg in the afternoon/evening Asthma, exacerbation causing dyspnea improved, no wheezing, pulmonary recommends to start at 60mg daily should decrease by 10mg every 3 days, thus 60mg x 3 days, 50mg x 3 days, etc. start on Symbicort, this was started in the hospital Dyspnea: two step performed, no home oxygen needed Chronic diastolic heart failure volume is controlled with Bumex 1mg BID follow up with Dr. Garcia follow fluid restriction of 2 liters a day, low sodium diet you need to weigh yourself EVERY morning, should step on scale after you urinate, prior to eating/drinking record your weights, if trending up by 2-3 lbs total you should call Dr. Garcia's office for recommendations see the instructions below for heart failure Call 911 and go to the Emergency Room if: * You have tightness or pain in your chest that does not go away with rest or Nitroglycerin * You are very short of breath even with rest Call your doctor if any of the following symptoms or problems start or get worse: * Shortness of breath or difficulty breathing * Wake up at night short of breath * Chest pain * Cough * Swelling of your hands, fee, or legs * More fatigued or tired with your normal activity * Palpitations - sudden fast heart beats WEIGHT * Weigh yourself every morning after using the bathroom. * Use the same scale. * Wear the same amount of clothing. * Write your weight down on your chart. * Call your doctor if you gain more than 2-3 pounds in 1-2 days. MEDICATIONS * Use this discharge instruction sheet for instructions. * Take your medications at the time your doctor ordered. * Do not skip a dose of your medicines. * If you miss a dose of medicine, take as soon as possible, but DO NOT DOUBLE A DOSE. * Read your medicine information when you get home. * Know all of the side effects of your medicine. * Call your doctor's office if you have any side effects. * Be sure all of your doctors know what medicine and herbs you take (including cold, flu, and herbal medicine). * Pain Medicine: If you do not get relief from your pain, please call your doctor for help. Take the following with you to your follow-up doctor appointments: * Weight Chart * Medication List * List of questions Do not drink excessive alcohol, beer or wine. Prescriptions: New prednisone 10 mg tablet 60 mg PO UD Qty: 63 RF: 0 Symbicort 160-4.5 mcg/actuation Hfa Aerosol Inhaler 2 puff inhalation BID 30 Days Qty: 6 RF: 3 bumetanide 1 mg tablet 1 mg PO DAILY Qty: 14 RF: 0 Continued potassium chloride 10 mEq Tablet Extended Release 20 meq PO BID 30 Days Qty: 120 RF: 3 midodrine 5 mg tablet 10 mg PO AMHS Qty: 60 RF: 3 metoprolol succinate 25 mg Tablet Extended Release 24 Hr 25 mg PO QAM Qty: 30 RF: 3 ferrous sulfate [iron] 325 mg (65 mg iron) tablet 325 mg PO BID Qty: 60 RF: 4 tamsulosin 0.4 mg capsule 0.4 mg PO DAILY RF: 0 albuterol sulfate 2.5 mg /3 mL (0.083 %) solution for nebulization 2.5 mg inhalation QID PRN (Reason: Shortness Of Breath) RF: 0 pantoprazole 40 mg tablet,delayed release (DR/EC) 40 mg PO QAM RF: 0 bumetanide 1 mg tablet 1 mg PO BID RF: 0 digoxin 125 mcg tablet 125 mcg PO Q2D RF: 0 Eliquis 5 mg tablet 5 mg PO BID RF: 0 atorvastatin 80 mg tablet 80 mg PO HS RF: 0 paroxetine HCl 20 mg tablet 20 mg PO QPM RF: 0 albuterol sulfate [Ventolin HFA] 90 mcg/actuation Hfa Aerosol Inhaler 2 puff INHALATION QID PRN (Reason: Unknown) RF: 0 finasteride 5 mg tablet 5 mg PO QPM RF: 0 Discontinued prednisone 5 mg tablet 5 mg PO DIRECTED RF: 0 Stand-Alone Forms: [facility] Discharge Orders: Discharge Order (Routine); Ordered 10/24/18 Ordered By: Magan Ham Admission Data Admit Date/Time: 10/22/18 11:42 Attending Provider: Magan Ham Admit Provider: Anne Coburn Primary Care Provider: Chun Collins III Other Providers: Anne Coburn ; Sebastián Garcia ; Jj Sanford Service: Medical Other Interventions: Discharge Summary Assessment (RN) Last Done: 10/24/18 12:24 DC Date/Time DO NOT enter until pt leaves facility: 10/24/18 13:16
== END 2018-10-24 13:16 | disposition home or self-care (01) | DRG 202 ==
LOC: ED 09:07 → 2S 11:42 → SUATTDRO 11:42 → 2S 12:27 → 2E 10-23 04:47 → 4W 10-23 17:35
DX: Z95.1 Presence of aortocoronary bypass graft; I50.22 Chronic systolic (congestive) heart failure; R25.1 Tremor, unspecified; E78.5 Hyperlipidemia, unspecified; I13.0 Hypertensive heart and chronic kidney disease with heart failure and stage 1 through stage 4 chronic kidney disease, or unspecified chronic kidney disease; N18.4 Chronic kidney disease, stage 4 (severe); K21.9 Gastro-esophageal reflux disease without esophagitis; I24.8 Other forms of acute ischemic heart disease; J45.901 Unspecified asthma with (acute) exacerbation; F41.9 Anxiety disorder, unspecified; I48.0 Paroxysmal atrial fibrillation

== ENCOUNTER 2018-11-20 15:04 | Inpatient (IN) ==
--- NOTE | 2018-11-20 16:10 | Emergency Department Note ---
Entered by Justo Sutton acting as a scribe for Maurisio Connolly DO History of Present Illness General Chief complaint: Swelling/Edema to Extremity Stated complaint: FLUID BUILD UP IN LEGS AND FEET Time Seen by Provider: 11/20/18 15:44 Source: patient History of Present Illness Provider complaint: Fluid retention Onset (ago): week(s) 1 Location: lower extremity, left and right Radiation: non-radiation Pain Consistency: + constant Maximum Pain Intensity: 5 Relieved By: + none Exacerbated By: + movement Associated symptoms: + shortness of breath and + other (Negative urinary symptoms); no chest pain The patient is a 78 year old male who presents to the Emergency Room with complaints of constant fluid retention in his bilateral lower extremities for the past week. The patient has a history of chronic kidney disease but is not on dialysis, however he does have a fistula placed. He notes he is still making urine, about the normal amount. The patient also has been short of breath during this past week that is worse with exertion but not lying flat. The patient was sent here by his PCP because he recently had his Bumex increased from 2 in the morning and 1 at night to 2 in the morning and 2 at night. After adjusting this medication, his symptoms did not improve. The patient also has had a productive cough. He denies any chest pain. Home Medications Home Medications Medication Instructions Recorded Confirmed Type albuterol sulfate [Ventolin HFA] 2 puff INHALATION QID PRN 04/08/18 11/20/18 History atorvastatin 80 mg PO HS 04/08/18 11/20/18 History finasteride 5 mg PO QPM 04/08/18 11/20/18 History paroxetine HCl 20 mg PO QPM 04/08/18 11/20/18 History potassium chloride 20 meq PO BID 30 Days #120 tab 04/25/18 11/20/18 Rx midodrine 10 mg PO AMHS #60 tab 07/30/18 11/20/18 Rx metoprolol succinate 25 mg PO QAM #30 tab 07/31/18 11/20/18 Rx Eliquis 5 mg PO BID 10/22/18 11/20/18 History albuterol sulfate 2.5 mg INHALATION QID PRN 10/22/18 11/20/18 History bumetanide 2 mg PO QAM 10/22/18 11/20/18 History digoxin 125 mcg PO Q2D 10/22/18 11/20/18 History pantoprazole 40 mg PO QAM 10/22/18 11/20/18 History tamsulosin 0.4 mg PO DAILY 10/22/18 11/20/18 History budesonide-formoterol [Symbicort] 2 puff INHALATION BID 30 Days #6 gm 10/24/18 11/20/18 Rx bumetanide 1 - 2 mg PO .QPM/UD 11/20/18 11/20/18 History Allergies Allergy/AdvReac Type Severity Reaction Status Date / Time No Known Drug Allergies Allergy Unknown NONE Verified 11/20/18 16:30 Past Med/Surg History Medical History BPH (benign prostatic hyperplasia) Hyperlipidemia Hypertension (Chronic) Asthma (Chronic) Bronchitis (Inactive) - CXR appears improved from prior visit on 03/23 suggesting resolving pneumonia AV fistula Anemia Anxiety Asthma STABLE BPH (benign prostatic hyperplasia) Borderline diabetes DIET CONTROLLED CAD (coronary artery disease) CABG X2 02/2017 Chronic systolic (congestive) heart failure Elevated troponin - GERD (gastroesophageal reflux disease) CONTROLLED History of atrial fibrillation History of blood transfusion S/P SURGERY 2017 Hyperlipidemia Hypertension Lipoma On anticoagulant therapy Osteoarthritis Paroxysmal A-fib Paroxysmal A-fib Pulmonary hypertension Tremor of both hands FAMILIAL- ON PROPRANOLOL Unstable angina Surgical History History of colonoscopy History of coronary artery bypass graft CABG X2 02/2017- POST OP INFECTION/DEBRIDEMENT X 2 History of cystoscopy History of ear surgery RIGHT History of repair of rotator cuff RIGHT History of tonsillectomy Family History Father Family history of diabetes mellitus Mother Family history of diabetes mellitus Family/Other Family history of diabetes mellitus Social History Preferred Language: Turkish Communication Ability: Effective Visual Impairment: No Limitations Administration Physician Required: No Beliefs That Will Affect Care: None marital status: Current Living Situation: Spouse current occupational status: retired Other Information That Helps Us Care for You: No Feels Safe at Home: Yes Safety Concerns: Feels Safe At This Time Smoking Status: Former smoker Tobacco Type: cigarettes Age Quit Using Tobacco: 22 packs per day: 0.5 Do You Dip or Chew Tobacco: No Second Hand Exposure: No Tobacco Cessation Education Requested by Patient: No Hx Alcohol Use: No Hx Substance Use: No Review of Systems See HPI for pertinent positives & negatives. and A total of 10 systems reviewed and were otherwise negative Physical Exam Vital Signs Vital Signs - 24 hr 11/20/18 15:05 11/20/18 16:24 11/20/18 17:52 Temperature 36.4 C L Temperature Source Oral Sepsis Recent Fever Within 48 Hours No Sepsis New/Unexplained Change in Mental Status No Sepsis Action Taken by Nursing No Action Required Pulse Rate 93 H Pulse Rate [Apical] 82 88 Pulse Rhythm [Apical] Regular Irregular Pulse Strength [Apical] Normal Normal Respiratory Rate 20 20 19 Respiratory Effort / Characteristics Non-Labored Non-Labored Spontaneous Non-Labored Spontaneous Respiratory Depth Normal Normal Normal Respiratory Pattern Regular Regular Regular Blood Pressure 106/74 Blood Pressure [Right Arm] 118/72 146/90 H Blood Pressure Mean 84 Blood Pressure Mean [Right Arm] 87 108 Blood Pressure Position Sitting Pulse Oximetry 93 97 95 Oxygen Delivery Method Room Air Room Air Room Air GENERAL: Patient is awake alert in no acute distress patient is resting comfortably and showing no signs of anxiety EYES: The conjunctivae are clear. The pupils are round and reactive. EARS, NOSE, MOUTH AND THROAT: The nose is without any evidence of any deformity. Mucous membranes are moist tongue is midline NECK: The neck is nontender and supple. RESPIRATORY: Diminished breath sounds were noted throughout. There are rales at both bases. No tachypnea or conversational dyspnea was noted. CARDIOVASCULAR: Regular rate and rhythm noted there no murmurs rubs or gallops normal S1 normal S2 GASTROINTESTINAL: The abdomen is soft. Bowel sounds are present in all quadrants. Abdomen is nontender MUSCULOSKELETAL/EXTREMITIES: There is no evidence of gross deformity full range of motion is noted in the hips and shoulders SKIN: There is no obvious evidence of any rash. Pedal edema was noted bilaterally NEUROLOGIC: Patient is awake alert and oriented x3. Course 1548: The patient was evaluated in room A12B, and a complete history and physical examination were performed. 1744: I reevaluated the patient and updated him on results obtained thus far. 1819: I spoke to Dr. Varghese [facility] Hospitalist about the patient's case and he is going to accept him for further evaluation. Consultations Consultation #1: I spoke to Dr. Halima May [facility] Hospitalist about the patient's case and he is going to accept him for further evaluation. Time: 18:20 Administered Medications Apixaban (Eliquis) 5 mg PO BID VALERIE Stop: 12/20/18 20:59 Last Admin: 11/20/18 21:14 Dose: 5 mg Documented by: [id number] Atorvastatin Calcium (Lipitor) 80 mg PO HS VALERIE Stop: 12/20/18 20:59 Last Admin: 11/20/18 21:12 Dose: 80 mg Documented by: [id number] Budesonide/Formoterol Fumarate (Symbicort 160mcg/4.5mcg) 2 puffs INH BID VALERIE Stop: 12/20/18 20:59 Last Admin: 11/20/18 21:12 Dose: 2 puffs Documented by: [id number] Finasteride (Proscar) 5 mg PO QPM VALERIE Stop: 12/20/18 20:59 Last Admin: 11/20/18 21:14 Dose: 5 mg Documented by: [id number] Midodrine (Proamatine) 10 mg PO AMHS VALERIE Stop: 12/20/18 20:59 Last Admin: 11/20/18 21:12 Dose: 10 mg Documented by: [id number] Paroxetine HCl (Paxil) 20 mg PO QPM VALERIE Stop: 12/20/18 20:59 Last Admin: 11/20/18 21:14 Dose: 20 mg Documented by: [id number] Potassium Chloride (Klor-Con M10) 20 meq PO BID VALERIE Stop: 12/20/18 20:59 Last Admin: 11/20/18 21:13 Dose: 20 meq Documented by: [id number] Discontinued Medications Aspirin (Aspirin) 324 mg PO NOW STA Stop: 11/20/18 17:46 Last Admin: 11/20/18 17:52 Dose: 324 mg Documented by: [id number] Furosemide (Lasix) 40 mg IV NOW STA Stop: 11/20/18 17:46 Last Admin: 11/20/18 17:52 Dose: 40 mg Documented by: [id number] Potassium Chloride (Klor-Con M10) 10 meq PO NOW STA Stop: 11/20/18 17:46 Last Admin: 11/20/18 17:52 Dose: 10 meq Documented by: [id number] Potassium Chloride (Klor-Con M20) 20 meq PO NOW STA Stop: 11/20/18 18:36 Last Admin: 11/20/18 18:49 Dose: 20 meq Documented by: [id number] Tamsulosin HCl (Flomax) 0.4 mg PO DAILY VALERIE Stop: 12/21/18 08:59 Last Admin: 11/20/18 21:13 Dose: 0.4 mg Documented by: [id number] Medical Decision Making Differential Diagnosis Differential diagnoses includes but is not limited to pneumonia, bronchitis, COPD/Asthma exacerbation, pneumothorax, pulmonary embolism, congestive heart failure, acute coronary syndrome Medical Records Attestation: I reviewed the patient's medical records. Home Medications Current Medication List: was personally reviewed by me Laboratory Data Attestation: I reviewed the patient's lab results. Result diagrams: 11/20/18 15:57 11/20/18 15:57 Lab Results 11/20/18 11/20/18 11/20/18 Range/Units 15:57 15:57 15:57 WBC 6.48 (4.8-10.8) K/uL RBC 3.54 L (4.7-6.1) M/uL Hgb 11.4 L (14.0-18.0) g/dL Hct 35.6 L (42-52) % MCV 100.6 H (80-100) fL MCH 32.2 (25-34) pg MCHC 32.0 (32-36) g/dL RDW Std Deviation 60.0 H (36.4-46.3) fL RDW Coeff of Reed 16.3 H (11.5-14.5) % Plt Count 198 (130-400) K/uL MPV 10.4 (7.4-10.4) fL Immature Gran % (Auto) 0.6 % Neut % (Auto) 81.4 % Lymph % (Auto) 9.4 % Quay % (Auto) 7.6 % Eos % (Auto) 0.8 % Baso % (Auto) 0.2 % Immature Gran # (Auto) 0.04 H (0.00-0.02) K/uL Neut # (Auto) 5.28 (1.4-6.5) K/uL Lymph # (Auto) 0.61 L (1.2-3.4) K/uL Quay # (Auto) 0.49 (0.11-0.59) K/uL Eos # (Auto) 0.05 (0-0.5) K/uL Baso # (Auto) 0.01 (0-0.2) K/uL Absolute Nucleated RBC 0.07 H (0-0) K/uL Nucleated RBC % (auto) 1.1 % PT 14.3 H (9.0-12.0) Seconds INR 1.4 H (0.9-1.1) APTT 29.3 (21.0-31.0) Seconds PTT Ratio 1.1 Sodium 140 (136-145) mmol/L Potassium 3.3 L (3.5-5.1) mmol/L Chloride 101 (98-107) mmol/L Carbon Dioxide 31 (21-32) mmol/L Anion Gap 8.0 (3-11) BUN 45 H (7-18) mg/dl Creatinine 2.13 H (0.6-1.4) mg/dl Est Cr Clr Drug Dosing 30.5 ml/min Est GFR ( Amer) 33.8 Est GFR (Non-Af Amer) 29.2 BUN/Creatinine Ratio 21.1 H (10-20) Glucose 97 (70-99) mg/dl Calcium 9.1 (8.5-10.1) mg/dl Magnesium 2.1 (1.8-2.4) mg/dl Total Bilirubin 0.6 (0.2-1) mg/dl AST 32 (15-37) U/L ALT 47 (12-78) U/L Alkaline Phosphatase 94 (45-117) U/L Troponin I 0.137 H* (0-0.045) ng/ml Total Protein 6.5 (6.4-8.2) gm/dl Albumin 2.9 L (3.4-5.0) gm/dl Globulin 3.6 (2.5-4.0) gm/dl Albumin/Globulin Ratio 0.8 L (0.9-2) Urine Color Urine Appearance (Clear) Urine pH (4.5-7.5) Ur Specific [address] (1.000-1.030) Urine Protein (Negative) Urine Glucose (UA) (Negative) Urine Ketones (Negative) Urine Blood (Negative) Urine Nitrite (Negative) Urine Bilirubin (Negative) Urine Urobilinogen (Negative) Ur Leukocyte Esterase (Negative) Urine WBC (Auto) (0-5) /hpf Urine RBC (Auto) (0-4) /hpf U Hyaline Cast (Auto) (0-5) /lpf U Epithel Cells (Auto) (0-5) /lpf Urine Bacteria (Auto) (Negative) Digoxin (0.8-2.0) ng/ml 11/20/18 11/20/18 Range/Units 15:57 16:25 WBC (4.8-10.8) K/uL RBC (4.7-6.1) M/uL Hgb (14.0-18.0) g/dL Hct (42-52) % MCV (80-100) fL MCH (25-34) pg MCHC (32-36) g/dL RDW Std Deviation (36.4-46.3) fL RDW Coeff of Reed (11.5-14.5) % Plt Count (130-400) K/uL MPV (7.4-10.4) fL Immature Gran % (Auto) % Neut % (Auto) % Lymph % (Auto) % Quay % (Auto) % Eos % (Auto) % Baso % (Auto) % Immature Gran # (Auto) (0.00-0.02) K/uL Neut # (Auto) (1.4-6.5) K/uL Lymph # (Auto) (1.2-3.4) K/uL Quay # (Auto) (0.11-0.59) K/uL Eos # (Auto) (0-0.5) K/uL Baso # (Auto) (0-0.2) K/uL Absolute Nucleated RBC (0-0) K/uL Nucleated RBC % (auto) % PT (9.0-12.0) Seconds INR (0.9-1.1) APTT (21.0-31.0) Seconds PTT Ratio Sodium (136-145) mmol/L Potassium (3.5-5.1) mmol/L Chloride (98-107) mmol/L Carbon Dioxide (21-32) mmol/L Anion Gap (3-11) BUN (7-18) mg/dl Creatinine (0.6-1.4) mg/dl Est Cr Clr Drug Dosing ml/min Est GFR ( Amer) Est GFR (Non-Af Amer) BUN/Creatinine Ratio (10-20) Glucose (70-99) mg/dl Calcium (8.5-10.1) mg/dl Magnesium (1.8-2.4) mg/dl Total Bilirubin (0.2-1) mg/dl AST (15-37) U/L ALT (12-78) U/L Alkaline Phosphatase (45-117) U/L Troponin I (0-0.045) ng/ml Total Protein (6.4-8.2) gm/dl Albumin (3.4-5.0) gm/dl Globulin (2.5-4.0) gm/dl Albumin/Globulin Ratio (0.9-2) Urine Color Yellow Urine Appearance Clear (Clear) Urine pH 5.5 (4.5-7.5) Ur Specific [address] 1.017 (1.000-1.030) Urine Protein 3+ H (Negative) Urine Glucose (UA) Negative (Negative) Urine Ketones Negative (Negative) Urine Blood Trace H (Negative) Urine Nitrite Negative (Negative) Urine Bilirubin Negative (Negative) Urine Urobilinogen Negative (Negative) Ur Leukocyte Esterase Negative (Negative) Urine WBC (Auto) 1-5 (0-5) /hpf Urine RBC (Auto) 0-4 (0-4) /hpf U Hyaline Cast (Auto) 1-5 (0-5) /lpf U Epithel Cells (Auto) 5-10 H (0-5) /lpf Urine Bacteria (Auto) Negative (Negative) Digoxin 0.6 L (0.8-2.0) ng/ml Imaging Data Radiologist's Impression: Radiology results as stated below per my review and the radiologist's interpretation: XR chest 1V portable HISTORY: 78 years-old Male weakness acute weakness COMPARISON: Chest radiograph 10/22/2018 TECHNIQUE: Portable AP view of the chest FINDINGS: Cardiac silhouette is enlarged, unchanged. Calcification of the thoracic aortic arch. Prior median sternotomy. Left atrial exclusion device. Chronic interstitial opacities, predominantly within the mid and lower lung zones. No pneumothorax or large pleural effusion. Unchanged blunting of the costophrenic angles. Subsegmental left basilar opacities suggestive of atelectasis. Degenerative changes of the shoulders and spine. IMPRESSION: 1. Cardiomegaly without overt pulmonary edema. 2. Suggestion of trace pleural effusions. 3. Chronic interstitial coarsening. The above report was generated using voice recognition software. It may contain grammatical, syntax or spelling errors. Electronically signed by: Jarocho Wu M.D. 11/20/2018 4:12 PM ECG Data Attestation: I personally reviewed and interpreted this ECG as follows: Indication: SOB/dyspnea Rate (beats per minute): 87 Rhythm: atrial fibrillation Findings: + other (Diffuse T wave flattening), + PVC and + ST depression (Lateral) Comparison ECG Date: from (10/24/18) Change: no significant change Blood Pressure Blood Pressure Findings: Normal blood pressure Blood Pressure Disposition: further management by hospitalist MDM Narrative The patient is a 78-year-old male who presented to the emergency department for evaluation of shortness of breath dyspnea on exertion and lower extremity edema. The patient does have a history of cardiomyopathy. He also has a history of atrial fibrillation. The patient was treated with aspirin as well as Lasix in the emergency department. I discussed the patient's laboratory and radiographic studies with him. The patient was found to have an elevated troponin. I would be concerned that this might represent a worsening of his cardiac function. For this reason I discussed his case with the on-call [facility] hospitalist group. They have agreed to evaluate the patient in the emergency department for further management and disposition. Impression & Plan Pulmonary edema, Elevated troponin Discharge Plan Visit Data *Final* Discharge Date/Time: 11/20/18 19:40 Chief Complaint: Swelling/Edema to Extremity Stated Complaint: FLUID BUILD UP IN LEGS AND FEET ED Provider: Maurisio Connolly Discharge Problem: Pulmonary edema, Elevated troponin Patient Disposition: Admitted As Inpatient Discharge Instructions Interventions: ED Discharge Assessment Last Done: 11/20/18 19:40 Discharge Problem: Pulmonary edema Qualifiers: Chronicity: acute Qualified Code(s): J81.0 - Acute pulmonary edema The scribe's documentation has been prepared under my direction and personally reviewed by me in its entirety. I confirm that the note above accurately reflects all work, treatment, procedures, and medical decision making performed by me.
[2018-11-20 16:13] LABS: Basophils # (auto) 0.01 K/uL (0-0.2); Basophils % (auto) 0.2 %; Eosinophils # (auto) 0.05 K/uL (0-0.5); Eosinophils % (auto) 0.8 %; Hematocrit (blood only) 35.6 % (42-52); Hemoglobin 11.4 g/dL (14.0-18.0); Immature Granulocytes # (auto) 0.04 K/uL (0.00-0.02); Immature Granulocytes % (auto) 0.6 %; Lymphocytes # (auto) 0.61 K/uL (1.2-3.4); Lymphocytes % (auto) 9.4 %; Mean Corpuscular Volume 100.6 fL (80-100); Mean Platelet Volume 10.4 fL (7.4-10.4); Monocytes # (auto) 0.49 K/uL (0.11-0.59); Monocytes % (auto) 7.6 %; Neutrophils # (auto) 5.28 K/uL (1.4-6.5); Neutrophils % (auto) 81.4 %; Nucleated RBC # (auto) 0.07 K/uL (0-0); Nucleated RBC % (auto) 1.1 %; Platelet Count 198 K/uL (130-400); RDW Coefficient of Variation 16.3 % (11.5-14.5); Red Blood Count 3.54 M/uL (4.7-6.1); White Blood Count 6.48 K/uL (4.8-10.8)
--- NOTE | 2018-11-20 16:13 | XRay Report ---
XR chest 1V portable HISTORY: 78 years-old Male weakness acute weakness COMPARISON: Chest radiograph 10/22/2018 TECHNIQUE: Portable AP view of the chest FINDINGS: Cardiac silhouette is enlarged, unchanged. Calcification of the thoracic aortic arch. Prior median st ernotomy. Left atrial exclusion device. Chronic interstitial opacities, predominantly within the mid and lower lung zones. No pneumothorax or large pleural effusion. Unchanged blunting of the costophren ic angles. Subsegmental left basilar opacities suggestive of atelectasis. Degenerative changes of the shoulders and spine. IMPRESSION: 1. Cardiomegaly without overt pulmonary edema. 2. Suggestion of trace pleural effusions. 3. Chronic interstitial coarsening. The above report was generated using voice recognition software. It may contain grammatical, syntax o r spelling errors. Electronically signed by: Jarocho Wu M.D. 11/20/2018 4:12 PM
[2018-11-20 16:24] LABS: INR 1.4 (0.9-1.1); Partial Thromboplastin Ratio 1.1; Partial Thromboplastin Time 29.3 Seconds (21.0-31.0); Prothrombin Time 14.3 Seconds (9.0-12.0)
[2018-11-20 16:29] LABS: Albumin Level 2.9 gm/dl (3.4-5.0); BUN Creatinine Ratio 21.1 (10-20); Calcium 9.1 mg/dl (8.5-10.1); Creatinine Clr Calc Pharmacy 30.5 ml/min; Est GFR (African American) 33.8; Est GFR (Non-African American) 29.2; Magnesium 2.1 mg/dl (1.8-2.4); Potassium 3.3 mmol/L (3.5-5.1)
[2018-11-20 16:41] LABS: Albumin Globulin Ratio 0.8 (0.9-2); Bilirubin,Total 0.6 mg/dl (0.2-1); Globulin 3.6 gm/dl (2.5-4.0); Total Protein 6.5 gm/dl (6.4-8.2); Troponin I 0.137 ng/ml (0-0.045)
[2018-11-20 16:42] LABS: Appearance Urine Clear (Clear); Bacteria Urine Automated Negative (Negative); Bilirubin Urine Negative (Negative); Blood Urine Trace (Negative); Color Urine Yellow; Glucose Urine UA Negative (Negative); Ketones Urine Negative (Negative); Leukocyte Esterase Urine Negative (Negative); Nitrite Urine Negative (Negative); Protein Urine 3+ (Negative); RBC Urine Automated 0-4 /hpf (0-4); Specific Gravity Urine 1.017 (1.000-1.030); Urobilinogen Urine Negative (Negative); pH Urine 5.5 (4.5-7.5)
[2018-11-20] MEDS ORDERED: FUROSEMIDE 40 MG/4 ML VIAL IV STA (17:45)
[2018-11-20] MEDS ORDERED: ASPIRIN CHEW 324 MG PO STA (17:45)
[2018-11-20] MEDS ORDERED: POTASSIUM CHLORIDE 10 MEQ TABCR PO STA (17:45)
--- NOTE | 2018-11-20 18:02 | History & Physical Report ---
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 Recent admissions with type II VT owing to PNM and hypotension, hypotension due to adrenal insufficiency and asthma exacerbation. The pt presents with worsening LE edema, orthopnea and dyspnea which is pronounced with exertion. He denies CP a productive cough or fevers. Initial labs, imaging and clinical exam are consistent with volume overload. The pt reports that he recently reduced his dose of Bumex from 1mg AM/2mg HS to 2mg HS only. 1) CHF exacerbation - placed on scheduled IV Bumex at 2mg Q8H. Can reassess volume status AM. Cont metoprolol. 2) CAD - trop is elevated although not much above baseline - likely due to CHF exacerbation. Cont B damon, statin, dig. Anticoagulated with apixaban. 3) CKD IV - completed treatment with steroids and cyclosporine. renal function is approximately at baseline. We will trend while he receives additional diuresis. 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 Recent admissions with type II VT owing to PNM and hypotension, hypotension due to adrenal insufficiency and asthma exacerbation. The pt presents with worsening LE edema, orthopnea and dyspnea which is pronounced with exertion. He denies CP a productive cough or fevers. Initial labs, imaging and clinical exam are consistent with volume overload. The pt reports that he recently reduced his dose of Bumex from 1mg AM/2mg HS to 2mg HS only. PMH: 1) CKD IV - membranous glomerulonephropathy - treated with cycles of prednisone and cyclosporine. Completed tx 07/15/18 2) CAD - NSTEMI - 06/2018 3) HTN 4) HLD 5) Chronic anemia - Hb 8-9 6) Hypotensive episodes - thought due to adrenal insufficiency due to cyclosporine and prednisone treatment - etiology of hypotension now unclear 7) Paroxysmal AF - Apixaban 8) Asthma 9) Depression 10) Chronic systolic CHF - EF 45%, inferior and apical hypokinesis - echo 06/2018 Surgical: CABG 2V - ANGUIANO to LAD, SVG to OM Social: Does not drink or smoke Family: Both parents - complications of DM Allergies Allergy/AdvReac Type Severity Reaction Status Date / Time No Known Drug Allergies Allergy Unknown NONE Verified 11/20/18 16:30 Home Medications Home Medications Medication Instructions Recorded Confirmed Type albuterol sulfate [Ventolin HFA] 2 puff INHALATION QID PRN 04/08/18 11/20/18 History atorvastatin 80 mg PO HS 04/08/18 11/20/18 History finasteride 5 mg PO QPM 04/08/18 11/20/18 History paroxetine HCl 20 mg PO QPM 04/08/18 11/20/18 History potassium chloride 20 meq PO BID 30 Days #120 tab 04/25/18 11/20/18 Rx midodrine 10 mg PO AMHS #60 tab 07/30/18 11/20/18 Rx metoprolol succinate 25 mg PO QAM #30 tab 07/31/18 11/20/18 Rx Eliquis 5 mg PO BID 10/22/18 11/20/18 History albuterol sulfate 2.5 mg INHALATION QID PRN 10/22/18 11/20/18 History bumetanide 2 mg PO QAM 10/22/18 11/20/18 History digoxin 125 mcg PO Q2D 10/22/18 11/20/18 History pantoprazole 40 mg PO QAM 10/22/18 11/20/18 History tamsulosin 0.4 mg PO DAILY 10/22/18 11/20/18 History budesonide-formoterol [Symbicort] 2 puff INHALATION BID 30 Days #6 gm 10/24/18 11/20/18 Rx bumetanide 1 - 2 mg PO .QPM/UD 11/20/18 11/20/18 History Past Med/Surg History Medical History BPH (benign prostatic hyperplasia) Hyperlipidemia Hypertension (Chronic) Asthma (Chronic) Bronchitis (Inactive) - CXR appears improved from prior visit on 03/23 suggesting resolving pneumonia AV fistula Anemia Anxiety Asthma STABLE BPH (benign prostatic hyperplasia) Borderline diabetes DIET CONTROLLED CAD (coronary artery disease) CABG X2 02/2017 Chronic systolic (congestive) heart failure Elevated troponin - GERD (gastroesophageal reflux disease) CONTROLLED History of atrial fibrillation History of blood transfusion S/P SURGERY 2016 Hyperlipidemia Hypertension Lipoma On anticoagulant therapy Osteoarthritis Paroxysmal A-fib Paroxysmal A-fib Pulmonary hypertension Tremor of both hands FAMILIAL- ON PROPRANOLOL Unstable angina Surgical History History of colonoscopy History of coronary artery bypass graft CABG X2 02/2017- POST OP INFECTION/DEBRIDEMENT X 2 History of cystoscopy History of ear surgery RIGHT History of repair of rotator cuff RIGHT History of tonsillectomy Family History Father Family history of diabetes mellitus Mother Family history of diabetes mellitus Family/Other Family history of diabetes mellitus Social History Preferred Language: Lebanese Communication Ability: Effective Visual Impairment: No Limitations Beliefs That Will Affect Care: None marital status: Current Living Situation: Spouse current occupational status: retired Feels Safe at Home: Yes Smoking Status: Former smoker Tobacco Type: cigarettes Age Quit Using Tobacco: 22 packs per day: 0.5 Second Hand Exposure: No Hx Alcohol Use: No Hx Substance Use: No Review of Systems Review of Systems: Gen: Denies fevers, night sweats, rigors, fatigue, malaise, weight loss/gain ENT: Denies congestion, throat pain, hearing loss Eyes: Denies acute visual changes CV: Denies CP, palpitations. + orthopnea and exertional dyspnea Pulmonary: + SOB GI: Denies N/V, diarrhea, constipation Neuro: Denies acute or unilateral weakness, acute gait impairment, headache or acute visual changes Musculoskeletal: Denies joint pain, inflammation - worsening LE edema Endocrine: Denies polydipsia, polyuria Skin: Denies acute rashes or ulcers Physical Exam Physical Exam: General: AAO x 3, no distress, avidly eating an egg salad sandwich ENT: No erythema or exudates, no thrush Eyes: DENISHA, EOMI Head and neck: Normocephalic, atraumatic, ++JVD, neck is supple. Chest/heart: Nontender, S1,2, iRR, faint, no murmurs, no gallops Lungs: Crackles BL to mid lungs - pronounced kyphosis Abdomen: Nontender, nondistended, BS+ Neuro: AAO x 3, speech is clear, no unilateral weakness or loss of sensation, coordination intact Musculoskeletal: No joint inflammation, muscle tenderness, FROM Skin: No acute rashes or ulcers Extremities: No clubbing, cyanosis - +3 edema BL Results & Data Vital Signs (Past 12 Hours) Vital Signs Temp Pulse Pulse Resp BP BP Pulse Ox 11/20/18 17:52 88 19 146/90 H 95 11/20/18 16:24 82 20 118/72 97 11/20/18 15:05 97.5 F L 93 H 20 106/74 93 PG Care Time/CCT Total # of Minutes Spent Total Time Spent with Patient: Total time spent is greater than 50% in coordination of care (as documented) at patient's floor/unit and/or counseling patient:
[2018-11-20] MEDS ORDERED: POTASSIUM CHLORIDE 20 MEQ TABCR PO STA (18:35)
[2018-11-20] MEDS ORDERED: ALUMINUM/MAGNESIUM SUSP 30 ML UDC PO PRN (20:29)
[2018-11-20] MEDS ORDERED: ACETAMINOPHEN 325 MG TAB PO PRN (20:29)
[2018-11-20] MEDS ORDERED: ALBUTEROL 0.083% NEBU SOLN 3 ML VIAL INH PRN (20:29)
[2018-11-20] MEDS ORDERED: MAGNESIUM HYDROXIDE SUSP 30 ML UDC PO PRN (20:29)
[2018-11-20] MEDS ORDERED: POLYETHYLENE (MIRALAX) 17 GM PACK PO PRN (20:29)
[2018-11-20] MEDS ORDERED: ONDANSETRON INJ 2 MG/ML 2 ML VIAL IV PRN (20:29)
[2018-11-20] MEDS: BUDESONIDE/FORMOTEROL FUMARATE 160/4.5 60 PUFFS/INHALER INH SCH (21:12)
[2018-11-20] MEDS: ATORVASTATIN 40 MG TAB PO SCH (21:12)
[2018-11-20] MEDS: MIDODRINE HCL 2.5 MG TAB PO SCH (21:12)
[2018-11-20] MEDS: POTASSIUM CHLORIDE 10 MEQ TABCR PO SCH (21:13)
[2018-11-20] MEDS: APIXABAN 5 MG TABLET PO SCH (21:14)
[2018-11-20] MEDS: FINASTERIDE 5 MG TAB PO SCH (21:14)
[2018-11-20] MEDS: PARoxetine HCl 20 MG TAB PO SCH (21:14)
[2018-11-21] MEDS: BUMETANIDE 2 MG in SYRINGE 0 ML IV SCH ×4 (00:01→22:33)
[2018-11-21 08:15] LABS: Basophils # (auto) 0.01 K/uL (0-0.2); Basophils % (auto) 0.2 %; Eosinophils # (auto) 0.07 K/uL (0-0.5); Eosinophils % (auto) 1.1 %; Hematocrit (blood only) 35.4 % (42-52); Hemoglobin 11.3 g/dL (14.0-18.0); Immature Granulocytes # (auto) 0.05 K/uL (0.00-0.02); Immature Granulocytes % (auto) 0.8 %; Lymphocytes # (auto) 0.61 K/uL (1.2-3.4); Lymphocytes % (auto) 9.2 %; Mean Corpuscular Hgb Conc 31.9 g/dL (32-36); Mean Corpuscular Volume 100.3 fL (80-100); Mean Platelet Volume 10.1 fL (7.4-10.4); Monocytes # (auto) 0.44 K/uL (0.11-0.59); Monocytes % (auto) 6.6 %; Neutrophils # (auto) 5.46 K/uL (1.4-6.5); Neutrophils % (auto) 82.1 %; Nucleated RBC # (auto) 0.04 K/uL (0-0); Nucleated RBC % (auto) 0.7 %; Platelet Count 177 K/uL (130-400); RDW Coefficient of Variation 16.5 % (11.5-14.5); RDW Standard Deviation 59.4 fL (36.4-46.3); Red Blood Count 3.53 M/uL (4.7-6.1); White Blood Count 6.64 K/uL (4.8-10.8)
[2018-11-21] MEDS: MIDODRINE HCL 2.5 MG TAB PO SCH ×2 (08:40→22:32)
[2018-11-21] MEDS: PANTOprazole 40 MG TAB PO SCH (08:40)
[2018-11-21] MEDS: METOPROLOL SUCC 25MG EXT REL TAB PO SCH (08:40)
[2018-11-21] MEDS: POTASSIUM CHLORIDE 10 MEQ TABCR PO SCH ×2 (08:40→22:31)
[2018-11-21] MEDS: POTASSIUM CHLORIDE 20 MEQ TABCR PO SCH (08:40)
[2018-11-21] MEDS: APIXABAN 5 MG TABLET PO SCH ×2 (08:41→22:31)
[2018-11-21] MEDS: BUDESONIDE/FORMOTEROL FUMARATE 160/4.5 60 PUFFS/INHALER INH SCH ×2 (08:41→22:34)
[2018-11-21 08:53] LABS: BUN Creatinine Ratio 20.2 (10-20); Calcium 9.4 mg/dl (8.5-10.1); Est GFR (African American) 35.8; Est GFR (Non-African American) 30.9; Magnesium 2.1 mg/dl (1.8-2.4); Potassium 3.2 mmol/L (3.5-5.1)
[2018-11-21] MEDS ORDERED: TAMSULOSIN HCL 0.4 MG CAP PO SCH ×2 (09:00→21:00)
--- NOTE | 2018-11-21 12:34 | Hospitalist Progress Note ---
Date of Service November 21, 2018 Assessment & Plan (1) Acute on chronic systolic (congestive) heart failure: Acute on chronic systolic CHF. Echo in 07/2018 showed EF 35-40% with moderate global LV dysfunction. Likely from dietary changes and stopping his AM Bumex. - Continue IV Bumex at 2mg Q8H - Monitor I&Os, weights (2) CAD, multiple vessel: S/p CABG. Trop was elevated on admission, though not much above baseline - likely due to CHF exacerbation. - Cont beta-damon, statin, digoxin (3) Hypotension: Episodes of low BP. - Continue midodrine AMHS - Monitor BP (4) Paroxysmal atrial fibrillation: In afib on EKG on admission. 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 Completed treatment with steroids and cyclosporine. - Baseline Cr is ~2. - We will trend while he receives additional diuresis. (6) Depression: No mood issues at present. - Continue paroxetine (7) BPH (benign prostatic hyperplasia): No LUTS at present. - Continue tamsulosin (8) DVT prophylaxis: Apixiban for afib Subjective Feeling well this morning. Breathing improved. Able to lie flat. Swelling improved. Review of Systems Review of Systems: All systems reviewed & are unremarkable except as noted in HPI & below Physical Exam Constitutional: WD/WN, vitals as above Eyes: EOM intact bilaterally; no conjunctival abnormality ENMT: external ear and nose normal, oropharynx normal Neck: trachea midline, no thyromegaly normal visual inspection Respiratory: normal respiratory effort, lungs clear to auscultation no respiratory distress Cardiovascular: Rate/Rhythm: regular rate Heart Sounds: normal S1 and normal S2 Extremities: + edema (Mild) Gastrointestinal (Abdomen): Inspection/Auscultation: abdomen normal to inspection; abdomen not distended Musculoskeletal: no cyanosis or clubbing, extremities motor strength 5/5 Skin: no rashes, warm and dry Neurologic: moves all extremities and awake Psychiatric: Orientation: alert, oriented to person and cooperative Results & Data Vital Signs (Past 12 Hours) Vital Signs Temp Pulse Resp BP Pulse Ox 11/21/18 10:37 36.5 C 97 H 17 120/74 93 11/21/18 07:02 37.0 C 93 H 18 116/82 95 11/21/18 04:05 37.0 C 90 19 124/68 98 PG Care Time/CCT Total # of Minutes Spent Total Time Spent with Patient: Total time spent is greater than 50% in coordination of care (as documented) at patient's floor/unit and/or counseling patient: (1) BPH (benign prostatic hyperplasia) Lower urinary tract symptom presence: unspecified whether lower urinary tract symptoms present Qualified Code(s): N40.0 - Benign prostatic hyperplasia without lower urinary tract symptoms
[2018-11-21] MEDS ORDERED: DIGOXIN 0.125 MG TAB PO SCH (16:00)
[2018-11-21] MEDS ORDERED: FLUTICASONE PROPIONATE NA SPR 16 GM BTL SCH (21:00)
[2018-11-21] MEDS: FINASTERIDE 5 MG TAB PO SCH (22:31)
[2018-11-21] MEDS: PARoxetine HCl 20 MG TAB PO SCH (22:32)
[2018-11-21] MEDS: ATORVASTATIN 40 MG TAB PO SCH (22:32)
[2018-11-22 06:31] LABS: BUN Creatinine Ratio 17.8 (10-20); Calcium 8.7 mg/dl (8.5-10.1); Creatinine Clr Calc Pharmacy 35.1 ml/min; Est GFR (African American) 40.1; Est GFR (Non-African American) 34.6; Potassium 2.7 mmol/L (3.5-5.1)
[2018-11-22] MEDS ORDERED: POTASSIUM CHLORIDE 20 MEQ TABCR PO ONE (07:15)
[2018-11-22] MEDS: APIXABAN 5 MG TABLET PO SCH (08:03)
[2018-11-22] MEDS: MIDODRINE HCL 2.5 MG TAB PO SCH (08:03)
[2018-11-22] MEDS: BUDESONIDE/FORMOTEROL FUMARATE 160/4.5 60 PUFFS/INHALER INH SCH (08:03)
[2018-11-22] MEDS: METOPROLOL SUCC 25MG EXT REL TAB PO SCH (08:03)
[2018-11-22] MEDS: POTASSIUM CHLORIDE 10 MEQ TABCR PO SCH (08:04)
[2018-11-22] MEDS: POTASSIUM CHLORIDE 20 MEQ TABCR PO SCH (08:04)
[2018-11-22] MEDS: PANTOprazole 40 MG TAB PO SCH (08:06)
[2018-11-22] MEDS ORDERED: BUMETANIDE 2 MG in SYRINGE 0 ML IV ONE (11:00)
--- NOTE | 2018-11-22 14:13 | Discharge Summary ---
Date of Service November 22, 2018 Admission HPI Per Admitting Provider 77 y/o M Hx CKD IV owing to membranous glomerulonephropathy, CAD - recent NSTEMI, HTN, HLD, chronic anemia, BPH, hypotensive episodes, paroxysmal AF, systolic CHF - 45%, asthma, depression, chronic troponin elevation. Recent admissions with type II MT owing to PNM and hypotension, hypotension due to adrenal insufficiency and asthma exacerbation. The pt presents with worsening LE edema, orthopnea and dyspnea which is pronounced with exertion. He denies CP a productive cough or fevers. Initial labs, imaging and clinical exam are consistent with volume overload. The pt reports that he recently reduced his dose of Bumex from 1mg AM/2mg HS to 2mg HS only. PMH: 1) CKD IV - membranous glomerulonephropathy - treated with cycles of prednisone and cyclosporine. Completed tx 07/15/18 2) CAD - NSTEMI - 06/2018 3) HTN 4) HLD 5) Chronic anemia - Hb 8-9 6) Hypotensive episodes - thought due to adrenal insufficiency due to cyclosporine and prednisone treatment - etiology of hypotension now unclear 7) Paroxysmal AF - Apixaban 8) Asthma 9) Depression 10) Chronic systolic CHF - EF 45%, inferior and apical hypokinesis - echo 06/2018 Surgical: CABG 2V - ANGUIANO to LAD, SVG to OM Social: Does not drink or smoke Family: Both parents - complications of DM Principal Diagnosis CHF exacerbation Discharge Exam Constitutional WD/WN, vitals as above Eyes EOM intact bilaterally; no conjunctival abnormality ENMT external ear and nose normal, oropharynx normal Neck trachea midline, no thyromegaly normal visual inspection Respiratory normal respiratory effort, lungs clear to auscultation no respiratory distress Cardiovascular Rate/Rhythm: regular rate Heart Sounds: normal S1 and normal S2 Extremities: + edema (Mild) Gastrointestinal (Abdomen) Inspection/Auscultation: abdomen normal to inspection; abdomen not distended Musculoskeletal no cyanosis or clubbing, extremities motor strength 5/5 Skin no rashes, warm and dry Neurologic moves all extremities and awake Psychiatric Orientation: alert, oriented to person and cooperative Discharge Data Allergies Allergy/AdvReac Type Severity Reaction Status Date / Time No Known Drug Allergies Allergy Unknown NONE Verified 11/20/18 16:30 Consultations 11/20/18 18:48 ED Decision to Admit Stat Hospital Course (1) Acute on chronic systolic (congestive) heart failure: Acute on chronic systolic CHF. Echo in 07/2018 showed EF 35-40% with moderate global LV dysfunction. Likely from dietary changes and stopping his AM Bumex. - Continue IV Bumex at 2mg Q8H - Monitor I&Os, weights -> On 11/22, he was near his baseline weight, on his home O2, and at baseline from how he felt. Encouraged to follow up with CHF Clinic given his frequent re- admissions and to take his Bumex 2mg PO BID and monitor his weight at home. (2) CAD, multiple vessel: S/p CABG. Trop was elevated on admission, though not much above baseline - likely due to CHF exacerbation. - Cont beta-damon, statin, digoxin (3) Hypotension: Episodes of low BP. - Continue midodrine AMHS - Monitor BP (4) Paroxysmal atrial fibrillation: In afib on EKG on admission. 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 Completed treatment with steroids and cyclosporine. - Baseline Cr is ~2. - On discharge, his Cr was 1.85. (6) Depression: No mood issues at present. - Continue paroxetine (7) BPH (benign prostatic hyperplasia): No LUTS at present. - Continue tamsulosin & finasteride (8) DVT prophylaxis: Apixiban for afib Total Time Total Time Spent Total Time Spent (In Minutes): 35 Total Time Includes: Examination of the Patient, Discharge Planning and Communication With Other Providers Discharge Plan Discharge Items Patient Disposition: Home - Self-Care Reason For Visit: CF EXACERBATION Discharge Diagnosis: CHF exacerbation Discharge Goals: Decrease discomfort and Improve disease control Activity: Resume your previous activity Non-emergency contact: Primary Care Provider and Senior Solutions Architect Call non-emergency contact if: your symptoms worsen and your pain is not controlled Follow-up/Referrals: Chun Collins III, MD [Primary Care Provider] - Sebastián Garcia MD [Physician] - (Please call Dr. Garcia's office to schedule a follow up appointment in 1-2 weeks.) Jennie Stover PA-C [Physician Job Trainer] - 11/27/18 2:00 pm (An appointment has been made on your behalf with the [facility]F clinic. Please call the clinic with any questions or concerns. ) Diet: Heart Healthy and Low Sodium (2gm) Addtl Provider Instructions: Mr. Barrios, You were admitted to the hospital for a CHF exacerbation. We are not sure, but it seems like this was caused by changes in your fluid pill (Bumex) that may have allowed you to build up water in your legs and lungs. Please take your Bumex (bumetanide) 2 pills (2 mg) 2 times per day. The first dose is usually with breakfast, then the second is in the early afternoon. Please see Ms. Jennie Stover in the office on November 27. She will work with Dr. Garcia to help control your weights. On discharge, your weight was 178 lbs. You told us your dry weight was ~175 lbs. You can keep taking your Bumex at home and gradually lose the last few lbs. Please work with Dr. Garcia to be sure your kidney function stays stable. Prescriptions: Continued potassium chloride 10 mEq Tablet Extended Release 20 meq PO BID 30 Days Qty: 120 RF: 3 midodrine 5 mg tablet 10 mg PO AMHS Qty: 60 RF: 3 metoprolol succinate 25 mg Tablet Extended Release 24 Hr 25 mg PO QAM Qty: 30 RF: 3 tamsulosin 0.4 mg capsule 0.4 mg PO DAILY RF: 0 albuterol sulfate 2.5 mg /3 mL (0.083 %) solution for nebulization 2.5 mg inhalation QID PRN (Reason: Shortness Of Breath) RF: 0 pantoprazole 40 mg tablet,delayed release (DR/EC) 40 mg PO QAM RF: 0 bumetanide 1 mg tablet 2 mg PO QAM RF: 0 digoxin 125 mcg tablet 125 mcg PO Q2D RF: 0 Eliquis 5 mg tablet 5 mg PO BID RF: 0 Symbicort 160-4.5 mcg/actuation Hfa Aerosol Inhaler 2 puff inhalation BID 30 Days Qty: 6 RF: 3 atorvastatin 80 mg tablet 80 mg PO HS RF: 0 paroxetine HCl 20 mg tablet 20 mg PO QPM RF: 0 albuterol sulfate [Ventolin HFA] 90 mcg/actuation Hfa Aerosol Inhaler 2 puff INHALATION QID PRN (Reason: Unknown) RF: 0 finasteride 5 mg tablet 5 mg PO QPM RF: 0 Changed bumetanide 1 mg tablet 2 mg PO .QPM/UD Qty: 0 RF: 0 Stand-Alone Forms: [facility] Discharge Orders: Discharge Order (Routine); Ordered 11/22/18 Ordered By: Romario Chen Admission Data Admit Date/Time: 11/20/18 18:54 Attending Provider: Romario Chen Admit Provider: Dilshad Varghese Primary Care Provider: Chun Collins III Other Providers: Romario Chen Service: Telemetry Other Interventions: Discharge Summary Assessment (RN) Last Done: 11/22/18 12:00 DC Date/Time DO NOT enter until pt leaves facility: 11/22/18 12:59
== END 2018-11-22 12:59 | disposition home or self-care (01) | DRG 291 ==
LOC: ED 15:04 → SUATTDRO 18:54 → 2E 18:54